=== PATIENT | female | born 1930 | race Caucasian/White ===

== ENCOUNTER → 2016-07-18 | Outpatient (CLI) | payer MEDICARE ==
[~2016-07-18] MED LIST: BAYE325T12 PO; FOLI1TAB2 PO; INDA125TA PO; KLOR1TAB73 PO; LEFL1TAB4 PO; LOSA25TA8 PO; LOSA50TA20 PO; METH2.5TA PO; PRAV20TA2 PO; TYLE325T5 PO; VITA100L PO
--- NOTE | 2016-07-18 12:46 | REP ---
CHEST, TWO VIEWS: HISTORY: Cough. Comparison 06/25/2015. An increase in interstitial markings is present in the lungs. The heart is normal in size. The pulmonary vasculature is normal in appearance. Degenerative change is present in the thoracic spine. IMPRESSION: COPD. Signed by Fabricio Yeboah MD 07/18/2016 01:00 P
== END ==
LOC: M WUC 12:17
PROVIDERS: ATTEND Nurse Practitioner Family
DX: J44.9 Chronic obstructive pulmonary disease, unspecified (principal)

== ENCOUNTER 2016-07-25 19:46 | Emergency (ER) | payer MEDICARE ==
[2016-07-25] MEDS ORDERED: IBUPROFEN 600 MG TAB As Ordered ONE (20:33)
[2016-07-25 20:40] LABS: MEAN CORPUSCULAR HEMOGLOBIN 29.3 pg (27.0-33.0); MEAN CORPUSCULAR HGB CONC 30.1 g/dl (32.0-36.5); MEAN CORPUSCULAR VOLUME 97.3 fl (80.0-96.0); PLATELET COUNT, AUTOMATED 272 k/mm3 (150-450); RED CELL DISTRIBUTION WIDTH 17.5 % (11.5-14.5); WHITE BLOOD COUNT 9.3 K/mm3 (4.0-10.0)
[2016-07-25 20:41] LABS: VENOUS BASE EXCESS -2.9 (-2.0-2.0); VENOUS O2 SATURATION 81.6 % (60.0-80.0); VENOUS PARTIAL PRESSURE CO2 36.3 mmHg (38.0-50.0); VENOUS PARTIAL PRESSURE O2 49.5 mmHg (30.0-50.0); VENOUS STANDARD HCO3 21.8 MEQ/L; VENOUS TOTAL CO2 22.7 MEQ/L (24.0-28.0)
[2016-07-25 20:59] LABS: BANDS 6 % (< 11); EOSINOPHILS 4 % (0-5)
[2016-07-25 21:00] LABS: ANISOCYTOSIS 1+; POLYCHROMASIA 1+
[2016-07-25 21:04] LABS: ALBUMIN 2.6 GM/DL (3.2-5.2); ALBUMIN/GLOBULIN RATIO 0.72 (1.00-1.93); ALKALINE PHOSPHATASE 88 U/L (45-117); ALT/SGPT 18 U/L (12-78); ANION GAP 10 MEQ/L (8-16); AST/SGOT 44 U/L (15-37); BILIRUBIN,DIRECT 0.2 MG/DL (0.0-0.2); BILIRUBIN,TOTAL 0.5 MG/DL (0.2-1.0); BLOOD UREA NITROGEN 19 MG/DL (7-18); CALCIUM LEVEL 7.6 MG/DL (8.8-10.2); CARBON DIOXIDE LEVEL 19 MEQ/L (21-32); CHLORIDE LEVEL 102 MEQ/L (98-107); CREATININE FOR GFR 0.91 MG/DL (0.55-1.02); GLOMERULAR FILTRATION RATE > 60.0 (>32); GLUCOSE, FASTING 98 MG/DL (83-110); POTASSIUM SERUM 4.8 MEQ/L (3.5-5.1); SODIUM LEVEL 131 MEQ/L (136-145); TOTAL PROTEIN 6.2 GM/DL (6.4-8.2)
[2016-07-25] MEDS ORDERED: ISOVUE-370 76% 100ML VIAL (Q9967) As Ordered ONE (21:46)
--- NOTE | 2016-07-25 22:50 | REPUSA ---
CLINICAL STATEMENT: Cough, abdominal pain Technique: CT of the chest, abdomen, pelvis was performed with intravenous contrast by obtaining cont iguous axial slices from the level of the thyroid cartilage to the proximal femoral diaphyses. 3-D re construction with multiplanar reformats in coronal and sagittal projections were obtained. COMPARISON: None FINDINGS: CHEST: LOWER NECK: Visualized thyroid gland demonstrate the left lobe low-density nodule which is probable c yst. No mass, enlarged adenopathy, suspicious cystic lesion, fluid collection, free air, or evidence of an inflammatory process. LYMPH NODES: No enlarged adenopathy. MEDIASTINUM: No mass or suspicious cystic lesion. The heart is normal in size without pericardial eff usion. Aorta and pulmonary trunk are normal in caliber without aneurysmal dilatation, gross dissectio n, or central pulmonary embolus. PLEURA/PERICARDIUM: No pericardial or pleural effusion, mass, or suspicious cystic lesion LUNGS/AIRWAYS: Paraseptal emphysematous changes toward the bases. No acute infiltrate, effusion, pneu mothorax, mass, or suspicious nodule. Central and visualized peripheral airways are patent. ABDOMEN/PELVIS: LIVER: The liver is normal in size and contour without mass or suspicious cystic lesion. The portal a nd hepatic veins are patent. BILIARY SYSTEM: Status post cholecystectomy with no intrahepatic biliary ductal dilatation or calcifi ed biliary stones. CBD within normal limits. PANCREAS: The pancreas is normal in size, contour and density. No solid or cystic pancreatic mass is seen. No pancreatic duct dilatation is seen. SPLEEN: The spleen is normal in size and without mass or suspicious cystic lesion. ADRENALS: The adrenal glands are normal and anatomical configuration and size without identifiable ma ss. KIDNEYS/URETERS: The kidneys are normal in anatomical configuration, size, and enhancement with no ma ss. Bilateral subcentimeter cortical cysts. No calcified renal or ureteral calculi, or hydroureterone phrosis. URINARY BLADDER: No wall thickening, stones, or diverticula. UTERUS/ADNEXA: Absent. AORTA AND ILIAC ARTERIES: No aneurysmal dilatation. LYMPH NODES: No enlarged adenopathy. GASTROINTESTINAL: Mild thickening of ascending colon without pericolic stranding. Stomach, duodenum, and remaining bowel normal in caliber. PERITONEUM: No ascites, extraluminal air, mass, or suspicious cystic lesion. ABDOMINAL/PELVIC WALL/SOFT TISSUES: No suspicious soft tissue abnormality or hernia. OSSEOUS STRUCTURES: No acute fracture or suspicious lesion. Multilevel degenerative changes of the sp ine with endplate sclerosis, disc space narrowing and vacuum phenomenon. No spondylolisthesis. IMPRESSION: 1. No evidence of pneumonia. 2. Mild thickening of ascending colon is nonspecific although may suggest colitis in proper clinical context.
[2016-07-25] MEDS ORDERED: ALBUTEROL 90 MCG/ACT 8GM HFA INHALER As Ordered ONE (23:35)
[2016-07-25] MEDS ORDERED: methylPREDNISolone INJ 125 MG/2 ML VIAL (J2930) As Ordered ONE (23:35)
--- NOTE | 2016-07-26 00:17 | EDDOCDS ---
Nurse's Notes [facility] Name: Kristi Doshi Age: 86 yrs Sex: Female : 1930 Arrival Date: 07/25/2016 Time: 19:46 Bed 10 Private MD: Pineda Amador Diagnosis: Fever, unspecified;Chronic obstructive pulmonary disease, unspecified Presentation: 07/25 19:53 Presenting complaint: daughter states, "She spiked a temp today. I've been giving her mb9 tylenol with no help. She has been shaky and not acting right so we brought her in here. She was diagnosed with COPD and I'm wondering if she is having a flare up". Adult Sepsis Screening: Patient has new or worsening altered mentation (1 point). Patient has a respiratory rate of greater than or equal to 22 (1 point). Systolic blood pressure is greater than 100. Patient has a qSOFA score of 2. Patient has fever/chills- Positive Sepsis Screen. ED Provider Notified Sony Addison DO. Suicide/Homicide risk assessment- the patient denies having any suicidal and/or homicidal ideations and does not present with any other emotional, behavioral or mental health complaints. Status: Patient is not a underwriting service representative or dependent. Transition of care: patient was not received from another setting of care. 19:53 Acuity: MATTHIAS Level 2 mb9 19:53 Method Of Arrival: Walkin/Carried/Asstd mb9 Triage Assessment: 19:59 General: Appears in no apparent distress, Behavior is appropriate for age, cooperative. mb9 Pain: Denies pain. Respiratory: Airway is patent Respiratory effort is even, unlabored. Historical: - Allergies: No known drug Allergies; - Home Meds: 1. aspirin 81 mg Oral TbEC 1 tab once daily (Last dose: 07/25/2016) 2. folic acid 1 mg Oral tab 1 tab once daily (Last dose: 07/25/2016) 3. Iron High Potency 325 mg oral daily (Last dose: 07/25/2016) 4. leflunomide 20 mg oral tab 1 tab nightly (Last dose: 07/24/2016) 5. losartan 25 mg oral tab 1 tab nightly (Last dose: 07/24/2016) 6. pravastatin 20 mg oral tab 1 tab nightly (Last dose: 07/24/2016) 7. Tylenol 1000 mg Oral (Last dose: 07/25/2016 18:30) - PMHx: Anemia; Arthritis; CVA; Hypercholesterolemia; Hypertension; TIA; c-diff; - PSHx: Cholecystectomy; Hysterectomy; - Social history: Smoking status: Patient states former smoker of tobacco. No barriers to communication noted, The patient speaks fluent Italian. - Family history: Not pertinent. - : The pt / caregiver states he / she is not on anticoagulants. Home medication list is obtained from family members. - Exposure Risk Screening:: None identified. Screenin:14 Screening information is obtained from the patient. Fall risk: At risk due to age. kas2 Assistance ADL's: requires no assistance with activities of daily living. Abuse/DV Screen: The patient / caregiver reports he/she is: not in a situation that causes fear, pain or injury. Nutritional screening: No deficits noted. home support is adequate. 07/26 00:15 Advance Directives:. kas2 Assessment: 07/25 20:15 General: Appears in no apparent distress, comfortable, well nourished, well groomed, kas2 Behavior is appropriate for age, cooperative. Pain: Denies pain. Neurological: Level of Consciousness is awake, alert, Oriented to person, place, time, Speech is normal, Facial symmetry appears normal, Pupils are PERRLA. Cardiovascular: Capillary refill < 3 seconds Heart tones S1 S2 present Rhythm is sinus tachycardia No ectopy. Respiratory: Airway is patent Respiratory effort is even, unlabored, Respiratory pattern is regular, symmetrical, Breath sounds with crackles expiratory bilaterally. in left posterior lower lobe and right posterior lower lobe Breath sounds are diminished bilaterally. Derm: Skin is intact, is healthy with good turgor, Skin is dry, Skin is pink, warm & dry. Skin temperature is warm. 21:30 General: Patient laying in bed with family at bedside. No apparent distress noted. kas2 Patient denies pain or discomfort at this time. Airway patent and respiratory pattern even and unlabored. Call javier within reach. Will continue to monitor.. 22:45 General: Appears in no apparent distress, comfortable, Behavior is appropriate for age, kas2 cooperative. Pain: Denies pain. Neurological: Level of Consciousness is awake, alert, Oriented to person, place, time. Cardiovascular: Rhythm is sinus rhythm No ectopy. Respiratory: Airway is patent Respiratory effort is even, unlabored, Respiratory pattern is regular, symmetrical. Derm: Skin is intact, is healthy with good turgor, Skin is dry, Skin is pink, warm & dry. Skin temperature is warm. Vital Signs: 19:51 BP 104 / 56; Pulse 110; Resp 22; Temp 100.9(O); Pulse Ox 93% on R/A; Weight 52.16 kg elp (R); Height 5 ft. 0 in. (152.40 cm) (R); Pain 0/10; 20:25 BP 121 / 59 (auto/); kas2 20:25 Pulse 100 MON; Pulse Ox 93% ; kas2 22:07 BP 122 / 58 (auto/); kas2 22:07 Pulse 98 MON; kas2 22:37 BP 105 / 54 (auto/); kas2 22:37 Pulse 94 MON; kas2 22:40 Temp 98.7(O); mdr 22:52 BP 105 / 56 (auto/); kas2 22:52 Pulse 90 MON; kas2 07/26 00:15 BP 110 / 52; Pulse 89; Resp 20; Temp 98.2(O); Pulse Ox 98% on R/A; Pain 0/10; kas2 07/25 19:51 Body Mass Index 22.46 (52.16 kg, 152.40 cm) [facility] Vitals: 07/25 19:51 Log In Time: July 25, 2016 at 19:50. elp 19:52 RN notified that patient meets Red Flag criteria. [facility] ED Course: 19:50 Patient visited by Skylar Sen PCA. elp 19:50 Patient moved to Waiting elp 19:51 Pineda Amador MD is Private Physician. elp 19:52 Patient visited by Skylar Sen PCA. elp 19:53 Patient moved to Pre RCE elp 19:56 Triage Initiated mb9 20:02 Honey Ceja,RN is Primary Nurse. mb9 20:02 Aicha Barrera RN is Primary Nurse. mb9 20:02 Patient moved to 10 mb9 20:04 Sony Addison DO is Attending Physician. mm11 20:04 Patient visited by Sony Addison DO. mm11 20:18 Patient visited by Aicha Barrera RN. kas2 20:21 Patient visited by Sony Addison DO. mm11 20:29 Patient visited by Maryellen Villa RN. ttb 20:30 CRP Sent. ttb 20:30 Lactic Acid (Allison tube on ice) Sent. ttb 20:30 Liver Profile Sent. ttb 20:30 BMP Sent. ttb 20:30 CBC with Diff Sent. ttb 20:30 -Blood Culture Sent. ttb 20:30 Venous Blood Gas (large pea green tube on ice) Sent. ttb 20:30 Inserted peripheral IV: 20gauge IV in left antecubital area and blood collected. ttb Patient tolerated the procedure well. Labs drawn. (by ED staff). Labs/Blood culture drawn Urine collected. 20:31 Patient visited by Maryellen Villa RN. ttb 21:15 Patient visited by Aicha Barrera RN. kas2 21:26 BLOOD CULTURES Sent. mdr 21:45 -Influenza A&B Rapid Antigen - Nose Sent. kas2 21:48 Patient visited by Aicha Barrera RN. kas2 21:52 Patient visited by Aicha Barrera RN. kas2 22:00 [facility] Payment Agreement was scanned into [employer] and attached to record. zo 22:28 Patient visited by Aicha Barrera RN. kas2 22:40 Patient visited by Patrick Alegre PCA. mdr 22:43 Patient visited by Aicha Barrera RN. kas2 23:04 Patient visited by Aicha Barrera RN. kas2 23:39 Pineda Amador MD is Referral Physician. mm11 23:48 CT Chest With Contrast Returned. EDMS 23:48 CT ABD & PELVIS: IV Contrast Only Returned. EDMS 23:51 Primary Nurse role handed off by Honey Ceja RN sls1 07/26 00:10 DIFFERENTIAL NO CHARGE Sent. nn1 00:14 Discontinued IV bleeding controlled, pressure dressing applied, No redness/swelling at [facility] site. No procedures done that require assistance. 00:16 The patient / caregiver is instructed regarding the plan of care and ED course. [facility] Administered Medications: 07/25 20:39 Drug: Ibuprofen 600 mg [ibuprofen 600 mg tablet (1 tabs)] Route: PO; ttb 20:39 Drug: NS 0.9% 500 ml [sodium chloride 0.9 % intravenous solution] Route: IV; Rate: ttb bolus; Site: left antecubital; 21:45 Follow up: IV Status: Completed infusion; IV Intake: 500ml kas2 23:46 Drug: Ventolin 2 puffs [Ventolin HFA 90 mcg/actuation aerosol inhaler (2 puffs)] Route: cf2 Inhalation; 07/26 00:00 Follow up: pt lung sounds with bilateral LL coarse rales. bb3 07/25 23:46 Drug: Solu-MEDROL 125 mg [Solu-Medrol 500 mg intravenous solution (125 mg)] Route: IVP; cf2 Site: left antecubital; Intake: 21:45 IV: 500.00ml; Total: 500.00ml. kas2 RT: 23:58 Initial MDI Given. Unable to instruct patient due to physical barriers, bb3 family/caregiver was instructed on procedure Patient tolerated procedure well without adverse effect Spacer used Number of puffs given: 2. Respiratory: Respiratory effort is even, unlabored, Lung sounds with bilateral LL coarse rales. Patient Education: pt and instructed on MDI/spacer teaching. pt has dementia. was able to help with MDI/spacer from start to finish without any error. Order Results: Lab Order: CBC with Diff; SPEC'M 07/25/16 20:26 Test: WHITE BLOOD COUNT; Value: 9.3; Range: 4.0-10.0; Units: K/mm3; Status: F Test: RED BLOOD COUNT; Value: 3.05; Range: 4.00-5.40; Abnormal: Below low normal; Units: M/mm3; Status: F Test: HEMOGLOBIN; Value: 8.9; Range: 12.0-16.0; Abnormal: Below low normal; Units: g/dl; Status: F Test: HEMATOCRIT; Value: 29.7; Range: 36.0-47.0; Abnormal: Below low normal; Units: %; Status: F Test: MEAN CORPUSCULAR VOLUME; Value: 97.3; Range: 80.0-96.0; Abnormal: Above high normal; Units: fl; Status: F Test: MEAN CORPUSCULAR HEMOGLOBIN; Value: 29.3; Range: 27.0-33.0; Units: pg; Status: F Test: MEAN CORPUSCULAR HGB CONC; Value: 30.1; Range: 32.0-36.5; Abnormal: Below low normal; Units: g/dl; Status: F Test: RED CELL DISTRIBUTION WIDTH; Value: 17.5; Range: 11.5-14.5; Abnormal: Above high normal; Units: %; Status: F Test: PLATELET COUNT, AUTOMATED; Value: 272; Range: 150-450; Units: k/mm3; Status: F Test: NEUTROPHILS; Value: 70; Range: 35-75; Units: %; Status: F Test: BANDS; Value: 6; Range: < 11; Units: %; Status: F Test: LYMPHOCYTES; Value: 8; Range: 16-52; Abnormal: Below low normal; Units: %; Status: F Test: MONOCYTES; Value: 12; Range: 0-8; Abnormal: Above high normal; Units: %; Status: F Test: EOSINOPHILS; Value: 4; Range: 0-5; Units: %; Status: F Test: POLYCHROMASIA; Value: 1+; Status: F Test: ANISOCYTOSIS; Value: 1+; Status: F Lab Order: [facility]; SPEC'M 07/25/16 20:26 Test: GLUCOSE, FASTING; Value: 98; Range: 83-110; Units: MG/DL; Status: F Test: BLOOD UREA NITROGEN; Value: 19; Range: 7-18; Abnormal: Above high normal; Units: MG/DL; Status: F Test: CREATININE FOR GFR; Value: 0.91; Range: 0.55-1.02; Units: MG/DL; Status: F Test: GLOMERULAR FILTRATION RATE; Value: > 60.0; Range: >32; Status: F Test: SODIUM LEVEL; Value: 131; Range: 136-145; Abnormal: Below low normal; Units: MEQ/L; Status: F Test: POTASSIUM SERUM; Value: 4.8; Range: 3.5-5.1; Units: MEQ/L; Status: F Test: CHLORIDE LEVEL; Value: 102; Range: 98-107; Units: MEQ/L; Status: F Test: CARBON DIOXIDE LEVEL; Value: 19; Range: 21-32; Abnormal: Below low normal; Units: MEQ/L; Status: F Test: ANION GAP; Value: 10; Range: 8-16; Units: MEQ/L; Status: F Test: CALCIUM LEVEL; Value: 7.6; Range: 8.8-10.2; Abnormal: Below low normal; Units: MG/DL; Status: F Test Note: ; Units are mL/min/1.73 m2 Chronic Kidney Disease Staging per NKF: Stage I & II GFR >=60 Normal to Mildly Decreased Stage III GFR 30-59 Moderately Decreased Stage IV GFR 15-29 Severely Decreased Stage V GFR <15 Very Little GFR Left ESRD GFR <15 on PRODUCTION HAND Lab Order: Liver Profile; SPEC07/25/16 20:26 Test: AST/SGOT; Value: 44; Range: 15-37; Abnormal: Above high normal; Units: U/L; Status: F Test: ALT/SGPT; Value: 18; Range: 12-78; Units: U/L; Status: F Test: ALKALINE PHOSPHATASE; Value: 88; Range: 45-117; Units: U/L; Status: F Test: BILIRUBIN,TOTAL; Value: 0.5; Range: 0.2-1.0; Units: MG/DL; Status: F Test: BILIRUBIN,DIRECT; Value: 0.2; Range: 0.0-0.2; Units: MG/DL; Status: F Test: TOTAL PROTEIN; Value: 6.2; Range: 6.4-8.2; Abnormal: Below low normal; Units: GM/DL; Status: F Test: ALBUMIN; Value: 2.6; Range: 3.2-5.2; Abnormal: Below low normal; Units: GM/DL; Status: F Test: ALBUMIN/GLOBULIN RATIO; Value: 0.72; Range: 1.00-1.93; Abnormal: Below low normal; Status: F Lab Order: Lactic Acid (Allison tube on ice); SPEC07/25/16 20:26 Test: LACTIC ACID LEVEL, LACTATE; Value: 1.6; Range: 0.4-2.0; Units: MMOL/L; Status: F Lab Order: CRP; 07/25/16 20:26 Test: C REACTIVE PROTEIN QUANTITATIV; Value: 3.35; Range: 0.00-0.30; Abnormal: Above high normal; Units: MG/DL; Status: F Lab Order: Venous Blood Gas (large pea green tube on ice); SPEC07/25/16 20:26 Test: VENOUS PH; Value: 7.393; Range: 7.330-7.430; Units: UNITS; Status: F Test: VENOUS PARTIAL PRESSURE CO2; Value: 36.3; Range: 38.0-50.0; Abnormal: Below low normal; Units: mmHg; Status: F Test: VENOUS PARTIAL PRESSURE O2; Value: 49.5; Range: 30.0-50.0; Units: mmHg; Status: F Test: VENOUS TOTAL CO2; Value: 22.7; Range: 24.0-28.0; Abnormal: Below low normal; Units: MEQ/L; Status: F Test: VENOUS HCO3; Value: 21.6; Range: 23.0-27.0; Abnormal: Below low normal; Units: MEQ/L; Status: F Test: VENOUS BASE EXCESS; Value: -2.9; Range: -2.0-2.0; Abnormal: Below low normal; Status: F Test: VENOUS STANDARD HCO3; Value: 21.8; Units: MEQ/L; Status: F Test: VENOUS O2 SATURATION; Value: 81.6; Range: 60.0-80.0; Abnormal: Above high normal; Units: %; Status: F Lab Order: UA; SPEC'M 07/25/16 21:49 Test: APPEARANCE, URINE; Value: HAZY; Range: CLEAR; Status: F Test: COLOR, URINE; Value: YELLOW; Range: YELLOW; Status: F Test: PH,URINE; Value: 5.0; Range: 5.0-9.0; Units: UNITS; Status: F Test: SPECIFIC GRAVITY URINE AUTO; Value: 1.013; Range: 1.002-1.035; Status: F Test: PROTEIN, URINE AUTO; Value: 1+; Range: NEGATIVE; Abnormal: Above high normal; Units: mg/dL; Status: F Test: GLUCOSE, URINE (UA) AUTO; Value: NEGATIVE; Range: NEGATIVE; Units: mg/dL; Status: F Test: KETONE, URINE AUTO; Value: NEGATIVE; Range: NEGATIVE; Units: mg/dL; Status: F Test: UROBILINOGEN, URINE AUTO; Value: 0.2; Range: 0.0-2.0; Units: mg/dL; Status: F Test: BILIRUBIN, URINE AUTO; Value: NEGATIVE; Range: NEGATIVE; Status: F Test: NITRITE, URINE AUTO; Value: NEGATIVE; Range: NEGATIVE; Status: F Test: LEUKOCYTE ESTERASE, URINE AUTO; Value: 3+; Range: NEGATIVE; Abnormal: Above high normal; Status: F Test: BLOOD, URINE BLOOD; Value: NEGATIVE; Range: NEGATIVE; Status: F Test: WBC, URINE AUTO; Value: 33; Range: 0-3; Abnormal: Above high normal; Units: /HPF; Status: F Test: RBC, URINE AUTO; Value: 3; Range: 0-3; Units: /HPF; Status: F Test: BACTERIA, URINE AUTO; Value: 1+; Range: NEGATIVE; Abnormal: Above high normal; Status: F Test: SQUAMOUS EPITHELIAL CELL UR AU; Value: 10; Range: 0-6; Units: /HPF; Status: F Test: MUCUS, URINE; Value: SMALL; Range: NEGATIVE; Status: F Test: HYALINE CAST, URINE AUTO; Value: 0; Range: 0-1; Units: /LPF; Status: F Lab Order: -Influenza A&B Rapid Antigen - Nose; SPEC'M 07/25/16 21:27 Test: INFLUENZA A RAPID SCR by ICA; Value: INFLUENZA A RESULTS NEGATIVE; Status: F Test: INFLUENZA A RAPID SCR by ICA; Value: Comments:; Status: F Test: INFLUENZA B RAPID SCR by ICA; Value: INFLUENZA B RESULTS NEGATIVE; Status: F Test Note: ; The Influenza test is a direct rapid immunoassay for the qualitative detection of Influenza viral antigen. Cell culture (Viral Culture) testing should be considered to confirm NEGATIVE results and to assist in detecting other viruses that can provide similar clinical symptoms. Please contact the lab within 24 hours ([phone]) if confirmatory testing is desired. Lab Order: PLATELET ESTIMATE; SPEC'M 07/25/16 20:26 Test: PLATELET ESTIMATE; Value: NORMAL; Range: NORMAL; Status: F Radiology Order: CT Chest With Contrast Test: CT Chest With Contrast REASON FOR EXAMINATION: Cough; ; CLINICAL STATEMENT: Cough, abdominal pain; Technique: CT of the chest, abdomen, pelvis was performed with intravenous contrast by obtaining cont; iguous axial slices from the level of the thyroid cartilage to the proximal femoral diaphyses. 3-D re; construction with multiplanar reformats in coronal and sagittal projections were obtained.; COMPARISON: None; FINDINGS:; CHEST:; LOWER NECK: Visualized thyroid gland demonstrate the left lobe low-density nodule which is probable c; yst. No mass, enlarged adenopathy, suspicious cystic lesion, fluid collection, free air, or evidence; of an inflammatory process.; LYMPH NODES: No enlarged adenopathy.; MEDIASTINUM: No mass or suspicious cystic lesion. The heart is normal in size without pericardial eff; usion. Aorta and pulmonary trunk are normal in caliber without aneurysmal dilatation, gross dissectio; n, or central pulmonary embolus.; PLEURA/PERICARDIUM: No pericardial or pleural effusion, mass, or suspicious cystic lesion; LUNGS/AIRWAYS: Paraseptal emphysematous changes toward the bases. No acute infiltrate, effusion, pneu; mothorax, mass, or suspicious nodule. Central and visualized peripheral airways are patent.; ABDOMEN/PELVIS:; LIVER: The liver is normal in size and contour without mass or suspicious cystic lesion. The portal a; nd hepatic veins are patent.; BILIARY SYSTEM: Status post cholecystectomy with no intrahepatic biliary ductal dilatation or calcifi; ed biliary stones. CBD within normal limits.; PANCREAS: The pancreas is normal in size, contour and density. No solid or cystic pancreatic mass is; seen. No pancreatic duct dilatation is seen.; SPLEEN: The spleen is normal in size and without mass or suspicious cystic lesion.; ADRENALS: The adrenal glands are normal and anatomical configuration and size without identifiable ma; ss.; KIDNEYS/URETERS: The kidneys are normal in anatomical configuration, size, and enhancement with no ma; ss. Bilateral subcentimeter cortical cysts. No calcified renal or ureteral calculi, or hydroureterone; phrosis.; URINARY BLADDER: No wall thickening, stones, or diverticula.; UTERUS/ADNEXA: Absent.; AORTA AND ILIAC ARTERIES: No aneurysmal dilatation.; LYMPH NODES: No enlarged adenopathy.; GASTROINTESTINAL: Mild thickening of ascending colon without pericolic stranding. Stomach, duodenum,; and remaining bowel normal in caliber.; PERITONEUM: No ascites, extraluminal air, mass, or suspicious cystic lesion.; ABDOMINAL/PELVIC WALL/SOFT TISSUES: No suspicious soft tissue abnormality or hernia.; OSSEOUS STRUCTURES: No acute fracture or suspicious lesion. Multilevel degenerative changes of the sp; ine with endplate sclerosis, disc space narrowing and vacuum phenomenon. No spondylolisthesis.; IMPRESSION:; 1. No evidence of pneumonia.; 2. Mild thickening of ascending colon is nonspecific although may suggest colitis in proper clinical; context.; ; Radiology Order: CT ABD & PELVIS: IV Contrast Only Test: CT ABD & PELVIS: IV Contrast Only REASON FOR EXAMINATION: c diff, fevers; ; CLINICAL STATEMENT: Cough, abdominal pain; Technique: CT of the chest, abdomen, pelvis was performed with intravenous contrast by obtaining cont; iguous axial slices from the level of the thyroid cartilage to the proximal femoral diaphyses. 3-D re; construction with multiplanar reformats in coronal and sagittal projections were obtained.; COMPARISON: None; FINDINGS:; CHEST:; LOWER NECK: Visualized thyroid gland demonstrate the left lobe low-density nodule which is probable c; yst. No mass, enlarged adenopathy, suspicious cystic lesion, fluid collection, free air, or evidence; of an inflammatory process.; LYMPH NODES: No enlarged adenopathy.; MEDIASTINUM: No mass or suspicious cystic lesion. The heart is normal in size without pericardial eff; usion. Aorta and pulmonary trunk are normal in caliber without aneurysmal dilatation, gross dissectio; n, or central pulmonary embolus.; PLEURA/PERICARDIUM: No pericardial or pleural effusion, mass, or suspicious cystic lesion; LUNGS/AIRWAYS: Paraseptal emphysematous changes toward the bases. No acute infiltrate, effusion, pneu; mothorax, mass, or suspicious nodule. Central and visualized peripheral airways are patent.; ABDOMEN/PELVIS:; LIVER: The liver is normal in size and contour without mass or suspicious cystic lesion. The portal a; nd hepatic veins are patent.; BILIARY SYSTEM: Status post cholecystectomy with no intrahepatic biliary ductal dilatation or calcifi; ed biliary stones. CBD within normal limits.; PANCREAS: The pancreas is normal in size, contour and density. No solid or cystic pancreatic mass is; seen. No pancreatic duct dilatation is seen.; SPLEEN: The spleen is normal in size and without mass or suspicious cystic lesion.; ADRENALS: The adrenal glands are normal and anatomical configuration and size without identifiable ma; ss.; KIDNEYS/URETERS: The kidneys are normal in anatomical configuration, size, and enhancement with no ma; ss. Bilateral subcentimeter cortical cysts. No calcified renal or ureteral calculi, or hydroureterone; phrosis.; URINARY BLADDER: No wall thickening, stones, or diverticula.; UTERUS/ADNEXA: Absent.; AORTA AND ILIAC ARTERIES: No aneurysmal dilatation.; LYMPH NODES: No enlarged adenopathy.; GASTROINTESTINAL: Mild thickening of ascending colon without pericolic stranding. Stomach, duodenum,; and remaining bowel normal in caliber.; PERITONEUM: No ascites, extraluminal air, mass, or suspicious cystic lesion.; ABDOMINAL/PELVIC WALL/SOFT TISSUES: No suspicious soft tissue abnormality or hernia.; OSSEOUS STRUCTURES: No acute fracture or suspicious lesion. Multilevel degenerative changes of the sp; ine with endplate sclerosis, disc space narrowing and vacuum phenomenon. No spondylolisthesis.; IMPRESSION:; 1. No evidence of pneumonia.; 2. Mild thickening of ascending colon is nonspecific although may suggest colitis in proper clinical; context.; ; Outcome: 23:39 Discharge ordered by Provider. mm11 07/26 00:15 Discharge Assessment: patient administered narcotics - no. The following High Risk [facility] Discharge criteria are identified: None. Discharged to home ambulatory, with family. Condition: good Condition: stable Condition: improved. CT Study completed. Property :Personal belongings accompany Pt. 00:16 Patient left the ED. [facility] Signatures: Dispatcher [employer] EDMS Jamal Myles Matthew, DO DO mm11 Osmar Lucia bb3 Karen Navarro, RN RN sls1 Maryellen Villa RN RN ttSkylar Alvarado, LEAD JAVA DEVELOPER ARCHITECT LEAD JAVA DEVELOPER ARCHITECT Bora Whitney,RN RN mb9 Mir Wilkerson,RN RN nn1 Patrick Alegre, LEAD JAVA DEVELOPER ARCHITECT LEAD JAVA DEVELOPER ARCHITECT Aicha Soni RN RN kas2 Omayra Michaud,RN RN cf2 MTDD
--- NOTE | 2016-07-26 00:17 | EDDOCDS ---
Physician Documentation [facility] Name: Kristi Doshi Age: 86 yrs Sex: Female : 1930 Arrival Date: 07/25/2016 Time: 19:46 Bed 10 Private MD: Pineda Amador Disposition: 07/25/16 23:39 Discharged to Home/Self Care. Impression: Fever, unspecified, Chronic obstructive pulmonary disease, unspecified. - Condition is Stable. - Discharge Instructions: Chronic Obstructive Pulmonary Disease, Fever, Adult. - Prescriptions for Prednisone 20 mg Oral Tablet - take 2 tablet by ORAL route once daily for 5 days; 10 tablet. - Medication Reconciliation, Local Pharmacy Hours form. - Follow up: Pineda Amador MD; When: As previously arranged; Reason: Continuance of care. - Problem is an acute exacerbation. - Symptoms have improved. Historical: - Allergies: No known drug Allergies; - Home Meds: 1. aspirin 81 mg Oral TbEC 1 tab once daily (Last dose: 07/25/2016) 2. folic acid 1 mg Oral tab 1 tab once daily (Last dose: 07/25/2016) 3. Iron High Potency 325 mg oral daily (Last dose: 07/25/2016) 4. leflunomide 20 mg oral tab 1 tab nightly (Last dose: 07/24/2016) 5. losartan 25 mg oral tab 1 tab nightly (Last dose: 07/24/2016) 6. pravastatin 20 mg oral tab 1 tab nightly (Last dose: 07/24/2016) 7. Tylenol 1000 mg Oral (Last dose: 07/25/2016 18:30) - PMHx: Anemia; Arthritis; CVA; Hypercholesterolemia; Hypertension; TIA; c-diff; - PSHx: Cholecystectomy; Hysterectomy; - Social history: Smoking status: Patient states former smoker of tobacco. No barriers to communication noted, The patient speaks fluent Swiss. - Family history: Not pertinent. - : The pt / caregiver states he / she is not on anticoagulants. Home medication list is obtained from family members. - Exposure Risk Screening:: None identified. Vital Signs: 07/25 19:51 BP 104 / 56; Pulse 110; Resp 22; Temp 100.9(O); Pulse Ox 93% on R/A; Weight 52.16 kg / elp 114.99 lbs (R); Height 5 ft. 0 in. (152.40 cm) (R); Pain 0/10; 20:25 BP 121 / 59 (auto/); kas2 20:25 Pulse 100 MON; Pulse Ox 93% ; kas2 22:07 BP 122 / 58 (auto/); kas2 22:07 Pulse 98 MON; kas2 22:37 BP 105 / 54 (auto/); kas2 22:37 Pulse 94 MON; kas2 22:40 Temp 98.7(O); mdr 22:52 BP 105 / 56 (auto/); kas2 22:52 Pulse 90 MON; kas2 07/26 00:15 BP 110 / 52; Pulse 89; Resp 20; Temp 98.2(O); Pulse Ox 98% on R/A; Pain 0/10; kas2 07/25 19:51 Body Mass Index 22.46 (52.16 kg, 152.40 cm) elp MDM: 07/25 20:26 -Blood Culture (Adults Only), peripheral from different site, or from device/port/PICC mm11 etc. if present ordered. 20:26 IV Saline Lock ordered. mm11 20:26 Ibuprofen 600 mg PO once ordered. mm11 20:28 Chest, 1 View Ordered. EDMS 20:28 CBC with Diff Ordered. EDMS 20:28 BMP Ordered. EDMS 20:28 Liver Profile Ordered. EDMS 20:28 Lactic Acid (Allison tube on ice) Ordered. EDMS 20:28 CRP Ordered. EDMS 20:28 -Blood Culture Ordered. EDMS 20:28 Venous Blood Gas (large pea green tube on ice) Ordered. EDMS 20:28 UA Ordered. EDMS 20:28 Urine Culture Ordered. EDMS 20:28 -Blood Culture (Adults Only), peripheral from different site, or from device/port/PICC kb5 etc. if present complete. 20:29 BLOOD CULTURES Ordered. EDMS 20:34 NS 0.9% 500 ml IV at bolus once ordered. mm11 20:41 DIFFERENTIAL NO CHARGE Ordered. EDMS 20:42 PLATELET ESTIMATE Ordered. EDMS 20:42 -Influenza A&B Rapid Antigen - Nose Ordered. EDMS 21:08 CBC with Diff Reviewed. mm11 21:08 BMP Reviewed. mm11 21:08 Liver Profile Reviewed. mm11 21:08 CRP Reviewed. mm11 21:08 Venous Blood Gas (large pea green tube on ice) Reviewed. mm11 21:08 PLATELET ESTIMATE Reviewed. mm11 21:32 Lactic Acid (Allison tube on ice) Reviewed. mm11 21:38 CT Chest With Contrast Ordered. EDMS 21:38 CT ABD & PELVIS: IV Contrast Only Ordered. EDMS 21:54 Financial registration complete. zo 22:00 [facility] Payment Agreement was scanned into [employer] and attached to record. zo 22:10 UA Reviewed. mm11 22:10 -Influenza A&B Rapid Antigen - Nose Reviewed. mm11 22:30 Oral Temp ordered. mm11 23:26 Ventolin Inhaler 2 puffs Inhalation once; [id number] prn sob ordered. mm11 23:26 MDI teaching with Spacer ordered. mm11 23:26 Solu-MEDROL 125 mg IVP once ordered. mm11 Administered Medications: 20:39 Drug: Ibuprofen 600 mg [ibuprofen 600 mg tablet (1 tabs)] Route: PO; ttb 20:39 Drug: NS 0.9% 500 ml [sodium chloride 0.9 % intravenous solution] Route: IV; Rate: ttb bolus; Site: left antecubital; 21:45 Follow up: IV Status: Completed infusion; IV Intake: 500ml kas2 23:46 Drug: Ventolin 2 puffs [Ventolin HFA 90 mcg/actuation aerosol inhaler (2 puffs)] Route: cf2 Inhalation; 07/26 00:00 Follow up: pt lung sounds with bilateral LL coarse rales. bb3 07/25 23:46 Drug: Solu-MEDROL 125 mg [Solu-Medrol 500 mg intravenous solution (125 mg)] Route: IVP; cf2 Site: left antecubital; Signatures: Dispatcher [employer] EDMS Jamal Myles Kristopher, SCHEDULER SCHEDULER kb5 Sony Addison DO DO mm11 Bora WooRN RN mb9 Aicha Barrera RN RN kas2 Osmar Lucia bb3 Maryellen Villa RN ttb Omayra Michaud RN cf2 The chart was reviewed and I authenticate all verbal orders and agree with the evaluation and treatment provided.Attachments: 22:00 [facility] Payment Agreement zo MTDD
--- NOTE | 2016-07-26 09:02 | REP ---
Portable chest x-ray: Single view. History: Shortness of breath. Comparison chest x-ray July 18, 2016. Findings: EKG monitoring electrodes overlie the chest. Heart is not felt to be enlarged. No infiltrate is seen. Pleural angles are sharp. Pulmonary vasculature is not increased. The aorta is calcific and mildly tortuous. Impression: No active disease. Signed by Jonel Floyd MD 07/26/2016 10:22 A
--- NOTE | 2016-07-28 01:18 | EDDOCDS ---
Physician Documentation [facility] Name: Kristi Doshi Age: 86 yrs Sex: Female : 1930 Arrival Date: 07/25/2016 Time: 19:46 Bed 10 Private MD: Pineda Amador Disposition: 07/25/16 23:39 Discharged to Home/Self Care. Impression: Fever, unspecified, Chronic obstructive pulmonary disease, unspecified. - Condition is Stable. - Discharge Instructions: Chronic Obstructive Pulmonary Disease, Fever, Adult. - Prescriptions for Prednisone 20 mg Oral Tablet - take 2 tablet by ORAL route once daily for 5 days; 10 tablet. - Medication Reconciliation, Local Pharmacy Hours form. - Follow up: Pineda Amador MD; When: As previously arranged; Reason: Continuance of care. - Problem is an acute exacerbation. - Symptoms have improved. Historical: - Allergies: No known drug Allergies; - Home Meds: 1. aspirin 81 mg Oral TbEC 1 tab once daily (Last dose: 07/25/2016) 2. folic acid 1 mg Oral tab 1 tab once daily (Last dose: 07/25/2016) 3. Iron High Potency 325 mg oral daily (Last dose: 07/25/2016) 4. leflunomide 20 mg oral tab 1 tab nightly (Last dose: 07/24/2016) 5. losartan 25 mg oral tab 1 tab nightly (Last dose: 07/24/2016) 6. pravastatin 20 mg oral tab 1 tab nightly (Last dose: 07/24/2016) 7. Tylenol 1000 mg Oral (Last dose: 07/25/2016 18:30) - PMHx: Anemia; Arthritis; CVA; Hypercholesterolemia; Hypertension; TIA; c-diff; - PSHx: Cholecystectomy; Hysterectomy; - Social history: Smoking status: Patient states former smoker of tobacco. No barriers to communication noted, The patient speaks fluent Bulgarian. - Family history: Not pertinent. - : The pt / caregiver states he / she is not on anticoagulants. Home medication list is obtained from family members. - Exposure Risk Screening:: None identified. Vital Signs: 07/25 19:51 BP 104 / 56; Pulse 110; Resp 22; Temp 100.9(O); Pulse Ox 93% on R/A; Weight 52.16 kg / elp 114.99 lbs (R); Height 5 ft. 0 in. (152.40 cm) (R); Pain 0/10; 20:25 BP 121 / 59 (auto/); kas2 20:25 Pulse 100 MON; Pulse Ox 93% ; kas2 22:07 BP 122 / 58 (auto/); kas2 22:07 Pulse 98 MON; kas2 22:37 BP 105 / 54 (auto/); kas2 22:37 Pulse 94 MON; kas2 22:40 Temp 98.7(O); mdr 22:52 BP 105 / 56 (auto/); kas2 22:52 Pulse 90 MON; kas2 07/26 00:15 BP 110 / 52; Pulse 89; Resp 20; Temp 98.2(O); Pulse Ox 98% on R/A; Pain 0/10; kas2 07/25 19:51 Body Mass Index 22.46 (52.16 kg, 152.40 cm) elp MDM: 07/25 20:26 -Blood Culture (Adults Only), peripheral from different site, or from device/port/PICC mm11 etc. if present ordered. 20:26 IV Saline Lock ordered. mm11 20:26 Ibuprofen 600 mg PO once ordered. mm11 20:28 Chest, 1 View Ordered. EDMS 20:28 CBC with Diff Ordered. EDMS 20:28 BMP Ordered. EDMS 20:28 Liver Profile Ordered. EDMS 20:28 Lactic Acid (Allison tube on ice) Ordered. EDMS 20:28 CRP Ordered. EDMS 20:28 -Blood Culture Ordered. EDMS 20:28 Venous Blood Gas (large pea green tube on ice) Ordered. EDMS 20:28 UA Ordered. EDMS 20:28 Urine Culture Ordered. EDMS 20:28 -Blood Culture (Adults Only), peripheral from different site, or from device/port/PICC kb5 etc. if present complete. 20:29 BLOOD CULTURES Ordered. EDMS 20:34 NS 0.9% 500 ml IV at bolus once ordered. mm11 20:41 DIFFERENTIAL NO CHARGE Ordered. EDMS 20:42 PLATELET ESTIMATE Ordered. EDMS 20:42 -Influenza A&B Rapid Antigen - Nose Ordered. EDMS 21:08 CBC with Diff Reviewed. mm11 21:08 BMP Reviewed. mm11 21:08 Liver Profile Reviewed. mm11 21:08 CRP Reviewed. mm11 21:08 Venous Blood Gas (large pea green tube on ice) Reviewed. mm11 21:08 PLATELET ESTIMATE Reviewed. mm11 21:32 Lactic Acid (Allison tube on ice) Reviewed. mm11 21:38 CT Chest With Contrast Ordered. EDMS 21:38 CT ABD & PELVIS: IV Contrast Only Ordered. EDMS 21:54 Financial registration complete. zo 22:00 [facility] [place] was scanned into [email or web address] and attached to record. zo 22:10 UA Reviewed. mm11 22:10 -Influenza A&B Rapid Antigen - Nose Reviewed. mm11 22:30 Oral Temp ordered. mm11 23:26 Ventolin Inhaler 2 puffs Inhalation once; [id number] prn sob ordered. mm11 23:26 MDI teaching with Spacer ordered. mm11 23:26 Solu-MEDROL 125 mg IVP once ordered. mm11 07/26 08:58 T-Sheet-- Draft Copy was scanned into [email or web address] and attached to record. gb Administered Medications: 07/25 20:39 Drug: Ibuprofen 600 mg [ibuprofen 600 mg tablet (1 tabs)] Route: PO; ttb 20:39 Drug: NS 0.9% 500 ml [sodium chloride 0.9 % intravenous solution] Route: IV; Rate: ttb bolus; Site: left antecubital; 21:45 Follow up: IV Status: Completed infusion; IV Intake: 500ml kas 23:46 Drug: Ventolin 2 puffs [Ventolin HFA 90 mcg/actuation aerosol inhaler (2 puffs)] Route: cf2 Inhalation; 07/26 00:00 Follow up: pt lung sounds with bilateral LL coarse rales. bb3 07/25 23:46 Drug: Solu-MEDROL 125 mg [Solu-Medrol 500 mg intravenous solution (125 mg)] Route: IVP; cf2 Site: left antecubital; Signatures: Dispatcher [employer] EDMS Francesca Sawyer, Reg Reg gb Jamal Myles zo Hugo Hernandez, LICENSED PESTICIDE APPLICATOR LICENSED PESTICIDE APPLICATOR kb5 Sony Addison DO DO mm11 Bora Woo,RN RN mb9 Aicha Barrera RN RN kas2 Osmar Lucia bb3 Maryellen Villa RN ttb Omayra Michaud RN cf2 The chart was reviewed and I authenticate all verbal orders and agree with the evaluation and treatment provided.Attachments: 22:00 [facility] Payment Agreement zo 07/26 08:58 T-Sheet-- Draft Copy gb Chart Complete MTDD
--- NOTE | 2016-07-28 01:18 | EDDOCDS ---
Nurse's Notes [facility] Name: Kristi Doshi Age: 86 yrs Sex: Female : 1930 Arrival Date: 07/25/2016 Time: 19:46 Bed 10 Private MD: Pineda Amador Diagnosis: Fever, unspecified;Chronic obstructive pulmonary disease, unspecified Presentation: 07/25 19:53 Presenting complaint: daughter states, "She spiked a temp today. I've been giving her mb9 tylenol with no help. She has been shaky and not acting right so we brought her in here. She was diagnosed with COPD and I'm wondering if she is having a flare up". Adult Sepsis Screening: Patient has new or worsening altered mentation (1 point). Patient has a respiratory rate of greater than or equal to 22 (1 point). Systolic blood pressure is greater than 100. Patient has a qSOFA score of 2. Patient has fever/chills- Positive Sepsis Screen. ED Provider Notified Sony Addison DO. Suicide/Homicide risk assessment- the patient denies having any suicidal and/or homicidal ideations and does not present with any other emotional, behavioral or mental health complaints. 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 Transition of care: patient was not received from another setting of care. 19:53 Acuity: MATTHIAS Level 2 mb9 19:53 Method Of Arrival: Walkin/Carried/Asstd mb9 Triage Assessment: 19:59 General: Appears in no apparent distress, Behavior is appropriate for age, cooperative. mb9 Pain: Denies pain. Respiratory: Airway is patent Respiratory effort is even, unlabored. Historical: - Allergies: No known drug Allergies; - Home Meds: 1. aspirin 81 mg Oral TbEC 1 tab once daily (Last dose: 07/25/2016) 2. folic acid 1 mg Oral tab 1 tab once daily (Last dose: 07/25/2016) 3. Iron High Potency 325 mg oral daily (Last dose: 07/25/2016) 4. leflunomide 20 mg oral tab 1 tab nightly (Last dose: 07/24/2016) 5. losartan 25 mg oral tab 1 tab nightly (Last dose: 07/24/2016) 6. pravastatin 20 mg oral tab 1 tab nightly (Last dose: 07/24/2016) 7. Tylenol 1000 mg Oral (Last dose: 07/25/2016 18:30) - PMHx: Anemia; Arthritis; CVA; Hypercholesterolemia; Hypertension; TIA; c-diff; - PSHx: Cholecystectomy; Hysterectomy; - Social history: Smoking status: Patient states former smoker of tobacco. No barriers to communication noted, The patient speaks fluent Yoruba. - Family history: Not pertinent. - : The pt / caregiver states he / she is not on anticoagulants. Home medication list is obtained from family members. - Exposure Risk Screening:: None identified. Screenin:14 Screening information is obtained from the patient. Fall risk: At risk due to age. kas2 Assistance ADL's: requires no assistance with activities of daily living. Abuse/DV Screen: The patient / caregiver reports he/she is: not in a situation that causes fear, pain or injury. Nutritional screening: No deficits noted. home support is adequate. 07/26 00:15 Advance Directives:. kas2 Assessment: 07/25 20:15 General: Appears in no apparent distress, comfortable, well nourished, well groomed, kas2 Behavior is appropriate for age, cooperative. Pain: Denies pain. Neurological: Level of Consciousness is awake, alert, Oriented to person, place, time, Speech is normal, Facial symmetry appears normal, Pupils are PERRLA. Cardiovascular: Capillary refill < 3 seconds Heart tones S1 S2 present Rhythm is sinus tachycardia No ectopy. Respiratory: Airway is patent Respiratory effort is even, unlabored, Respiratory pattern is regular, symmetrical, Breath sounds with crackles expiratory bilaterally. in left posterior lower lobe and right posterior lower lobe Breath sounds are diminished bilaterally. Derm: Skin is intact, is healthy with good turgor, Skin is dry, Skin is pink, warm & dry. Skin temperature is warm. 21:30 General: Patient laying in bed with family at bedside. No apparent distress noted. kas2 Patient denies pain or discomfort at this time. Airway patent and respiratory pattern even and unlabored. Call javier within reach. Will continue to monitor.. 22:45 General: Appears in no apparent distress, comfortable, Behavior is appropriate for age, kas2 cooperative. Pain: Denies pain. Neurological: Level of Consciousness is awake, alert, Oriented to person, place, time. Cardiovascular: Rhythm is sinus rhythm No ectopy. Respiratory: Airway is patent Respiratory effort is even, unlabored, Respiratory pattern is regular, symmetrical. Derm: Skin is intact, is healthy with good turgor, Skin is dry, Skin is pink, warm & dry. Skin temperature is warm. Vital Signs: 19:51 BP 104 / 56; Pulse 110; Resp 22; Temp 100.9(O); Pulse Ox 93% on R/A; Weight 52.16 kg elp (R); Height 5 ft. 0 in. (152.40 cm) (R); Pain 0/10; 20:25 BP 121 / 59 (auto/); kas2 20:25 Pulse 100 MON; Pulse Ox 93% ; kas2 22:07 BP 122 / 58 (auto/); kas2 22:07 Pulse 98 MON; kas2 22:37 BP 105 / 54 (auto/); kas2 22:37 Pulse 94 MON; kas2 22:40 Temp 98.7(O); mdr 22:52 BP 105 / 56 (auto/); kas2 22:52 Pulse 90 MON; kas2 07/26 00:15 BP 110 / 52; Pulse 89; Resp 20; Temp 98.2(O); Pulse Ox 98% on R/A; Pain 0/10; kas2 07/25 19:51 Body Mass Index 22.46 (52.16 kg, 152.40 cm) [facility] Vitals: 07/25 19:51 Log In Time: July 25, 2016 at 19:50. elp 19:52 RN notified that patient meets Red Flag criteria. [facility] ED Course: 19:50 Patient visited by Skylar Sen PCA. elp 19:50 Patient moved to Waiting elp 19:51 Pineda Amador MD is Private Physician. elp 19:52 Patient visited by Skylar Sen PCA. elp 19:53 Patient moved to Pre RCE elp 19:56 Triage Initiated mb9 20:02 Honey Ceja,RN is Primary Nurse. mb9 20:02 Aicha Barrera RN is Primary Nurse. mb9 20:02 Patient moved to 10 mb9 20:04 Sony Addison DO is Attending Physician. mm11 20:04 Patient visited by Sony Addison DO. mm11 20:18 Patient visited by Aicha Barrera RN. kas2 20:21 Patient visited by Sony Addison DO. mm11 20:29 Patient visited by Maryellen Villa RN. ttb 20:30 CRP Sent. ttb 20:30 Lactic Acid (Allison tube on ice) Sent. ttb 20:30 Liver Profile Sent. ttb 20:30 BMP Sent. ttb 20:30 CBC with Diff Sent. ttb 20:30 -Blood Culture Sent. ttb 20:30 Venous Blood Gas (large pea green tube on ice) Sent. ttb 20:30 Inserted peripheral IV: 20gauge IV in left antecubital area and blood collected. ttb Patient tolerated the procedure well. Labs drawn. (by ED staff). Labs/Blood culture drawn Urine collected. 20:31 Patient visited by Maryellen Villa RN. ttb 21:15 Patient visited by Aicha Barrera RN. kas2 21:26 BLOOD CULTURES Sent. mdr 21:45 -Influenza A&B Rapid Antigen - Nose Sent. kas2 21:48 Patient visited by Aicha Barrera RN. kas2 21:52 Patient visited by Aicha Barrera RN. kas2 22:00 [facility] Payment Agreement was scanned into [employer] and attached to record. zo 22:28 Patient visited by Aicha Barrera RN. kas2 22:40 Patient visited by Patrick Alegre PCA. mdr 22:43 Patient visited by Aicha Barrera RN. kas2 23:04 Patient visited by Aicha Barrera RN. kas2 23:39 Pineda Amador MD is Referral Physician. mm11 23:48 CT Chest With Contrast Returned. EDMS 23:48 CT ABD & PELVIS: IV Contrast Only Returned. EDMS 23:51 Primary Nurse role handed off by Honey Ceja RN [email or web address] 07/26 00:10 DIFFERENTIAL NO CHARGE Sent. nn1 00:14 Discontinued IV bleeding controlled, pressure dressing applied, No redness/swelling at kas2 site. No procedures done that require assistance. 00:16 The patient / caregiver is instructed regarding the plan of care and ED course. [facility]2 08:58 T-Sheet-- Draft Copy was scanned into [employer] and attached to record. gb 09:05 Chest, 1 View Returned. EDMS Administered Medications: 07/25 20:39 Drug: Ibuprofen 600 mg [ibuprofen 600 mg tablet (1 tabs)] Route: PO; ttb 20:39 Drug: NS 0.9% 500 ml [sodium chloride 0.9 % intravenous solution] Route: IV; Rate: ttb bolus; Site: left antecubital; 21:45 Follow up: IV Status: Completed infusion; IV Intake: 500ml kas2 23:46 Drug: Ventolin 2 puffs [Ventolin HFA 90 mcg/actuation aerosol inhaler (2 puffs)] Route: cf2 Inhalation; 07/26 00:00 Follow up: pt lung sounds with bilateral LL coarse rales. bb3 07/25 23:46 Drug: Solu-MEDROL 125 mg [Solu-Medrol 500 mg intravenous solution (125 mg)] Route: IVP; cf2 Site: left antecubital; Intake: 21:45 IV: 500.00ml; Total: 500.00ml. kas2 RT: 23:58 Initial MDI Given. Unable to instruct patient due to physical barriers, bb3 family/caregiver was instructed on procedure Patient tolerated procedure well without adverse effect Spacer used Number of puffs given: 2. Respiratory: Respiratory effort is even, unlabored, Lung sounds with bilateral LL coarse rales. Patient Education: pt and instructed on MDI/spacer teaching. pt has dementia. was able to help with MDI/spacer from start to finish without any error. Order Results: Lab Order: CBC with Diff; SPEC'M 07/25/16 20:26 Test: WHITE BLOOD COUNT; Value: 9.3; Range: 4.0-10.0; Units: K/mm3; Status: F Test: RED BLOOD COUNT; Value: 3.05; Range: 4.00-5.40; Abnormal: Below low normal; Units: M/mm3; Status: F Test: HEMOGLOBIN; Value: 8.9; Range: 12.0-16.0; Abnormal: Below low normal; Units: g/dl; Status: F Test: HEMATOCRIT; Value: 29.7; Range: 36.0-47.0; Abnormal: Below low normal; Units: %; Status: F Test: MEAN CORPUSCULAR VOLUME; Value: 97.3; Range: 80.0-96.0; Abnormal: Above high normal; Units: fl; Status: F Test: MEAN CORPUSCULAR HEMOGLOBIN; Value: 29.3; Range: 27.0-33.0; Units: pg; Status: F Test: MEAN CORPUSCULAR HGB CONC; Value: 30.1; Range: 32.0-36.5; Abnormal: Below low normal; Units: g/dl; Status: F Test: RED CELL DISTRIBUTION WIDTH; Value: 17.5; Range: 11.5-14.5; Abnormal: Above high normal; Units: %; Status: F Test: PLATELET COUNT, AUTOMATED; Value: 272; Range: 150-450; Units: k/mm3; Status: F Test: NEUTROPHILS; Value: 70; Range: 35-75; Units: %; Status: F Test: BANDS; Value: 6; Range: < 11; Units: %; Status: F Test: LYMPHOCYTES; Value: 8; Range: 16-52; Abnormal: Below low normal; Units: %; Status: F Test: MONOCYTES; Value: 12; Range: 0-8; Abnormal: Above high normal; Units: %; Status: F Test: EOSINOPHILS; Value: 4; Range: 0-5; Units: %; Status: F Test: POLYCHROMASIA; Value: 1+; Status: F Test: ANISOCYTOSIS; Value: 1+; Status: F Lab Order: [facility]; SPEC'M 07/25/16 20:26 Test: GLUCOSE, FASTING; Value: 98; Range: 83-110; Units: MG/DL; Status: F Test: BLOOD UREA NITROGEN; Value: 19; Range: 7-18; Abnormal: Above high normal; Units: MG/DL; Status: F Test: CREATININE FOR GFR; Value: 0.91; Range: 0.55-1.02; Units: MG/DL; Status: F Test: GLOMERULAR FILTRATION RATE; Value: > 60.0; Range: >32; Status: F Test: SODIUM LEVEL; Value: 131; Range: 136-145; Abnormal: Below low normal; Units: MEQ/L; Status: F Test: POTASSIUM SERUM; Value: 4.8; Range: 3.5-5.1; Units: MEQ/L; Status: F Test: CHLORIDE LEVEL; Value: 102; Range: 98-107; Units: MEQ/L; Status: F Test: CARBON DIOXIDE LEVEL; Value: 19; Range: 21-32; Abnormal: Below low normal; Units: MEQ/L; Status: F Test: ANION GAP; Value: 10; Range: 8-16; Units: MEQ/L; Status: F Test: CALCIUM LEVEL; Value: 7.6; Range: 8.8-10.2; Abnormal: Below low normal; Units: MG/DL; Status: F Test Note: ; Units are mL/min/1.73 m2 Chronic Kidney Disease Staging per NKF: Stage I & II GFR >=60 Normal to Mildly Decreased Stage III GFR 30-59 Moderately Decreased Stage IV GFR 15-29 Severely Decreased Stage V GFR <15 Very Little GFR Left ESRD GFR <15 on CHIEF TECHNOLOGY OFFICER Lab Order: Liver Profile; SPEC'M 07/25/16 20:26 Test: AST/SGOT; Value: 44; Range: 15-37; Abnormal: Above high normal; Units: U/L; Status: F Test: ALT/SGPT; Value: 18; Range: 12-78; Units: U/L; Status: F Test: ALKALINE PHOSPHATASE; Value: 88; Range: 45-117; Units: U/L; Status: F Test: BILIRUBIN,TOTAL; Value: 0.5; Range: 0.2-1.0; Units: MG/DL; Status: F Test: BILIRUBIN,DIRECT; Value: 0.2; Range: 0.0-0.2; Units: MG/DL; Status: F Test: TOTAL PROTEIN; Value: 6.2; Range: 6.4-8.2; Abnormal: Below low normal; Units: GM/DL; Status: F Test: ALBUMIN; Value: 2.6; Range: 3.2-5.2; Abnormal: Below low normal; Units: GM/DL; Status: F Test: ALBUMIN/GLOBULIN RATIO; Value: 0.72; Range: 1.00-1.93; Abnormal: Below low normal; Status: F Lab Order: Lactic Acid (Allison tube on ice); SPEC'M 07/25/16 20:26 Test: LACTIC ACID LEVEL, LACTATE; Value: 1.6; Range: 0.4-2.0; Units: MMOL/L; Status: F Lab Order: CRP; SPEC'M 07/25/16 20:26 Test: C REACTIVE PROTEIN QUANTITATIV; Value: 3.35; Range: 0.00-0.30; Abnormal: Above high normal; Units: MG/DL; Status: F Lab Order: -Blood Culture; SPEC'M 07/25/16 20:26 Test: BLOOD CULTURE; Value: No growth after 24 hours . All specimens observed; Status: F Test: BLOOD CULTURE; Value: for 5 days. Results final at that time.; Status: F Test: BLOOD CULTURE; Value: No Growth after 48 hours. All Specimens observed; Status: F Test: BLOOD CULTURE; Value: for 7 days. Results final at that time.; Status: F Lab Order: Venous Blood Gas (large pea green tube on ice); SPEC'M 07/25/16 20:26 Test: VENOUS PH; Value: 7.393; Range: 7.330-7.430; Units: UNITS; Status: F Test: VENOUS PARTIAL PRESSURE CO2; Value: 36.3; Range: 38.0-50.0; Abnormal: Below low normal; Units: mmHg; Status: F Test: VENOUS PARTIAL PRESSURE O2; Value: 49.5; Range: 30.0-50.0; Units: mmHg; Status: F Test: VENOUS TOTAL CO2; Value: 22.7; Range: 24.0-28.0; Abnormal: Below low normal; Units: MEQ/L; Status: F Test: VENOUS HCO3; Value: 21.6; Range: 23.0-27.0; Abnormal: Below low normal; Units: MEQ/L; Status: F Test: VENOUS BASE EXCESS; Value: -2.9; Range: -2.0-2.0; Abnormal: Below low normal; Status: F Test: VENOUS STANDARD HCO3; Value: 21.8; Units: MEQ/L; Status: F Test: VENOUS O2 SATURATION; Value: 81.6; Range: 60.0-80.0; Abnormal: Above high normal; Units: %; Status: F Lab Order: UA; SPEC'M 07/25/16 21:49 Test: APPEARANCE, URINE; Value: HAZY; Range: CLEAR; Status: F Test: COLOR, URINE; Value: YELLOW; Range: YELLOW; Status: F Test: PH,URINE; Value: 5.0; Range: 5.0-9.0; Units: UNITS; Status: F Test: SPECIFIC GRAVITY URINE AUTO; Value: 1.013; Range: 1.002-1.035; Status: F Test: PROTEIN, URINE AUTO; Value: 1+; Range: NEGATIVE; Abnormal: Above high normal; Units: mg/dL; Status: F Test: GLUCOSE, URINE (UA) AUTO; Value: NEGATIVE; Range: NEGATIVE; Units: mg/dL; Status: F Test: KETONE, URINE AUTO; Value: NEGATIVE; Range: NEGATIVE; Units: mg/dL; Status: F Test: UROBILINOGEN, URINE AUTO; Value: 0.2; Range: 0.0-2.0; Units: mg/dL; Status: F Test: BILIRUBIN, URINE AUTO; Value: NEGATIVE; Range: NEGATIVE; Status: F Test: NITRITE, URINE AUTO; Value: NEGATIVE; Range: NEGATIVE; Status: F Test: LEUKOCYTE ESTERASE, URINE AUTO; Value: 3+; Range: NEGATIVE; Abnormal: Above high normal; Status: F Test: BLOOD, URINE BLOOD; Value: NEGATIVE; Range: NEGATIVE; Status: F Test: WBC, URINE AUTO; Value: 33; Range: 0-3; Abnormal: Above high normal; Units: /HPF; Status: F Test: RBC, URINE AUTO; Value: 3; Range: 0-3; Units: /HPF; Status: F Test: BACTERIA, URINE AUTO; Value: 1+; Range: NEGATIVE; Abnormal: Above high normal; Status: F Test: SQUAMOUS EPITHELIAL CELL UR AU; Value: 10; Range: 0-6; Units: /HPF; Status: F Test: MUCUS, URINE; Value: SMALL; Range: NEGATIVE; Status: F Test: HYALINE CAST, URINE AUTO; Value: 0; Range: 0-1; Units: /LPF; Status: F Lab Order: Urine Culture; SPEC'M 07/25/16 21:49 Test: URINE CULTURE; Value: ORGANISM 1: ESCHERICHIA COLI; Status: F Test: URINE CULTURE; Value: ESCHERICHIA COLI; Status: F Test: URINE CULTURE; Value: COLONY COUNT CFU/ml >100,000; Status: F Test: URINE CULTURE; Value: GRAM NEG SENSI - VITEK 80; Status: F Test: URINE CULTURE; Value: Method: VIT2; Status: F Test: URINE CULTURE; Value: EXTD BRD SPCTRM BETA LACTAMASE -; Status: F Test: URINE CULTURE; Value: TRIMETHOPRIM/SULFAMETHOXAZOLE <=20 S; Status: F Test: URINE CULTURE; Value: AMPICILLIN 8 S; Status: F Test: URINE CULTURE; Value: GENTAMICIN <=1 S; Status: F Test: URINE CULTURE; Value: NITROFURANTOIN 32 S; Status: F Test: URINE CULTURE; Value: CEFAZOLIN <=4 S; Status: F Test: URINE CULTURE; Value: LEVOFLOXACIN <=0.12 S; Status: F Test: URINE CULTURE; Value: TOBRAMYCIN <=1 S; Status: F Test: URINE CULTURE; Value: CEFTRIAXONE <=1 S; Status: F Test: URINE CULTURE; Value: CEFTAZIDIME <=1 S; Status: F Test: URINE CULTURE; Value: AMPICILLIN/SULBACTAM 4 S; Status: F Test: URINE CULTURE; Value: PIPERACILLIN/TAZOBACTAM <=4 S; Status: F Test: URINE CULTURE; Value: AZTREONAM <=1 S; Status: F Test: URINE CULTURE; Value: ERTAPENEM <=0.5 S; Status: F Test: URINE CULTURE; Value: MEROPENEM <=0.25 S; Status: F Test: URINE CULTURE; Value: TIGECYCLINE <=0.5 S; Status: F Test: URINE CULTURE; Value: CEFEPIME <=1 S; Status: F Lab Order: BLOOD CULTURES; SPEC'M 07/25/16 21:27 Test: BLOOD CULTURE; Value: No growth after 24 hours . All specimens observed; Status: F Test: BLOOD CULTURE; Value: for 5 days. Results final at that time.; Status: F Test: BLOOD CULTURE; Value: No Growth after 48 hours. All Specimens observed; Status: F Test: BLOOD CULTURE; Value: for 7 days. Results final at that time.; Status: F Lab Order: -Influenza A&B Rapid Antigen - Nose; SPEC'M 07/25/16 21:27 Test: INFLUENZA A RAPID SCR by ICA; Value: INFLUENZA A RESULTS NEGATIVE; Status: F Test: INFLUENZA A RAPID SCR by ICA; Value: Comments:; Status: F Test: INFLUENZA B RAPID SCR by ICA; Value: INFLUENZA B RESULTS NEGATIVE; Status: F Test Note: ; The Influenza test is a direct rapid immunoassay for the qualitative detection of Influenza viral antigen. Cell culture (Viral Culture) testing should be considered to confirm NEGATIVE results and to assist in detecting other viruses that can provide similar clinical symptoms. Please contact the lab within 24 hours ([phone]) if confirmatory testing is desired. Lab Order: PLATELET ESTIMATE; SPEC'M 07/25/16 20:26 Test: PLATELET ESTIMATE; Value: NORMAL; Range: NORMAL; Status: F Radiology Order: Chest, 1 View Test: Chest, 1 View REASON FOR EXAMINATION: Shortness of Breath; Portable chest x-ray: Single view.; ; History: Shortness of breath.; ; Comparison chest x-ray July 18, 2016.; ; Findings: EKG monitoring electrodes overlie the chest. Heart is not felt to be; enlarged. No infiltrate is seen. Pleural angles are sharp. Pulmonary; vasculature is not increased. The aorta is calcific and mildly tortuous.; ; Impression:; ; No active disease.; ; ; Signed by; Jonel Floyd MD 07/26/2016 10:22 A; Radiology Order: CT Chest With Contrast Test: CT Chest With Contrast REASON FOR EXAMINATION: Cough; ; CLINICAL STATEMENT: Cough, abdominal pain; Technique: CT of the chest, abdomen, pelvis was performed with intravenous contrast by obtaining cont; iguous axial slices from the level of the thyroid cartilage to the proximal femoral diaphyses. 3-D re; construction with multiplanar reformats in coronal and sagittal projections were obtained.; COMPARISON: None; FINDINGS:; CHEST:; LOWER NECK: Visualized thyroid gland demonstrate the left lobe low-density nodule which is probable c; yst. No mass, enlarged adenopathy, suspicious cystic lesion, fluid collection, free air, or evidence; of an inflammatory process.; LYMPH NODES: No enlarged adenopathy.; MEDIASTINUM: No mass or suspicious cystic lesion. The heart is normal in size without pericardial eff; usion. Aorta and pulmonary trunk are normal in caliber without aneurysmal dilatation, gross dissectio; n, or central pulmonary embolus.; PLEURA/PERICARDIUM: No pericardial or pleural effusion, mass, or suspicious cystic lesion; LUNGS/AIRWAYS: Paraseptal emphysematous changes toward the bases. No acute infiltrate, effusion, pneu; mothorax, mass, or suspicious nodule. Central and visualized peripheral airways are patent.; ABDOMEN/PELVIS:; LIVER: The liver is normal in size and contour without mass or suspicious cystic lesion. The portal a; nd hepatic veins are patent.; BILIARY SYSTEM: Status post cholecystectomy with no intrahepatic biliary ductal dilatation or calcifi; ed biliary stones. CBD within normal limits.; PANCREAS: The pancreas is normal in size, contour and density. No solid or cystic pancreatic mass is; seen. No pancreatic duct dilatation is seen.; SPLEEN: The spleen is normal in size and without mass or suspicious cystic lesion.; ADRENALS: The adrenal glands are normal and anatomical configuration and size without identifiable ma; ss.; KIDNEYS/URETERS: The kidneys are normal in anatomical configuration, size, and enhancement with no ma; ss. Bilateral subcentimeter cortical cysts. No calcified renal or ureteral calculi, or hydroureterone; phrosis.; URINARY BLADDER: No wall thickening, stones, or diverticula.; UTERUS/ADNEXA: Absent.; AORTA AND ILIAC ARTERIES: No aneurysmal dilatation.; LYMPH NODES: No enlarged adenopathy.; GASTROINTESTINAL: Mild thickening of ascending colon without pericolic stranding. Stomach, duodenum,; and remaining bowel normal in caliber.; PERITONEUM: No ascites, extraluminal air, mass, or suspicious cystic lesion.; ABDOMINAL/PELVIC WALL/SOFT TISSUES: No suspicious soft tissue abnormality or hernia.; OSSEOUS STRUCTURES: No acute fracture or suspicious lesion. Multilevel degenerative changes of the sp; ine with endplate sclerosis, disc space narrowing and vacuum phenomenon. No spondylolisthesis.; IMPRESSION:; 1. No evidence of pneumonia.; 2. Mild thickening of ascending colon is nonspecific although may suggest colitis in proper clinical; context.; ; Radiology Order: CT ABD & PELVIS: IV Contrast Only Test: CT ABD & PELVIS: IV Contrast Only REASON FOR EXAMINATION: c diff, fevers; ; CLINICAL STATEMENT: Cough, abdominal pain; Technique: CT of the chest, abdomen, pelvis was performed with intravenous contrast by obtaining cont; iguous axial slices from the level of the thyroid cartilage to the proximal femoral diaphyses. 3-D re; construction with multiplanar reformats in coronal and sagittal projections were obtained.; COMPARISON: None; FINDINGS:; CHEST:; LOWER NECK: Visualized thyroid gland demonstrate the left lobe low-density nodule which is probable c; yst. No mass, enlarged adenopathy, suspicious cystic lesion, fluid collection, free air, or evidence; of an inflammatory process.; LYMPH NODES: No enlarged adenopathy.; MEDIASTINUM: No mass or suspicious cystic lesion. The heart is normal in size without pericardial eff; usion. Aorta and pulmonary trunk are normal in caliber without aneurysmal dilatation, gross dissectio; n, or central pulmonary embolus.; PLEURA/PERICARDIUM: No pericardial or pleural effusion, mass, or suspicious cystic lesion; LUNGS/AIRWAYS: Paraseptal emphysematous changes toward the bases. No acute infiltrate, effusion, pneu; mothorax, mass, or suspicious nodule. Central and visualized peripheral airways are patent.; ABDOMEN/PELVIS:; LIVER: The liver is normal in size and contour without mass or suspicious cystic lesion. The portal a; nd hepatic veins are patent.; BILIARY SYSTEM: Status post cholecystectomy with no intrahepatic biliary ductal dilatation or calcifi; ed biliary stones. CBD within normal limits.; PANCREAS: The pancreas is normal in size, contour and density. No solid or cystic pancreatic mass is; seen. No pancreatic duct dilatation is seen.; SPLEEN: The spleen is normal in size and without mass or suspicious cystic lesion.; ADRENALS: The adrenal glands are normal and anatomical configuration and size without identifiable ma; ss.; KIDNEYS/URETERS: The kidneys are normal in anatomical configuration, size, and enhancement with no ma; ss. Bilateral subcentimeter cortical cysts. No calcified renal or ureteral calculi, or hydroureterone; phrosis.; URINARY BLADDER: No wall thickening, stones, or diverticula.; UTERUS/ADNEXA: Absent.; AORTA AND ILIAC ARTERIES: No aneurysmal dilatation.; LYMPH NODES: No enlarged adenopathy.; GASTROINTESTINAL: Mild thickening of ascending colon without pericolic stranding. Stomach, duodenum,; and remaining bowel normal in caliber.; PERITONEUM: No ascites, extraluminal air, mass, or suspicious cystic lesion.; ABDOMINAL/PELVIC WALL/SOFT TISSUES: No suspicious soft tissue abnormality or hernia.; OSSEOUS STRUCTURES: No acute fracture or suspicious lesion. Multilevel degenerative changes of the sp; ine with endplate sclerosis, disc space narrowing and vacuum phenomenon. No spondylolisthesis.; IMPRESSION:; 1. No evidence of pneumonia.; 2. Mild thickening of ascending colon is nonspecific although may suggest colitis in proper clinical; context.; ; Outcome: 23:39 Discharge ordered by Provider. mm11 07/26 00:15 Discharge Assessment: patient administered narcotics - no. The following High Risk kas2 Discharge criteria are identified: None. Discharged to home ambulatory, with family. Condition: good Condition: stable Condition: improved. CT Study completed. Property :Personal belongings accompany Pt. 00:16 Patient left the ED. [facility] Signatures: Dispatcher [employer] EDMS Francesca Sawyer, Jamal Walton Matthew, DO mm11 Osmar Lucia bb3 Karen Navarro, RN RN sls1 Maryellen Villa RN RN ttb Skylar Sen, ROOFING LABORER ROOFING LABORER carsonp Bora Woo,RN RN mb9 Mir WilkersonRN RN nn1 Patrick Alegre, ROOFING LABORER ROOFING LABORER Aicha SoniRN RN kas2 Omayra MichaudRN RN cf2 Chart Complete MTDD
--- NOTE | 2016-07-28 01:18 | EDDOCDS ---
Physician Documentation [facility] Name: Kristi Doshi Age: 86 yrs Sex: Female : 1930 Arrival Date: 07/25/2016 Time: 19:46 Bed 10 Private MD: Pineda Amador Disposition: 07/25/16 23:39 Discharged to Home/Self Care. Impression: Fever, unspecified, Chronic obstructive pulmonary disease, unspecified. - Condition is Stable. - Discharge Instructions: Chronic Obstructive Pulmonary Disease, Fever, Adult. - Prescriptions for Prednisone 20 mg Oral Tablet - take 2 tablet by ORAL route once daily for 5 days; 10 tablet. - Medication Reconciliation, Local Pharmacy Hours form. - Follow up: Pineda Amador MD; When: As previously arranged; Reason: Continuance of care. - Problem is an acute exacerbation. - Symptoms have improved. Historical: - Allergies: No known drug Allergies; - Home Meds: 1. aspirin 81 mg Oral TbEC 1 tab once daily (Last dose: 07/25/2016) 2. folic acid 1 mg Oral tab 1 tab once daily (Last dose: 07/25/2016) 3. Iron High Potency 325 mg oral daily (Last dose: 07/25/2016) 4. leflunomide 20 mg oral tab 1 tab nightly (Last dose: 07/24/2016) 5. losartan 25 mg oral tab 1 tab nightly (Last dose: 07/24/2016) 6. pravastatin 20 mg oral tab 1 tab nightly (Last dose: 07/24/2016) 7. Tylenol 1000 mg Oral (Last dose: 07/25/2016 18:30) - PMHx: Anemia; Arthritis; CVA; Hypercholesterolemia; Hypertension; TIA; c-diff; - PSHx: Cholecystectomy; Hysterectomy; - Social history: Smoking status: Patient states former smoker of tobacco. No barriers to communication noted, The patient speaks fluent Faroese. - Family history: Not pertinent. - : The pt / caregiver states he / she is not on anticoagulants. Home medication list is obtained from family members. - Exposure Risk Screening:: None identified. Vital Signs: 07/25 19:51 BP 104 / 56; Pulse 110; Resp 22; Temp 100.9(O); Pulse Ox 93% on R/A; Weight 52.16 kg / elp 114.99 lbs (R); Height 5 ft. 0 in. (152.40 cm) (R); Pain 0/10; 20:25 BP 121 / 59 (auto/); kas2 20:25 Pulse 100 MON; Pulse Ox 93% ; kas2 22:07 BP 122 / 58 (auto/); kas2 22:07 Pulse 98 MON; kas2 22:37 BP 105 / 54 (auto/); kas2 22:37 Pulse 94 MON; kas2 22:40 Temp 98.7(O); mdr 22:52 BP 105 / 56 (auto/); kas2 22:52 Pulse 90 MON; kas2 07/26 00:15 BP 110 / 52; Pulse 89; Resp 20; Temp 98.2(O); Pulse Ox 98% on R/A; Pain 0/10; kas2 07/25 19:51 Body Mass Index 22.46 (52.16 kg, 152.40 cm) elp MDM: 07/25 20:26 -Blood Culture (Adults Only), peripheral from different site, or from device/port/PICC mm11 etc. if present ordered. 20:26 IV Saline Lock ordered. mm11 20:26 Ibuprofen 600 mg PO once ordered. mm11 20:28 Chest, 1 View Ordered. EDMS 20:28 CBC with Diff Ordered. EDMS 20:28 BMP Ordered. EDMS 20:28 Liver Profile Ordered. EDMS 20:28 Lactic Acid (Allison tube on ice) Ordered. EDMS 20:28 CRP Ordered. EDMS 20:28 -Blood Culture Ordered. EDMS 20:28 Venous Blood Gas (large pea green tube on ice) Ordered. EDMS 20:28 UA Ordered. EDMS 20:28 Urine Culture Ordered. EDMS 20:28 -Blood Culture (Adults Only), peripheral from different site, or from device/port/PICC kb5 etc. if present complete. 20:29 BLOOD CULTURES Ordered. EDMS 20:34 NS 0.9% 500 ml IV at bolus once ordered. mm11 20:41 DIFFERENTIAL NO CHARGE Ordered. EDMS 20:42 PLATELET ESTIMATE Ordered. EDMS 20:42 -Influenza A&B Rapid Antigen - Nose Ordered. EDMS 21:08 CBC with Diff Reviewed. mm11 21:08 BMP Reviewed. mm11 21:08 Liver Profile Reviewed. mm11 21:08 CRP Reviewed. mm11 21:08 Venous Blood Gas (large pea green tube on ice) Reviewed. mm11 21:08 PLATELET ESTIMATE Reviewed. mm11 21:32 Lactic Acid (Allison tube on ice) Reviewed. mm11 21:38 CT Chest With Contrast Ordered. EDMS 21:38 CT ABD & PELVIS: IV Contrast Only Ordered. EDMS 21:54 Financial registration complete. zo 22:00 [place] [place] was scanned into T[employer] Kitchen and attached to record. zo 22:10 UA Reviewed. mm11 22:10 -Influenza A&B Rapid Antigen - Nose Reviewed. mm11 22:30 Oral Temp ordered. mm11 23:26 Ventolin Inhaler 2 puffs Inhalation once; [id number] prn sob ordered. mm11 23:26 MDI teaching with Spacer ordered. mm11 23:26 Solu-MEDROL 125 mg IVP once ordered. mm11 07/26 08:58 T-Sheet-- Draft Copy was scanned into Taste Kitchen and attached to record. gb Administered Medications: 07/25 20:39 Drug: Ibuprofen 600 mg [ibuprofen 600 mg tablet (1 tabs)] Route: PO; ttb 20:39 Drug: NS 0.9% 500 ml [sodium chloride 0.9 % intravenous solution] Route: IV; Rate: ttb bolus; Site: left antecubital; 21:45 Follow up: IV Status: Completed infusion; IV Intake: 500ml kas 23:46 Drug: Ventolin 2 puffs [Ventolin HFA 90 mcg/actuation aerosol inhaler (2 puffs)] Route: cf2 Inhalation; 07/26 00:00 Follow up: pt lung sounds with bilateral LL coarse rales. bb3 07/25 23:46 Drug: Solu-MEDROL 125 mg [Solu-Medrol 500 mg intravenous solution (125 mg)] Route: IVP; cf2 Site: left antecubital; Signatures: Dispatcher [employer] EDMS Francesca Sawyer, Reg Reg gb Jamal Myles zo Hugo Hernandez, CONCRETE FORM SETTER CONCRETE FORM SETTER kb5 Sony Addison DO DO mm11 Bora Woo,RN RN mb9 Aicha Barrera RN RN kas2 Osmar Lucia bb3 Maryellen Villa RN ttb Omayra Michaud RN cf2 The chart was reviewed and I authenticate all verbal orders and agree with the evaluation and treatment provided.Attachments: 22:00 [facility] Payment Agreement zo 07/26 08:58 T-Sheet-- Draft Copy gb Chart Complete MTDD
== END 2016-07-26 00:16 | disposition home or self-care (01) ==
LOC: M ED 19:46
DX: R50.9 Fever, unspecified (principal); J44.9 Chronic obstructive pulmonary disease, unspecified; R41.0 Disorientation, unspecified; E78.00 Pure hypercholesterolemia, unspecified; M19.90 Unspecified osteoarthritis, unspecified site; D64.9 Anemia, unspecified; Z86.73 Personal history of transient ischemic attack (TIA), and cerebral infarction without residual deficits; Z86.19 Personal history of other infectious and parasitic diseases; Z79.82 Long term (current) use of aspirin; Z79.899 Other long term (current) drug therapy; Z87.891 Personal history of nicotine dependence
CPT/HCPCS: 36415; 71010; 71260; 74177; 80048; 80076; 81001; 82803; 83605; 85025; 86140; 87040; 87088; 87186; 87804; 96361; 96374; 99285; J2930; Q9967

== ENCOUNTER → 2016-07-30 | Outpatient (REF) | payer MEDICARE | LOC: M LAB REF 16:19 | PROVIDERS: ATTEND Internal Medicine | DX: E79.0 Hyperuricemia without signs of inflammatory arthritis and tophaceous disease (principal) ==

== ENCOUNTER 2016-08-20 12:37 | Inpatient (IN) | payer MEDICARE ==
[~2016-08-20] VITALS: Ht 152.4 cm; Wt 54.6 kg
[2016-08-20] MEDS ORDERED: IPRATROPIUM 0.5MG/ALBUTEROL 2.5MG INH SOL UD 3ML (DUONEB)(J7620) As Ordered ONE (13:21)
[2016-08-20] MEDS ORDERED: ALBUTEROL SULFATE 2.5 MG/0.5 ML INH NEB SOLN As Ordered ONE (13:21)
[2016-08-20] MEDS ORDERED: methylPREDNISolone INJ 125 MG/2 ML VIAL (J2930) As Ordered ONE (13:27)
[2016-08-20 13:46] LABS: MEAN CORPUSCULAR HEMOGLOBIN 28.7 pg (27.0-33.0); MEAN CORPUSCULAR HGB CONC 30.5 g/dl (32.0-36.5); MEAN CORPUSCULAR VOLUME 94.2 fl (80.0-96.0); PLATELET COUNT, AUTOMATED 219 k/mm3 (150-450); RED CELL DISTRIBUTION WIDTH 17.9 % (11.5-14.5); WHITE BLOOD COUNT 7.7 K/mm3 (4.0-10.0)
[2016-08-20 13:55] LABS: ALBUMIN 2.3 GM/DL (3.2-5.2); ALBUMIN/GLOBULIN RATIO 0.55 (1.00-1.93); ALKALINE PHOSPHATASE 157 U/L (45-117); ALT/SGPT 43 U/L (12-78); ANION GAP 11 MEQ/L (8-16); AST/SGOT 101 U/L (15-37); BILIRUBIN,DIRECT 0.2 MG/DL (0.0-0.2); BILIRUBIN,TOTAL 0.6 MG/DL (0.2-1.0); BLOOD UREA NITROGEN 18 MG/DL (7-18); CALCIUM LEVEL 8.1 MG/DL (8.8-10.2); CARBON DIOXIDE LEVEL 20 MEQ/L (21-32); CHLORIDE LEVEL 97 MEQ/L (98-107); CREATININE FOR GFR 0.86 MG/DL (0.55-1.02); GLOMERULAR FILTRATION RATE > 60.0 (>32); GLUCOSE, FASTING 85 MG/DL (83-110); POTASSIUM SERUM 4.1 MEQ/L (3.5-5.1); SODIUM LEVEL 128 MEQ/L (136-145); TOTAL PROTEIN 6.5 GM/DL (6.4-8.2)
[2016-08-20 14:14] LABS: ANISOCYTOSIS 1+; EOSINOPHILS 2 % (0-5)
--- NOTE | 2016-08-20 14:22 | REP ---
AP PORTABLE CHEST, 08/20/2016 AT 1:25 P.M.: COMPARISON: 07/25/2016, 07/18/2016. CLINICAL HISTORY: Cough. FINDINGS: The lung kan are adequately inflated. Some minor basilar fibrotic change without pleural effusion or dense consolidation. Streaky infrahilar densities bilaterally and may reflect some bronchitis. A few cuffed bronchi noted in the perihilar regions. There is no dense consolidation, effusion, or mass. Heart not enlarged. Aorta is calcified at the arch but normal in size. The airway intact. No aneurysm. Bones demineralized. IMPRESSION: 1. Some basilar fibrotic changes and peribronchial thickening with streaky densities infrahilar regions that may reflect some bronchitis or reactive airway disease. No dense consolidation with air bronchograms. No effusion. 2. No cardiomegaly, aortic aneurysm, or pulmonary edema. 3. Bones demineralized. Degenerative changes shoulders and spine. Signed by Jose Rafael Beauchamp MD 08/20/2016 03:55 P
[2016-08-20] MEDS ORDERED: ALBU17IN INH (15:37)
[2016-08-20] MEDS ORDERED: FERR325T PO (15:37)
[2016-08-20] MEDS ORDERED: VITA100066 PO (15:37)
[2016-08-20] MEDS ORDERED: ASPI1TAB PO (15:37)
[2016-08-20] MEDS ORDERED: TYLE500T78 PO (15:37)
[2016-08-20] MEDS ORDERED: VANC25SOL PO (15:37)
[2016-08-20] MEDS ORDERED: ALIG4CAP PO (15:37)
[2016-08-20] MEDS: VANCOMYCIN ORAL SOL 250MG/5ML ORAL SYRINGE PO SCH ×2 (16:00→21:49)
[2016-08-20 16:12] LABS: ABG BASE EXCESS -5.2 (-2.0-2.0); ABG DEVICE NASAL CANN; ABG HCO3 17.8 MEQ/L (22.0-26.0); ABG PARTIAL PRESSURE CO2 25.1 mmHg (35.0-45.0); ABG PARTIAL PRESSURE O2 130.2 mmHg (75.0-100.0); ABG STANDARD HCO3 20.1 MEQ/L (22.0-26.0); ABG TOTAL CO2 18.5 MEQ/L (23.0-31.0); ABG pH (ARTERIAL) 7.468 UNITS (7.350-7.450)
[2016-08-20] MEDS ORDERED: ONDANSETRON 4MG/2ML VIAL (J2405) IV PRN (16:45)
--- NOTE | 2016-08-20 17:27 | HPE ---
DATE OF ADMISSION: 08/20/2016 PRIMARY CARE PROVIDER: Dr. Amador HISTORY OF PRESENT ILLNESS: The patient is an 86-year-old female with a past medical history significant for active Clostridium (C) difficile, anemia, cerebrovascular accident (CVA), hypercholesterolemia, and transient ischemic attack (TIA) who presented to [facility] of 08/20/2016 for worsening shortness of breath and weakness. The patient stated she has been having those symptoms intermittently and the patient has been diagnosed with C. difficile. She is currently going through oral vancomycin treatment and this week is the third week. For the past week, she has had acute worsening of the symptoms including worsening of shortness of breath, worsening weakness, and her saturations usually around the low 80s multiple times. Due to the acute worsening of the patient's symptoms, the patient was brought to [facility] for further evaluation. The patient stated she still has watery stool greater than four times daily and the patient has been having a poor appetite. The stool has been chronically tarry black, they thought contributed to the chronic iron use. The patient had a colonoscopy done within the last 1-[address] Watts and they were told that the result was normal. The patient is not taking anticoagulation medications. ALLERGIES: No known drug allergies. HOME MEDICATIONS: - Ventolin two puff inhalation four times a day as needed - aspirin 81 mg by mouth at bedtime - vitamin D 1000 units by mouth daily - ferrous sulfate 325 mg by mouth daily - folic acid one tablet by mouth daily - pravastatin 20 mg by mouth at bedtime PAST MEDICAL HISTORY: 1. Cerebrovascular accident (CVA) times two, the most recent is July 2014. 2. Dementia. 3. Dyslipidemia. 4. Hypertension. 5. Active Clostridium (C) difficile on oral vancomycin. PAST SURGICAL HISTORY: Hysterectomy. SOCIAL HISTORY: The patient quite smoking 50 years ago. Denies alcohol. Denies recreational drug use. REVIEW OF SYSTEMS: Denies any fevers or chills. HEENT: No vision changes. No auditory changes. CARDIOVASCULAR: No chest pain. No palpitations. RESPIRATORY: Worsening shortness of breath in the last week. Denies any wheezes or sputum production. GASTROINTESTINAL: Active Clostridium difficile, still has frequent watery diarrhea. No nausea. No vomiting. MUSCULOSKELETAL: Denies any muscle pain or joint pain. NEUROLOGICAL: Denies any numbness or tingling. OBJECTIVE: VITAL SIGNS: Blood pressure is 132/72, pulse is 86, respiratory rate 18, temperature is 100.4, pulse oximetry is 98% with nasal cannula. Body weight is 51.71 kg. Body height is 152 cm. GENERAL: Fatigued, no sign of acute distress, shows some sign of dementia. However, the patient is oriented for most of the questions. Demonstrates some sign of recalling from past memory. HEENT: Wearing corrective lenses. Normocephalic, atraumatic. Extraocular motor grossly intact. CARDIOVASCULAR: Positive S1, S2. Regular rate. LUNGS: Positive crackles bilaterally in the lower base. However, no wheezes. ABDOMEN: Soft, nontender, nondistended. Bowel sounds present. EXTREMITIES: No edema. No sign of cyanosis. No calf tenderness. LABORATORY DATA: WBC is 7.7, hemoglobin 7.9, hematocrit is 25.8, platelet count is 219. Sodium is 128, potassium 4.1, chloride is 97, carbon dioxide 20, BUN 18, creatinine 0.86, GFR greater than 60, fasting glucose 85, lactic acid is 2.4, calcium is 8.1, total bilirubin 0.6, direct bilirubin is 0.2, AST 101, ALT is 43, alkaline phosphatase 157, total protein is 6.5, albumin 2.3. ABG showed a pH of 7.468, pCO2 is 25.1, pO2 is 130.2, SGO3 is 17.8. Blood cultures are pending. Respiratory panel is pending. Chest x-ray shows some basilar fibrotic changes and peribronchial thickening with a streaky density infrahilar region, may reflect some bronchitis or reactive airway disease. No effusions. No cardiomegaly, aneurysm, or pulmonary edema. ASSESSMENT AND PLAN: 1. Clostridium (C) difficile colitis. We will adjust the dose of the patient's oral vancomycin. Currently, the patient has a mildly elevated lactic acid. The patient will be on IV fluid support. 2. Symptomatic anemia. The patient has a hemoglobin of 7.7, hematocrit 25.8. We will follow with a stool occult. The patient will have one pack red blood cell blood transfusion. We will follow with anemia workup. 3. History of cerebrovascular accident (CVA) times two, most recent July 2014, without focal deficit. The patient is on aspirin. 4. Dyslipidemia, on pravastatin. 5. Acute respiratory distress. May be due to current illnesses from Clostridium difficile versus symptomatic anemia. We will follow with respiratory panel. 6. Deep vein thrombosis (DVT) prophylaxis. Due to concern for possible active bleeding, the patient will be on thromboembolic-deterrent stockings (TEDS) and sequential compression device.
--- NOTE | 2016-08-20 17:56 | EDDOCDS ---
Nurse's Notes [facility] Name: Kristi Doshi Age: 86 yrs Sex: Female : 1930 Arrival Date: 08/20/2016 Time: 12:37 Bed 12 Private MD: Pineda Amador Diagnosis: Fever, unspecified;Acute respiratory failure with hypoxia;Acute bronchitis;Anemia in other chronic diseases classified elsewhere;Gastrointestinal hemorrhage, unspecified-history of black stools Presentation: 08/20 12:39 Presenting complaint: EMS states: family reported general weakness, pt currently on po ead vanco for c-diff x 6 weeks. pt denies pain. pt reported slight fall in bathroom today catching self, denies hitting head. Suicide/Homicide risk assessment- the patient denies having any suicidal and/or homicidal ideations and does not present with any other emotional, behavioral or mental health complaints. Status: Patient is not a online services manager or dependent. Transition of care: patient was not received from another setting of care. 12:39 Method Of Arrival: Ambulance ead 12:39 Acuity: MATTHIAS Level 3 ead 12:39 Presenting complaint: Child states: daughter reports public health nurse obtained 02 ead sat of 85% at home. denies hx of copd, denies home oxygen use. 17:41 Adult Sepsis Screening: The patient does not have new or worsening altered mentation. ead Patient's respiratory rate is less than 22. Systolic blood pressure is greater than 100. Patient has a qSOFA score of 0- Negative Sepsis Screen. Triage Assessment: 12:44 General: Appears in no apparent distress, comfortable, well nourished, well groomed, ead Behavior is appropriate for age, cooperative, pleasant. Pain: Denies pain. The patient is triaged at the bedside. See Assessment in Nurses Notes section of ED record. Neurological: Level of Consciousness is awake, alert, obeys commands, Oriented to person, place, time. Respiratory: Airway is patent Respiratory effort is even, unlabored. GI: Denies diarrhea, nausea, vomiting, pain. Derm: Skin is pink, warm & dry. Historical: - Allergies: no known allergies; - Home Meds: 1. aspirin 81 mg Oral TbEC 1 tab once daily 2. losartan 25 mg oral tab 1 tab nightly 3. vancomycin 125 mg oral cap every 8 hours 4. leflunomide 20 mg oral tab 1 tab nightly 5. Tylenol 1000 mg Oral 6. pravastatin 20 mg oral tab 1 tab nightly 7. Iron High Potency 325 mg oral daily 8. folic acid 1 mg Oral tab 1 tab once daily - PMHx: Anemia; Arthritis; CVA; c-diff; Hypercholesterolemia; Hypertension; TIA; - PSHx: Cholecystectomy; Hysterectomy; heart cath; - Social history: Smoking status: Patient states former smoker of tobacco. No barriers to communication noted, The patient speaks fluent Slovak, Speaks appropriately for age. - Family history: Not pertinent. - : The pt / caregiver states he / she is not on anticoagulants. Home medication list is obtained from family members. - Exposure Risk Screening:: None identified. Screenin:46 Screening information is obtained from family members. Fall risk: No risks identified. ead Assistance ADL's: Requires assistance with meal preparation, this assistance is provided by family members, bathing, assistance is provided by family members, dressing, assistance is provided by family members, toileting, assistance is provided by family members, ambulation, assistance is provided by family members, housework, assistance is provided by family members, medication administration, assistance is provided by family members. Abuse/DV Screen: The patient / caregiver reports he/she is: not in a situation that causes fear, pain or injury. Nutritional screening: No deficits noted. Advance Directives: Currently, there is a health care proxy, Evi Russo-daughter. There is no active DNR order. There is no living will. There is no Power of Mold Unloader. home support is adequate. Assessment: 13:30 General: Appears in no apparent distress, comfortable, well nourished, well groomed, ead Behavior is appropriate for age, cooperative, pleasant. Neurological: Level of Consciousness is awake, alert, obeys commands, Oriented to person, place, time. Respiratory: Airway is patent Respiratory effort is even, unlabored. Derm: Skin is pink, warm & dry. 14:30 General: Appears in no apparent distress, comfortable, Behavior is appropriate for age, ead cooperative. Neurological: Level of Consciousness is awake, alert, obeys commands, Oriented to person, place, time. GI: Abdomen is non- distended Denies nausea, vomiting, pain. Derm: Skin is pink, warm & dry. 15:41 General: Appears in no apparent distress, comfortable, Behavior is appropriate for age, ead cooperative, pleasant. Pain: Denies pain. Neurological: Level of Consciousness is awake, alert, obeys commands, Oriented to person, place, time, Reports generalized weakness. Respiratory: Airway is patent Respiratory effort is even, unlabored. GI: Denies nausea, vomiting, pain. Derm: Skin is pink, warm & dry. 16:56 General: Appears in no apparent distress, comfortable, Behavior is appropriate for age, ead cooperative, pleasant. Neurological: No deficits noted. Respiratory: Airway is patent Respiratory effort is even, unlabored. Derm: Skin is pink, warm & dry. 17:43 General: Appears in no apparent distress, comfortable, Behavior is appropriate for age, ead cooperative, pleasant. Neurological: No deficits noted. Respiratory: Airway is patent Respiratory effort is even, unlabored. Derm: Skin is pink, warm & dry. Vital Signs: 12:46 BP 157 / 76; Pulse 120; Resp 22; Temp 101.3(TE); Pulse Ox 93% on R/A; Weight 51.71 kg; ar3 Height 5 ft. 0 in. (152.40 cm) (R); Pain 0/10; 13:33 BP 132 / 72; Pulse 86; Resp 18; Temp 100.4; Pulse Ox 98% ; Pain 4/10; jam1 13:59 BP 100 / 53 (auto/); ead 13:59 Pulse 114 MON; Pulse Ox 92% ; ead 14:14 BP 116 / 55 (auto/); ead 14:14 Pulse 114 MON; Pulse Ox 93% ; ead 14:29 BP 100 / 54 (auto/); ead 14:29 Pulse 114 MON; Pulse Ox 93% ; ead 14:44 BP 112 / 56 (auto/); ead 14:44 Pulse 112 MON; Pulse Ox 93% ; ead 14:59 BP 111 / 54 (auto/); ead 14:59 Pulse 110 MON; Resp 16; Pulse Ox 94% on R/A; ead 15:14 BP 110 / 56 (auto/); ead 15:15 Pulse 114 MON; Pulse Ox 92% ; ead 15:29 BP 106 / 55 (auto/); ead 15:29 Pulse 108 MON; Pulse Ox 94% ; ead 15:44 BP 113 / 57 (auto/); ead 15:45 Pulse 106 MON; Resp 18; Pulse Ox 95% on R/A; ead 15:59 BP 120 / 57 (auto/); ead 15:59 Pulse 106 MON; Pulse Ox 96% ; ead 16:14 BP 124 / 58 (auto/); ead 16:14 Pulse 104 MON; Pulse Ox 96% ; ead 16:29 BP 123 / 65 (auto/); ead 16:29 Pulse 106 MON; Pulse Ox 96% ; ead 16:44 BP 127 / 61 (auto/); ead 16:44 Pulse 102 MON; Resp 18; Pulse Ox 96% on R/A; ead 17:27 BP 109 / 56 (auto/); ead 17:28 Pulse 104 MON; Pulse Ox 95% ; ead 17:30 BP 106 / 59; Pulse 105; Resp 19; Temp 97.0(O); Pulse Ox 95% on 2.0 lpm NC; jmk 12:46 Body Mass Index 22.26 (51.71 kg, 152.40 cm) ar3 Vitals: 12:37 Log In Time N/A - ambulance arrival. ead ED Course: 12:38 Patient visited by Antoinette Madison PCA. rs6 12:38 Pineda Amador MD is Private Physician. rs6 12:38 Martha Luna,RN is Primary Nurse. rs6 12:38 Patient moved to Waiting rs6 12:38 Patient moved to 12 rs6 12:41 Triage Initiated ead 12:46 Braxton Mathews MD is Attending Physician. ml 12:46 Patient visited by Braxton Mathews MD. ml 12:46 The patient / caregiver is instructed regarding the plan of care and ED course. Patient ead has correct armband on for positive identification. Placed in gown. Bed in low position. Call light in reach. Side rails up X2. Adult w/ patient. patient monitor on. Pulse ox on. NIBP on. 12:47 Patient visited by Teresa Mcclure PCA. ar3 13:18 Patient visited by Martha Luna,RN. ead 13:20 Lactic Acid (Allison tube on ice) Sent. bcj 13:20 Liver Profile Sent. bcj 13:20 MED Profile Sent. bcj 13:21 CBC with Diff Sent. j 13:21 Inserted saline lock: 20 gauge in right antecubital area and blood collected. The [facility] patient tolerated the procedure well. Labs drawn. (by ED staff). Sent per order to lab. Labs/Blood culture drawn. 13:41 BLOOD CULTURES Sent. ead 14:02 Notified attending ED physician of Critical lab value. Dr Allison notified of Lactic acid kpj OF 2.4. 14:23 Chest, 1 View Returned. EDMS 14:45 Patient visited by Martha Luna,RN. ead 15:28 Patient visited by Martha Luna,RN. ead 15:28 DIFFERENTIAL NO CHARGE Sent. ead 15:35 Cyn Da Silva is Hospitalizing Provider. ml 15:40 -Influenza A&B Rapid Antigen - Nose Sent. ead 15:57 [place] [place] was scanned into [employer] and attached to record. gjb 16:06 -Arterial Blood Gas Sent. js11 16:07 Chest, 1 View Returned. EDMS 17:00 Urine Culture Sent. ead 17:00 UA Sent. ead 17:43 No procedures done that require assistance. ead Administered Medications: 13:25 Drug: Albuterol 5 mg [albuterol sulfate 2.5 mg/0.5 mL solution for nebulization (1 mL)] kjn Route: Nebulizer; 13:25 Drug: Albuterol-Ipratropium 3 ml [ipratropium-albuterol 0.5 mg-3 mg(2.5 mg base)/3 mL kjn nebulization soln (3 mL)] Route: Inhalation; 13:41 Drug: Solu-MEDROL 125 mg [Solu-Medrol 500 mg intravenous solution (125 mg)] Route: IVP; ead Site: right antecubital; 13:41 Drug: NS 0.9% 1000 ml [sodium chloride 0.9 % intravenous solution] Route: IV; Rate: ead bolus; Site: right antecubital; RT: 13:25 Initial Med Neb Given as ordered Patient was instructed and evaluated on procedure kjn Patient tolerated procedure well without adverse effect. Respiratory: Breath sounds with crackles in right middle lobe, right lower lobe and left posterior lower lobe Breath sounds are diminished bilaterally. 16:06 ABG's drawn from left radial artery allens test done and positive pressure held for 5 js11 minutes no bleeding noted specimen sent pt. tolerated well. Order Results: Lab Order: CBC with Diff; SPEC'M 08/20/16 13:12 Test: WHITE BLOOD COUNT; Value: 7.7; Range: 4.0-10.0; Units: K/mm3; Status: F Test: RED BLOOD COUNT; Value: 2.74; Range: 4.00-5.40; Abnormal: Below low normal; Units: M/mm3; Status: F Test: HEMOGLOBIN; Value: 7.9; Range: 12.0-16.0; Abnormal: Below low normal; Units: g/dl; Status: F Test: HEMATOCRIT; Value: 25.8; Range: 36.0-47.0; Abnormal: Below low normal; Units: %; Status: F Test: MEAN CORPUSCULAR VOLUME; Value: 94.2; Range: 80.0-96.0; Units: fl; Status: F Test: MEAN CORPUSCULAR HEMOGLOBIN; Value: 28.7; Range: 27.0-33.0; Units: pg; Status: F Test: MEAN CORPUSCULAR HGB CONC; Value: 30.5; Range: 32.0-36.5; Abnormal: Below low normal; Units: g/dl; Status: F Test: RED CELL DISTRIBUTION WIDTH; Value: 17.9; Range: 11.5-14.5; Abnormal: Above high normal; Units: %; Status: F Test: PLATELET COUNT, AUTOMATED; Value: 219; Range: 150-450; Units: k/mm3; Status: F Test: NEUTROPHILS; Value: 80; Range: 35-75; Abnormal: Above high normal; Units: %; Status: F Test: LYMPHOCYTES; Value: 8; Range: 16-52; Abnormal: Below low normal; Units: %; Status: F Test: MONOCYTES; Value: 10; Range: 0-8; Abnormal: Above high normal; Units: %; Status: F Test: EOSINOPHILS; Value: 2; Range: 0-5; Units: %; Status: F Test: ANISOCYTOSIS; Value: 1+; Status: F Lab Order: MED Profile; SPEC'M 08/20/16 13:12 Test: GLUCOSE, FASTING; Value: 85; Range: 83-110; Units: MG/DL; Status: F Test: BLOOD UREA NITROGEN; Value: 18; Range: 7-18; Units: MG/DL; Status: F Test: CREATININE FOR GFR; Value: 0.86; Range: 0.55-1.02; Units: MG/DL; Status: F Test: GLOMERULAR FILTRATION RATE; Value: > 60.0; Range: >32; Status: F Test: SODIUM LEVEL; Value: 128; Range: 136-145; Abnormal: Below low normal; Units: MEQ/L; Status: F Test: POTASSIUM SERUM; Value: 4.1; Range: 3.5-5.1; Units: MEQ/L; Status: F Test: CHLORIDE LEVEL; Value: 97; Range: 98-107; Abnormal: Below low normal; Units: MEQ/L; Status: F Test: CARBON DIOXIDE LEVEL; Value: 20; Range: 21-32; Abnormal: Below low normal; Units: MEQ/L; Status: F Test: ANION GAP; Value: 11; Range: 8-16; Units: MEQ/L; Status: F Test: CALCIUM LEVEL; Value: 8.1; Range: 8.8-10.2; Abnormal: Below low normal; Units: MG/DL; Status: F Test Note: ; Units are mL/min/1.73 m2 Chronic Kidney Disease Staging per NKF: Stage I & II GFR >=60 Normal to Mildly Decreased Stage III GFR 30-59 Moderately Decreased Stage IV GFR 15-29 Severely Decreased Stage V GFR <15 Very Little GFR Left ESRD GFR <15 on VP [employer] DEVELOPMENT Lab Order: Liver Profile; SPEC'M 08/20/16 13:12 Test: AST/SGOT; Value: 101; Range: 15-37; Abnormal: Above high normal; Units: U/L; Status: F Test: ALT/SGPT; Value: 43; Range: 12-78; Units: U/L; Status: F Test: ALKALINE PHOSPHATASE; Value: 157; Range: 45-117; Abnormal: Above high normal; Units: U/L; Status: F Test: BILIRUBIN,TOTAL; Value: 0.6; Range: 0.2-1.0; Units: MG/DL; Status: F Test: BILIRUBIN,DIRECT; Value: 0.2; Range: 0.0-0.2; Units: MG/DL; Status: F Test: TOTAL PROTEIN; Value: 6.5; Range: 6.4-8.2; Units: GM/DL; Status: F Test: ALBUMIN; Value: 2.3; Range: 3.2-5.2; Abnormal: Below low normal; Units: GM/DL; Status: F Test: ALBUMIN/GLOBULIN RATIO; Value: 0.55; Range: 1.00-1.93; Abnormal: Below low normal; Status: F Lab Order: Lactic Acid (Allison tube on ice); SPEC'M 08/20/16 13:12 Test: LACTIC ACID SEPSIS PROTOCOL; Value: 2.4; Range: 0.4-2.0; Abnormal: Above upper panic limits; Units: MMOL/L; Status: F Lab Order: UA; SPEC'M 08/20/16 16:59 Test: APPEARANCE, URINE; Value: HAZY; Range: CLEAR; Status: F Test: COLOR, URINE; Value: YELLOW; Range: YELLOW; Status: F Test: PH,URINE; Value: 6.0; Range: 5.0-9.0; Units: UNITS; Status: F Test: SPECIFIC GRAVITY URINE AUTO; Value: 1.003; Range: 1.002-1.035; Status: F Test: PROTEIN, URINE AUTO; Value: NEGATIVE; Range: NEGATIVE; Units: mg/dL; Status: F Test: GLUCOSE, URINE (UA) AUTO; Value: NEGATIVE; Range: NEGATIVE; Units: mg/dL; Status: F Test: KETONE, URINE AUTO; Value: NEGATIVE; Range: NEGATIVE; Units: mg/dL; Status: F Test: UROBILINOGEN, URINE AUTO; Value: 0.2; Range: 0.0-2.0; Units: mg/dL; Status: F Test: BILIRUBIN, URINE AUTO; Value: NEGATIVE; Range: NEGATIVE; Status: F Test: NITRITE, URINE AUTO; Value: NEGATIVE; Range: NEGATIVE; Status: F Test: LEUKOCYTE ESTERASE, URINE AUTO; Value: TRACE; Range: NEGATIVE; Abnormal: Above high normal; Status: F Test: BLOOD, URINE BLOOD; Value: NEGATIVE; Range: NEGATIVE; Status: F Test: WBC, URINE AUTO; Value: 2; Range: 0-3; Units: /HPF; Status: F Test: RBC, URINE AUTO; Value: 2; Range: 0-3; Units: /HPF; Status: F Test: BACTERIA, URINE AUTO; Value: 1+; Range: NEGATIVE; Abnormal: Above high normal; Status: F Test: SQUAMOUS EPITHELIAL CELL UR AU; Value: 2; Range: 0-6; Units: /HPF; Status: F Test: HYALINE CAST, URINE AUTO; Value: 0; Range: 0-1; Units: /LPF; Status: F Lab Order: PLATELET ESTIMATE; SPEC'M 08/20/16 13:12 Test: PLATELET ESTIMATE; Value: NORMAL; Range: NORMAL; Status: F Lab Order: -Influenza A&B Rapid Antigen - Nose; SPEC'M 08/20/16 15:37 Test: INFLUENZA A RAPID SCR by ICA; Value: INFLUENZA A RESULTS POSITIVE; Abnormal: Abnormal; Status: F Test: INFLUENZA A RAPID SCR by ICA; Value: Comments:; Status: F Test: INFLUENZA B RAPID SCR by ICA; Value: INFLUENZA B RESULTS NEGATIVE; Status: F Test Note: ; The Influenza test is a direct rapid immunoassay for the qualitative detection of Influenza viral antigen. Cell culture (Viral Culture) testing should be considered to confirm NEGATIVE results and to assist in detecting other viruses that can provide similar clinical symptoms. Please contact the lab within 24 hours ([phone] if confirmatory testing is desired. Lab Order: -Arterial Blood Gas; SPEC'M 08/20/16 15:55 Test: ABG pH (ARTERIAL); Value: 7.468; Range: 7.350-7.450; Abnormal: Above high normal; Units: UNITS; Status: F Test: ABG PARTIAL PRESSURE CO2; Value: 25.1; Range: 35.0-45.0; Abnormal: Below low normal; Units: mmHg; Status: F Test: ABG PARTIAL PRESSURE O2; Value: 130.2; Range: 75.0-100.0; Abnormal: Above high normal; Units: mmHg; Status: F Test: ABG TOTAL CO2; Value: 18.5; Range: 23.0-31.0; Abnormal: Below low normal; Units: MEQ/L; Status: F Test: ABG HCO3; Value: 17.8; Range: 22.0-26.0; Abnormal: Below low normal; Units: MEQ/L; Status: F Test: ABG BASE EXCESS; Value: -5.2; Range: -2.0-2.0; Abnormal: Below low normal; Status: F Test: ABG STANDARD HCO3; Value: 20.1; Range: 22.0-26.0; Abnormal: Below low normal; Units: MEQ/L; Status: F Test: ABG O2 SATURATION; Value: 96.8; Range: 95.0-99.0; Units: %; Status: F Test: ABG DEVICE; Value: NASAL CARISSA; Status: F Radiology Order: Chest, 1 View Test: Chest, 1 View REASON FOR EXAMINATION: Cough; AP PORTABLE CHEST, 08/20/2016 AT 1:25 P.M.:; ; COMPARISON: 07/25/2016, 07/18/2016.; ; CLINICAL HISTORY: Cough.; ; FINDINGS: The lung kan are adequately inflated. Some minor basilar fibrotic; change without pleural effusion or dense consolidation. Streaky infrahilar; densities bilaterally and may reflect some bronchitis. A few cuffed bronchi; noted in the perihilar regions. There is no dense consolidation, effusion, or; mass. Heart not enlarged. Aorta is calcified at the arch but normal in size.; The airway intact. No aneurysm. Bones demineralized.; ; IMPRESSION:; ; 1. Some basilar fibrotic changes and peribronchial thickening with streaky; densities infrahilar regions that may reflect some bronchitis or reactive airway; disease. No dense consolidation with air bronchograms. No effusion.; ; 2. No cardiomegaly, aortic aneurysm, or pulmonary edema.; ; 3. Bones demineralized. Degenerative changes shoulders and spine.; ; ; Signed by; Jose Rafael Beauchamp MD 08/20/2016 03:55 P; Outcome: 15:36 Decision to Hospitalize by Provider. 17:42 Discharge Assessment: Patient awake and alert. obeys commands, patient administered ead narcotics - no. The following High Risk Discharge criteria are identified: None. Admitted to Med/Surg accompanied by tech, family with patient. Condition: stable. No special radiology studies were completed. Property :Personal belongings accompany Pt. 17:55 Patient left the ED. ead Signatures: Dispatcher [facility] EDAL Braxton Mathews MD MD ml Jobson, Karen RN RN Armando Jones RN RN Herman MontalvoRN RN Orquidea Cash, INSTALLATION & MAINTENANCE EXECUTIVE INSTALLATION & MAINTENANCE EXECUTIVE jam1 Teresa Mcclure, INSTALLATION & MAINTENANCE EXECUTIVE INSTALLATION & MAINTENANCE EXECUTIVE ar3 Tan,Nils js11 Mikala Smith Emily,RN RN Antoinette Gómez, INSTALLATION & MAINTENANCE EXECUTIVE INSTALLATION & MAINTENANCE EXECUTIVE rs6 Berna Webster Corrections: (The following items were deleted from the chart) 16: 15:40 TYPE & SCREEN sent. ead EDMS 16: 15:40 TYPE & SCREEN+BBK sent. ead EDMS MTDD
--- NOTE | 2016-08-20 17:56 | EDDOCDS ---
Physician Documentation [facility] Name: Kristi Doshi Age: 86 yrs Sex: Female : 1930 Arrival Date: 08/20/2016 Time: 12:37 Bed 12 Private MD: Pineda Amador Disposition: 08/20/16 15:36 Hospitalization ordered by Cyn Da Silva for Inpatient Admission. Preliminary diagnosis are Fever, unspecified, Acute respiratory failure with hypoxia, Acute bronchitis, Anemia in other chronic diseases classified elsewhere, Gastrointestinal hemorrhage, unspecified - history of black stools. - Bed requested for 4 [place]. - Status is Inpatient Admission. ead - Condition is Stable. - Problem is new. - Symptoms are unchanged. Historical: - Allergies: no known allergies; - Home Meds: 1. aspirin 81 mg Oral TbEC 1 tab once daily 2. losartan 25 mg oral tab 1 tab nightly 3. vancomycin 125 mg oral cap every 8 hours 4. leflunomide 20 mg oral tab 1 tab nightly 5. Tylenol 1000 mg Oral 6. pravastatin 20 mg oral tab 1 tab nightly 7. Iron High Potency 325 mg oral daily 8. folic acid 1 mg Oral tab 1 tab once daily - PMHx: Anemia; Arthritis; CVA; c-diff; Hypercholesterolemia; Hypertension; TIA; - PSHx: Cholecystectomy; Hysterectomy; heart cath; - Social history: Smoking status: Patient states former smoker of tobacco. No barriers to communication noted, The patient speaks fluent [place], Speaks appropriately for age. - Family history: Not pertinent. - : The pt / caregiver states he / she is not on anticoagulants. Home medication list is obtained from family members. - Exposure Risk Screening:: None identified. Vital Signs: 08/20 12:46 BP 157 / 76; Pulse 120; Resp 22; Temp 101.3(TE); Pulse Ox 93% on R/A; Weight 51.71 kg / ar3 114 lbs; Height 5 ft. 0 in. (152.40 cm) (R); Pain 0/10; 13:33 BP 132 / 72; Pulse 86; Resp 18; Temp 100.4; Pulse Ox 98% ; Pain 4/10; jam1 13:59 BP 100 / 53 (auto/); ead 13:59 Pulse 114 MON; Pulse Ox 92% ; ead 14:14 BP 116 / 55 (auto/); ead 14:14 Pulse 114 MON; Pulse Ox 93% ; ead 14:29 BP 100 / 54 (auto/); ead 14:29 Pulse 114 MON; Pulse Ox 93% ; ead 14:44 BP 112 / 56 (auto/); ead 14:44 Pulse 112 MON; Pulse Ox 93% ; ead 14:59 BP 111 / 54 (auto/); ead 14:59 Pulse 110 MON; Resp 16; Pulse Ox 94% on R/A; ead 15:14 BP 110 / 56 (auto/); ead 15:15 Pulse 114 MON; Pulse Ox 92% ; ead 15:29 BP 106 / 55 (auto/); ead 15:29 Pulse 108 MON; Pulse Ox 94% ; ead 15:44 BP 113 / 57 (auto/); ead 15:45 Pulse 106 MON; Resp 18; Pulse Ox 95% on R/A; ead 15:59 BP 120 / 57 (auto/); ead 15:59 Pulse 106 MON; Pulse Ox 96% ; ead 16:14 BP 124 / 58 (auto/); ead 16:14 Pulse 104 MON; Pulse Ox 96% ; ead 16:29 BP 123 / 65 (auto/); ead 16:29 Pulse 106 MON; Pulse Ox 96% ; ead 16:44 BP 127 / 61 (auto/); ead 16:44 Pulse 102 MON; Resp 18; Pulse Ox 96% on R/A; ead 17:27 BP 109 / 56 (auto/); ead 17:28 Pulse 104 MON; Pulse Ox 95% ; ead 17:30 BP 106 / 59; Pulse 105; Resp 19; Temp 97.0(O); Pulse Ox 95% on 2.0 lpm NC; jmk 12:46 Body Mass Index 22.26 (51.71 kg, 152.40 cm) ar3 MDM: 12:56 IV Saline Lock ordered. ml 12:56 Intravenous Therapy Nurse/Pulse Ox/q 15 min VS ordered. ml 12:56 Rhythm Strip to chart ordered. ml 12:56 Albuterol 5 mg Nebulizer once ordered. ml 12:56 Albuterol-Ipratropium 3 ml Inhalation once ordered. ml 12:56 Call Respiratory ordered. ml 12:56 -Blood Culture (Adults Only), peripheral from different site, or from device/port/PICC ml etc. if present ordered. 12:56 Solu-MEDROL 125 mg IVP once ordered. ml 12:56 NS 0.9% 1000 ml IV at bolus once ordered. ml 12:57 CBC with Diff Ordered. EDMS 12:57 MED Profile Ordered. EDMS 12:57 Liver Profile Ordered. EDMS 12:57 Lactic Acid (Allison tube on ice) Ordered. EDMS 12:57 UA Ordered. EDMS 12:57 -Blood Culture Ordered. EDMS 12:57 Urine Culture Ordered. EDMS 13:00 Chest, 1 View Ordered. EDMS 13:00 -Blood Culture (Adults Only), peripheral from different site, or from device/port/PICC rs6 etc. if present complete. 13:02 BLOOD CULTURES Ordered. EDMS 13:12 Call Respiratory complete. rs6 13:48 DIFFERENTIAL NO CHARGE Ordered. EDMS 14:53 CBC with Diff Reviewed. ml 14:53 MED Profile Reviewed. ml 14:53 Liver Profile Reviewed. ml 14:53 Lactic Acid (Allison tube on ice) Reviewed. ml 14:53 PLATELET ESTIMATE Reviewed. ml 14:53 Chest, 1 View Reviewed. ml 14:56 BED REQUEST+ADM ordered. EDMS 15:18 Obtain sample by nasopharyngeal swab ordered. ml 15:19 -Influenza A&B Rapid Antigen - Nose Ordered. EDMS 15:33 Misc. Nursing Order ordered. ml 15:34 Type and Cross, Packed Cells Ordered. EDMS 15:35 Financial registration complete. gjb 15:37 Call Respiratory ordered. ml 15:38 -Arterial Blood Gas Ordered. EDMS 15:42 Call Respiratory complete. ead 15:57 [facility] Payment Agreement was scanned into [employer] and attached to record. gjb 16:09 RESPIRATORY PANEL Ordered. EDMS 16:50 Admission / Observation Status ordered. EDMS 16:50 2 GRAM SODIUM DIET ordered. EDMS Administered Medications: 13:25 Drug: Albuterol 5 mg [albuterol sulfate 2.5 mg/0.5 mL solution for nebulization (1 mL)] kjn Route: Nebulizer; 13:25 Drug: Albuterol-Ipratropium 3 ml [ipratropium-albuterol 0.5 mg-3 mg(2.5 mg base)/3 mL kjn nebulization soln (3 mL)] Route: Inhalation; 13:41 Drug: Solu-MEDROL 125 mg [Solu-Medrol 500 mg intravenous solution (125 mg)] Route: IVP; ead Site: right antecubital; 13:41 Drug: NS 0.9% 1000 ml [sodium chloride 0.9 % intravenous solution] Route: IV; Rate: ead bolus; Site: right antecubital; Signatures: Dispatcher [employer] EDMS Braxton Mathews MD MD ml Jobson, Karen RN RN Martha DurhamRN RN Antoinette Gómez, MOISTURE MACHINE TENDER MOISTURE MACHINE TENDER rs6 Berna Webster Katherine kjn The chart was reviewed and I authenticate all verbal orders and agree with the evaluation and treatment provided.Corrections: (The following items were deleted from the chart) 16:04 14:56 TYPE & SCREEN+BBK ordered. EDMS EDMS 16:04 15:36 TYPE & SCREEN ordered. EDMS EDMS 16:53 16:53 CLOSTRID DIFFICILE PCR (DONOR) ordered. EDMS EDMS 16:53 16:53 CLOSTRID DIFFICILE PCR (DONOR) ordered. EDMS EDMS 17:12 17:02 PACKED CELLS ordered. EDMS EDMS 17:12 17:04 TYPE & SCREEN ordered. EDMS EDMS Attachments: 15:57 [facility] Payment Agreement tre MTDD
[2016-08-20 18:00] VITALS: BP 135/64
[2016-08-20] MEDS: ASPIRIN 81 MG ENTERIC TAB PO SCH (20:17)
[2016-08-20] MEDS: PRAVASTATIN 20 MG TAB PO SCH (20:17)
[2016-08-20] MEDS: FOLIC ACID 1 MG TAB PO SCH (20:18)
[2016-08-20] MEDS: FERROUS SULFATE 325MG TAB PO SCH (20:18)
[2016-08-20] MEDS: VITAMIN D 1,000 INTERNATIONAL UNITS TABLET PO SCH (21:48)
[2016-08-20] MEDS: NS 1,000 ML IV SCH (21:49)
[2016-08-20 22:00] VITALS: BP 110/62
[2016-08-21] MEDS: OSELTAMIVIR 6 MG/ML 60ML SUSP PO SCH ×3 (01:26→20:31)
[2016-08-21 06:00] VITALS: BP 116/60
[2016-08-21 07:02] LABS: MEAN CORPUSCULAR HEMOGLOBIN 29.9 pg (27.0-33.0); MEAN CORPUSCULAR HGB CONC 31.9 g/dl (32.0-36.5); MEAN CORPUSCULAR VOLUME 93.7 fl (80.0-96.0); RED CELL DISTRIBUTION WIDTH 17.1 % (11.5-14.5); WHITE BLOOD COUNT 5.4 K/mm3 (4.0-10.0)
[2016-08-21 07:03] LABS: ANION GAP 9 MEQ/L (8-16); BLOOD UREA NITROGEN 22 MG/DL (7-18); CALCIUM LEVEL 7.7 MG/DL (8.8-10.2); CARBON DIOXIDE LEVEL 20 MEQ/L (21-32); CHLORIDE LEVEL 112 MEQ/L (98-107); CHOLESTEROL LEVEL 113 MG/DL (<200); CREATININE FOR GFR 0.69 MG/DL (0.55-1.02); FERRITIN 1083 NG/ML (8-252); GLOMERULAR FILTRATION RATE > 60.0 (>32); GLUCOSE, FASTING 123 MG/DL (83-110); PERCENT SATURATION 17.1 % (13.2-37.4); POTASSIUM SERUM 3.9 MEQ/L (3.5-5.1); SODIUM LEVEL 141 MEQ/L (136-145); TOTAL IRON BINDING CAPACITY 210 UG/DL (250-450); TRIGLYCERIDES LEVEL 91 MG/DL (<150)
[2016-08-21] MEDS: FOLIC ACID 1 MG TAB PO SCH (08:50)
[2016-08-21] MEDS: VITAMIN D 1,000 INTERNATIONAL UNITS TABLET PO SCH (08:51)
[2016-08-21] MEDS: FERROUS SULFATE 325MG TAB PO SCH (08:51)
[2016-08-21] MEDS: VANCOMYCIN ORAL SOL 250MG/5ML ORAL SYRINGE PO SCH ×3 (09:03→20:31)
[2016-08-21 09:23] LABS: FOLATE > 24.0 NG/ML (>5.4); VITAMIN B12 LEVEL 548 PG/ML (247-911)
[2016-08-21 14:00] VITALS: BP 124/62
[2016-08-21] MEDS: NS 1,000 ML IV SCH (14:41)
--- NOTE | 2016-08-21 15:24 | IPNPDOC ---
Subjective General Date Seen The patient was seen on 08/21/16. Subjective Chief Complaint/HPI The patient is a 86-year-old female admitted with a reason for visit of C Diff; Symptomatic Anemia. Constitutional: Denies: Chills, Fever, Night Sweats Pulmonary: Reports: Dyspnea, Denies: Cough Cardiovascular: Denies: Chest Pain, Lt Headedness, Orthopnea, Palpitations, Paroxysmal Noc. Dyspnea Objective Physical Examination General Exam: Positive: Cooperative, No Acute Distress Eye Exam: Positive: PERRLA ENT Exam: Positive: Atraumatic Chest Exam: Positive: Clear to auscultation Heart Exam: Positive: Tachycardic Abdomen Exam: Positive: Normal bowel sounds, Soft, Negative: Hepatospenomegaly, Tenderness Extremity Exam: Positive: Normal pulses, Negative: Clubbing, Cyanosis, Edema Assessment /Plan Problems Problems: (1) Influenza A Status: Acute Problem Text: * pt was positive for influenza A continue Tamiflu * will continue to monitor (2) Old cerebrovascular accident (CVA) without late effect Status: Chronic (3) Dyslipidemia Status: Chronic (4) HTN (hypertension) Status: Chronic (5) C. difficile diarrhea Status: Chronic Problem Text: * pt is still on Po vanco * no diarrhea now * will check stool for cdiff if her diarrhea resumed Plan/VTE VTE Prophylaxis Ordered?: Yes VS, I&O, 24H, [facility] Vital Signs/I&O Vital Signs Date Time Temp Pulse Resp B/P Pulse Ox O2 Delivery O2 Flow Rate FiO2 08/21/16 06:00 96.1 64 18 116/60 96 Room Air 08/20/16 22:00 2.0 I&O- Last 24 Hours up to 6 AM 08/21/16 06:00 Intake Total 1420 ml Output Total 940 ml Balance 480 ml Laboratory Data 24H LABS Laboratory Tests 2 08/20/16 15:55: Arterial Blood pH 7.468H, Arterial Blood Partial Pressure CO2 25.1L, Arterial Blood Partial Pressure O2 130.2H, Arterial Blood Total CO2 18.5L, Arterial Blood HCO3 17.8L, Arterial Blood Base Excess -5.2L, Arterial Blood Oxygen Saturation 96.8, Blood Gas Bicarbonate Standard 20.1L, Oxygen Delivery Device NASAL CARISSA 08/20/16 16:59: Urine Amorphous Sediment , Urine Appearance HAZY, Urine Color YELLOW, Urine pH 6.0, Urine Specific [place] 1.003, Urine Protein NEGATIVE, Urine Glucose (UA) NEGATIVE, Urine Ketones NEGATIVE, Urine Urobilinogen 0.2, Urine Bilirubin NEGATIVE, Urine Leukocyte Esterase TRACEH, Urine Bacteria (Auto) 1+H, Urine Blood NEGATIVE, Urine Calcium Carbonate Cryst(Auto) , Urine Calcium Oxalate Cryst (Auto) , Urine Calcium Phosphate Julia (Auto) , Urine Cellular Casts , Urine Cystine Crystals , Urine Granular Casts (Auto) , Urine Hyaline Casts (Auto ) 0, Urine Leucine Crystals , Urine Mucus (Auto) , Urine Nitrite NEGATIVE, Urine Oval Fat Bodies (Auto) , Urine RBC (Auto) 2, Urine Renal Epithelial Cells , Urine Sperm (Auto) , Urine Squamous Epithelial Cells 2, Urine Transitional Epithelial Cells , Urine Trichomonas (Auto) , Urine Triple Phosphate Cryst (Auto ) , Urine Tyrosine Crystals , Urine Uric Acid Crystals (Auto) , Urine WBC (Auto ) 2, Urine Waxy Casts (Auto) , Urine Yeast-Like Cells (Auto) 08/20/16 17:15: Lactic Acid Level 1.8 08/21/16 05:58: Anion Gap 9, Calcium Level 7.7L, Triglycerides Level 91, Cholesterol Level 113, HDL Cholesterol 35L, LDL Cholesterol 59.8, Cholesterol/HDL Ratio 3.228, Ferritin 1083H, Folate > 24.0, Glomerular Filtration Rate > 60.0, Iron Level 36L , Non-HDL Cholesterol (LDL + VLDL) 78, Total Iron Binding Capacity 210L, Transferrin % Saturation 17.1, Vitamin B12 Level 548 CBC/BMP Laboratory Tests 08/21/16 05:58 Red Blood Count 2.85 L, Mean Corpuscular Volume 93.7, Mean Corpuscular Hemoglobin 29.9, Mean Corpuscular Hemoglobin Concent 31.9 L, Red Cell Distribution Width 17.1 H Microbiology Microbiology 08/20/16 Blood Culture - Preliminary, Resulted No growth after 24 hours . All specim... 08/20/16 Blood Culture - Preliminary, Resulted No growth after 24 hours . All specim... 08/21/16 Stool Occult Blood (DE), Received Pending 08/20/16 Respiratory Virus Panel (PCR) (DE) - Final, Complete Influenza A H3 08/20/16 Influenza Virus Type A Antigen - Final, Complete 08/20/16 Influenza Virus Type B Antigen - Final, Complete 08/20/16 Urine Culture, Received Pending JINNY CAMPOS DO Aug 21, 2016 15:23
[2016-08-21 19:11] VITALS: BP 112/58
[2016-08-21] MEDS: PRAVASTATIN 20 MG TAB PO SCH (20:30)
[2016-08-21] MEDS: ASPIRIN 81 MG ENTERIC TAB PO SCH (20:30)
[2016-08-21 22:00] VITALS: BP 110/58
[2016-08-22] MEDS: NS 1,000 ML IV SCH (02:03)
[2016-08-22 06:00] VITALS: BP 140/60
[2016-08-22 06:09] LABS: MEAN CORPUSCULAR HGB CONC 31.8 g/dl (32.0-36.5); MEAN CORPUSCULAR VOLUME 94.5 fl (80.0-96.0); RED CELL DISTRIBUTION WIDTH 17.9 % (11.5-14.5); WHITE BLOOD COUNT 12.3 K/mm3 (4.0-10.0)
[2016-08-22 06:22] LABS: ANION GAP 8 MEQ/L (8-16); BLOOD UREA NITROGEN 26 MG/DL (7-18); CARBON DIOXIDE LEVEL 19 MEQ/L (21-32); CHLORIDE LEVEL 116 MEQ/L (98-107); CREATININE FOR GFR 0.75 MG/DL (0.55-1.02); GLOMERULAR FILTRATION RATE > 60.0 (>32); GLUCOSE, FASTING 95 MG/DL (83-110); SODIUM LEVEL 143 MEQ/L (136-145)
[2016-08-22] MEDS: VITAMIN D 1,000 INTERNATIONAL UNITS TABLET PO SCH (09:23)
[2016-08-22] MEDS: FOLIC ACID 1 MG TAB PO SCH (09:23)
[2016-08-22] MEDS: VANCOMYCIN ORAL SOL 250MG/5ML ORAL SYRINGE PO SCH ×3 (09:24→20:39)
[2016-08-22] MEDS: OSELTAMIVIR 6 MG/ML 60ML SUSP PO SCH ×2 (09:24→20:39)
[2016-08-22] MEDS: FERROUS SULFATE 325MG TAB PO SCH (09:24)
[2016-08-22 14:00] VITALS: BP 142/60
--- NOTE | 2016-08-22 14:22 | IPNPDOC ---
Subjective General Date Seen The patient was seen on 08/22/16. Subjective Chief Complaint/HPI The patient is a 86-year-old female admitted with a reason for visit of C Diff; Symptomatic Anemia. Constitutional: Denies: Chills, Fever, Night Sweats Pulmonary: Denies: Cough, Dyspnea Cardiovascular: Denies: Chest Pain, Lt Headedness, Orthopnea, Palpitations, Paroxysmal Noc. Dyspnea Objective Physical Examination General Exam: Positive: Cooperative, No Acute Distress Eye Exam: Positive: PERRLA ENT Exam: Positive: Atraumatic Chest Exam: Positive: Clear to auscultation Heart Exam: Positive: Tachycardic Abdomen Exam: Positive: Normal bowel sounds, Soft, Negative: Hepatospenomegaly, Tenderness Extremity Exam: Positive: Normal pulses, Negative: Clubbing, Cyanosis, Edema Assessment /Plan Problems Problems: (1) UTI (urinary tract infection) Status: Acute Problem Text: * ecoli in the urine, will add keflex (2) Anemia Status: Acute Problem Text: * pt received 1 unit of PRBC on admission * Hg is still low, will give her 1 unit of blood today (3) Influenza A Status: Acute Problem Text: * pt was positive for influenza A continue Tamiflu * will continue to monitor (4) Old cerebrovascular accident (CVA) without late effect Status: Chronic (5) Dyslipidemia Status: Chronic (6) HTN (hypertension) Status: Chronic (7) C. difficile diarrhea Status: Chronic Problem Text: * pt is still on Po vanco * no diarrhea now * will check stool for cdiff if her diarrhea resumed Plan/VTE VTE Prophylaxis Ordered?: Yes VS, I&O, 24H, Pending [facility] Vital Signs/I&O Vital Signs Date Time Temp Pulse Resp B/P Pulse Ox O2 Delivery O2 Flow Rate FiO2 08/22/16 10:45 97.7 08/22/16 06:00 60 18 140/60 92 Room Air 08/21/16 14:00 2.0 I&O- Last 24 Hours up to 6 AM 08/22/16 06:00 Intake Total 1080 ml Output Total 400 ml Balance 680 ml Laboratory Data 24H LABS Laboratory Tests 2 08/22/16 05:23: Anion Gap 8, Blood Urea Nitrogen 26H, Creatinine 0.75, Sodium Level 143, Potassium Level 4.0, Chloride Level 116H, Carbon Dioxide Level 19L, Calcium Level 8.0L, Glomerular Filtration Rate > 60.0 CBC/BMP Laboratory Tests 08/22/16 05:23 Calcium Level 8.0 L, Red Blood Count 2.78 L, Mean Corpuscular Volume 94.5, Mean Corpuscular Hemoglobin 30.0, Mean Corpuscular Hemoglobin Concent 31.8 L, Red Cell Distribution Width 17.9 H Microbiology Microbiology 08/20/16 Blood Culture - Preliminary, Resulted No Growth after 48 hours. All Specime... 08/20/16 Blood Culture - Preliminary, Resulted No Growth after 48 hours. All Specime... 08/21/16 Stool Occult Blood (DE) - Final, Complete 08/20/16 Respiratory Virus Panel (PCR) (DE) - Final, Complete Influenza A H3 08/20/16 Influenza Virus Type A Antigen - Final, Complete 08/20/16 Influenza Virus Type B Antigen - Final, Complete 08/20/16 Urine Culture - Final, Complete Escherichia Coli JINNY CAMPOS DO Aug 22, 2016 14:22
[2016-08-22] MEDS: CEPHALEXIN 250 MG CAP PO SCH ×2 (15:00→20:39)
[2016-08-22] MEDS: ACETAMINOPHEN TAB 650MG DOSE (2X325MG) PO PRN (15:50)
--- NOTE | 2016-08-22 18:57 | EDDOCDS ---
Nurse's Notes [facility] Name: Kristi Doshi Age: 86 yrs Sex: Female : 1930 Arrival Date: 08/20/2016 Time: 12:37 Bed 12 Private MD: Pineda Amador Diagnosis: Fever, unspecified;Acute respiratory failure with hypoxia;Acute bronchitis;Anemia in other chronic diseases classified elsewhere;Gastrointestinal hemorrhage, unspecified-history of black stools Presentation: 08/20 12:39 Presenting complaint: EMS states: family reported general weakness, pt currently on po ead vanco for c-diff x 6 weeks. pt denies pain. pt reported slight fall in bathroom today catching self, denies hitting head. Suicide/Homicide risk assessment- the patient denies having any suicidal and/or homicidal ideations and does not present with any other emotional, behavioral or mental health complaints. 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 Transition of care: patient was not received from another setting of care. 12:39 Method Of Arrival: Ambulance ead 12:39 Acuity: MATTHIAS Level 3 ead 12:39 Presenting complaint: Child states: daughter reports public health nurse obtained 02 ead sat of 85% at home. denies hx of copd, denies home oxygen use. 17:41 Adult Sepsis Screening: The patient does not have new or worsening altered mentation. ead Patient's respiratory rate is less than 22. Systolic blood pressure is greater than 100. Patient has a qSOFA score of 0- Negative Sepsis Screen. Triage Assessment: 12:44 General: Appears in no apparent distress, comfortable, well nourished, well groomed, ead Behavior is appropriate for age, cooperative, pleasant. Pain: Denies pain. The patient is triaged at the bedside. See Assessment in Nurses Notes section of ED record. Neurological: Level of Consciousness is awake, alert, obeys commands, Oriented to person, place, time. Respiratory: Airway is patent Respiratory effort is even, unlabored. GI: Denies diarrhea, nausea, vomiting, pain. Derm: Skin is pink, warm & dry. Historical: - Allergies: no known allergies; - Home Meds: 1. aspirin 81 mg Oral TbEC 1 tab once daily 2. losartan 25 mg oral tab 1 tab nightly 3. vancomycin 125 mg oral cap every 8 hours 4. leflunomide 20 mg oral tab 1 tab nightly 5. Tylenol 1000 mg Oral 6. pravastatin 20 mg oral tab 1 tab nightly 7. Iron High Potency 325 mg oral daily 8. folic acid 1 mg Oral tab 1 tab once daily - PMHx: Anemia; Arthritis; CVA; c-diff; Hypercholesterolemia; Hypertension; TIA; - PSHx: Cholecystectomy; Hysterectomy; heart cath; - Social history: Smoking status: Patient states former smoker of tobacco. No barriers to communication noted, The patient speaks fluent Kazakh, Speaks appropriately for age. - Family history: Not pertinent. - : The pt / caregiver states he / she is not on anticoagulants. Home medication list is obtained from family members. - Exposure Risk Screening:: None identified. Screenin:46 Screening information is obtained from family members. Fall risk: No risks identified. ead Assistance ADL's: Requires assistance with meal preparation, this assistance is provided by family members, bathing, assistance is provided by family members, dressing, assistance is provided by family members, toileting, assistance is provided by family members, ambulation, assistance is provided by family members, housework, assistance is provided by family members, medication administration, assistance is provided by family members. Abuse/DV Screen: The patient / caregiver reports he/she is: not in a situation that causes fear, pain or injury. Nutritional screening: No deficits noted. Advance Directives: Currently, there is a health care proxy, Evi Russo-daughter. There is no active DNR order. There is no living will. There is no Power of Computer Forensics Technician. home support is adequate. Assessment: 13:30 General: Appears in no apparent distress, comfortable, well nourished, well groomed, ead Behavior is appropriate for age, cooperative, pleasant. Neurological: Level of Consciousness is awake, alert, obeys commands, Oriented to person, place, time. Respiratory: Airway is patent Respiratory effort is even, unlabored. Derm: Skin is pink, warm & dry. 14:30 General: Appears in no apparent distress, comfortable, Behavior is appropriate for age, ead cooperative. Neurological: Level of Consciousness is awake, alert, obeys commands, Oriented to person, place, time. GI: Abdomen is non- distended Denies nausea, vomiting, pain. Derm: Skin is pink, warm & dry. 15:41 General: Appears in no apparent distress, comfortable, Behavior is appropriate for age, ead cooperative, pleasant. Pain: Denies pain. Neurological: Level of Consciousness is awake, alert, obeys commands, Oriented to person, place, time, Reports generalized weakness. Respiratory: Airway is patent Respiratory effort is even, unlabored. GI: Denies nausea, vomiting, pain. Derm: Skin is pink, warm & dry. 16:56 General: Appears in no apparent distress, comfortable, Behavior is appropriate for age, ead cooperative, pleasant. Neurological: No deficits noted. Respiratory: Airway is patent Respiratory effort is even, unlabored. Derm: Skin is pink, warm & dry. 17:43 General: Appears in no apparent distress, comfortable, Behavior is appropriate for age, ead cooperative, pleasant. Neurological: No deficits noted. Respiratory: Airway is patent Respiratory effort is even, unlabored. Derm: Skin is pink, warm & dry. Vital Signs: 12:46 BP 157 / 76; Pulse 120; Resp 22; Temp 101.3(TE); Pulse Ox 93% on R/A; Weight 51.71 kg; ar3 Height 5 ft. 0 in. (152.40 cm) (R); Pain 0/10; 13:33 BP 132 / 72; Pulse 86; Resp 18; Temp 100.4; Pulse Ox 98% ; Pain 4/10; jam1 13:59 BP 100 / 53 (auto/); ead 13:59 Pulse 114 MON; Pulse Ox 92% ; ead 14:14 BP 116 / 55 (auto/); ead 14:14 Pulse 114 MON; Pulse Ox 93% ; ead 14:29 BP 100 / 54 (auto/); ead 14:29 Pulse 114 MON; Pulse Ox 93% ; ead 14:44 BP 112 / 56 (auto/); ead 14:44 Pulse 112 MON; Pulse Ox 93% ; ead 14:59 BP 111 / 54 (auto/); ead 14:59 Pulse 110 MON; Resp 16; Pulse Ox 94% on R/A; ead 15:14 BP 110 / 56 (auto/); ead 15:15 Pulse 114 MON; Pulse Ox 92% ; ead 15:29 BP 106 / 55 (auto/); ead 15:29 Pulse 108 MON; Pulse Ox 94% ; ead 15:44 BP 113 / 57 (auto/); ead 15:45 Pulse 106 MON; Resp 18; Pulse Ox 95% on R/A; ead 15:59 BP 120 / 57 (auto/); ead 15:59 Pulse 106 MON; Pulse Ox 96% ; ead 16:14 BP 124 / 58 (auto/); ead 16:14 Pulse 104 MON; Pulse Ox 96% ; ead 16:29 BP 123 / 65 (auto/); ead 16:29 Pulse 106 MON; Pulse Ox 96% ; ead 16:44 BP 127 / 61 (auto/); ead 16:44 Pulse 102 MON; Resp 18; Pulse Ox 96% on R/A; ead 17:27 BP 109 / 56 (auto/); ead 17:28 Pulse 104 MON; Pulse Ox 95% ; ead 17:30 BP 106 / 59; Pulse 105; Resp 19; Temp 97.0(O); Pulse Ox 95% on 2.0 lpm NC; jmk 12:46 Body Mass Index 22.26 (51.71 kg, 152.40 cm) ar3 Vitals: 12:37 Log In Time N/A - ambulance arrival. ead ED Course: 12:38 Patient visited by Antoinette Madison PCA. rs6 12:38 Pineda Amador MD is Private Physician. rs6 12:38 Martha Luna,RN is Primary Nurse. rs6 12:38 Patient moved to Waiting rs6 12:38 Patient moved to 12 rs6 12:41 Triage Initiated ead 12:46 Braxton Mathews MD is Attending Physician. ml 12:46 Patient visited by Braxton Mathews MD. ml 12:46 The patient / caregiver is instructed regarding the plan of care and ED course. Patient ead has correct armband on for positive identification. Placed in gown. Bed in low position. Call light in reach. Side rails up X2. Adult w/ patient. fence erector supervisor on. Pulse ox on. NIBP on. 12:47 Patient visited by Teresa Mcclure PCA. ar3 13:18 Patient visited by Martha Luna,RN. ead 13:20 Lactic Acid (Allison tube on ice) Sent. bcj 13:20 Liver Profile Sent. bcj 13:20 MED Profile Sent. bcj 13:21 CBC with Diff Sent. j 13:21 Inserted saline lock: 20 gauge in right antecubital area and blood collected. The [facility] patient tolerated the procedure well. Labs drawn. (by ED staff). Sent per order to lab. Labs/Blood culture drawn. 13:41 BLOOD CULTURES Sent. ead 14:02 Notified attending ED physician of Critical lab value. Dr Allison notified of Lactic acid kpj OF 2.4. 14:23 Chest, 1 View Returned. EDMS 14:45 Patient visited by Martha Luna,RN. ead 15:28 Patient visited by Martha Luna,RN. ead 15:28 DIFFERENTIAL NO CHARGE Sent. ead 15:35 Cyn Da Silva is Hospitalizing Provider. ml 15:40 -Influenza A&B Rapid Antigen - Nose Sent. ead 15:57 [facility] [place] was scanned into [employer] and attached to record. gjb 16:06 -Arterial Blood Gas Sent. js11 16:07 Chest, 1 View Returned. EDMS 17:00 Urine Culture Sent. ead 17:00 UA Sent. ead 17:43 No procedures done that require assistance. ead 02 09:40 T-Sheet-- Draft Copy was scanned into [employer] and attached to record. gb 09:40 PCR was scanned into [employer] and attached to record. gb 09:40 Consents was scanned into [employer] and attached to record. gb 09:41 Radiology Report was scanned into [employer] and attached to record. gb Administered Medications: 08/20 13:25 Drug: Albuterol 5 mg [albuterol sulfate 2.5 mg/0.5 mL solution for nebulization (1 mL)] kjn Route: Nebulizer; 13:25 Drug: Albuterol-Ipratropium 3 ml [ipratropium-albuterol 0.5 mg-3 mg(2.5 mg base)/3 mL kjn nebulization soln (3 mL)] Route: Inhalation; 13:41 Drug: Solu-MEDROL 125 mg [Solu-Medrol 500 mg intravenous solution (125 mg)] Route: IVP; ead Site: right antecubital; 13:41 Drug: NS 0.9% 1000 ml [sodium chloride 0.9 % intravenous solution] Route: IV; Rate: ead bolus; Site: right antecubital; Attachments: 09:40 Consents gb RT: 08/20 13:25 Initial Med Neb Given as ordered Patient was instructed and evaluated on procedure kjn Patient tolerated procedure well without adverse effect. Respiratory: Breath sounds with crackles in right middle lobe, right lower lobe and left posterior lower lobe Breath sounds are diminished bilaterally. 16:06 ABG's drawn from left radial artery allens test done and positive pressure held for 5 js11 minutes no bleeding noted specimen sent pt. tolerated well. Order Results: Lab Order: CBC with Diff; SPEC'M 08/20/16 13:12 Test: WHITE BLOOD COUNT; Value: 7.7; Range: 4.0-10.0; Units: K/mm3; Status: F Test: RED BLOOD COUNT; Value: 2.74; Range: 4.00-5.40; Abnormal: Below low normal; Units: M/mm3; Status: F Test: HEMOGLOBIN; Value: 7.9; Range: 12.0-16.0; Abnormal: Below low normal; Units: g/dl; Status: F Test: HEMATOCRIT; Value: 25.8; Range: 36.0-47.0; Abnormal: Below low normal; Units: %; Status: F Test: MEAN CORPUSCULAR VOLUME; Value: 94.2; Range: 80.0-96.0; Units: fl; Status: F Test: MEAN CORPUSCULAR HEMOGLOBIN; Value: 28.7; Range: 27.0-33.0; Units: pg; Status: F Test: MEAN CORPUSCULAR HGB CONC; Value: 30.5; Range: 32.0-36.5; Abnormal: Below low normal; Units: g/dl; Status: F Test: RED CELL DISTRIBUTION WIDTH; Value: 17.9; Range: 11.5-14.5; Abnormal: Above high normal; Units: %; Status: F Test: PLATELET COUNT, AUTOMATED; Value: 219; Range: 150-450; Units: k/mm3; Status: F Test: NEUTROPHILS; Value: 80; Range: 35-75; Abnormal: Above high normal; Units: %; Status: F Test: LYMPHOCYTES; Value: 8; Range: 16-52; Abnormal: Below low normal; Units: %; Status: F Test: MONOCYTES; Value: 10; Range: 0-8; Abnormal: Above high normal; Units: %; Status: F Test: EOSINOPHILS; Value: 2; Range: 0-5; Units: %; Status: F Test: ANISOCYTOSIS; Value: 1+; Status: F Lab Order: MED Profile; [facility] 08/20/16 13:12 Test: GLUCOSE, FASTING; Value: 85; Range: 83-110; Units: MG/DL; Status: F Test: BLOOD UREA NITROGEN; Value: 18; Range: 7-18; Units: MG/DL; Status: F Test: CREATININE FOR GFR; Value: 0.86; Range: 0.55-1.02; Units: MG/DL; Status: F Test: GLOMERULAR FILTRATION RATE; Value: > 60.0; Range: >32; Status: F Test: SODIUM LEVEL; Value: 128; Range: 136-145; Abnormal: Below low normal; Units: MEQ/L; Status: F Test: POTASSIUM SERUM; Value: 4.1; Range: 3.5-5.1; Units: MEQ/L; Status: F Test: CHLORIDE LEVEL; Value: 97; Range: 98-107; Abnormal: Below low normal; Units: MEQ/L; Status: F Test: CARBON DIOXIDE LEVEL; Value: 20; Range: 21-32; Abnormal: Below low normal; Units: MEQ/L; Status: F Test: ANION GAP; Value: 11; Range: 8-16; Units: MEQ/L; Status: F Test: CALCIUM LEVEL; Value: 8.1; Range: 8.8-10.2; Abnormal: Below low normal; Units: MG/DL; Status: F Test Note: ; Units are mL/min/1.73 m2 Chronic Kidney Disease Staging per NKF: Stage I & II GFR >=60 Normal to Mildly Decreased Stage III GFR 30-59 Moderately Decreased Stage IV GFR 15-29 Severely Decreased Stage V GFR <15 Very Little GFR Left ESRD GFR <15 on SOURCING SPECIALIST Lab Order: Liver Profile; SPEC08/20/16 13:12 Test: AST/SGOT; Value: 101; Range: 15-37; Abnormal: Above high normal; Units: U/L; Status: F Test: ALT/SGPT; Value: 43; Range: 12-78; Units: U/L; Status: F Test: ALKALINE PHOSPHATASE; Value: 157; Range: 45-117; Abnormal: Above high normal; Units: U/L; Status: F Test: BILIRUBIN,TOTAL; Value: 0.6; Range: 0.2-1.0; Units: MG/DL; Status: F Test: BILIRUBIN,DIRECT; Value: 0.2; Range: 0.0-0.2; Units: MG/DL; Status: F Test: TOTAL PROTEIN; Value: 6.5; Range: 6.4-8.2; Units: GM/DL; Status: F Test: ALBUMIN; Value: 2.3; Range: 3.2-5.2; Abnormal: Below low normal; Units: GM/DL; Status: F Test: ALBUMIN/GLOBULIN RATIO; Value: 0.55; Range: 1.00-1.93; Abnormal: Below low normal; Status: F Lab Order: Lactic Acid (Allison tube on ice); SPEC'M 08/20/16 13:12 Test: LACTIC ACID SEPSIS PROTOCOL; Value: 2.4; Range: 0.4-2.0; Abnormal: Above upper panic limits; Units: MMOL/L; Status: F Lab Order: UA; SPEC'M 08/20/16 16:59 Test: APPEARANCE, URINE; Value: HAZY; Range: CLEAR; Status: F Test: COLOR, URINE; Value: YELLOW; Range: YELLOW; Status: F Test: PH,URINE; Value: 6.0; Range: 5.0-9.0; Units: UNITS; Status: F Test: SPECIFIC GRAVITY URINE AUTO; Value: 1.003; Range: 1.002-1.035; Status: F Test: PROTEIN, URINE AUTO; Value: NEGATIVE; Range: NEGATIVE; Units: mg/dL; Status: F Test: GLUCOSE, URINE (UA) AUTO; Value: NEGATIVE; Range: NEGATIVE; Units: mg/dL; Status: F Test: KETONE, URINE AUTO; Value: NEGATIVE; Range: NEGATIVE; Units: mg/dL; Status: F Test: UROBILINOGEN, URINE AUTO; Value: 0.2; Range: 0.0-2.0; Units: mg/dL; Status: F Test: BILIRUBIN, URINE AUTO; Value: NEGATIVE; Range: NEGATIVE; Status: F Test: NITRITE, URINE AUTO; Value: NEGATIVE; Range: NEGATIVE; Status: F Test: LEUKOCYTE ESTERASE, URINE AUTO; Value: TRACE; Range: NEGATIVE; Abnormal: Above high normal; Status: F Test: BLOOD, URINE BLOOD; Value: NEGATIVE; Range: NEGATIVE; Status: F Test: WBC, URINE AUTO; Value: 2; Range: 0-3; Units: /HPF; Status: F Test: RBC, URINE AUTO; Value: 2; Range: 0-3; Units: /HPF; Status: F Test: BACTERIA, URINE AUTO; Value: 1+; Range: NEGATIVE; Abnormal: Above high normal; Status: F Test: SQUAMOUS EPITHELIAL CELL UR AU; Value: 2; Range: 0-6; Units: /HPF; Status: F Test: HYALINE CAST, URINE AUTO; Value: 0; Range: 0-1; Units: /LPF; Status: F Lab Order: PLATELET ESTIMATE; [facility]' 08/20/16 13:12 Test: PLATELET ESTIMATE; Value: NORMAL; Range: NORMAL; Status: F Lab Order: -Influenza A&B Rapid Antigen - Nose; SPEC'M 08/20/16 15:37 Test: INFLUENZA A RAPID SCR by ICA; Value: INFLUENZA A RESULTS POSITIVE; Abnormal: Abnormal; Status: F Test: INFLUENZA A RAPID SCR by ICA; Value: Comments:; Status: F Test: INFLUENZA B RAPID SCR by ICA; Value: INFLUENZA B RESULTS NEGATIVE; Status: F Test Note: ; The Influenza test is a direct rapid immunoassay for the qualitative detection of Influenza viral antigen. Cell culture (Viral Culture) testing should be considered to confirm NEGATIVE results and to assist in detecting other viruses that can provide similar clinical symptoms. Please contact the lab within 24 hours ([phone]) if confirmatory testing is desired. Lab Order: -Arterial Blood Gas; SPEC'M 08/20/16 15:55 Test: ABG pH (ARTERIAL); Value: 7.468; Range: 7.350-7.450; Abnormal: Above high normal; Units: UNITS; Status: F Test: ABG PARTIAL PRESSURE CO2; Value: 25.1; Range: 35.0-45.0; Abnormal: Below low normal; Units: mmHg; Status: F Test: ABG PARTIAL PRESSURE O2; Value: 130.2; Range: 75.0-100.0; Abnormal: Above high normal; Units: mmHg; Status: F Test: ABG TOTAL CO2; Value: 18.5; Range: 23.0-31.0; Abnormal: Below low normal; Units: MEQ/L; Status: F Test: ABG HCO3; Value: 17.8; Range: 22.0-26.0; Abnormal: Below low normal; Units: MEQ/L; Status: F Test: ABG BASE EXCESS; Value: -5.2; Range: -2.0-2.0; Abnormal: Below low normal; Status: F Test: ABG STANDARD HCO3; Value: 20.1; Range: 22.0-26.0; Abnormal: Below low normal; Units: MEQ/L; Status: F Test: ABG O2 SATURATION; Value: 96.8; Range: 95.0-99.0; Units: %; Status: F Test: ABG DEVICE; Value: NASAL CARISSA; Status: F Radiology Order: Chest, 1 View Test: Chest, 1 View REASON FOR EXAMINATION: Cough; AP PORTABLE CHEST, 08/20/2016 AT 1:25 P.M.:; ; COMPARISON: 07/25/2016, 07/18/2016.; ; CLINICAL HISTORY: Cough.; ; FINDINGS: The lung kan are adequately inflated. Some minor basilar fibrotic; change without pleural effusion or dense consolidation. Streaky infrahilar; densities bilaterally and may reflect some bronchitis. A few cuffed bronchi; noted in the perihilar regions. There is no dense consolidation, effusion, or; mass. Heart not enlarged. Aorta is calcified at the arch but normal in size.; The airway intact. No aneurysm. Bones demineralized.; ; IMPRESSION:; ; 1. Some basilar fibrotic changes and peribronchial thickening with streaky; densities infrahilar regions that may reflect some bronchitis or reactive airway; disease. No dense consolidation with air bronchograms. No effusion.; ; 2. No cardiomegaly, aortic aneurysm, or pulmonary edema.; ; 3. Bones demineralized. Degenerative changes shoulders and spine.; ; ; Signed by; Jose Rafael Beauchamp MD 08/20/2016 03:55 P; Outcome: 15:36 Decision to Hospitalize by Provider. ml 17:42 Discharge Assessment: Patient awake and alert. obeys commands, patient administered ead narcotics - no. The following High Risk Discharge criteria are identified: None. Admitted to Med/Surg accompanied by tech, family with patient. Condition: stable. No special radiology studies were completed. Property :Personal belongings accompany Pt. 17:55 Patient left the ED. ead Signatures: Dispatcher [employer] EDMS Braxton Mathews MD MD ml Jobson, Karen, RN RN Armando Jones, RN RN Herman Montalvo,RN RN jimbo Garvey, [place], CONTROL AND RECOVERY COMBAT RESCUE CONTROL AND RECOVERY COMBAT RESCUE jam1 Silverio, Francesca, Reg Reg gb Kami, Teresa, CONTROL AND RECOVERY COMBAT RESCUE CONTROL AND RECOVERY COMBAT RESCUE ar3 Nils Tan js11 Mikala Smith Emily,RN RN elana Madison Antoinette, CONTROL AND RECOVERY COMBAT RESCUE CONTROL AND RECOVERY COMBAT RESCUE rs6 Berna Webster Corrections: (The following items were deleted from the chart) 16:04 15:40 TYPE & SCREEN sent. ead EDMS 16:04 15:40 TYPE & SCREEN+BBK sent. ead EDMS Chart Complete MTDD
--- NOTE | 2016-08-22 18:57 | EDDOCDS ---
Physician Documentation [facility] Name: Kristi Doshi Age: 86 yrs Sex: Female : 1930 Arrival Date: 08/20/2016 Time: 12:37 Bed 12 Private MD: Pineda Amador Disposition: 08/20 19:18 Critical Care:. ml Disposition: 08/20/16 15:36 Hospitalization ordered by Cyn Da Silva for Inpatient Admission. Preliminary diagnosis are Fever, unspecified, Acute respiratory failure with hypoxia, Acute bronchitis, Anemia in other chronic diseases classified elsewhere, Gastrointestinal hemorrhage, unspecified - history of black stools. - Bed requested for 4 [place]. - Status is Inpatient Admission. ead - Condition is Stable. - Problem is new. - Symptoms are unchanged. Historical: - Allergies: no known allergies; - Home Meds: 1. aspirin 81 mg Oral TbEC 1 tab once daily 2. losartan 25 mg oral tab 1 tab nightly 3. vancomycin 125 mg oral cap every 8 hours 4. leflunomide 20 mg oral tab 1 tab nightly 5. Tylenol 1000 mg Oral 6. pravastatin 20 mg oral tab 1 tab nightly 7. Iron High Potency 325 mg oral daily 8. folic acid 1 mg Oral tab 1 tab once daily - PMHx: Anemia; Arthritis; CVA; c-diff; Hypercholesterolemia; Hypertension; TIA; - PSHx: Cholecystectomy; Hysterectomy; heart cath; - Social history: Smoking status: Patient states former smoker of tobacco. No barriers to communication noted, The patient speaks fluent Lithuanian, Speaks appropriately for age. - Family history: Not pertinent. - : The pt / caregiver states he / she is not on anticoagulants. Home medication list is obtained from family members. - Exposure Risk Screening:: None identified. Vital Signs: 12:46 BP 157 / 76; Pulse 120; Resp 22; Temp 101.3(TE); Pulse Ox 93% on R/A; Weight 51.71 kg / ar3 114 lbs; Height 5 ft. 0 in. (152.40 cm) (R); Pain 0/10; 13:33 BP 132 / 72; Pulse 86; Resp 18; Temp 100.4; Pulse Ox 98% ; Pain 4/10; jam1 13:59 BP 100 / 53 (auto/); ead 13:59 Pulse 114 MON; Pulse Ox 92% ; ead 14:14 BP 116 / 55 (auto/); ead 14:14 Pulse 114 MON; Pulse Ox 93% ; ead 14:29 BP 100 / 54 (auto/); ead 14:29 Pulse 114 MON; Pulse Ox 93% ; ead 14:44 BP 112 / 56 (auto/); ead 14:44 Pulse 112 MON; Pulse Ox 93% ; ead 14:59 BP 111 / 54 (auto/); ead 14:59 Pulse 110 MON; Resp 16; Pulse Ox 94% on R/A; ead 15:14 BP 110 / 56 (auto/); ead 15:15 Pulse 114 MON; Pulse Ox 92% ; ead 15:29 BP 106 / 55 (auto/); ead 15:29 Pulse 108 MON; Pulse Ox 94% ; ead 15:44 BP 113 / 57 (auto/); ead 15:45 Pulse 106 MON; Resp 18; Pulse Ox 95% on R/A; ead 15:59 BP 120 / 57 (auto/); ead 15:59 Pulse 106 MON; Pulse Ox 96% ; ead 16:14 BP 124 / 58 (auto/); ead 16:14 Pulse 104 MON; Pulse Ox 96% ; ead 16:29 BP 123 / 65 (auto/); ead 16:29 Pulse 106 MON; Pulse Ox 96% ; ead 16:44 BP 127 / 61 (auto/); ead 16:44 Pulse 102 MON; Resp 18; Pulse Ox 96% on R/A; ead 17:27 BP 109 / 56 (auto/); ead 17:28 Pulse 104 MON; Pulse Ox 95% ; ead 17:30 BP 106 / 59; Pulse 105; Resp 19; Temp 97.0(O); Pulse Ox 95% on 2.0 lpm NC; jmk 12:46 Body Mass Index 22.26 (51.71 kg, 152.40 cm) ar3 MDM: 12:56 IV Saline Lock ordered. ml 12:56 Sap Hana Architect/Pulse Ox/q 15 min VS ordered. ml 12:56 Rhythm Strip to chart ordered. ml 12:56 Albuterol 5 mg Nebulizer once ordered. ml 12:56 Albuterol-Ipratropium 3 ml Inhalation once ordered. ml 12:56 Call Respiratory ordered. ml 12:56 -Blood Culture (Adults Only), peripheral from different site, or from device/port/PICC ml etc. if present ordered. 12:56 Solu-MEDROL 125 mg IVP once ordered. ml 12:56 NS 0.9% 1000 ml IV at bolus once ordered. ml 12:57 CBC with Diff Ordered. EDMS 12:57 MED Profile Ordered. EDMS 12:57 Liver Profile Ordered. EDMS 12:57 Lactic Acid (Allison tube on ice) Ordered. EDMS 12:57 UA Ordered. EDMS 12:57 -Blood Culture Ordered. EDMS 12:57 Urine Culture Ordered. EDMS 13:00 Chest, 1 View Ordered. EDMS 13:00 -Blood Culture (Adults Only), peripheral from different site, or from device/port/PICC rs6 etc. if present complete. 13:02 BLOOD CULTURES Ordered. EDMS 13:12 Call Respiratory complete. rs6 13:48 DIFFERENTIAL NO CHARGE Ordered. EDMS 14:53 CBC with Diff Reviewed. ml 14:53 MED Profile Reviewed. ml 14:53 Liver Profile Reviewed. ml 14:53 Lactic Acid (Allison tube on ice) Reviewed. ml 14:53 PLATELET ESTIMATE Reviewed. ml 14:53 Chest, 1 View Reviewed. ml 14:56 BED REQUEST+ADM ordered. EDMS 15:18 Obtain sample by nasopharyngeal swab ordered. ml 15:19 -Influenza A&B Rapid Antigen - Nose Ordered. EDMS 15:33 Misc. Nursing Order ordered. ml 15:34 Type and Cross, Packed Cells Ordered. EDMS 15:35 Financial registration complete. gjb 15:37 Call Respiratory ordered. ml 15:38 -Arterial Blood Gas Ordered. EDMS 15:42 Call Respiratory complete. ead 15:57 [facility] Payment Agreement was scanned into [employer] and attached to record. gjb 16:09 RESPIRATORY PANEL Ordered. EDMS 16:50 Admission / Observation Status ordered. EDMS 16:50 2 GRAM SODIUM DIET ordered. EDMS 08/21 09:40 T-Sheet-- Draft Copy was scanned into [employer] and attached to record. gb 09:40 PCR was scanned into [employer] and attached to record. gb 09:40 Consents was scanned into [employer] and attached to record. gb 09:41 Radiology Report was scanned into [employer] and attached to record. gb Administered Medications: 08/20 13:25 Drug: Albuterol 5 mg [albuterol sulfate 2.5 mg/0.5 mL solution for nebulization (1 mL)] kjn Route: Nebulizer; 13:25 Drug: Albuterol-Ipratropium 3 ml [ipratropium-albuterol 0.5 mg-3 mg(2.5 mg base)/3 mL kjn nebulization soln (3 mL)] Route: Inhalation; 13:41 Drug: Solu-MEDROL 125 mg [Solu-Medrol 500 mg intravenous solution (125 mg)] Route: IVP; ead Site: right antecubital; 13:41 Drug: NS 0.9% 1000 ml [sodium chloride 0.9 % intravenous solution] Route: IV; Rate: ead bolus; Site: right antecubital; Critical Care Time: 19:18 Critical care time: Bedside Care: 90 minutes, Consultation: 10 minutes. Total time: 100 ml minutes Signatures: Dispatcher [employer] EDMS Braxton Mathews MD MD ml Jobson, Karen, RN RN Francesca Camacho, Martha Ngo RN RN Antoinette Gómez, VINCENT DEVELOPER ADVISOR rs6 Berna Webster Katherine kjn The chart was reviewed and I authenticate all verbal orders and agree with the evaluation and treatment provided.Corrections: (The following items were deleted from the chart) 16:04 14:56 TYPE & SCREEN+BBK ordered. EDMS EDMS 16:04 15:36 TYPE & SCREEN ordered. EDMS EDMS 16:53 16:53 CLOSTRID DIFFICILE PCR (DONOR) ordered. EDMS EDMS 16:53 16:53 CLOSTRID DIFFICILE PCR (DONOR) ordered. EDMS EDMS 17:12 17:02 PACKED CELLS ordered. EDMS EDMS 17:12 17:04 TYPE & SCREEN ordered. EDMS EDMS Attachments: 15:57 [facility] Payment Agreement gjb 08/21 09:40 T-Sheet-- Draft Copy gb Chart Complete MTDD
--- NOTE | 2016-08-22 18:57 | EDDOCDS ---
Physician Documentation [facility] Name: Kristi Doshi Age: 86 yrs Sex: Female : 1930 Arrival Date: 08/20/2016 Time: 12:37 Bed 12 Private MD: Pineda Amador Disposition: 08/20 19:18 Critical Care:. ml Disposition: 08/20/16 15:36 Hospitalization ordered by Cyn Da Silva for Inpatient Admission. Preliminary diagnosis are Fever, unspecified, Acute respiratory failure with hypoxia, Acute bronchitis, Anemia in other chronic diseases classified elsewhere, Gastrointestinal hemorrhage, unspecified - history of black stools. - Bed requested for 4 [place]. - Status is Inpatient Admission. ead - Condition is Stable. - Problem is new. - Symptoms are unchanged. Historical: - Allergies: no known allergies; - Home Meds: 1. aspirin 81 mg Oral TbEC 1 tab once daily 2. losartan 25 mg oral tab 1 tab nightly 3. vancomycin 125 mg oral cap every 8 hours 4. leflunomide 20 mg oral tab 1 tab nightly 5. Tylenol 1000 mg Oral 6. pravastatin 20 mg oral tab 1 tab nightly 7. Iron High Potency 325 mg oral daily 8. folic acid 1 mg Oral tab 1 tab once daily - PMHx: Anemia; Arthritis; CVA; c-diff; Hypercholesterolemia; Hypertension; TIA; - PSHx: Cholecystectomy; Hysterectomy; heart cath; - Social history: Smoking status: Patient states former smoker of tobacco. No barriers to communication noted, The patient speaks fluent Faroese, Speaks appropriately for age. - Family history: Not pertinent. - : The pt / caregiver states he / she is not on anticoagulants. Home medication list is obtained from family members. - Exposure Risk Screening:: None identified. Vital Signs: 12:46 BP 157 / 76; Pulse 120; Resp 22; Temp 101.3(TE); Pulse Ox 93% on R/A; Weight 51.71 kg / ar3 114 lbs; Height 5 ft. 0 in. (152.40 cm) (R); Pain 0/10; 13:33 BP 132 / 72; Pulse 86; Resp 18; Temp 100.4; Pulse Ox 98% ; Pain 4/10; jam1 13:59 BP 100 / 53 (auto/); ead 13:59 Pulse 114 MON; Pulse Ox 92% ; ead 14:14 BP 116 / 55 (auto/); ead 14:14 Pulse 114 MON; Pulse Ox 93% ; ead 14:29 BP 100 / 54 (auto/); ead 14:29 Pulse 114 MON; Pulse Ox 93% ; ead 14:44 BP 112 / 56 (auto/); ead 14:44 Pulse 112 MON; Pulse Ox 93% ; ead 14:59 BP 111 / 54 (auto/); ead 14:59 Pulse 110 MON; Resp 16; Pulse Ox 94% on R/A; ead 15:14 BP 110 / 56 (auto/); ead 15:15 Pulse 114 MON; Pulse Ox 92% ; ead 15:29 BP 106 / 55 (auto/); ead 15:29 Pulse 108 MON; Pulse Ox 94% ; ead 15:44 BP 113 / 57 (auto/); ead 15:45 Pulse 106 MON; Resp 18; Pulse Ox 95% on R/A; ead 15:59 BP 120 / 57 (auto/); ead 15:59 Pulse 106 MON; Pulse Ox 96% ; ead 16:14 BP 124 / 58 (auto/); ead 16:14 Pulse 104 MON; Pulse Ox 96% ; ead 16:29 BP 123 / 65 (auto/); ead 16:29 Pulse 106 MON; Pulse Ox 96% ; ead 16:44 BP 127 / 61 (auto/); ead 16:44 Pulse 102 MON; Resp 18; Pulse Ox 96% on R/A; ead 17:27 BP 109 / 56 (auto/); ead 17:28 Pulse 104 MON; Pulse Ox 95% ; ead 17:30 BP 106 / 59; Pulse 105; Resp 19; Temp 97.0(O); Pulse Ox 95% on 2.0 lpm NC; jmk 12:46 Body Mass Index 22.26 (51.71 kg, 152.40 cm) ar3 MDM: 12:56 IV Saline Lock ordered. ml 12:56 Electrolysist/Pulse Ox/q 15 min VS ordered. ml 12:56 Rhythm Strip to chart ordered. ml 12:56 Albuterol 5 mg Nebulizer once ordered. ml 12:56 Albuterol-Ipratropium 3 ml Inhalation once ordered. ml 12:56 Call Respiratory ordered. ml 12:56 -Blood Culture (Adults Only), peripheral from different site, or from device/port/PICC ml etc. if present ordered. 12:56 Solu-MEDROL 125 mg IVP once ordered. ml 12:56 NS 0.9% 1000 ml IV at bolus once ordered. ml 12:57 CBC with Diff Ordered. EDMS 12:57 MED Profile Ordered. EDMS 12:57 Liver Profile Ordered. EDMS 12:57 Lactic Acid (Allison tube on ice) Ordered. EDMS 12:57 UA Ordered. EDMS 12:57 -Blood Culture Ordered. EDMS 12:57 Urine Culture Ordered. EDMS 13:00 Chest, 1 View Ordered. EDMS 13:00 -Blood Culture (Adults Only), peripheral from different site, or from device/port/PICC rs6 etc. if present complete. 13:02 BLOOD CULTURES Ordered. EDMS 13:12 Call Respiratory complete. rs6 13:48 DIFFERENTIAL NO CHARGE Ordered. EDMS 14:53 CBC with Diff Reviewed. ml 14:53 MED Profile Reviewed. ml 14:53 Liver Profile Reviewed. ml 14:53 Lactic Acid (Allison tube on ice) Reviewed. ml 14:53 PLATELET ESTIMATE Reviewed. ml 14:53 Chest, 1 View Reviewed. ml 14:56 BED REQUEST+ADM ordered. EDMS 15:18 Obtain sample by nasopharyngeal swab ordered. ml 15:19 -Influenza A&B Rapid Antigen - Nose Ordered. EDMS 15:33 Misc. Nursing Order ordered. ml 15:34 Type and Cross, Packed Cells Ordered. EDMS 15:35 Financial registration complete. gjb 15:37 Call Respiratory ordered. ml 15:38 -Arterial Blood Gas Ordered. EDMS 15:42 Call Respiratory complete. ead 15:57 [facility] [place] [place] Payment Agreement was scanned into [employer] and attached to record. gjb 16:09 RESPIRATORY PANEL Ordered. EDMS 16:50 Admission / Observation Status ordered. EDMS 16:50 2 GRAM SODIUM DIET ordered. EDMS 08/21 09:40 T-Sheet-- Draft Copy was scanned into [employer] and attached to record. gb 09:40 PCR was scanned into [employer] and attached to record. gb 09:40 Consents was scanned into [employer] and attached to record. gb 09:41 Radiology Report was scanned into [employer] and attached to record. gb Administered Medications: 08/20 13:25 Drug: Albuterol 5 mg [albuterol sulfate 2.5 mg/0.5 mL solution for nebulization (1 mL)] kjn Route: Nebulizer; 13:25 Drug: Albuterol-Ipratropium 3 ml [ipratropium-albuterol 0.5 mg-3 mg(2.5 mg base)/3 mL kjn nebulization soln (3 mL)] Route: Inhalation; 13:41 Drug: Solu-MEDROL 125 mg [Solu-Medrol 500 mg intravenous solution (125 mg)] Route: IVP; ead Site: right antecubital; 13:41 Drug: NS 0.9% 1000 ml [sodium chloride 0.9 % intravenous solution] Route: IV; Rate: ead bolus; Site: right antecubital; Critical Care Time: 19:18 Critical care time: Bedside Care: 90 minutes, Consultation: 10 minutes. Total time: 100 ml minutes Signatures: Dispatcher [employer] EDMS Braxton Mathews MD MD ml Jobson, Karen, RN RN Francesca Camacho, Martha Ngo RN RN Antoinette Gómez, VINCENT MEAT PRODUCTS DEMONSTRATOR rs6 Berna Webster Katherine kjn The chart was reviewed and I authenticate all verbal orders and agree with the evaluation and treatment provided.Corrections: (The following items were deleted from the chart) 16:04 14:56 TYPE & SCREEN+BBK ordered. EDMS EDMS 16:04 15:36 TYPE & SCREEN ordered. EDMS EDMS 16:53 16:53 CLOSTRID DIFFICILE PCR (DONOR) ordered. EDMS EDMS 16:53 16:53 CLOSTRID DIFFICILE PCR (DONOR) ordered. EDMS EDMS 17:12 17:02 PACKED CELLS ordered. EDMS EDMS 17:12 17:04 TYPE & SCREEN ordered. EDMS EDMS Attachments: 15:57 [facility] Payment Agreement gjb 08/21 09:40 T-Sheet-- Draft Copy gb Chart Complete MTDD
[2016-08-22] MEDS: PRAVASTATIN 20 MG TAB PO SCH (20:39)
[2016-08-22] MEDS: ASPIRIN 81 MG ENTERIC TAB PO SCH (20:40)
[2016-08-22 22:00] VITALS: BP 135/68
[2016-08-23] MEDS ORDERED: ALBUTEROL SULFATE 2.5 MG/0.5 ML INH NEB SOLN As Ordered ONE (04:11)
[2016-08-23] MEDS: ACETAMINOPHEN TAB 650MG DOSE (2X325MG) PO PRN (04:19)
[2016-08-23] MEDS ORDERED: ALBUTEROL SULFATE 2.5 MG/0.5 ML INH NEB SOLN NEB ONE (04:45)
[2016-08-23 06:00] VITALS: BP 158/62
[2016-08-23 06:30] LABS: MEAN CORPUSCULAR HEMOGLOBIN 30.4 pg (27.0-33.0); MEAN CORPUSCULAR HGB CONC 32.8 g/dl (32.0-36.5); MEAN CORPUSCULAR VOLUME 92.8 fl (80.0-96.0); RED CELL DISTRIBUTION WIDTH 17.1 % (11.5-14.5); WHITE BLOOD COUNT 8.2 K/mm3 (4.0-10.0)
[2016-08-23 06:48] LABS: ANION GAP 9 MEQ/L (8-16); BLOOD UREA NITROGEN 20 MG/DL (7-18); CALCIUM LEVEL 7.7 MG/DL (8.8-10.2); CARBON DIOXIDE LEVEL 18 MEQ/L (21-32); CHLORIDE LEVEL 113 MEQ/L (98-107); CREATININE FOR GFR 0.71 MG/DL (0.55-1.02); GLOMERULAR FILTRATION RATE > 60.0 (>32); GLUCOSE, FASTING 80 MG/DL (83-110); POTASSIUM SERUM 3.8 MEQ/L (3.5-5.1); SODIUM LEVEL 140 MEQ/L (136-145)
[2016-08-23] MEDS: CEPHALEXIN 250 MG CAP PO SCH ×2 (09:06→20:10)
[2016-08-23] MEDS: VANCOMYCIN ORAL SOL 250MG/5ML ORAL SYRINGE PO SCH ×3 (09:06→20:10)
[2016-08-23] MEDS: FERROUS SULFATE 325MG TAB PO SCH (09:06)
[2016-08-23] MEDS: VITAMIN D 1,000 INTERNATIONAL UNITS TABLET PO SCH (09:06)
[2016-08-23] MEDS: FOLIC ACID 1 MG TAB PO SCH (09:06)
[2016-08-23] MEDS: OSELTAMIVIR 6 MG/ML 60ML SUSP PO SCH ×2 (09:07→20:10)
[2016-08-23 14:00] VITALS: BP 138/62
--- NOTE | 2016-08-23 14:01 | IPNPDOC ---
Subjective Date Seen The patient was seen on 08/23/16. Subjective Chief Complaint/HPI The patient is a 86-year-old female admitted with a reason for visit of C Diff; Symptomatic Anemia. Constitutional: Reports: Fever, Denies: Chills, Night Sweats Pulmonary: Reports: Dyspnea Objective Physical Examination General Exam: Positive: Cooperative, No Acute Distress Eye Exam: Positive: PERRLA ENT Exam: Positive: Atraumatic Chest Exam: Positive: Clear to auscultation Heart Exam: Positive: Tachycardic Abdomen Exam: Positive: Normal bowel sounds, Soft, Negative: Hepatospenomegaly, Tenderness Extremity Exam: Positive: Normal pulses, Negative: Clubbing, Cyanosis, Edema Assessment /Plan Problems (1) Fever Status: Acute Problem Text: * pt had fevers overnight * will continue tylenol * continue to monitor * pt is has positive flu and Ecoli in urine (2) UTI (urinary tract infection) Status: Acute Problem Text: * ecoli in the urine, * continue keflex until tomorrow * will d/c in am (3) Anemia Status: Acute Response to Treatment: Improving Problem Text: * pt received 1 unit of PRBC on admission * Hg is still low, will give her 1 unit of blood on 08/22 * hg is now 10.6 (4) Influenza A Status: Acute Problem Text: * pt was positive for influenza A continue Tamiflu * will continue to monitor (5) Old cerebrovascular accident (CVA) without late effect Status: Chronic (6) Dyslipidemia Status: Chronic (7) HTN (hypertension) Status: Chronic (8) C. difficile diarrhea Status: Chronic Problem Text: * pt is still on Po vanco * no diarrhea now * will check stool for cdiff if her diarrhea resumed Plan/VTE VTE Prophylaxis Ordered?: Yes VS, I&O, 24H, Fishbone Vital Signs/I&O Vital Signs Date Time Temp Pulse Resp B/P Pulse Ox O2 Delivery O2 Flow Rate FiO2 08/23/16 07:05 99.8 08/23/16 06:00 90 20 158/62 9 08/22/16 06:00 Room Air 08/21/16 14:00 2.0 I&O- Last 24 Hours up to 6 AM 08/23/16 06:00 Intake Total 1320 ml Output Total 1350 ml Balance -30 ml Laboratory Data 24H LABS Laboratory Tests 2 08/23/16 06:09: Anion Gap 9, Blood Urea Nitrogen 20H, Creatinine 0.71, Sodium Level 140, Potassium Level 3.8, Chloride Level 113H, Carbon Dioxide Level 18L, Calcium Level 7.7L, Glomerular Filtration Rate > 60.0 CBC/BMP Laboratory Tests 08/23/16 06:09 Calcium Level 7.7 L, Red Blood Count 3.47 L, Mean Corpuscular Volume 92.8, Mean Corpuscular Hemoglobin 30.4, Mean Corpuscular Hemoglobin Concent 32.8, Red Cell Distribution Width 17.1 H Microbiology Microbiology 08/20/16 Blood Culture - Preliminary, Resulted No Growth after 72 hours. All specime... 08/20/16 Blood Culture - Preliminary, Resulted No Growth after 72 hours. All specime... 08/21/16 Stool Occult Blood (DE) - Final, Complete 08/20/16 Respiratory Virus Panel (PCR) (DE) - Final, Complete Influenza A H3 08/20/16 Influenza Virus Type A Antigen - Final, Complete 08/20/16 Influenza Virus Type B Antigen - Final, Complete 08/20/16 Urine Culture - Final, Complete Escherichia Coli JINNY CAMPOS DO Aug 23, 2016 14:01
[2016-08-23] MEDS: ASPIRIN 81 MG ENTERIC TAB PO SCH (20:11)
[2016-08-23] MEDS: PRAVASTATIN 20 MG TAB PO SCH (20:11)
[2016-08-23] MEDS: ALBUTEROL 90 MCG/ACT 8GM HFA INHALER INH PRN (20:24)
[2016-08-23 22:00] VITALS: BP 148/66
[2016-08-24 06:00] VITALS: BP 138/60
[2016-08-24 06:18] LABS: MEAN CORPUSCULAR HEMOGLOBIN 30.2 pg (27.0-33.0); MEAN CORPUSCULAR HGB CONC 32.7 g/dl (32.0-36.5); MEAN CORPUSCULAR VOLUME 92.5 fl (80.0-96.0); RED CELL DISTRIBUTION WIDTH 17.1 % (11.5-14.5); WHITE BLOOD COUNT 6.9 K/mm3 (4.0-10.0)
[2016-08-24 06:34] LABS: ANION GAP 10 MEQ/L (8-16); BLOOD UREA NITROGEN 12 MG/DL (7-18); CALCIUM LEVEL 7.7 MG/DL (8.8-10.2); CARBON DIOXIDE LEVEL 20 MEQ/L (21-32); CHLORIDE LEVEL 112 MEQ/L (98-107); CREATININE FOR GFR 0.52 MG/DL (0.55-1.02); GLOMERULAR FILTRATION RATE > 60.0 (>32); GLUCOSE, FASTING 75 MG/DL (83-110); POTASSIUM SERUM 4.1 MEQ/L (3.5-5.1); SODIUM LEVEL 142 MEQ/L (136-145)
[2016-08-24] MEDS: FOLIC ACID 1 MG TAB PO SCH (09:17)
[2016-08-24] MEDS: VITAMIN D 1,000 INTERNATIONAL UNITS TABLET PO SCH (09:17)
[2016-08-24] MEDS: CEPHALEXIN 250 MG CAP PO SCH ×2 (09:18→20:10)
[2016-08-24] MEDS: OSELTAMIVIR 6 MG/ML 60ML SUSP PO SCH ×2 (09:19→20:10)
[2016-08-24] MEDS: FERROUS SULFATE 325MG TAB PO SCH (09:19)
[2016-08-24] MEDS: VANCOMYCIN ORAL SOL 250MG/5ML ORAL SYRINGE PO SCH ×3 (09:20→20:10)
[2016-08-24] MEDS: ALBUTEROL 90 MCG/ACT 8GM HFA INHALER INH PRN ×2 (09:30→19:59)
--- NOTE | 2016-08-24 13:20 | IPNPDOC ---
Subjective Date Seen The patient was seen on 08/24/16. Subjective Chief Complaint/HPI The patient is a 86-year-old female admitted with a reason for visit of C Diff; Symptomatic Anemia. Events since last encounter pt seen and examined, doing well, was sitting in chair, no other complains, no fevers overnight. Objective Physical Examination General Exam: Positive: Cooperative, No Acute Distress Eye Exam: Positive: PERRLA ENT Exam: Positive: Atraumatic Chest Exam: Positive: Clear to auscultation Heart Exam: Positive: Tachycardic Abdomen Exam: Positive: Normal bowel sounds, Soft, Negative: Hepatospenomegaly, Tenderness Extremity Exam: Positive: Normal pulses, Negative: Clubbing, Cyanosis, Edema Assessment /Plan Problems (1) Fever Status: Resolved Problem Text: * pt has been afebrile for 24 hours * will continue tylenol * continue to monitor * if afebrile for 48 hours will d/c home (2) UTI (urinary tract infection) Status: Acute Problem Text: * ecoli in the urine, * will discontinue and repeat urine culture (3) Anemia Status: Acute Response to Treatment: Improving Problem Text: * pt received 1 unit of PRBC on admission * Hg is still low, will give her 1 unit of blood on 08/22 * hg is now 10.6 (4) Influenza A Status: Acute Problem Text: * pt was positive for influenza A continue Tamiflu * will continue to monitor (5) Old cerebrovascular accident (CVA) without late effect Status: Chronic (6) Dyslipidemia Status: Chronic (7) HTN (hypertension) Status: Chronic (8) C. difficile diarrhea Status: Chronic Problem Text: * pt is still on Po vanco * no diarrhea now * will check stool for cdiff if her diarrhea resumed Plan/VTE VTE Prophylaxis Ordered?: Yes VS, I&O, 24H, Fishbone Vital Signs/I&O Vital Signs Date Time Temp Pulse Resp B/P Pulse Ox O2 Delivery O2 Flow Rate FiO2 08/24/16 06:00 99.5 71 20 138/60 94 08/23/16 14:00 Room Air 08/21/16 14:00 2.0 I&O- Last 24 Hours up to 6 AM 08/24/16 06:00 Intake Total 1560 ml Output Total 1750 ml Balance -190 ml Laboratory Data 24H LABS Laboratory Tests 2 08/24/16 05:17: Anion Gap 10, Blood Urea Nitrogen 12, Creatinine 0.52L, Sodium Level 142, Potassium Level 4.1, Chloride Level 112H, Carbon Dioxide Level 20L, Calcium Level 7.7L, Glomerular Filtration Rate > 60.0 CBC/BMP Laboratory Tests 08/24/16 05:17 Calcium Level 7.7 L, Red Blood Count 3.44 L, Mean Corpuscular Volume 92.5, Mean Corpuscular Hemoglobin 30.2, Mean Corpuscular Hemoglobin Concent 32.7, Red Cell Distribution Width 17.1 H Microbiology Microbiology 08/20/16 Blood Culture - Preliminary, Resulted No Growth after 72 hours. All specime... 08/20/16 Blood Culture - Preliminary, Resulted No Growth after 72 hours. All specime... 08/21/16 Stool Occult Blood (DE) - Final, Complete 08/20/16 Respiratory Virus Panel (PCR) (DE) - Final, Complete Influenza A H3 08/20/16 Influenza Virus Type A Antigen - Final, Complete 08/20/16 Influenza Virus Type B Antigen - Final, Complete 08/20/16 Urine Culture - Final, Complete Escherichia Coli JINNY CAMPOS DO Aug 24, 2016 13:20
[2016-08-24 14:00] VITALS: BP 126/76
[2016-08-24] MEDS: PRAVASTATIN 20 MG TAB PO SCH (20:09)
[2016-08-24 20:10] VITALS: BP 152/78
[2016-08-24] MEDS: ASPIRIN 81 MG ENTERIC TAB PO SCH (20:10)
[2016-08-25 05:45] VITALS: BP 152/86
[2016-08-25 06:12] LABS: MEAN CORPUSCULAR HEMOGLOBIN 30.9 pg (27.0-33.0); MEAN CORPUSCULAR HGB CONC 33.6 g/dl (32.0-36.5); RED CELL DISTRIBUTION WIDTH 16.9 % (11.5-14.5); WHITE BLOOD COUNT 6.1 K/mm3 (4.0-10.0)
[2016-08-25 06:14] LABS: ANION GAP 8 MEQ/L (8-16); BLOOD UREA NITROGEN 11 MG/DL (7-18); CALCIUM LEVEL 8.3 MG/DL (8.8-10.2); CARBON DIOXIDE LEVEL 21 MEQ/L (21-32); CHLORIDE LEVEL 110 MEQ/L (98-107); CREATININE FOR GFR 0.57 MG/DL (0.55-1.02); GLOMERULAR FILTRATION RATE > 60.0 (>32); GLUCOSE, FASTING 85 MG/DL (83-110); POTASSIUM SERUM 4.1 MEQ/L (3.5-5.1); SODIUM LEVEL 139 MEQ/L (136-145)
[2016-08-25] MEDS: FERROUS SULFATE 325MG TAB PO SCH (08:50)
[2016-08-25] MEDS: VITAMIN D 1,000 INTERNATIONAL UNITS TABLET PO SCH (08:50)
[2016-08-25] MEDS: FOLIC ACID 1 MG TAB PO SCH (08:50)
[2016-08-25] MEDS: VANCOMYCIN ORAL SOL 250MG/5ML ORAL SYRINGE PO SCH (08:51)
[2016-08-25] MEDS: OSELTAMIVIR 6 MG/ML 60ML SUSP PO SCH (08:51)
--- NOTE | 2016-08-25 12:09 | DSES ---
DATE OF ADMISSION: 08/20/2016 DATE OF DISCHARGE: 08/25/2016 REASON FOR ADMISSION: Worsening shortness of breath and weakness. PRIMARY CARE PROVIDER: Pineda Amador Jr., MD FINAL DIAGNOSES: 1. Escherichia (E.) coli in the urine. 2. Positive influenza A. 3. History of Clostridium (C) difficile diarrhea. 4. Anemia. 5. Fevers, which have resolved. 6. History of hypertension. 7. History of old cerebrovascular accident (CVA). 8. Hyperlipidemia. 9. Dementia. HISTORY OF PRESENT ILLNESS: The patient is an 86-year-old female with past medical history significant for anemia, CVA, hypertension, recent C. difficile on oral vancomycin, who presented to the emergency room for shortness of breath and weakness. The patient stated she has been having intermittent symptoms. She was diagnosed with C. difficile and was on oral vancomycin. This is her third week. She stated she has been having worsening shortness of breath and weakness, saturation in the mid 80s. The patient was having watery diarrhea prior to coming in. She had poor appetite. The patient had a colonoscopy 1-[address] Watts. It was normal. She has not taken any anticoagulation medication. The patient was admitted under hospitalist service. HOSPITAL COURSE: The patient's stool was sent for C. difficile and occult blood. However, it was formed, and the C. difficile test was not done. She had an mildly elevated lactic acid on admission of 2.4. Repeat was 1.8. The patient had no leukocytosis. Blood cultures were obtained and were negative. Influenza was positive for influenza AH3. She was started on Tamiflu. Her urinalysis came back positive for Escherichia (E.) coli with colonies greater than 100,000. Occult blood also came back positive. The patient received 2 units of blood but corrected appropriately, and her hemoglobin remained stable over the last 3 days. She was continued on her vancomycin for her C. difficile treatment, even though she had no episodes of diarrhea during hospitalization. She was supposed to finish a tapering course of vancomycin, and she was continued on that in the hospital. She was treated with Keflex for 3 days for her E. coli urinary tract infection (UTI). The patient had some mild fevers while in the hospital as high as 103 on 08/23/2016 but had resolved. The patient was slightly hypotensive on admission. She was given gentle hydration for the first 2 days of her admission, normal saline at a rate of 60 mL an hour. It was stopped after that when her blood pressure stabilized. On discharge, her blood pressure was 130s-150s systolic. Leukocytosis had resolved. The patient was afebrile for 48 hours. Per daughter's request, urinalysis was repeated. Results to be obtained at Dr. Amador's office. DISCHARGE INSTRUCTIONS: The patient is to followup with Dr. Amador within the next week. She is to followup with her neuro psych sales specialist at the next available appointment. Diet regular. Activities as tolerated. DISCHARGE MEDICATIONS: Include: - Tylenol 1000 mg every 6 hours as needed for pain - albuterol two puffs inhaled four times a day as needed shortness of breath - Align 4 mg by mouth daily - aspirin 81 mg by mouth at bedtime - vitamin D 1000 mg by mouth daily - iron 325 mg by mouth daily - folic acid 1 mg by mouth daily - pravastatin 20 mg at bedtime - vancomycin 125 mg by mouth three times a day DISCHARGE CONDITION: Stable.
== END 2016-08-25 10:31 | disposition home health service (06) | DRG 372 ==
LOC: M ED 12:37 → M ED INP 16:43 → M MSPAV 17:58
PROVIDERS: ADMIT Internal Medicine; ATTEND Internal Medicine
PROC: 30233N1 Transfusion of Nonautologous Red Blood Cells into Peripheral Vein, Percutaneous Approach (ICD-10-PCS; principal; 2016-08-20)
DX: A04.7 Enterocolitis due to Clostridium difficile (principal); N39.0 Urinary tract infection, site not specified; J10.1 Influenza due to other identified influenza virus with other respiratory manifestations; D64.9 Anemia, unspecified; B96.20 Unspecified Escherichia coli [E. coli] as the cause of diseases classified elsewhere; E78.5 Hyperlipidemia, unspecified; R06.00 Dyspnea, unspecified; I10 Essential (primary) hypertension; F03.90 Unspecified dementia, unspecified severity, without behavioral disturbance, psychotic disturbance, mood disturbance, and anxiety; Z86.73 Personal history of transient ischemic attack (TIA), and cerebral infarction without residual deficits; Z79.899 Other long term (current) drug therapy; Z79.82 Long term (current) use of aspirin; Z90.710 Acquired absence of both cervix and uterus; Z87.891 Personal history of nicotine dependence

== ENCOUNTER → 2016-10-19 | Outpatient (REF) | payer MEDICARE ==
[~2016-10-19] MED LIST changes: +ALBU17IN INH; +ALIG4CAP PO; +ASPI1TAB PO; +FERR325T PO; +TYLE500T78 PO; +VANC25SOL PO; +VITA100066 PO
[2016-10-19 12:59] LABS: ALKALINE PHOSPHATASE 107 U/L (45-117); ALT/SGPT 25 U/L (12-78); AST/SGOT 43 U/L (15-37)
== END ==
LOC: M LAB REF 12:06
PROVIDERS: ATTEND Physician Assistant Medical
DX: M05.79 Rheumatoid arthritis with rheumatoid factor of multiple sites without organ or systems involvement (principal)

== ENCOUNTER → 2016-10-23 | Outpatient (REF) | payer MEDICARE | LOC: M LAB REF 09:54 | PROVIDERS: ATTEND Internal Medicine | DX: A04.7 Enterocolitis due to Clostridium difficile (principal) ==

== ENCOUNTER → 2016-11-04 | Outpatient (REF) | payer MEDICARE | LOC: M LAB REF 12:19 | PROVIDERS: ATTEND Nurse Practitioner Adult Health | DX: N39.0 Urinary tract infection, site not specified (principal) ==

== ENCOUNTER 2016-11-10 17:58 | Emergency (ER) | payer MEDICARE ==
[~2016-11-10] VITALS: Ht 152.4 cm; Wt 53.1 kg
[2016-11-10] MEDS ORDERED: LEFL1TAB4 PO (18:08)
[2016-11-10] MEDS ORDERED: MACR100C3 PO (18:28)
[2016-11-10] MEDS ORDERED: [UNRECOGNIZED DRUG - CODE] PO (18:28)
[2016-11-10] MEDS ORDERED: VANC250C2 PO (18:28)
[2016-11-10] MEDS ORDERED: ACETAMINOPHEN TAB 650MG DOSE (2X325MG) PO ONE (19:00)
[2016-11-10 19:17] LABS: BASO % 0.8 % (0.0-1.0); EOS # 0.3 K/mm3 (0.0-0.50); EOS % 7.7 % (0.0-3.0); LARGE UNSTAINED CELL # 0.1 K/mm3 (0.0-0.4); LARGE UNSTAINED CELL % 2.9 % (0.0-4.0); LYMPH # 1.4 K/mm3 (1.5-4.5); MEAN CORPUSCULAR HEMOGLOBIN 31.1 pg (27.0-33.0); MEAN CORPUSCULAR HGB CONC 30.8 g/dl (32.0-36.5); MONO # 0.4 K/mm3 (0.0-0.8); MONO % 8.2 % (0.0-5.0); NEUTROPHILS % 47.5 % (36.0-66.0); PLATELET COUNT, AUTOMATED 262 k/mm3 (150-450); RED CELL DISTRIBUTION WIDTH 14.8 % (11.5-14.5); WHITE BLOOD COUNT 4.3 K/mm3 (4.0-10.0)
[2016-11-10 19:35] LABS: ANION GAP 7 MEQ/L (8-16); BLOOD UREA NITROGEN 15 MG/DL (7-18); CALCIUM LEVEL 8.3 MG/DL (8.8-10.2); CARBON DIOXIDE LEVEL 25 MEQ/L (21-32); CHLORIDE LEVEL 111 MEQ/L (98-107); CREATININE FOR GFR 0.78 MG/DL (0.55-1.02); GLOMERULAR FILTRATION RATE > 60.0 (>32); GLUCOSE, FASTING 108 MG/DL (83-110); POTASSIUM SERUM 4.2 MEQ/L (3.5-5.1); SODIUM LEVEL 143 MEQ/L (136-145)
--- NOTE | 2016-11-10 20:10 | REPUSA ---
Clinical history: Pain, swelling. Findings: The right common femoral, superficial femoral, popliteal, and other deep venous structures compress normally and demonstrate normal color Doppler flow. Normal venous waveforms with augmentatio n are seen. Impression: No evidence of deep vein thrombosis in the right femoral popliteal venous system.
[2016-11-10 21:07] VITALS: BP 148/75
== END 2016-11-10 21:17 | disposition home or self-care (01) ==
LOC: M ED 19:02
DX: M79.1 Myalgia (principal); M79.661 Pain in right lower leg; I10 Essential (primary) hypertension; E78.5 Hyperlipidemia, unspecified; Z79.899 Other long term (current) drug therapy; Z79.82 Long term (current) use of aspirin; Z79.2 Long term (current) use of antibiotics

== ENCOUNTER 2016-11-13 11:20 | Inpatient (IN) | payer MEDICARE ==
[~2016-11-13] VITALS: Ht 152.4 cm; Wt 53.2 kg
[~2016-11-13 11:20] MED LIST changes: +MACR100C3 PO; +VANC250C2 PO; +[UNRECOGNIZED DRUG - CODE] PO
[2016-11-13] MEDS ORDERED: VANC1VLAD (11:30)
[2016-11-13] MEDS ORDERED: vancomycin (11:30)
[2016-11-13] MEDS ORDERED: NITR100C2 (11:30)
[2016-11-13] MEDS ORDERED: [UNRECOGNIZED DRUG - OTHER] (11:30)
[2016-11-13] MEDS ORDERED: ONDANSETRON 4MG/2ML VIAL (J2405) IV ONE (13:00)
[2016-11-13] MEDS ORDERED: MORPHINE 2 MG/ML 1ML SYRINGE IV ONE ×3 (13:00→15:00)
[2016-11-13 13:02] LABS: BASO % 0.7 % (0.0-1.0); EOS # 0.4 K/mm3 (0.0-0.50); EOS % 8.5 % (0.0-3.0); LARGE UNSTAINED CELL # 0.1 K/mm3 (0.0-0.4); LARGE UNSTAINED CELL % 2.7 % (0.0-4.0); LYMPH # 1.4 K/mm3 (1.5-4.5); LYMPH % 28.6 % (24.0-44.0); MEAN CORPUSCULAR HEMOGLOBIN 31.6 pg (27.0-33.0); MEAN CORPUSCULAR HGB CONC 31.3 g/dl (32.0-36.5); MEAN CORPUSCULAR VOLUME 100.8 fl (80.0-96.0); MONO # 0.3 K/mm3 (0.0-0.8); MONO % 6.2 % (0.0-5.0); NEUTROPHILS # 2.5 K/mm3 (1.8-7.7); NEUTROPHILS % 53.4 % (36.0-66.0); PLATELET COUNT, AUTOMATED 237 k/mm3 (150-450); RED CELL DISTRIBUTION WIDTH 14.8 % (11.5-14.5); WHITE BLOOD COUNT 4.7 K/mm3 (4.0-10.0)
[2016-11-13 13:27] LABS: ANION GAP 8 MEQ/L (8-16); BLOOD UREA NITROGEN 14 MG/DL (7-18); CALCIUM LEVEL 8.6 MG/DL (8.8-10.2); CARBON DIOXIDE LEVEL 22 MEQ/L (21-32); CHLORIDE LEVEL 111 MEQ/L (98-107); CREATININE FOR GFR 0.68 MG/DL (0.55-1.02); GLOMERULAR FILTRATION RATE > 60.0 (>32); GLUCOSE, FASTING 88 MG/DL (83-110); POTASSIUM SERUM 3.9 MEQ/L (3.5-5.1); SODIUM LEVEL 141 MEQ/L (136-145)
[2016-11-13 13:52] LABS: ERYTHROCYTE SEDIMENTATION RATE 43 mm/hr (0-30)
--- NOTE | 2016-11-13 15:59 | REP ---
Pelvis right hip: Three views. History: Pain. Findings: AP view of the pelvis and AP and frog-leg views of the right hip demonstrate a densely calcified mesenteric lymph nodes in the right mid abdomen and right pelvis unchanged from comparison CT study July 25, 2016. There is some diffuse osteopenia. No pelvic or sacral fracture is seen. No hip fracture is noted. There is greater trochanteric tendon insertion site spurring. Impression: No acute bony abnormality. No fracture noted. Greater trochanteric spurring and diffuse osteopenia. Signed by Jonel Floyd MD 11/13/2016 04:40 P
--- NOTE | 2016-11-13 16:00 | REP ---
RIGHT KNEE SERIES: Five views of the right knee are performed. There is no acute fracture or dislocation. There is mild patellar spurring and mild narrowing of the patellofemoral joint. There is slight narrowing of the medial joint space. IMPRESSION: Mild degenerative changes without fracture or dislocation. Signed by John Allison MD 11/13/2016 04:10 P
[2016-11-13] MEDS ORDERED: LORazepam 2 MG/ML VIAL (J2060) IV STA (16:02)
--- NOTE | 2016-11-13 16:05 | REP ---
LUMBOSACRAL SPINE: Five views of the lumbosacral spine are performed. There is no compression fracture or malalignment. There is no spondylolysis or spondylolisthesis. There is mild to moderate diffuse spurring. There is moderate disc space narrowing and subchondral sclerosis at all levels, most significantly at L3-4, L4-5, and L5-S1 with vacuum phenomenon also noted at L3-4 and L5-S1. There is diffuse sclerosis and spurring at the posterior facet joints. Posterior elements are intact. There is mild curvature towards the right. IMPRESSION; Diffuse moderate degenerative changes. No evidence of fracture or dislocation. Signed by John Allison MD 11/13/2016 04:10 P
[2016-11-13] MEDS ORDERED: SODIUM CHLORIDE 0.9% 1000 ML IV ONE (17:15)
[2016-11-13] MEDS ORDERED: ALBU83IN INH (17:27)
[2016-11-13] MEDS ORDERED: VANC1SUS PO (17:27)
[2016-11-13] MEDS ORDERED: IPRA2IN INH (17:27)
[2016-11-13] MEDS: NS 1,000 ML IV SCH (18:12)
[2016-11-13] MEDS ORDERED: ACETAMINOPHEN TAB 650MG DOSE (2X325MG) PO PRN (18:15)
[2016-11-13] MEDS ORDERED: MORPHINE 2 MG/ML 1ML SYRINGE IV PRN (18:15)
[2016-11-13] MEDS ORDERED: ONDANSETRON 4 MG TAB (S0181) PO PRN (18:15)
[2016-11-13] MEDS ORDERED: ALBUTEROL 90 MCG/ACT 8GM HFA INHALER INH PRN (18:30)
--- NOTE | 2016-11-13 19:10 | REPUSA ---
Clinical history: pain. Findings: The urinary bladder appears unremarkable. No urinary bladder masses are seen. The right kid matthias measures 9.0 x 4.5 x 3.0 cm. The left kidney measures 9.5 x 3.8 x 4.8 cm. The kidneys demonstra te normal echotexture and echogenicity. There is no evidence of hydronephrosis or nephrolithiasis. No renal masses are seen. No free fluid is appreciated. Impression: Unremarkable ultrasound examination of the kidneys.
--- NOTE | 2016-11-13 19:13 | HPE ---
DATE OF ADMISSION: 11/13/2016 PRIMARY CARE PROVIDER: Dr. Amador HISTORY OF THE PRESENT ILLNESS: This patient is an 86-year-old female with a past medical history significant for cerebrovascular accident, dementia, Clostridium difficile, hypertension, dyslipidemia, presented to [facility] on 11/13/2016 for acute worsening of right lower back pain. On 11/10/2016, in the morning, the patient had acute onset of pain, originating mainly at the right lower back with radiation. The patient came to [facility] Emergency Room for evaluation, and the patient was sent home with pain control. However, for the past several days, the patient continued to have worsening of the pain, and especially in the last 2 days, the pain has become so severe and so frequent that her daily activities have been greatly interfered. When the patient arrived in the emergency room, multiple doses of intravenous (IV) morphine was given to the patient in order to achieve pain control. MRI of the vertebral spine was ordered. However, due to significant agitation and pain, the patient could not have the MRI study performed. The hospitalist team was called for admission. During the encounter, the patient already had morphine IV 2 mg times three and Ativan 1 mg IV times one. During encounter, the patient is not awake, she is not alert, she is not able to answer questions or follow commands. ALLERGIES: No known drug allergies. PAST MEDICAL HISTORY: Cerebrovascular accident times two. Dementia. Dyslipidemia. Hypertension. Active Clostridium difficile, on oral vancomycin. PAST SURGICAL HISTORY: Hysterectomy. SOCIAL HISTORY: No smoking. No alcohol use. No recreational drug use. REVIEW OF SYSTEMS: Information obtained from the daughter, who is present at the bedside. GENERAL: No fever, no chills. HEENT: No vision change. No auditory changes. CARDIOVASCULAR: No chest pain. No palpitations. RESPIRATORY: No shortness of breath. No cough. MUSCULOSKELETAL: Acute onset of pain at the right lower back with radiation to the right groin area. OBJECTIVE: VITAL SIGNS: Temperature is 98, pulse is 85, respirations 18, blood pressure is 181/93, pulse oximetry is 98% in room air. GENERAL: The patient is not awake and alert, not able to answer questions or follow commands at the time of encounter. The patient had multiple doses of IV morphine. HEENT: Normocephalic, atraumatic. CARDIOVASCULAR: Positive S1, S2, regular rate. LUNGS: Clear to auscultation bilaterally. ABDOMEN: Soft, nondistended. EXTREMITIES: No edema, no cyanosis. NEUROLOGICAL: Unable to test due to the patient's mentation. LABORATORY DATA: WBC 4.7, hemoglobin 12, hematocrit 38.4, platelet count is 237. Sodium is 141, potassium 3.9, chloride is 111, carbon dioxide 22, BUN 14, creatinine is 0.68, GFR greater than 60, fasting glucose 88, calcium is 8.6, C-reactive protein is less than 0.3. IMAGING STUDIES: Lumbar spine x-ray shows diffuse moderate degenerative changes. No evidence of fracture or dislocation. Knee x-ray shows mild degenerative changes without fracture or dislocation. Hip and pelvis x-ray show no acute bony abnormalities. No fracture noted. Greater trochanteric spurring and diffuse osteopenia. ASSESSMENT AND PLAN: 1. Acute on chronic right lower back pain with radiation. Patient admitted to the medical-surgical floor under inpatient status. Currently, the patient will have intravenous (IV) morphine for pain control. At the time of encounter, the patient already received multiple doses of morphine and one dose of Ativan. The patient is not able to answer questions or follow commands due to sedation. Previously, MRI was ordered; however, due to acute pain, the patient was not able to tolerate MRI. Currently, I reached out to MRI staff, and currently MRI machine is under maintenance, will not be functional until 10:00 p.m. christiano. From the history, the patient's pain seems related to radiculopathy. The patient may benefit from an MRI scan when the patient is able to tolerate a scan. 2. Clostridium difficile. The patient has been taking oral vancomycin. Will recheck a Clostridium difficile PCR and will continue with oral vancomycin at this moment. 3. History of cerebrovascular accident. On aspirin. 4. Dementia. 5. Dyslipidemia, on pravastatin. 6. Hypertension. Continue to monitor. 7. Deep vein thrombosis (DVT) prophylaxis. The patient will be on heparin.
[2016-11-13 20:10] VITALS: BP 156/88
[2016-11-13] MEDS: ALBUTEROL SULFATE 2.5 MG/0.5 ML INH NEB SOLN INH SCH (20:18)
[2016-11-13] MEDS: IPRATROPIUM 0.02% SOLN 0.5MG/2.5 ML NEB INH SCH (20:18)
[2016-11-13] MEDS ORDERED: NITROFURANTOIN (MACROBID) 100 MG CAP PO SCH (21:00)
[2016-11-13] MEDS: ASPIRIN 81 MG ENTERIC TAB PO SCH (22:23)
[2016-11-13] MEDS: PRAVASTATIN 20 MG TAB PO SCH (22:23)
[2016-11-13] MEDS: VANCOMYCIN ORAL SOL 250MG/5ML ORAL SYRINGE PO SCH (22:23)
[2016-11-13] MEDS: HEPARIN SOD (PORCINE) 5000 UNITS/ML VIAL SC SCH (22:23)
[2016-11-14] MEDS: HEPARIN SOD (PORCINE) 5000 UNITS/ML VIAL SC SCH ×3 (05:37→21:21)
[2016-11-14 06:00] VITALS: BP 160/80
[2016-11-14 06:25] LABS: MEAN CORPUSCULAR HEMOGLOBIN 31.8 pg (27.0-33.0); MEAN CORPUSCULAR HGB CONC 31.3 g/dl (32.0-36.5); MEAN CORPUSCULAR VOLUME 101.4 fl (80.0-96.0); WHITE BLOOD COUNT 4.3 K/mm3 (4.0-10.0)
[2016-11-14 06:39] LABS: ANION GAP 6 MEQ/L (8-16); BLOOD UREA NITROGEN 14 MG/DL (7-18); CALCIUM LEVEL 7.9 MG/DL (8.8-10.2); CARBON DIOXIDE LEVEL 22 MEQ/L (21-32); CHLORIDE LEVEL 115 MEQ/L (98-107); CREATININE FOR GFR 0.56 MG/DL (0.55-1.02); GLOMERULAR FILTRATION RATE > 60.0 (>32); GLUCOSE, FASTING 70 MG/DL (83-110); POTASSIUM SERUM 3.9 MEQ/L (3.5-5.1); SODIUM LEVEL 143 MEQ/L (136-145)
[2016-11-14] MEDS: IPRATROPIUM 0.02% SOLN 0.5MG/2.5 ML NEB INH SCH ×3 (08:06→20:41)
[2016-11-14] MEDS: ALBUTEROL SULFATE 2.5 MG/0.5 ML INH NEB SOLN INH SCH ×3 (08:06→20:41)
[2016-11-14] MEDS: FOLIC ACID 1 MG TAB PO SCH (08:57)
[2016-11-14] MEDS: VANCOMYCIN ORAL SOL 250MG/5ML ORAL SYRINGE PO SCH ×3 (08:57→21:21)
[2016-11-14] MEDS: FERROUS SULFATE 325MG TAB PO SCH (08:57)
[2016-11-14] MEDS: NS 1,000 ML IV SCH (08:57)
[2016-11-14] MEDS: VITAMIN D 1,000 INTERNATIONAL UNITS TABLET PO SCH (08:57)
[2016-11-14] MEDS ORDERED: traMADol 50 MG TAB PO PRN (13:30)
[2016-11-14] MEDS ORDERED: LORazepam 2 MG/ML VIAL (J2060) IV PRN (13:30)
--- NOTE | 2016-11-14 14:54 | IPNPDOC ---
Subjective Date Seen The patient was seen on 11/14/16. Subjective Chief Complaint/HPI The patient is a 86-year-old female admitted with a reason for visit of Rt Low Back Pain. Constitutional: Denies: Chills, Fever, Night Sweats Pulmonary: Denies: Dyspnea, Cough Cardiovascular: Denies: Chest Pain, Palpitations, Orthopnea, Paroxysmal Noc. Dyspnea, Lt Headedness Objective Physical Examination General Exam: Positive: No Acute Distress Eye Exam: Positive: PERRLA Chest Exam: Positive: Clear to auscultation, Normal air movement Heart Exam: Positive: Rate Normal, Regular Rhythm, Normal S1, Normal S2, Negative: Murmurs, Rubs Abdomen Exam: Positive: Normal bowel sounds, Soft, Negative: Tenderness, Hepatospenomegaly Extremity Exam: Positive: Normal pulses, Negative: Clubbing, Cyanosis, Edema Assessment /Plan Problems (1) Back pain with right-sided radiculopathy Status: Acute Problem Text: * MRI pending * continue pain meds will start pt on ultram * ativan as needed for anxiety (2) UTI (urinary tract infection) Status: Acute (3) HTN (hypertension) Status: Chronic (4) Dyslipidemia Status: Chronic (5) Anemia Status: Chronic Response to Treatment: Stable Plan/VTE VTE Prophylaxis Ordered?: Yes VS, I&O, 24H, Fishbone Vital Signs/I&O Vital Signs Date Time Temp Pulse Resp B/P (MAP) Pulse Ox O2 Delivery O2 Flow Rate FiO2 11/14/16 06:00 97.7 74 18 160/80 (106) 96 Room Air I&O- Last 24 Hours up to 6 AM 11/14/16 06:00 Intake Total 0 ml Balance 0 ml Laboratory Data 24H LABS Laboratory Tests 2 11/14/16 05:53: Anion Gap 6L, Glomerular Filtration Rate > 60.0, Blood Urea Nitrogen 14, Creatinine 0.56, Sodium Level 143, Potassium Level 3.9, Chloride Level 115H, Carbon Dioxide Level 22, Calcium Level 7.9L CBC/BMP Laboratory Tests 11/14/16 05:53 Red Blood Count 3.26 L, Mean Corpuscular Volume 101.4 H, Mean Corpuscular Hemoglobin 31.8, Mean Corpuscular Hemoglobin Concent 31.3 L, Red Cell Distribution Width 15.0 H, Calcium Level 7.9 L JINNY CAMPOS DO November 14, 2016 14:54
[2016-11-14] MEDS: NITROFURANTOIN (MACROBID) 100 MG CAP PO SCH ×2 (16:00→21:20)
[2016-11-14] MEDS: ASPIRIN 81 MG ENTERIC TAB PO SCH (21:21)
[2016-11-14] MEDS: PRAVASTATIN 20 MG TAB PO SCH (21:21)
[2016-11-14 22:00] VITALS: BP 136/82
[2016-11-15] MEDS: NS 1,000 ML IV SCH ×2 (02:49→19:33)
[2016-11-15] MEDS: HEPARIN SOD (PORCINE) 5000 UNITS/ML VIAL SC SCH ×3 (05:36→21:02)
[2016-11-15 06:00] VITALS: BP 162/80
[2016-11-15 06:50] LABS: MEAN CORPUSCULAR HEMOGLOBIN 31.4 pg (27.0-33.0); MEAN CORPUSCULAR HGB CONC 30.9 g/dl (32.0-36.5); MEAN CORPUSCULAR VOLUME 101.5 fl (80.0-96.0); RED CELL DISTRIBUTION WIDTH 15.1 % (11.5-14.5); WHITE BLOOD COUNT 5.5 K/mm3 (4.0-10.0)
[2016-11-15 07:15] LABS: ANION GAP 6 MEQ/L (8-16); BLOOD UREA NITROGEN 10 MG/DL (7-18); CALCIUM LEVEL 8.4 MG/DL (8.8-10.2); CARBON DIOXIDE LEVEL 24 MEQ/L (21-32); CHLORIDE LEVEL 115 MEQ/L (98-107); CREATININE FOR GFR 0.59 MG/DL (0.55-1.02); GLOMERULAR FILTRATION RATE > 60.0 (>32); GLUCOSE, FASTING 94 MG/DL (83-110); SODIUM LEVEL 145 MEQ/L (136-145)
[2016-11-15] MEDS: ALBUTEROL SULFATE 2.5 MG/0.5 ML INH NEB SOLN INH SCH ×3 (07:15→20:12)
[2016-11-15] MEDS: IPRATROPIUM 0.02% SOLN 0.5MG/2.5 ML NEB INH SCH ×3 (07:15→20:12)
[2016-11-15] MEDS: traMADol 50 MG TAB PO SCH ×3 (09:57→21:03)
[2016-11-15] MEDS: VANCOMYCIN ORAL SOL 250MG/5ML ORAL SYRINGE PO SCH ×3 (09:57→21:01)
[2016-11-15] MEDS: NITROFURANTOIN (MACROBID) 100 MG CAP PO SCH ×2 (09:58→21:02)
[2016-11-15] MEDS: VITAMIN D 1,000 INTERNATIONAL UNITS TABLET PO SCH (09:58)
[2016-11-15] MEDS: FERROUS SULFATE 325MG TAB PO SCH (09:58)
[2016-11-15] MEDS: FOLIC ACID 1 MG TAB PO SCH (09:58)
--- NOTE | 2016-11-15 14:47 | IPNPDOC ---
Subjective Date Seen The patient was seen on 11/15/16. Subjective Chief Complaint/HPI The patient is a 86-year-old female admitted with a reason for visit of Rt Low Back Pain. Events since last encounter pt seen and examined doing well, sitting in the chair, overnight pt was having pain but didn't receive any pain medication Objective Physical Examination General Exam: Positive: No Acute Distress Eye Exam: Positive: PERRLA Chest Exam: Positive: Clear to auscultation, Normal air movement Heart Exam: Positive: Rate Normal, Regular Rhythm, Normal S1, Normal S2, Negative: Murmurs, Rubs Abdomen Exam: Positive: Normal bowel sounds, Soft, Negative: Tenderness, Hepatospenomegaly Extremity Exam: Positive: Normal pulses, Negative: Clubbing, Cyanosis, Edema Assessment /Plan Problems (1) Back pain with right-sided radiculopathy Status: Acute Problem Text: * MRI will reorder under sedation, spoke with MRI who will notify anesthesia nurse and add pt to the schedule in am * continue pain meds ultram, we will schedule it, pt has not been asking for it * will also add morphine for breakthrough pain (2) UTI (urinary tract infection) Status: Acute Problem Text: * will continue macrobid which was started oupt and she had 3 doses at home prior to admission * it was pansensitive ecoli, colony count of 100,000 (3) HTN (hypertension) Status: Chronic (4) Dyslipidemia Status: Chronic (5) Anemia Status: Chronic Response to Treatment: Stable Plan/VTE VTE Prophylaxis Ordered?: Yes VS, I&O, 24H, Fishbone Vital Signs/I&O Vital Signs Date Time Temp Pulse Resp B/P (MAP) Pulse Ox O2 Delivery O2 Flow Rate FiO2 11/15/16 14:00 18 Room Air 11/15/16 06:00 98.0 70 162/80 (107) 95 I&O- Last 24 Hours up to 6 AM 11/15/16 05:59 Intake Total 2940 ml Output Total 300 ml Balance 2640 ml Laboratory Data 24H LABS Laboratory Tests 2 11/15/16 00:07: Urine Appearance CLEAR, Urine Color STRAW, Urine pH 5.0, Urine Specific Bates 1.002, Urine Protein NEGATIVE, Urine Glucose (UA) NEGATIVE, Urine Ketones NEGATIVE, Urine Urobilinogen 0.2, Urine Bilirubin NEGATIVE, Urine Leukocyte Esterase 2+H, Urine Blood NEGATIVE, Urine Nitrite NEGATIVE, Urine WBC (Auto) 15H , Urine RBC (Auto) 5H, Urine Hyaline Casts (Auto) 0, Urine Bacteria (Auto) NEGATIVE, Urine Squamous Epithelial Cells 1, Urine Mucus (Auto) SMALL, Urine Sperm (Auto) 11/15/16 06:22: Anion Gap 6L, Glomerular Filtration Rate > 60.0, Blood Urea Nitrogen 10, Creatinine 0.59, Sodium Level 145, Potassium Level 4.0, Chloride Level 115H, Carbon Dioxide Level 24, Calcium Level 8.4L CBC/BMP Laboratory Tests 11/15/16 06:22 Red Blood Count 3.35 L, Mean Corpuscular Volume 101.5 H, Mean Corpuscular Hemoglobin 31.4, Mean Corpuscular Hemoglobin Concent 30.9 L, Red Cell Distribution Width 15.1 H, Calcium Level 8.4 L Microbiology Microbiology 11/15/16 Urine Culture, Received Pending JINNY CAMPOS DO November 15, 2016 14:47
[2016-11-15] MEDS: PRAVASTATIN 20 MG TAB PO SCH (21:02)
[2016-11-15] MEDS: ASPIRIN 81 MG ENTERIC TAB PO SCH (21:02)
[2016-11-15 22:00] VITALS: BP 158/72
[2016-11-16 05:46] LABS: MEAN CORPUSCULAR HEMOGLOBIN 31.2 pg (27.0-33.0); MEAN CORPUSCULAR HGB CONC 30.9 g/dl (32.0-36.5); MEAN CORPUSCULAR VOLUME 101.1 fl (80.0-96.0); RED CELL DISTRIBUTION WIDTH 15.1 % (11.5-14.5); WHITE BLOOD COUNT 5.4 K/mm3 (4.0-10.0)
[2016-11-16 06:00] VITALS: BP 160/88
[2016-11-16] MEDS: HEPARIN SOD (PORCINE) 5000 UNITS/ML VIAL SC SCH ×3 (06:00→21:46)
[2016-11-16] MEDS: traMADol 50 MG TAB PO SCH ×3 (06:00→21:45)
[2016-11-16 06:05] LABS: ANION GAP 6 MEQ/L (8-16); BLOOD UREA NITROGEN 7 MG/DL (7-18); CALCIUM LEVEL 8.1 MG/DL (8.8-10.2); CARBON DIOXIDE LEVEL 25 MEQ/L (21-32); CHLORIDE LEVEL 110 MEQ/L (98-107); CREATININE FOR GFR 0.53 MG/DL (0.55-1.02); GLOMERULAR FILTRATION RATE > 60.0 (>32); GLUCOSE, FASTING 97 MG/DL (83-110); POTASSIUM SERUM 3.9 MEQ/L (3.5-5.1); SODIUM LEVEL 141 MEQ/L (136-145)
[2016-11-16] MEDS: ALBUTEROL SULFATE 2.5 MG/0.5 ML INH NEB SOLN INH SCH ×3 (07:45→19:20)
[2016-11-16] MEDS: IPRATROPIUM 0.02% SOLN 0.5MG/2.5 ML NEB INH SCH ×3 (07:45→19:20)
[2016-11-16] MEDS: FOLIC ACID 1 MG TAB PO SCH (08:30)
[2016-11-16] MEDS: VANCOMYCIN ORAL SOL 250MG/5ML ORAL SYRINGE PO SCH ×3 (08:30→21:46)
[2016-11-16] MEDS: FERROUS SULFATE 325MG TAB PO SCH (08:30)
[2016-11-16] MEDS: VITAMIN D 1,000 INTERNATIONAL UNITS TABLET PO SCH (08:30)
[2016-11-16] MEDS: NITROFURANTOIN (MACROBID) 100 MG CAP PO SCH ×2 (08:30→21:45)
[2016-11-16] MEDS ORDERED: fentaNYL 100 MCG/2 ML INJECTION (J3010) As Ordered ONE (11:22)
--- NOTE | 2016-11-16 11:58 | IPNPDOC ---
Subjective Date Seen The patient was seen on 11/16/16. Subjective Chief Complaint/HPI The patient is a 86-year-old female admitted with a reason for visit of Rt Low Back Pain. Constitutional: Denies: Chills, Fever, Night Sweats Musculoskeletal: Reports: Back Pain, Leg Pain Objective Physical Examination General Exam: Positive: No Acute Distress Eye Exam: Positive: PERRLA Chest Exam: Positive: Clear to auscultation, Normal air movement Heart Exam: Positive: Rate Normal, Regular Rhythm, Normal S1, Normal S2, Negative: Murmurs, Rubs Abdomen Exam: Positive: Normal bowel sounds, Soft, Negative: Tenderness, Hepatospenomegaly Extremity Exam: Positive: Normal pulses, Negative: Clubbing, Cyanosis, Edema Assessment /Plan Problems (1) Back pain with right-sided radiculopathy Status: Acute Problem Text: * MRI will reorder under sedation, spoke with MRI who will notify anesthesia nurse and add pt to the schedule today * continue pain meds ultram, we will schedule it, pt has not been asking for it * morphine for breakthrough pain * continue PT (2) UTI (urinary tract infection) Status: Acute Problem Text: * will continue macrobid which was started oupt and she had 3 doses at home prior to admission * it was pansensitive ecoli, colony count of 100,000 (3) HTN (hypertension) Status: Chronic (4) Dyslipidemia Status: Chronic (5) Anemia Status: Chronic Response to Treatment: Stable Plan/VTE VTE Prophylaxis Ordered?: Yes VS, I&O, 24H, Fishbone Vital Signs/I&O Vital Signs Date Time Temp Pulse Resp B/P (MAP) Pulse Ox O2 Delivery O2 Flow Rate FiO2 11/16/16 06:00 98.2 82 18 160/88 (112) 96 11/15/16 21:40 Room Air I&O- Last 24 Hours up to 6 AM 11/16/16 05:59 Intake Total 2760 ml Output Total 1000 ml Balance 1760 ml Laboratory Data 24H LABS Laboratory Tests 2 11/16/16 05:35: Anion Gap 6L, Glomerular Filtration Rate > 60.0, Blood Urea Nitrogen 7, Creatinine 0.53L, Sodium Level 141, Potassium Level 3.9, Chloride Level 110H, Carbon Dioxide Level 25, Calcium Level 8.1L CBC/BMP Laboratory Tests 11/16/16 05:35 Red Blood Count 3.35 L, Mean Corpuscular Volume 101.1 H, Mean Corpuscular Hemoglobin 31.2, Mean Corpuscular Hemoglobin Concent 30.9 L, Red Cell Distribution Width 15.1 H, Calcium Level 8.1 L Microbiology Microbiology 11/15/16 Urine Culture - Final, Complete JINNY CAMPOS DO November 16, 2016 11:58
[2016-11-16] MEDS ORDERED: LR 1,000 ML IV SCH (12:30)
[2016-11-16 13:10] VITALS: BP 138/90
[2016-11-16 13:30] VITALS: BP 136/92
--- NOTE | 2016-11-16 13:49 | REP ---
MRI LUMBAR SPINE WITHOUT CONTRAST: HISTORY: Back pain. Comparison radiographs are from November 13, 2016. TECHNIQUE: Sagittal and axial T1 and T2-weighted scans are acquired in the usual fashion with and without fat saturation. Sequences include spin echo, turbo spin echo, and STIR imaging sequences. MRI FINDINGS: Lumbar vertebral body heights are preserved. There is a dextroconvex curvature as seen on the radiographs. There is diffuse degenerative spondylosis with degenerative disc and osteoarthritic facet changes as seen radiographically as well. Conus medullaris is normal in position and appearance at L1. There is central bulging of the T12-L1 disc effacing the ventral subarachnoid space but not causing compression of the conus. At L1-2, axial and sagittal images show mild diffuse disc bulging. There is mild ligamentum flavum hypertrophy. No central canal stenosis is seen. There is mild left-sided neural foraminal encroachment due to facet hypertrophy. At L2-3, there is left lateral disc bulging. Left-sided neural foraminal narrowing is seen due to disc bulging and facet hypertrophy. No central canal stenosis is seen. At L3-4, there is moderate central canal stenosis due to the combination of developmentally short pedicles, diffuse disc bulging and osteophytic ridging, and facet and ligamentum flavum hypertrophy. The thecal sac has a mid sagittal AP dimension at L3-4 of 7 mm. There is moderate left and mild right-sided neural foraminal narrowing at L3-4. At L4-5, there is mild central canal stenosis due to central disc protrusion with annulus tear indenting the ventral margin of the thecal sac. Also contributing are developmentally short pedicles and ligamentum flavum and facet hypertrophy. The mid and sagittal AP dimension of the thecal sac at L4-5 is 9 mm. There is left foraminal disc bulging. Bilateral neural foraminal narrowing is seen. Facet spurring is noted on the right. At L5-S1, there is facet hypertrophy bilaterally and a central disc protrusion is seen extending caudally. This subtly indents the ventral margin of the thecal sac but does not appear to compress it. IMPRESSION: Advanced degenerative spondylosis changes with multilevel neural foraminal narrowing and central canal stenosis at L3-4 and L4-5. Signed by Jonel Floyd MD 11/16/2016 03:06 P
[2016-11-16] MEDS ORDERED: FUROSEMIDE 20 MG/2 ML VIAL (J1940) IV ONE (16:45)
[2016-11-16] MEDS: ASPIRIN 81 MG ENTERIC TAB PO SCH (21:45)
[2016-11-16] MEDS: PRAVASTATIN 20 MG TAB PO SCH (21:45)
[2016-11-16 22:00] VITALS: BP 142/80
[2016-11-17] MEDS: HEPARIN SOD (PORCINE) 5000 UNITS/ML VIAL SC SCH ×3 (05:40→21:40)
[2016-11-17] MEDS: traMADol 50 MG TAB PO SCH ×3 (05:41→21:39)
[2016-11-17 06:00] VITALS: BP 152/80
[2016-11-17 06:13] LABS: MEAN CORPUSCULAR HEMOGLOBIN 31.1 pg (27.0-33.0); MEAN CORPUSCULAR HGB CONC 31.2 g/dl (32.0-36.5); MEAN CORPUSCULAR VOLUME 99.5 fl (80.0-96.0)
[2016-11-17 06:20] LABS: ANION GAP 8 MEQ/L (8-16); BLOOD UREA NITROGEN 8 MG/DL (7-18); CALCIUM LEVEL 8.5 MG/DL (8.8-10.2); CARBON DIOXIDE LEVEL 25 MEQ/L (21-32); CHLORIDE LEVEL 108 MEQ/L (98-107); GLOMERULAR FILTRATION RATE > 60.0 (>32); GLUCOSE, FASTING 90 MG/DL (83-110); POTASSIUM SERUM 3.9 MEQ/L (3.5-5.1); SODIUM LEVEL 141 MEQ/L (136-145)
[2016-11-17] MEDS: IPRATROPIUM 0.02% SOLN 0.5MG/2.5 ML NEB INH SCH ×3 (08:28→20:11)
[2016-11-17] MEDS: ALBUTEROL SULFATE 2.5 MG/0.5 ML INH NEB SOLN INH SCH ×3 (08:28→20:11)
[2016-11-17] MEDS: VITAMIN D 1,000 INTERNATIONAL UNITS TABLET PO SCH (09:24)
[2016-11-17] MEDS: FERROUS SULFATE 325MG TAB PO SCH (09:24)
[2016-11-17] MEDS: NITROFURANTOIN (MACROBID) 100 MG CAP PO SCH ×2 (09:24→21:38)
[2016-11-17] MEDS: FOLIC ACID 1 MG TAB PO SCH (09:24)
[2016-11-17] MEDS: VANCOMYCIN ORAL SOL 250MG/5ML ORAL SYRINGE PO SCH ×3 (09:24→21:39)
[2016-11-17 14:00] VITALS: BP 147/75
[2016-11-17] MEDS: PRAVASTATIN 20 MG TAB PO SCH (21:38)
[2016-11-17] MEDS: ASPIRIN 81 MG ENTERIC TAB PO SCH (21:39)
[2016-11-17 22:00] VITALS: BP 141/65
--- NOTE | 2016-11-17 23:00 | IPNPDOC ---
Subjective Date Seen The patient was seen on 11/17/16. Subjective Chief Complaint/HPI The patient is a 86-year-old female admitted with a reason for visit of Rt Low Back Pain. Constitutional: Denies: Chills, Fever, Night Sweats Pulmonary: Denies: Dyspnea, Cough Cardiovascular: Denies: Chest Pain, Palpitations, Orthopnea, Paroxysmal Noc. Dyspnea, Lt Headedness Musculoskeletal: Reports: Back Pain, Leg Pain Objective Physical Examination General Exam: Positive: No Acute Distress Eye Exam: Positive: PERRLA Chest Exam: Positive: Clear to auscultation, Normal air movement Heart Exam: Positive: Rate Normal, Regular Rhythm, Normal S1, Normal S2, Negative: Murmurs, Rubs Abdomen Exam: Positive: Normal bowel sounds, Soft, Negative: Tenderness, Hepatospenomegaly Extremity Exam: Positive: Normal pulses, Negative: Clubbing, Cyanosis, Edema Assessment /Plan Problems (1) Back pain with right-sided radiculopathy Status: Acute Problem Text: * MRI showed spinal stenosis at L3-L4 and L4-L5, results were discussed with family and plan to continue conservative treatment for now, which include pain control and physical therapy * continue pain meds ultram, we will schedule it, pt has not been asking for it * morphine for breakthrough pain * continue PT (2) UTI (urinary tract infection) Status: Acute Problem Text: * will continue macrobid which was started oupt and she had 3 doses at home prior to admission * it was pansensitive ecoli, colony count of 100,000 (3) HTN (hypertension) Status: Chronic (4) Dyslipidemia Status: Chronic (5) Anemia Status: Chronic Response to Treatment: Stable Plan/VTE VTE Prophylaxis Ordered?: Yes VS, I&O, 24H, Fishbone Vital Signs/I&O Vital Signs Date Time Temp Pulse Resp B/P (MAP) Pulse Ox O2 Delivery O2 Flow Rate FiO2 11/17/16 22:00 98.2 85 17 141/65 (90) 93 Room Air I&O- Last 24 Hours up to 6 AM 11/17/16 06:00 Intake Total 1110 ml Balance 1110 ml Laboratory Data 24H LABS Laboratory Tests 2 11/17/16 05:40: Anion Gap 8, Glomerular Filtration Rate > 60.0, Blood Urea Nitrogen 8, Creatinine 0.60, Sodium Level 141, Potassium Level 3.9, Chloride Level 108H, Carbon Dioxide Level 25, Calcium Level 8.5L CBC/BMP Laboratory Tests 11/17/16 05:40 Red Blood Count 3.36 L, Mean Corpuscular Volume 99.5 H, Mean Corpuscular Hemoglobin 31.1, Mean Corpuscular Hemoglobin Concent 31.2 L, Red Cell Distribution Width 15.0 H, Calcium Level 8.5 L Microbiology Microbiology 11/16/16 Clostridium difficile (PCR) - Final, Complete 11/15/16 Urine Culture - Final, Complete JINNY CAMPOS DO November 17, 2016 23:00
[2016-11-18] MEDS: HEPARIN SOD (PORCINE) 5000 UNITS/ML VIAL SC SCH ×2 (05:23→14:37)
[2016-11-18] MEDS: traMADol 50 MG TAB PO SCH ×3 (05:23→22:00)
[2016-11-18 06:00] VITALS: BP 132/78
[2016-11-18 06:13] LABS: MEAN CORPUSCULAR HEMOGLOBIN 30.9 pg (27.0-33.0); MEAN CORPUSCULAR HGB CONC 31.6 g/dl (32.0-36.5); MEAN CORPUSCULAR VOLUME 97.8 fl (80.0-96.0); RED CELL DISTRIBUTION WIDTH 15.2 % (11.5-14.5); WHITE BLOOD COUNT 6.3 K/mm3 (4.0-10.0)
[2016-11-18 06:33] LABS: ANION GAP 7 MEQ/L (8-16); BLOOD UREA NITROGEN 13 MG/DL (7-18); CALCIUM LEVEL 8.3 MG/DL (8.8-10.2); CARBON DIOXIDE LEVEL 26 MEQ/L (21-32); CHLORIDE LEVEL 106 MEQ/L (98-107); CREATININE FOR GFR 0.73 MG/DL (0.55-1.02); GLOMERULAR FILTRATION RATE > 60.0 (>32); GLUCOSE, FASTING 97 MG/DL (83-110); POTASSIUM SERUM 3.9 MEQ/L (3.5-5.1); SODIUM LEVEL 139 MEQ/L (136-145)
[2016-11-18] MEDS: ALBUTEROL SULFATE 2.5 MG/0.5 ML INH NEB SOLN INH SCH ×3 (07:33→20:00)
[2016-11-18] MEDS: IPRATROPIUM 0.02% SOLN 0.5MG/2.5 ML NEB INH SCH ×3 (07:33→20:00)
[2016-11-18] MEDS: NITROFURANTOIN (MACROBID) 100 MG CAP PO SCH ×2 (07:52→20:22)
[2016-11-18] MEDS: FERROUS SULFATE 325MG TAB PO SCH (07:52)
[2016-11-18] MEDS: FOLIC ACID 1 MG TAB PO SCH (07:52)
[2016-11-18] MEDS: VANCOMYCIN ORAL SOL 250MG/5ML ORAL SYRINGE PO SCH ×3 (07:52→20:22)
[2016-11-18] MEDS: VITAMIN D 1,000 INTERNATIONAL UNITS TABLET PO SCH (07:52)
[2016-11-18 14:00] VITALS: BP 147/77
--- NOTE | 2016-11-18 18:49 | IPNPDOC ---
Subjective Date Seen The patient was seen on 11/18/16. Subjective Chief Complaint/HPI The patient is a 86-year-old female admitted with a reason for visit of Rt Low Back Pain. Events since last encounter pt seen and examined, doing well, no overnight events. has been able to get out of bed and ambulate to the bathroom with minimal pain. no complains at this time Objective Physical Examination General Exam: Positive: No Acute Distress Eye Exam: Positive: PERRLA Chest Exam: Positive: Clear to auscultation, Normal air movement Heart Exam: Positive: Rate Normal, Regular Rhythm, Normal S1, Normal S2, Negative: Murmurs, Rubs Abdomen Exam: Positive: Normal bowel sounds, Soft, Negative: Tenderness, Hepatospenomegaly Extremity Exam: Positive: Normal pulses, Negative: Clubbing, Cyanosis, Edema Assessment /Plan Problems (1) Back pain with right-sided radiculopathy Status: Acute Problem Text: * MRI showed spinal stenosis at L 3 and L4 levels * continue pain meds ultram, scheduled * morphine for breakthrough pain, pt has not been needing it * continue PT (2) UTI (urinary tract infection) Status: Acute Problem Text: * will continue macrobid which was started oupt and she had 3 doses at home prior to admission * it was pansensitive ecoli, colony count of 100,000 (3) HTN (hypertension) Status: Chronic (4) Dyslipidemia Status: Chronic (5) Anemia Status: Chronic Response to Treatment: Stable Plan/VTE VTE Prophylaxis Ordered?: Yes VS, I&O, 24H, Fishbone Vital Signs/I&O Vital Signs Date Time Temp Pulse Resp B/P (MAP) Pulse Ox O2 Delivery O2 Flow Rate FiO2 11/18/16 14:37 18 11/18/16 14:00 98.2 92 147/77 (100) 94 Room Air I&O- Last 24 Hours up to 6 AM 11/18/16 06:00 Intake Total 480 ml Output Total 900 ml Balance -420 ml Laboratory Data 24H LABS Laboratory Tests 2 11/18/16 05:55: Anion Gap 7L, Glomerular Filtration Rate > 60.0, Blood Urea Nitrogen 13#, Creatinine 0.73, Sodium Level 139, Potassium Level 3.9, Chloride Level 106, Carbon Dioxide Level 26, Calcium Level 8.3L CBC/BMP Laboratory Tests 5/14/17 05:55 Red Blood Count 3.27 L, Mean Corpuscular Volume 97.8 H, Mean Corpuscular Hemoglobin 30.9, Mean Corpuscular Hemoglobin Concent 31.6 L, Red Cell Distribution Width 15.2 H, Calcium Level 8.3 L Microbiology Microbiology 11/16/16 Clostridium difficile (PCR) - Final, Complete 11/15/16 Urine Culture - Final, Complete JINNY CAMPOS DO November 18, 2016 18:49
[2016-11-18] MEDS: ASPIRIN 81 MG ENTERIC TAB PO SCH (20:22)
[2016-11-18] MEDS: PRAVASTATIN 20 MG TAB PO SCH (20:22)
[2016-11-18 22:00] VITALS: BP 138/88
[2016-11-19 05:18] VITALS: BP 165/92
[2016-11-19 05:52] LABS: MEAN CORPUSCULAR HEMOGLOBIN 32.8 pg (27.0-33.0); MEAN CORPUSCULAR HGB CONC 33.4 g/dl (32.0-36.5); MEAN CORPUSCULAR VOLUME 98.2 fl (80.0-96.0); WHITE BLOOD COUNT 5.1 K/mm3 (4.0-10.0)
[2016-11-19 06:00] VITALS: BP 160/86
[2016-11-19 06:07] LABS: ANION GAP 6 MEQ/L (8-16); BLOOD UREA NITROGEN 13 MG/DL (7-18); CALCIUM LEVEL 8.4 MG/DL (8.8-10.2); CARBON DIOXIDE LEVEL 27 MEQ/L (21-32); CHLORIDE LEVEL 107 MEQ/L (98-107); CREATININE FOR GFR 0.71 MG/DL (0.55-1.02); GLOMERULAR FILTRATION RATE > 60.0 (>32); GLUCOSE, FASTING 91 MG/DL (83-110); POTASSIUM SERUM 3.9 MEQ/L (3.5-5.1); SODIUM LEVEL 140 MEQ/L (136-145)
[2016-11-19] MEDS: traMADol 50 MG TAB PO SCH (06:11)
[2016-11-19] MEDS: ALBUTEROL SULFATE 2.5 MG/0.5 ML INH NEB SOLN INH SCH ×2 (08:13→13:22)
[2016-11-19] MEDS: IPRATROPIUM 0.02% SOLN 0.5MG/2.5 ML NEB INH SCH ×2 (08:13→13:22)
[2016-11-19] MEDS: NITROFURANTOIN (MACROBID) 100 MG CAP PO SCH (10:36)
[2016-11-19] MEDS: VITAMIN D 1,000 INTERNATIONAL UNITS TABLET PO SCH (10:36)
[2016-11-19] MEDS: FERROUS SULFATE 325MG TAB PO SCH (10:37)
[2016-11-19] MEDS: FOLIC ACID 1 MG TAB PO SCH (10:37)
[2016-11-19] MEDS: VANCOMYCIN ORAL SOL 250MG/5ML ORAL SYRINGE PO SCH (10:40)
[2016-11-19] MEDS ORDERED: ULTR50TA PO (12:41)
[2016-11-19 14:00] VITALS: BP 130/88
--- NOTE | 2016-11-19 19:36 | DSES ---
DATE OF ADMISSION: 11/13/2016 DATE OF DISCHARGE: 11/19/2016 REASON FOR ADMISSION: Back pain. FINAL DIAGNOSIS: 1. L3-4, L4-5 spinal stenosis. 2. Urinary tract infection, E-coli 3. Hypertension. 4. Dyslipidemia. 5. History of anemia. 6. History of dementia. 7. History of ongoing Clostridium (C.) difficile. 8. History of cerebrovascular accident (CVA). 9. High blood pressure. PRIMARY CARE PROVIDER: Jaycee Gannon NP HISTORY OF PRESENT ILLNESS: The patient is an 86-year-old female with history of dementia, history of CVA, C. difficile on ongoing by mouth vancomycin, hypertension, hyperlipidemia, recently diagnosed urinary tract infection (UTI) presented to the emergency room complaining of acute worsening right lower back pain. The patient started having pain on 11/10/2016 in the morning with acute onset originating mainly in the right lower back with radiation to her leg. She presented to the emergency room for evaluation. She was then sent home with pain control. However, several days later she continued to have worsening pain, worsening over the last few days. She presented again to the emergency room due to inability to ambulate or move. At that time she was admitted she received multiple doses of IV morphine in order to achieve pain control. MRI of the vertebral spine was ordered, however, the patient was unable to tolerate it due to pain. She was given multiple doses of morphine, one dose of Ativan. She became very drowsy, however that point the MRI machine was under the maintenance so she was unable to get the MRI that night. She was admitted under hospitalist service for pain control. HOSPITAL COURSE: The following day MRI was reattempted after she was given some mild sedation with Ativan, however, she was still unable to tolerate it. She was still requiring pain medication. She was started on oral Ultram 50 mg three times a day as needed for pain as well as breakthrough IV morphine. Physical therapy was consulted. However, the patient was unable to participate initially due to pain. Spoke with the anesthesia who agreed to do MRI under sedation. The patient was made n.p.o. that night and the following day the patient underwent an MRI of her lumbar spine. MRI of the lumbar spine showed advanced degenerative spondylosis changes with multilevel neural foraminal narrowing and central canal stenosis at L3-L4 on L4-L5. The patient also had underwent plain films of her right hip, which only showed evidence of osteopenia and greater trochanteric spurring. She underwent a right knee x-ray which showed mild degenerative changes without fracture or dislocation. The patient underwent a lumbar spine plain film which showed no evidence of fractures or dislocations. Also renal ultrasound was done to rule out any gallstones, which it did not show. The following day the patient had continued the pain medication which was scheduled and she was able to move out of bed, but she still had limited motion due to pain. Over the weekend, physical therapy had evaluated her once and she continued to ambulate back and forth from bed to the bathroom with nursing help with pain improving every day. Other options were discussed with family, which included possible pain control or pain management consult if pain did not improve or eventually surgical consult which the patient would likely not be a candidate given her age and comorbidities. Family agreed to try conservative treatment since it appeared to be working and her symptoms were improving. Once the patient was passed by physical therapy (PT) she was discharged home. The patient was continued on her oral vancomycin during the whole course of the hospitalization as well as Macrobid which was initiated 2 days prior to admission for E coli UTI with 100,000 colony count. PHYSICAL EXAMINATION ON DISCHARGE: HEENT: Pupils equal, round, reactive to light accommodation. Neck: Supple. No JVD. Lungs: Clear to auscultation bilaterally. Abdomen: Soft, nontender, nondistended. Extremities: Mild tenderness to palpation over the right hip and right thigh, otherwise benign findings. Neuro: Unable to assess since patient is unable to follow directions for an appropriate neuro exam given her dementia. LABORATORY FINDINGS ON DISCHARGE: WBC 5.1, hemoglobin 11, hematocrit 32.8, platelet count 186. Sodium 140, potassium 3.9, chloride 107, BUN 13, creatinine 0.171. Urinalysis during this admission was positive for leukocyte esterase, WBCs, negative for bacteria and urine culture was negative for C. Difficile was also done and it was negative. DISCHARGE INSTRUCTIONS: The patient is follow up with Jaycee Gannon in one week. Diet and regular activity as tolerated. DISCHARGE MEDICATIONS: - tramadol 50 mg every 8 hours as needed for pain - She was given 30 tablets Tylenol 1000 mg by mouth every 6 hours as needed for pain - Ventolin 2 puffs inhaled four times a day as needed shortness of breath - albuterol sulfate 25 mg inhaled daily - aspirin 81 mg by mouth at bedtime - vitamin D 1000 units daily - iron 325 mg daily - folic acid 1 mg daily - ipratropium bromide 0.5 mg inhaled three times a day - vancomycin 250 mg by mouth three times a day - pravastatin 20 mg at bedtime. CONDITION ON DISCHARGE: Stable.
== END 2016-11-19 14:20 | disposition home health service (06) | DRG 552 ==
LOC: M ED 12:54 → M ED INP 18:12 → M MSPAV 20:10
PROVIDERS: ADMIT Internal Medicine; ATTEND Internal Medicine
DX: M48.06 Spinal stenosis, lumbar region (principal); N39.0 Urinary tract infection, site not specified; A04.7 Enterocolitis due to Clostridium difficile; B96.29 Other Escherichia coli [E. coli] as the cause of diseases classified elsewhere; E78.5 Hyperlipidemia, unspecified; I10 Essential (primary) hypertension; D64.9 Anemia, unspecified; Z86.73 Personal history of transient ischemic attack (TIA), and cerebral infarction without residual deficits; F03.90 Unspecified dementia, unspecified severity, without behavioral disturbance, psychotic disturbance, mood disturbance, and anxiety; Z79.899 Other long term (current) drug therapy; Z79.82 Long term (current) use of aspirin

== ENCOUNTER 2017-01-27 17:34 | Inpatient (IN) | payer MEDICARE ==
[~2017-01-27] VITALS: Ht 152.4 cm; Wt 53.0 kg
[~2017-01-27 17:34] MED LIST changes: +ALBU83IN INH; +FERR1TAB8 PO; -FERR325T PO; -FOLI1TAB2 PO; +FOLI1TAB4 PO; +IPRA2IN INH; -MACR100C3 PO; +MACR100C43 PO; +NITR100C2; +ULTR50TA8 PO; +VANC1SUS PO; +VANC1VLAD; +WELC3.75 PO; -[UNRECOGNIZED DRUG - CODE] PO; +[UNRECOGNIZED DRUG - OTHER]; +vancomycin
--- NOTE | 2017-01-27 19:10 | REPUSA ---
CT of the head Clinical history: Headache. Comparison: 02/20/2015. Protocol: Multiple axial CT images obtained with 5 mm slice thickness were obtained through the head without administration of contrast. Findings: The ventricles and sulci are symmetric but prominent in size bilaterally. There are periven tricular areas of low attenuation throughout the deep white matter. There is no evidence of acute hem orrhage or infarct. There is no midline shift, mass effect, or extra-axial fluid collection. The osse ous structures are unremarkable. The visualized paranasal sinuses and mastoid air cells are clear. Impression: No acute hemorrhage or infarct. Findings are consistent with age-related atrophy and plastic outfitter brea small vessel ischemic disease.
[2017-01-27 19:11] LABS: BASO % 0.8 % (0.0-1.0); EOS # 0.2 K/mm3 (0.0-0.50); EOS % 3.2 % (0.0-3.0); LARGE UNSTAINED CELL # 0.1 K/mm3 (0.0-0.4); LYMPH # 1.8 K/mm3 (1.5-4.5); LYMPH % 26.8 % (24.0-44.0); MEAN CORPUSCULAR HEMOGLOBIN 32.4 pg (27.0-33.0); MEAN CORPUSCULAR HGB CONC 32.8 g/dl (32.0-36.5); MEAN CORPUSCULAR VOLUME 98.9 fl (80.0-96.0); MONO # 0.4 K/mm3 (0.0-0.8); MONO % 5.8 % (0.0-5.0); NEUTROPHILS # 3.8 K/mm3 (1.8-7.7); NEUTROPHILS % 61.5 % (36.0-66.0); PLATELET COUNT, AUTOMATED 184 k/mm3 (150-450); RED CELL DISTRIBUTION WIDTH 14.4 % (11.5-14.5); WHITE BLOOD COUNT 6.2 K/mm3 (4.0-10.0)
[2017-01-27 19:19] LABS: INR 0.93
[2017-01-27 19:33] LABS: ANION GAP 8 MEQ/L (8-16); BLOOD UREA NITROGEN 22 MG/DL (7-18); CALCIUM LEVEL 9.1 MG/DL (8.8-10.2); CARBON DIOXIDE LEVEL 24 MEQ/L (21-32); CHLORIDE LEVEL 103 MEQ/L (98-107); CREATININE FOR GFR 0.85 MG/DL (0.55-1.02); GLOMERULAR FILTRATION RATE > 60.0 (>32); GLUCOSE, FASTING 90 MG/DL (83-110); POTASSIUM SERUM 3.9 MEQ/L (3.5-5.1); SODIUM LEVEL 135 MEQ/L (136-145)
[2017-01-27] MEDS ORDERED: LORazepam 2 MG/ML VIAL (J2060) IV ONE (20:45)
[2017-01-27] MEDS ORDERED: IPRASOL4 INH (21:13)
[2017-01-27] MEDS ORDERED: ACET650T3 PO (21:13)
[2017-01-27] MEDS ORDERED: ALBUTEROL 90 MCG/ACT 8GM HFA INHALER INH PRN (22:00)
[2017-01-27 22:38] LABS: T UPTAKE 30 % (30-39); THYROXINE (T4) 10.4 UG/DL (4.5-12.0)
--- NOTE | 2017-01-27 22:50 | REPUSA ---
Clinical history: blurred vision. Technique: [id number] MRA images of the brain were obtained without administration of contrast. 3 -D MIP images were also obtained. Findings: The vascular structures extending from the distal carotid and vertebrobasilar arterial syst ems, through the lummi of [place], demonstrate normal caliber and contour. There is no evidence of an eurysm, stenosis, or thrombosis. Impression: Unremarkable MRA examination of the brain.
--- NOTE | 2017-01-27 22:50 | REPUSA ---
MRI of the brain. Clinical history: blurred vision. Technique: Multiecho multiplanar MRI images of the brain were obtained without administration of cont rast. Diffusion weighted images with ADC mapping was also obtained. Findings: The ventricles and sulci are symmetric bilaterally. The brain parenchyma demonstrates diffuse T2 hype rintensity throughout the subcortical white matter. This is most prominent in the posterior left holden etal and occipital lobes. There is no midline shift, mass effect, or extra-axial fluid collection. Th e midline intracranial structures do not demonstrate any gross abnormalities. The cervical cranial ju nction is intact. The orbits are unremarkable. The visualized paranasal sinuses and mastoid air cells are clear. The osseous structures and superficial soft tissues are unremarkable. The vascular struct ures demonstrate appropriate flow voids. Impression: No evidence of acute infarct or hemorrhage. Moderate chronic small vessel ischemic diseas e. Signal changes in the left posterior parietal/occipital lobe suggests chronic encephalomalacia.
[2017-01-27 23:30] VITALS: BP 148/70
[2017-01-27] MEDS: amLODIPine 5 MG TAB PO SCH (23:43)
[2017-01-27] MEDS: HEPARIN SOD (PORCINE) 5000 UNITS/ML VIAL SC SCH (23:43)
[2017-01-27] MEDS: ASPIRIN 325 MG TAB PO SCH (23:43)
[2017-01-27] MEDS: PRAVASTATIN 20 MG TAB PO SCH (23:48)
[2017-01-28] MEDS ORDERED: SLF 3 ML SYR IV PRN (00:30)
--- NOTE | 2017-01-28 02:58 | HPE ---
DATE OF ADMISSION: 01/27/2017 PRIMARY CARE PROVIDER: Dr. Amador. CHIEF COMPLAINT: Vision problem. HISTORY OF PRESENT ILLNESS: Significantly limited secondary to advanced dementia. This is an 86-year-old female patient with underlying medical history of CVA in the past twice, with no significant deficits other than some dementia, dyslipidemia, hypertension, recently treated for Clostridium (C) difficile infection, no recent antibiotic use. As per patient's family, patient had a massive CVA in her 50s with right-sided hemiparesis and aphasia, but subsequently with physical therapy and speech and swallow patient was able to recover for all of her functions and also about 5 years ago patient had a transient ischemic attack (TIA), but earlier around 3:30 p.m. patient got up and reported that she was unable to see. Then after a few minutes she said that she is seeing double and subsequently emergency medical services (EMS) was called and patient went to the hospital. By the time patient arrived at the hospital, patient reported that she was able to see now ad she has no other problems. Patient was not able to say if she has any other complaints. Denies any headache, chest pain, palpitations, fevers, chills, sick contact. Does report that her has Lyme's disease. By the family, no motor weakness. Baseline ambulatory. Denies any fevers, chills, chest pain, headache, hearing problems. Further history limited. ALLERGIES: No known drug allergies. PAST MEDICAL HISTORY: 1. CVA. 2. Dementia. 3. Dyslipidemia. 4. Hypertension. 5. Recent C. difficile. PAST SURGICAL HISTORY: 1. Hysterectomy. 2. Cholecystectomy. SOCIAL HISTORY: Quit smoking 60 years ago. No alcohol use. No recreational drug use. Lives at home with . REVIEW OF SYSTEMS: Reported vision problems and diplopia and vision loss bilaterally. All other review of systems is negative. HOME MEDICATIONS: - acetaminophen 650 mg by mouth every 6 hours as needed - Ventolin inhaler four times a day as needed - aspirin 81 mg by mouth nightly - vitamin D 1000 units by mouth daily - ferrous sulfate 325 mg by mouth daily - folic acid 1 mg by mouth daily - leflunomide 20 mg by mouth daily - pravastatin 20 mg by mouth nightly PHYSICAL EXAMINATION: VITAL SIGNS: Temperature 97.1, pulse 59, respirations 18, blood pressure 148/70, pulse oximetry 94% on room air. GENERAL: Patient alert, oriented to self and to her location, slightly disoriented to time, in no acute distress. HEENT: Normocephalic, atraumatic. Pupils bilaterally equal and reactive. Extraocular muscles intact bilaterally. PULMONARY: Bilaterally clear to auscultation. CARDIAC: Regular rate and rhythm. Normal S1, S2. ABDOMEN: Soft, nontender. Positive bowel sounds. EXTREMITIES: No clubbing, cyanosis or edema. NEUROLOGICAL: Cranial nerves II-XII grossly intact. Finger to nose slightly limited secondary to arthritis. Strength bilateral upper and lower extremities symmetrical, 5/5. Sensation to light touch intact. No focal deficits. EKG sinus rhythm at 73. LABORATORY: WBC 6.2, hemoglobin and hematocrit 11.5/35.2, platelets 184. Chemistry: Sodium 135, potassium 3.9, chloride 103, bicarbonate 24, BUN 22, creatinine 0.85. Cardiac enzymes negative times one. TSH within normal limits. MRA of the brain within normal limits. MRI of the brain shows no evidence of acute infarct or hemorrhage, moderate chronic small vessel ischemic disease, signal change in the left posterior and parietal and occipital suggestive of chronic encephalomalacia. ASSESSMENT AND PLAN: This is an 86-year-old female patient with underlying medical history of CVA, dementia, dyslipidemia, hypertension, Clostridium (C) difficile, presented with vision problems, diplopia that has resolved. 1. Vision loss and diplopia. Patient's symptom has resolved. Possibly transient ischemic attack (TIA). Neurology consulted. Telemetry, MRI, MRA of the brain, MRA of the neck. Echocardiogram. Lipid panel. Aspirin, statin. Recent sick contact with with Lyme. Lyme disease screening has been ordered. Urinalysis has been negative. Aspirin, statin. Full-dose aspirin has been given. Permissive hypertension. Norvasc has been given for blood pressure control. Goal blood pressure of 160-140 systolic. Continue aspirin, statin. Neurologic checks. Telemetry. 2. History of CVA. Management as per above. Neurology has been consulted. 3. Dementia. Continue home medications. Supportive care. 4. Dyslipidemia. Continue statin. 5. Hypertension. Continue Norvasc. 6. Recent C. difficile. Bacid has been ordered. 7. Deep venous thrombosis (DVT) prophylaxis. Heparin subcutaneously. 8. Osteoarthritis. Physical therapy. Pain medication as needed. DISPOSITION PLANNING: Pending neurological workup, neurology consultation, Lyme disease titer, physical therapy (PT), occupational therapy (OT).
[2017-01-28 04:10] VITALS: BP 136/62
[2017-01-28] MEDS: SLF 3 ML SYR IV SCH ×3 (04:15→21:53)
[2017-01-28 06:03] LABS: MEAN CORPUSCULAR HEMOGLOBIN 33.1 pg (27.0-33.0); MEAN CORPUSCULAR HGB CONC 33.4 g/dl (32.0-36.5); RED CELL DISTRIBUTION WIDTH 14.4 % (11.5-14.5); WHITE BLOOD COUNT 5.3 K/mm3 (4.0-10.0)
[2017-01-28 06:34] LABS: ANION GAP 6 MEQ/L (8-16); BLOOD UREA NITROGEN 17 MG/DL (7-18); CALCIUM LEVEL 8.5 MG/DL (8.8-10.2); CARBON DIOXIDE LEVEL 26 MEQ/L (21-32); CHLORIDE LEVEL 113 MEQ/L (98-107); CREATININE FOR GFR 0.63 MG/DL (0.55-1.02); GLOMERULAR FILTRATION RATE > 60.0 (>32); GLUCOSE, FASTING 78 MG/DL (83-110); MAGNESIUM LEVEL 2.1 MG/DL (1.8-2.4); POTASSIUM SERUM 3.9 MEQ/L (3.5-5.1); SODIUM LEVEL 145 MEQ/L (136-145)
[2017-01-28 07:25] VITALS: BP 131/66
--- NOTE | 2017-01-28 07:38 | REP ---
PORTABLE CHEST: Single AP portable view of the chest is performed and compared to a prior study of 08/20/2016. Bibasilar chronic fibrotic changes are stable with no new infiltrate. The heart is not significantly enlarged. There is calcification of the thoracic aorta. The mediastinal silhouette is unchanged. IMPRESSION: Stable chronic findings without evidence of acute infiltrate. Signed by John Allison MD 01/28/2017 01:10 P
--- NOTE | 2017-01-28 08:27 | ECGEPIP ---
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
[2017-01-28] MEDS: HEPARIN SOD (PORCINE) 5000 UNITS/ML VIAL SC SCH ×2 (09:10→21:52)
[2017-01-28] MEDS: FERROUS SULFATE 325MG TAB PO SCH (09:10)
[2017-01-28] MEDS: LACTOBACILLUS ACIDOPHILUS CAP (BACID) PO SCH ×3 (09:10→16:55)
[2017-01-28] MEDS: VITAMIN D 1,000 INTERNATIONAL UNITS TABLET PO SCH (09:11)
[2017-01-28] MEDS: amLODIPine 5 MG TAB PO SCH (09:11)
[2017-01-28] MEDS: SENOKOT S TAB PO SCH ×2 (09:11→21:52)
[2017-01-28] MEDS: FOLIC ACID 1 MG TAB PO SCH (09:11)
[2017-01-28] MEDS: IPRATROPIUM 0.5MG/ALBUTEROL 2.5MG INH SOL UD 3ML (DUONEB)(J7620) NEB PRN ×2 (10:55→20:15)
--- NOTE | 2017-01-28 13:21 | REP ---
Right shoulder single AP view: There are no comparison studies. There is no fracture or dislocation as seen on this single projection. I suspect there is acromioclavicular osteoarthritis. The glenohumeral articulation is unremarkable. No calcifications or foreign bodies. Impression: No fracture or dislocation as seen on this single view. Signed by John Trejo MD 01/28/2017 01:10 P
[2017-01-28 13:30] VITALS: BP 128/60
--- NOTE | 2017-01-28 13:51 | REP ---
REASON FOR EXAM: CVA COMPARISON: 07/20/2014 There has been no significant change from the prior exam. The distal common carotid arteries and origins of the external and internal carotid arteries are unchanged and have a normal appearance. There is no evidence of a significant vertebral artery stenosis or change from the prior exam. Note is again made of a dominant left vertebral artery. IMPRESSION: No significant change from the prior exam with findings as described above. Signed by Mateo Espitia DO 01/28/2017 04:30 P
[2017-01-28 16:00] VITALS: BP 118/65
[2017-01-28 17:00] VITALS: BP 133/65
[2017-01-28] MEDS: ACETAMINOPHEN 650MG ER TAB (TYLENOL ARTHRITIS) PO PRN (18:02)
[2017-01-28 20:00] VITALS: BP 122/64
--- NOTE | 2017-01-28 20:36 | IPN ---
DATE: 01/28/2017 SUBJECTIVE: The patient is seen and examined in the room today. The patient continues to have sign of dementia. Information was obtained from the patient's daughter, who was present during the morning encounter. The patient started having acute right sided weakness within the last 24 hours. The patient also started complaining about double vision. Per patient, the patient started experiencing those experiences several hours prior to admission. OBJECTIVE: VITAL SIGNS: Temperature is 97.5, pulse 60, respirations 18, blood pressure is 131/66, pulse oximetry 97% on room air. GENERAL: No sign of acute distress. The patient is alert, awake and able to answer some of the questions. Sign of dementia. HEENT: Normocephalic, atraumatic. The patient does have some sign of eye deviation. CARDIOVASCULAR: Positive S1, S2. Regular rate. LUNGS: Clear to auscultation bilaterally. ABDOMEN: Soft, nontender, nondistended. EXTREMITIES: No edema. NEUROLOGIC: When examined, the patient started complaining of double vision multiple times. Sensation to fine touch grossly intact. LABORATORY DATA: WBC 5.3, hemoglobin 11, hematocrit 32.9, platelet count is 161. Sodium is 145, potassium 3.9, chloride is 113, carbon dioxide 26, BUN 17, creatinine 0.63, GFR greater than 60, fasting glucose is 79, calcium is 8.5, magnesium 2.1, triglycerides 122, total cholesterol is 157, LDL is 67.6. ASSESSMENT AND PLAN: 1. Double vision with complaint of right lower extremity weakness. MRA and MRI were performed. The official report from the MRI was reviewed with the family members. I explained to the patient that we are still in the process of confirming the final diagnosis. We are awaiting the neurologist's assistance. During the encounter, I do have a sense that the patient is receiving information from multiple sources and the patient's family members feel that there is lack of communication between staff. I discussed with them that I will try to contact the involved colleagues to relay the concern. The patient does have a history of CVA in the past. Currently, we are working to confirm the diagnosis. We also do appreciate neurology's assistance. Currently, the patient is on aspirin and statin. The patient is on permissive hypertension. The patient is currently on amlodipine and there are holding parameters to allow permissive hypertension. The patient will continue with neuro checks. The patient will be continued to be monitored on telemetry. 2. History of CVA. Per records, the patient had complete resolution and does not have any residual from the previous CVA. 3. Dementia. Continue to monitor. 4. Dyslipidemia. On statin. 5. Hypertension. The patient is currently on Norvasc, but there are holding parameters to allow for permission hypertension. 6. Deep vein thrombosis (DVT) prophylaxis. The patient is on heparin. 7. History of recent Clostridium (C) difficile. The patient does not have acute diarrhea at this moment, continue to monitor.
--- NOTE | 2017-01-28 21:42 | ECHO ---
DATE OF PROCEDURE: 01/28/2017 REFERRING PHYSICIAN: Zenia Gotti MD INDICATION: Acute stroke. HEIGHT: 150 cm WEIGHT: 59 kg 2D MEASUREMENTS: Ventricular septum: 1.01 cm Posterior wall: 1.05 cm Left ventricle diastole: 8.5 cm Left atrium: 2.9 cm Aortic root: 3.2 cm Inferior vena cava: 1.1 cm DOPPLER MEASUREMENTS: Mild aortic regurgitation. Aortic valve velocity: 150 cm/s LVOT velocity: 79.0 cm/s LVOT VTI: 19.1 cm Mild mitral regurgitation. Mitral E velocity: 61.2 cm Mitral A velocity: 104 cm/s Mitral deceleration time: 335 ms Very mild tricuspid regurgitation. Pulmonary artery systolic pressure 28 mmHg by pulmonary artery acceleration time method. MITRAL ANNULAR TISSUE DOPPLER: E prime septal: 5.4 cm E prime lateral: 7.4 cm/s DESCRIPTION: Rhythm was sinus. Image quality was fair. This was a 2D, M-mode, color wave Doppler and pulse wave Doppler examination that included mitral annular tissue Doppler. CONCLUSIONS: 1. Extensive irregular atheroma more than 4 mm thick involving the abdominal aorta. 2. Intra-atrial septal aneurysm. No apparent atrial septal defect or ventricular septal defect. 3. Normal left ventricle internal dimensions and wall thickness. Normal left ventricle internal dimensions and wall thickness. Normal regional LV wall motion and wall thickening. Normal LV systolic function. Left ventricular ejection fraction (LVEF) 60% by visual estimate. 4. Grade 1 left ventricle (LV) diastolic dysfunction (impaired relaxation filling pattern). 5. Mild aortic valve stenosis of three-cuspid aortic valve. Mild aortic regurgitation. 6. Mild mitral annular calcification. Mild mitral regurgitation. 7. Tiny pericardial effusion.
[2017-01-28] MEDS: PRAVASTATIN 20 MG TAB PO SCH (21:52)
[2017-01-28] MEDS: ASPIRIN 325 MG TAB PO SCH (21:52)
[2017-01-29] VITALS: BP 118/62
[2017-01-29 04:00] VITALS: BP 142/70
[2017-01-29] MEDS: SLF 3 ML SYR IV SCH ×3 (05:48→20:48)
[2017-01-29] MEDS: IPRATROPIUM 0.5MG/ALBUTEROL 2.5MG INH SOL UD 3ML (DUONEB)(J7620) NEB PRN ×2 (07:44→19:12)
[2017-01-29 08:00] VITALS: BP 119/67
[2017-01-29] MEDS: LACTOBACILLUS ACIDOPHILUS CAP (BACID) PO SCH ×3 (08:22→18:21)
[2017-01-29] MEDS: VITAMIN D 1,000 INTERNATIONAL UNITS TABLET PO SCH (08:22)
[2017-01-29] MEDS: FOLIC ACID 1 MG TAB PO SCH (08:22)
[2017-01-29] MEDS: SENOKOT S TAB PO SCH ×2 (08:22→20:47)
[2017-01-29] MEDS: HEPARIN SOD (PORCINE) 5000 UNITS/ML VIAL SC SCH ×2 (08:24→20:48)
[2017-01-29] MEDS: FERROUS SULFATE 325MG TAB PO SCH (08:25)
[2017-01-29] MEDS: amLODIPine 5 MG TAB PO SCH (08:28)
[2017-01-29 08:31] LABS: BASO % 0.6 % (0.0-1.0); EOS # 0.3 K/mm3 (0.0-0.50); EOS % 5.1 % (0.0-3.0); LARGE UNSTAINED CELL # 0.1 K/mm3 (0.0-0.4); LYMPH # 2.1 K/mm3 (1.5-4.5); LYMPH % 36.6 % (24.0-44.0); MEAN CORPUSCULAR HEMOGLOBIN 32.2 pg (27.0-33.0); MEAN CORPUSCULAR HGB CONC 31.8 g/dl (32.0-36.5); MONO # 0.4 K/mm3 (0.0-0.8); MONO % 6.3 % (0.0-5.0); NEUTROPHILS # 2.7 K/mm3 (1.8-7.7); NEUTROPHILS % 49.3 % (36.0-66.0); PLATELET COUNT, AUTOMATED 185 k/mm3 (150-450); RED CELL DISTRIBUTION WIDTH 14.5 % (11.5-14.5); WHITE BLOOD COUNT 5.5 K/mm3 (4.0-10.0)
[2017-01-29 08:46] LABS: ANION GAP 8 MEQ/L (8-16); BLOOD UREA NITROGEN 16 MG/DL (7-18); CARBON DIOXIDE LEVEL 24 MEQ/L (21-32); CHLORIDE LEVEL 107 MEQ/L (98-107); CREATININE FOR GFR 0.79 MG/DL (0.55-1.02); GLOMERULAR FILTRATION RATE > 60.0 (>32); GLUCOSE, FASTING 99 MG/DL (83-110); POTASSIUM SERUM 3.9 MEQ/L (3.5-5.1); SODIUM LEVEL 139 MEQ/L (136-145)
--- NOTE | 2017-01-29 08:55 | CR ---
DATE OF CONSULTATION: 01/28/2017 REQUESTING PHYSICIAN: Dr. Zenia Gotti REASON FOR CONSULTATION: Double vision. HISTORY OF PRESENT ILLNESS: Kristi Doshi is an 86-year-old woman with a history of stroke twice in the past, who was at her baseline state of health until yesterday when she had vision issues off and on and kept adjusting her glasses. She took a nap and woke up and felt that she could not see at all. Later she complained of double vision. Double vision gets better if she closes one eye. She denies any headaches, neck or back pain. She denies any speech difficulty. She denies any problem in her strength. She denies numbness or weakness of her arms and legs. She has history of baseline dementia. Family does not see any difference in her mentation. DIAGNOSTIC STUDIES: Her MRI scan of brain was reviewed and showed mild small-vessel ischemic disease of brain. It also showed old bilateral lacunar strokes. MRA brain and neck were within normal limits. ALLERGIES: None. FAMILY HISTORY: She denies any family history of stroke. PAST MEDICAL HISTORY: Stroke, dementia, dyslipidemia, recent Clostridium difficile infection, hysterectomy, cholecystectomy. SOCIAL HISTORY: She quit smoking 60 years ago. She denies alcohol or illicit drugs. She lives at home with her . REVIEW OF SYSTEMS All systems were reviewed and were found to be noncontributory except as mentioned in the history present illness. CURRENT MEDICATIONS: - aspirin 325 mg by mouth daily - ferrous sulfate 325 mg by mouth daily - folic acid 1 mg by mouth daily - leflunomide 20 mg by mouth daily - pravastatin 20 mg by mouth daily - Ventolin inhaler four times a day as needed PHYSICAL EXAMINATION: Temperature 97.6, pulse 73, aspirin 20, blood pressure 133/65, 96% saturation on room air. HEART: Regular rate and rhythm. LUNGS: Clear to auscultation. EXTREMITIES: No pedal edema. No gross musculoskeletal abnormalities. EARS/NOSE/THROAT: Examination is within normal limits. ABDOMEN: Soft, nontender, nondistended. NEUROLOGIC EXAMINATION: The patient is awake, alert, oriented to person mostly. She is able to tell me the name of the hospital. She is unable to tell me month, day, date, year or name of president. Her speech is normal with normal comprehension, repetition and expression. Tongue and uvula are midline. No facial weakness. She has significant weakness of left eye adduction and 5/5 strength in all four extremities. Deep tendon flexes are 1+ throughout. Normal sensation bilaterally. No dysmetria. Both pupils are 4 mm bilaterally and reactive to light. Gait could not be tested. ASSESSMENT 1. 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 2. History of strokes in past. 3. Vascular dementia. PLAN 1. Aspirin 325 mg by mouth daily. 2. Pravastatin 20 mg by mouth daily. 3. Ophthalmology consultation should be considered. 4. Aricept as contingency plan, which can be started as an outpatient. 5. She should be given an eye patch. 6. Follow with our office in 4-5 weeks after hospital discharge.
[2017-01-29 14:11] VITALS: BP 147/67
--- NOTE | 2017-01-29 18:54 | IPN ---
DATE: 01/29/2017 Patient seen and examined at the bedside. Chart has been reviewed. This morning, patient still complains of diplopia, slightly improved with patch. She denies any upper or lower extremity weakness. Denies dysphasia. Denies paresthesias. Telemetry is unremarkable, remains in sinus rhythm. Ventricular rate is 65-93. VITAL SIGNS: Temperature 98.2, pulse 92, respiratory rate 18, blood pressure 119/67, 93% on room air. GENERAL: Awake, alert, oriented to person, place and time. Answers questions appropriately. No expressive aphasia. Speaks in full sentences. Pupils are round, reactive to light and accommodation. Extraocular muscles are intact. The patient's tongue is midline. Left eye adduction is slightly altered. 5/5 motor function times four. EXTREMITIES: Deep tendon reflexes (DTRs) are 1+. No dysmetria on [id number] testing. Motor function is 5/5 times four extremities. Extremities have no pitting edema. LUNGS: Diminished, but clear to auscultation. HEART: S1, S2. Sinus rhythm. ABDOMEN: Soft, nontender, nondistended. Positive bowel sounds. LABORATORY DATA: White count 5.5, hemoglobin 11, hematocrit 36, platelet count 185. Sodium 139, potassium 3.9, chloride 107, bicarbonate 24, BUN 16, creatinine 0.79, glucose 99. Urine with Proteus vulgaris. Carotid artery MRI has significant change from previous study. 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 CURRENT ISSUES: 1. 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 Per recommendations from Dr. Grace, continue aspirin and Pravastatin. Opthalmology, Dr. Diaz Jackson, was consulted by telephone, recommended outpatient followup at discharge. 2. Altered mental status secondary to costovertebral angle (CVA) and possible urinary tract infection (UTI), with prior history of recent Clostridium (C) difficile. Patient currently is asymptomatic. Denies dysuria, urgency, frequency. No fever or chills and no white count. Appears to have a symptomatic bacteriuria. No treatment at this time unless patient is symptomatic or develops fever or increased white count. 3. History of dementia. Continue to monitor for now. Patient to follow up with Dr. Grace and Bashir as outpatient. 4. Dyslipidemia. On statin. 5. Hypertension. Currently on Norvasc with holding parameters to allow for permissive hypertension. 6. Deep venous thrombosis (DVT) prophylaxis. Subcutaneously heparin. 7. History of recent Clostridium (C) difficile. No active diarrhea.
[2017-01-29] MEDS: ASPIRIN 325 MG TAB PO SCH (20:47)
[2017-01-29] MEDS: PRAVASTATIN 20 MG TAB PO SCH (20:47)
[2017-01-29 22:00] VITALS: BP 131/60
[2017-01-29] MEDS: ACETAMINOPHEN 650MG ER TAB (TYLENOL ARTHRITIS) PO PRN (22:50)
[2017-01-30 00:09] LABS: Lyme Disease IgG/IgM Antibodie <0.91 ISR (0.00-0.90); Lyme Disease IgM Ab Quantitati <0.80 index (0.00-0.79)
[2017-01-30] MEDS: SLF 3 ML SYR IV SCH (05:50)
[2017-01-30 06:00] VITALS: BP 142/66
[2017-01-30] MEDS: IPRATROPIUM 0.5MG/ALBUTEROL 2.5MG INH SOL UD 3ML (DUONEB)(J7620) NEB PRN (07:14)
[2017-01-30] MEDS ORDERED: AMLO5TAB2 PO (07:15)
[2017-01-30 08:15] VITALS: BP 135/68
[2017-01-30] MEDS: amLODIPine 5 MG TAB PO SCH (08:15)
[2017-01-30] MEDS: FOLIC ACID 1 MG TAB PO SCH (08:25)
[2017-01-30] MEDS: FERROUS SULFATE 325MG TAB PO SCH (08:25)
[2017-01-30] MEDS: HEPARIN SOD (PORCINE) 5000 UNITS/ML VIAL SC SCH (08:25)
[2017-01-30] MEDS: LACTOBACILLUS ACIDOPHILUS CAP (BACID) PO SCH (08:25)
[2017-01-30] MEDS: VITAMIN D 1,000 INTERNATIONAL UNITS TABLET PO SCH (08:25)
[2017-01-30] MEDS: SENOKOT S TAB PO SCH (08:25)
[2017-01-30] MEDS ORDERED: ASPI325T PO (10:43)
--- NOTE | 2017-01-31 14:12 | DSES ---
DATE OF ADMISSION: 01/27/2017 DATE OF DISCHARGE: 01/30/2017 CONSULTANTS: Neuologist, Nichole Grace MD Echocardiogram read by Dr. Ronak Musa on 01/28/2017 PRIMARY DISCHARGE DIAGNOSIS: 1. 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 2. Altered mental status secondary to cerebrovascular accident (CVA). 3. Abnormal urinalysis, asymptomatic bacteruria. 4. Dementia. 5. Dyslipidemia. 6. Hypertension. 7. 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 8. Incidental finding of intraatrial septal aneurysm with no atrial septal defect or ventricular septal defect. 9. Grade I left ventricular diastolic dysfunction. 10. Mild aortic regurgitation, mild mitral regurgitation and tiny pericardial effusion. HOSPITAL COURSE: 86-year-old female on chronic aspirin 81 mg daily due to prior history of cerebrovascular accident (CVA), dementia, dyslipidemia, recent Clostridium difficile, hysterectomy and cholecystectomy, quit smoking six years ago presents to the emergency room with double vision for two nights. Denies any speech difficulty, numbness or tingling sensation with history of baseline dementia. Magnetic Resonance Imaging (MRI), Magnetic Resonance Angiography (MRA) of the brain were unremarkable. The patient clinically had a left partial cranial nerve palsy, most likely secondary to microvascular left 3rd cranial nerve infarction. Her aspirin 81 mg daily was discontinued and increased to 325 mg daily and Pravachol was continued. Echocardiogram shows an atheroma in the abdominal aortic aorta, as well as in atrial septum. This case was discussed. Dr. Musa recommended aggressive management of the patient's lipids and other cardiovascular risk factors. She was continued on aspirin, placed on a patch. Pertinent recommendations by Dr. Grace, Dr. Diaz Ceja was consulted by telephone and recommended outpatient followup for the diplopia. She is currently continued on aspirin 325 mg daily, Pravastatin 20 mg daily and an eye patch for comfort. She had evaluation of altered mental status. Urine was obtained. She was asymptomatic. Denies any urgency or frequency and has proteus in the urine culture, which was not treated with antibiotics. The patient was asymptomatic with prior history of Clostridium difficile colitis. The patient had no diarrhea during this hospital stay. LABORATORY ON DISCHARGE: White count 5.5, hemoglobin 11, hematocrit 36, platelet count 185. Sodium 139, potassium 3.9, chloride 107, bicarbonate 24, BUN 16, creatine 0.79, glucose of 99. INR was 0.93. Urine culture: Proteus vulgaris, not treated due to asymptomatic bacteria. IMAGING STUDIES: Carotid artery Magnetic Resonance Imaging (MRI). No significant change from prior exam. No evidence of significant vertebral artery stenosis or change from prior examination. Shoulder x-ray 01/28: No fracture or dislocation Magnetic Resonance Imaging (MRI) of the brain shows no evidence of acute infarct or hemorrhage. Moderate chronic small vessel ischemic disease. Significant left posterior parietooccipital lobe suggesting chronic encephalomalacia. Magnetic Resonance Angiography (MRA) of the brain shows unremarkable Magnetic Resonance Angiography (MRA) of the brain. Chest x-ray: Subtle chronic findings without acute infiltrate. Echocardiogram 01/28/[address] Ronak Musa. Extensive irregular atheroma more than 4 mm thick involving abdominal aorta and atrial septal aneurysm. No apparent atrial septal defect or ventricular septal defect. Left ventricular ejection fraction is 60%. Grade I left ventricular diastolic dysfunction. Mild aortic regurgitation, mild mitral regurgitation. Tiny pericardial effusion. Time spent on this 45 minutes.
== END 2017-01-30 11:48 | disposition home or self-care (01) | DRG 123 ==
LOC: M ED 17:34 → M ED INP 21:57 → M PCU 23:22 → UNDODISIN 01-28 14:12 → M MSPAV 01-29 14:05
PROVIDERS: ADMIT Hospitalist; ATTEND General Practice
DX: H49.02 Third [oculomotor] nerve palsy, left eye (principal); F01.50 Vascular dementia, unspecified severity, without behavioral disturbance, psychotic disturbance, mood disturbance, and anxiety; E78.5 Hyperlipidemia, unspecified; I11.9 Hypertensive heart disease without heart failure; M19.90 Unspecified osteoarthritis, unspecified site; I08.0 Rheumatic disorders of both mitral and aortic valves; I70.0 Atherosclerosis of aorta; Z87.891 Personal history of nicotine dependence; Z79.82 Long term (current) use of aspirin; Z79.899 Other long term (current) drug therapy; Z86.73 Personal history of transient ischemic attack (TIA), and cerebral infarction without residual deficits

== ENCOUNTER → 2017-06-14 | Outpatient (REF) | payer MEDICARE ==
[~2017-06-14] MED LIST changes: +ACET650T3 PO; +AMLO5TAB2 PO; +ASPI325T PO; +IPRASOL4 INH
== END ==
LOC: M LAB REF 13:01
PROVIDERS: ATTEND Internal Medicine
DX: D51.9 Vitamin B12 deficiency anemia, unspecified (principal)

== ENCOUNTER → 2018-05-30 | Outpatient (CLI) | payer MEDICARE | LOC: M WUC 12:29 | DX: M19.032 Primary osteoarthritis, left wrist (principal) | CPT/HCPCS: 73110 ==

== ENCOUNTER 2018-06-25 21:16 | Emergency (ER) | payer MEDICARE ==
[2018-06-25 22:09] LABS: KETONE, URINE AUTO RFX NEGATIVE (NEGATIVE); MUCUS, URINE RFX SMALL (NEGATIVE); NITRITE, URINE AUTO RFX NEGATIVE (NEGATIVE); RBC, URINE AUTO RFX 22 /HPF (0-3); SPECIFIC GRAVITY UR AUTO RFX 1.003 (1.002-1.035); SQUAM EPITHELIAL CELL UR AURFX 0 /HPF (0-6)
[2018-06-25 22:10] LABS: LEUKOCYTE ESTERASE UR AUTO RFX 3+ (NEGATIVE); WBC, URINE AUTO RFX TNTC /HPF (0-3)
[2018-06-26] MEDS ORDERED: BACTRIM 160MG/800MG DS TAB PO
== END 2018-06-26 00:03 | disposition home or self-care (01) ==
LOC: M ED 06-26 00:03
DX: N30.00 Acute cystitis without hematuria (principal); I10 Essential (primary) hypertension; E78.5 Hyperlipidemia, unspecified; J44.9 Chronic obstructive pulmonary disease, unspecified; E07.9 Disorder of thyroid, unspecified; F03.90 Unspecified dementia, unspecified severity, without behavioral disturbance, psychotic disturbance, mood disturbance, and anxiety; Z86.73 Personal history of transient ischemic attack (TIA), and cerebral infarction without residual deficits; Z86.19 Personal history of other infectious and parasitic diseases; Z79.82 Long term (current) use of aspirin; Z79.899 Other long term (current) drug therapy
CPT/HCPCS: 74176

== ENCOUNTER → 2018-06-25 | Outpatient (REF) | payer MEDICARE ==
[2018-06-25 12:57] LABS: C REACTIVE PROTEIN QUANTITATIV < 0.30 MG/DL (0.00-0.30)
== END ==
LOC: M LAB REF 12:39
DX: Z79.899 Other long term (current) drug therapy (principal)

== ENCOUNTER → 2018-12-15 | Outpatient (REF) | payer MEDICARE ==
[~2018-12-15] MED LIST changes: -AMLO5TAB2 PO; +AMLO5TAB6 PO; +ASPI-1 PO; -ASPI1TAB PO; -ASPI325T PO; +ASPI81TA26 PO; +CALC-239 PO; +CYAN1000VL IM; +FOLI1TAB11 PO; -FOLI1TAB4 PO; +IPRA0.00 INH; -IPRASOL4 INH; +LOSA25TA14 PO; -LOSA25TA8 PO; -LOSA50TA20 PO; +LOSA50TA88 PO; +METH2.5T48 PO; -METH2.5TA PO; +SULF1TAB93 PO; +SULF200S10 PO; +URIB118C PO; -VANC250C2 PO; +VANC250C3 PO; +VITAD1000T PO
== END ==
LOC: M LAB REF 13:06
PROVIDERS: ATTEND Internal Medicine
DX: N39.0 Urinary tract infection, site not specified (principal)

== ENCOUNTER → 2019-02-20 | Outpatient (REF) | payer MEDICARE | LOC: M LAB REF 16:15 | PROVIDERS: ATTEND Internal Medicine | DX: D51.9 Vitamin B12 deficiency anemia, unspecified (principal) ==

== ENCOUNTER → 2019-07-27 | Outpatient (REF) | payer MEDICARE ==
[~2019-07-27] MED LIST changes: +CHOL100029 PO; -VITAD1000T PO
== END ==
LOC: M LAB REF 16:49
PROVIDERS: ATTEND Internal Medicine
DX: N39.0 Urinary tract infection, site not specified (principal)

== ENCOUNTER 2019-08-29 19:43 | Inpatient (IN) | payer MEDICARE, MEDICAID ==
[~2019-08-29] VITALS: Ht 167.6 cm; Wt 64.2 kg
[2019-08-29] MEDS ORDERED: NS 500 ML IV ONE ×2 (20:00→23:45)
[2019-08-29] MEDS ORDERED: IPRATROPIUM 0.5MG/ALBUTEROL 2.5MG INH SOL UD 3ML (DUONEB)(J7620) NEB PRN (20:00)
[2019-08-29 20:17] LABS: BASO % 0.3 % (0.0-1.0); HEMOGLOBIN 8.7 g/dl (12.0-15.5); LYMPH # 0.9 10^3/uL (1.5-5.0); LYMPH % 6.8 % (24.0-44.0); MEAN CORPUSCULAR HEMOGLOBIN 30.4 pg (27.0-33.0); MEAN CORPUSCULAR HGB CONC 34.8 g/dl (32.0-36.5); MEAN CORPUSCULAR VOLUME 87.4 fl (80.0-96.0); MONO # 0.6 10^3/uL (0.0-0.8); MONO % 4.9 % (0.0-5.0); NEUTROPHILS # 10.8 10^3/uL (1.5-8.5); NEUTROPHILS % 86.6 % (36.0-66.0); PLATELET COUNT, AUTOMATED 238 10^3/uL (150-450); RED BLOOD COUNT 2.86 10^6/uL (4.00-5.40); WHITE BLOOD COUNT 12.5 10^3/uL (4.0-10.0)
--- NOTE | 2019-08-29 20:31 | REPVR ---
PROCEDURE INFORMATION: Exam: CT Head Without Contrast Exam date and time: 08/29/2019 7:58 PM Age: 89 years old Clinical indication: Altered mental status/memory loss; Additional info: AMS TECHNIQUE: Imaging protocol: Computed tomography of the head without contrast. Radiation optimization: All CT scans at this facility use at least one of these dose optimization techniques: automated exposure control; mA and/or kV adjustment per patient size (includes targeted exams where dose is matched to clinical indication); or iterative reconstruction. COMPARISON: CT Head without contrast 01/27/2017 6:41 PM FINDINGS: Brain: There is a focus of macrocystic encephalomalacia in the left parietal lobe in the posterior left medial cerebral artery territory grossly stable in comparison to the prior study consistent with a chronic infarct. There is parenchymal volume loss. White matter changes are demonstrated in the subcortical, centrum semiovale and periventricular white matter consistent with age related small vessel white matter angiopathic gliosis. Ventricles: The degree of ventricular dilatation is normal for age and/or degree of atrophy present. Bones/joints: There is hyperostosis frontalis interna. Sinuses: Air-fluid levels in both maxillary and sphenoid sinuses consistent with acute sinusitis. Mild bilateral ethmoid sinusitis. Mastoid air cells: Visualized mastoid air cells are well aerated. Soft tissues: Unremarkable. IMPRESSION: 1. Air-fluid levels in both maxillary and sphenoid sinuses consistent with acute sinusitis. 2. There is a focus of macrocystic encephalomalacia in the left parietal lobe in the posterior left medial cerebral artery territory grossly stable in comparison to the prior study consistent with a chronic infarct. 3. No acute findings. Senescent changes consistent with patient age as described above. Electronically signed by: Uriah Mora On 08/29/2019 20:31:21 PM
[2019-08-29 20:32] LABS: CALCIUM LEVEL 7.9 MG/DL (8.8-10.2); CK-MB VALUE MASS 4.6 NG/ML (<3.6); CREATININE FOR GFR 1.4 MG/DL (0.55-1.30); GLOMERULAR FILTRATION RATE 37.9 (>32); MB/CK RELATIVE INDEX 0.93 (< OR =4); POTASSIUM SERUM 4.1 MEQ/L (3.5-5.1); TROPONIN I 0.82 NG/ML (< 0.10)
[2019-08-29] MEDS ORDERED: ISOVUE-370 76% 100ML VIAL (Q9967) As Ordered ONE (21:08)
--- NOTE | 2019-08-29 21:57 | REPVR ---
PROCEDURE INFORMATION: Exam: CT Angiography Chest With Contrast Exam date and time: 08/29/2019 9:24 PM Age: 89 years old Clinical indication: Shortness of breath; Additional info: SOB, AMS, elevated trop TECHNIQUE: Imaging protocol: Computed tomographic angiography of the chest with intravenous contrast. 3D rendering: MIP and/or 3D reconstructed images were created by the technologist. Radiation optimization: All CT scans at this facility use at least one of these dose optimization techniques: automated exposure control; mA and/or kV adjustment per patient size (includes targeted exams where dose is matched to clinical indication); or iterative reconstruction. Contrast material: ISOVUE 370; Contrast volume: 75 ml; Contrast route: IV; COMPARISON: CT Chest with contrast 07/25/2016 9:58 PM FINDINGS: Pulmonary arteries: Peripheral pulmonary artery evaluation limited by cardiac and respiratory motion artifact. Central pulmonary arteries show no intraluminal defect suggestive of clot. Aorta: Thoracic aorta is tortuous without focal aneurysm or dissection. Lungs: No central endobronchial lesion. Lungs demonstrate pulmonary fibrosis predominantly at the lung bases and areas of scarring. No mass or airspace consolidation. Pulmonary vascular/interstitial pattern does not suggest active pulmonary edema. Focal opacity non masslike posterior right upper lobe on axial image 62-65 is probably scarring or atelectasis. No convincing evidence of an airspace filling process Pleural space: No pleural effusion or pneumothorax. Heart: No pericardial effusion or overt cardiac enlargement. Gallbladder and bile ducts: Gallbladder is surgically absent. Lymph nodes: No enlarged mediastinal lymph nodes. Bones/joints: Bony structures show no acute fracture or destructive process. Soft tissues: Unremarkable. IMPRESSION: 1. No evidence of acute, central pulmonary embolus. Limited peripheral pulmonary arterial evaluation secondary to motion 2. Pulmonary fibrosis, progressive since the prior CT. No evidence of pneumonia or concerning lung mass. Probable linear scarring or atelectasis in the posterior right upper lobe Electronically signed by: Aleksandr Page On 08/29/2019 21:56:50 PM
[2019-08-29 23:29] LABS: CK-MB VALUE MASS 3.9 NG/ML (<3.6); MB/CK RELATIVE INDEX 0.8 (< OR =4); TROPONIN I 0.82 NG/ML (< 0.10)
[2019-08-30] MEDS ORDERED: NS 1,000 ML IV ONE
[2019-08-30] MEDS ORDERED: VITA200028 PO (00:23)
[2019-08-30] MEDS ORDERED: VENTAER INH (00:23)
[2019-08-30] MEDS ORDERED: ASPI-1 PO (00:23)
[2019-08-30] MEDS ORDERED: TRAM50TA2 PO (00:25)
[2019-08-30] MEDS ORDERED: PATIENT COMMENTS (00:27)
[2019-08-30] MEDS ORDERED: LEVALBUTEROL 1.25 MG/0.5 ML CONCENTRATE NEB INH PRN (01:00)
[2019-08-30] MEDS ORDERED: ACETAMINOPHEN 650 MG SUPP PR ONE (01:00)
[2019-08-30] MEDS ORDERED: cefTRIAXone SOD 2 GM in D5W MINI-BAG PLUS 50 ML IV SCH ×2 (01:00)
[2019-08-30] MEDS ORDERED: ACETAMINOPHEN 650 MG SUPP PR PRN (01:00)
[2019-08-30 01:05] LABS: C REACTIVE PROTEIN QUANTITATIV 17.2 MG/DL (0.00-0.30); MB/CK RELATIVE INDEX 0.82 (< OR =4); TROPONIN I 0.79 NG/ML (< 0.10)
[2019-08-30 01:14] LABS: ERYTHROCYTE SEDIMENTATION RATE 126 mm/hr (0-30)
[2019-08-30] MEDS ORDERED: ACETAMINOPHEN *IV* 650 MG in IV 1 EA IV ONE (03:00)
[2019-08-30] MEDS ORDERED: traMADol 50 MG TAB PO PRN (03:00)
[2019-08-30] MEDS ORDERED: LEVALBUTEROL 1.25 MG/0.5 ML CONCENTRATE NEB NEB ONE (03:00)
[2019-08-30] MEDS ORDERED: ENOXAPARIN 60 MG/0.6 ML SYR (J1650) SC SCH (03:15)
[2019-08-30] MEDS ORDERED: PILL CUTTER 1 EACH XX PRN (03:30)
[2019-08-30] MEDS: LEVALBUTEROL 1.25 MG/0.5 ML CONCENTRATE NEB INH SCH ×7 (04:00→23:44)
[2019-08-30] MEDS: ATENOLOL 12.5MG PER 1/2 TABLET PO ONE ×2 (04:30→06:45)
[2019-08-30 05:37] VITALS: BP 138/79
[2019-08-30 06:33] LABS: BASO % 0.2 % (0.0-1.0); EOS % 0.1 % (0.0-3.0); HEMOGLOBIN 7.3 g/dl (12.0-15.5); LYMPH # 0.8 10^3/uL (1.5-5.0); LYMPH % 7.1 % (24.0-44.0); MEAN CORPUSCULAR HEMOGLOBIN 30.4 pg (27.0-33.0); MEAN CORPUSCULAR HGB CONC 35.4 g/dl (32.0-36.5); MEAN CORPUSCULAR VOLUME 85.8 fl (80.0-96.0); MONO # 0.4 10^3/uL (0.0-0.8); MONO % 3.8 % (0.0-5.0); NEUTROPHILS # 9.5 10^3/uL (1.5-8.5); NEUTROPHILS % 87.9 % (36.0-66.0); PLATELET COUNT, AUTOMATED 200 10^3/uL (150-450); WHITE BLOOD COUNT 10.8 10^3/uL (4.0-10.0)
[2019-08-30 06:42] LABS: HEMATOCRIT 20.6 % (36.0-47.0)
[2019-08-30 07:23] LABS: ALBUMIN 1.5 GM/DL (3.2-5.2); BILIRUBIN,DIRECT 0.6 MG/DL (0.0-0.2); BILIRUBIN,TOTAL 0.7 MG/DL (0.2-1.0); CALCIUM LEVEL 7.7 MG/DL (8.8-10.2); CREATININE FOR GFR 1.05 MG/DL (0.55-1.30); GLOMERULAR FILTRATION RATE 52.8 (>32); PERCENT SATURATION 12.4 % (13.2-45.0); POTASSIUM SERUM 3.2 MEQ/L (3.5-5.1); TOTAL PROTEIN 4.6 GM/DL (6.4-8.2); TOTAL PROTEIN 5.5 GM/DL (6.4-8.2)
--- NOTE | 2019-08-30 08:04 | REP ---
Portable chest, 08:13 p.m., single AP view the patient semi upright: Comparison is 01/27/2017. There is chronic interstitial coarsening lung bases, unchanged. Lung kan otherwise clear. Cardiac size is upper normal, unchanged. The codey, mediastinum, skeletal structures are. Impression: There are no acute cardiopulmonary findings. There are chronic fibrotic changes Electronically Signed by John Trejo MD 08/30/2019 07:55 A
[2019-08-30] MEDS: ENOXAPARIN 30 MG/0.3 ML SYR (J1650) SC SCH (09:07)
[2019-08-30] MEDS: ASPIRIN 325 MG TAB PO SCH (09:07)
[2019-08-30] MEDS: ATENOLOL 12.5MG PER 1/2 TABLET PO SCH ×2 (09:10→20:04)
[2019-08-30] MEDS: FERROUS SULFATE 325MG TAB PO SCH (09:11)
[2019-08-30] MEDS: VITAMIN D 1,000 INTERNATIONAL UNITS TABLET PO SCH (09:12)
[2019-08-30] MEDS ORDERED: POTASSIUM CHLORIDE 10 MEQ SR TABLET PO ONE (13:00)
[2019-08-30 14:00] VITALS: BP 125/68
--- NOTE | 2019-08-30 15:02 | HPE ---
DATE OF ADMISSION: 08/29/2019 CHIEF COMPLAINT: Lethargy and shortness of breath. HISTORY OF PRESENT ILLNESS: This is an 89-year-old female who lives at home, cared for by her daughter, who has been bed bound for several years and wheelchair bound, who was brought into the emergency room due to increasing shortness of breath for a few days and lethargy. The patient has been having subjective fevers at home and has had a dry cough, felt congested, "rattly." Without nausea or vomiting, diarrhea. The patient denies any chest pain, pressure, tightness. According to the granddaughter at the bedside, she has been increasingly confused and was brought in for further evaluation. In the emergency room, she was found to be afebrile at 97.8, elevated sed rate 126, white count 12.5, neutrophil shift of 86 without bandemia. Lactic acid was 3.9. C-reactive protein was 17. Urinalysis was negative. Respiratory panel showed human metapneumovirus. Blood cultures were sent. CT of the head was negative for acute intracranial pathology. There is maxillary and sphenoid sinus air fluid level, consistent with acute sinusitis, chronic infarct, but no other acute changes. CT of the chest shows no pneumonia. No pulmonary embolism. The hospitalist service was called to admit for acute confusion. The patient is demented and unable to provide full history and review of systems. Granddaughter at the bedside provided most of the history. PAST MEDICAL HISTORY: 1. Left third cranial nerve palsy secondary to microvascular infarction. 2. Altered mental status due to CVA. 3. Asymptomatic bacteruria. 4. Dementia. 5. Dyslipidemia. 6. Hypertension. 7. Incidental finding of atheroma more than 4 mm thick involving the abdominal aorta. 8. Incidental finding of septal aneurysm with no atrioseptal defect or ventriculoseptal defect. 9. Grade 1 left ventricular diastolic dysfunction, mild aortic regurgitation, mild mitral regurgitation, tiny pericardial effusion. 10. Dyslipidemia. 11. Hypertension. 12. Clostridium (C.) difficile. PAST SURGICAL HISTORY: 1. Hysterectomy. 2. Cholecystectomy. SOCIAL HISTORY: Quit smoking 60 years ago. No alcohol use. No recreational drug use. Lives at home with her daughter. REVIEW OF SYSTEMS: Could not be obtained, as the patient is demented. History is provided by the granddaughter present at the bedside. ALLERGIES: No known drug allergies. HOME MEDICATIONS: - acetaminophen 650 mg twice a day - albuterol two puffs every 4 to 6 hours as needed - aspirin 325 mg daily - calcium and vitamin D one tablet twice a day - cyanocobalamin 1000 mg intramuscular monthly - vitamin D 1000 units daily - ferrous sulfate 325 mg daily - Combivent one puff twice a day - pravastatin 20 mg at night - tramadol 25 mg at night as needed for sleep - leflunomide 20 mg daily REVIEW OF SYSTEMS: As per history of present illness. 12-point review of systems could not be obtained as the patient is demented. PHYSICAL EXAMINATION: VITAL SIGNS: Temperature 99.9, pulse 95, respiratory rate 28, blood pressure 135/65, 97% on 2 liters nasal cannula. The patient was 86% on arrival on room air. GENERAL: The patient is awake, alert and oriented to herself only. Disoriented to time and place. Unable to answer questions appropriate. No jugular venous distention (JVD). No thyromegaly. Extraocular muscles are intact. LUNGS: Diminished. Bilateral rhonchi. HEART: S1, S2. Sinus rhythm. ABDOMEN: Obese, soft, nontender, nondistended. Positive bowel sounds. EXTREMITIES: No cyanosis, clubbing or any pitting edema. Electrocardiogram (EKG) showed sinus rhythm. Moderate ST depression, 106 ventricular rate. LABORATORY DATA White count 12.5 hemoglobin 8.7, hematocrit 25, platelet count 238, 86% neutrophils, sed rate 126, C-reactive protein 17.2. Sodium 128, potassium 4.0, chloride 98, bicarbonate 19, BUN 34, creatinine 1.4, glucose 134, calcium 7.9, total CK 497, MB fraction 4.6, troponin 0.82, BNP 38854. Cloudy urine, 1+ protein, 4 urobilinogen, small amorphous sediment, 1 WBC, negative bacteria. Respiratory panel showed human metapneumovirus. Blood culture is pending. IMAGING STUDIES: Acute sinusitis on CT of the head. CT of the chest showed pulmonary fibrosis, pulmonary vascular interstitial pattern, does not suggest active pulmonary edema. No convincing evidence of pneumonia. ASSESSMENT AND PLAN: This is an 89-year-old female with a history of chronic dementia, CVA, pulmonary fibrosis, probable pulmonary hypertension, dyslipidemia, hypertension, grade 1 left ventricular diastolic dysfunction, mild aortic regurgitation, mild mitral regurgitation and tiny pericardial effusion, presented to the emergency room with cough and cold symptoms for the past 5 days, increased lethargy and was found to have human metapneumovirus and sinusitis on CT of the head. The patient was found to have an elevated BNP level. Electrocardiogram (EKG) showed moderate ST depression, sinus rhythm. The patient is admitted for the following issues: 1. Acute hypoxic respiratory failure requiring supplemental oxygen. The patient has no convincing evidence of pneumonia, pulmonary edema, consolidation on CT of the chest. No pulmonary embolism. She has been positive for human metapneumovirus. Supportive care with nebulizer treatments and supplemental oxygen for now. 2. Human metapneumovirus upper respiratory infection, supportive care. Supplemental oxygen. Nebulizer treatments. 3. Demand mediated ischemia with abnormal cardiac markers and moderate ST depression. Cycle the cardiac markers and start on 1 mg/kg renally dosed Lovenox. 4. Acute renal failure with creatinine of 1.4. Trial of IV fluids. 5. Elevated BNP, most likely due to pulmonary hypertension. 6. Anemia. Check iron studies, hemoccult stool. No acute indication for red blood cell transfusion. Due to renal failure and severe anemia, we will check SPEP and UPEP to rule out multiple myeloma. MTDD
[2019-08-30] MEDS: LEFLUNOMIDE 20 MG PO SCH (15:20)
[2019-08-30] MEDS ORDERED: POTASSIUM CHLORIDE 10% LIQ 20 MEQ/15 ML UDC PO ONE (17:00)
[2019-08-30] MEDS: PRAVASTATIN 20 MG TAB PO SCH (20:04)
--- NOTE | 2019-08-30 20:53 | ECGEPIP ---
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
--- NOTE | 2019-08-30 20:54 | ECGEPIP ---
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
[2019-08-30 22:00] VITALS: BP 130/70
[2019-08-31] MEDS: LEVALBUTEROL 1.25 MG/0.5 ML CONCENTRATE NEB INH SCH ×6 (04:11→23:55)
[2019-08-31 06:00] VITALS: BP 130/69
[2019-08-31 06:08] LABS: HEMATOCRIT 22.2 % (36.0-47.0); HEMOGLOBIN 7.9 g/dl (12.0-15.5); MEAN CORPUSCULAR HEMOGLOBIN 30.4 pg (27.0-33.0); MEAN CORPUSCULAR HGB CONC 35.6 g/dl (32.0-36.5); MEAN CORPUSCULAR VOLUME 85.4 fl (80.0-96.0); PLATELET COUNT, AUTOMATED 234 10^3/uL (150-450); WHITE BLOOD COUNT 14.9 10^3/uL (4.0-10.0)
[2019-08-31 06:36] LABS: CALCIUM LEVEL 7.8 MG/DL (8.8-10.2); CREATININE FOR GFR 0.99 MG/DL (0.55-1.30); GLOMERULAR FILTRATION RATE 56.5 (>32); POTASSIUM SERUM 4.3 MEQ/L (3.5-5.1)
[2019-08-31 06:46] LABS: LYMPHOCYTES 4 % (16-44); MONOCYTES 4 % (0-5); NEUTROPHILS 88 % (28-66)
[2019-08-31 06:49] LABS: PLATELET ESTIMATE NORMAL (NORMAL)
[2019-08-31] MEDS: ATENOLOL 12.5MG PER 1/2 TABLET PO SCH ×2 (09:00→20:55)
[2019-08-31] MEDS: ENOXAPARIN 30 MG/0.3 ML SYR (J1650) SC SCH (09:58)
[2019-08-31] MEDS: FERROUS SULFATE 325MG TAB PO SCH (09:58)
[2019-08-31] MEDS: LEFLUNOMIDE 20 MG PO SCH (09:58)
[2019-08-31] MEDS: ASPIRIN 325 MG TAB PO SCH (09:58)
[2019-08-31] MEDS: VITAMIN D 1,000 INTERNATIONAL UNITS TABLET PO SCH (09:58)
--- NOTE | 2019-08-31 11:14 | IPNPDOC ---
Subjective Date Seen The patient was seen on 08/31/19. Subjective Chief Complaint/HPI seen and examined at bedside, awake, confused as to location/time, answering simple questions. General: Reports: Normal Appetite; Denies: Chills, Night Sweats, Fatigue, Malaise Constitutional: Denies: Chills, Fever, Night Sweats Eyes: Denies: Pain, Vision change ENT: Denies: Head Aches, Ear Pain, Dysphagia Skin: Denies: Rash, Lesions, Breakdown Pulmonary: Denies: Dyspnea, Cough Cardiovascular: Denies: Chest Pain, Palpitations, Orthopnea, Paroxysmal Noc. Dyspnea, Lt Headedness Gastrointestinal: Denies: Nausea, Vomiting, Abdominal Pain, Diarrhea, Constipation Genitourinary: Denies: Dysuria, Frequency, Incontinence, Retention Hematologic: Denies: Bruising, Bleeding Excessively Musculoskeletal: Denies: Neck Pain, Back Pain, Joint Pain, Muscle Pain, Spasms Neurological: Denies: Weakness, Numbness, Change in speech, Confusion Psych: Reports: Mood Normal; Denies: Depression, Memory Issues Objective Physical Examination General Exam: Positive: Alert, No Acute Distress Eye Exam: Positive: PERRLA, Conjunctiva & lids normal, EOMI; Negative: Sclera icteric ENT Exam: Positive: Atraumatic, Mucous membr. moist/pink, Pharynx Normal Neck Exam: Positive: Supple; Negative: JVD, thyromegaly Chest Exam: Positive: Clear to auscultation, Normal air movement Heart Exam: Positive: Rate Normal, Regular Rhythm, Normal S1, Normal S2; Negative: Murmurs, Rubs Telemetry: Positive: No significant arrhythmia Abdomen Exam: Positive: Normal bowel sounds, Soft; Negative: Tenderness, Hepatospenomegaly Female Exam: Positive: Nl Ext Genitalia; Negative: Lesions, Discharge, Odor, Tenderness Extremity Exam: Positive: Normal pulses; Negative: Clubbing, Cyanosis, Edema Skin Exam: Positive: Nl turgor and temperature; Negative: Rash, Breakdown Neuro Exam: Positive: Normal Gait, Normal Speech, Cranial Nerves 3-12 NL, Reflexes 2+ Psych Exam: Positive: Mental status NL, Mood NL, Oriented x 3 Assessment /Plan Assessment 1. human metapneumovirus infection - supportive care for now. - supplemental oxygen, nebulizer treatments. - blood cx NGTD. 2. LANA - resolved. - monitor. 3. anemia (Fe deficiency) - stool OB. - continue PO iron. - transfuse as needed for Hgb < 7. - SPEP/UPEP ordered on admission. 4. elevated troponins - serial markers flat. - likely demand mediated ischemia. - d/c lovenox. Plan/VTE VTE Prophylaxis Ordered?: Yes VS, I&O, 24H, Fishbone Vital Signs/I&O Vital Signs Date Time Temp Pulse Resp B/P (MAP) Pulse Ox O2 Delivery O2 Flow Rate FiO2 08/31/19 09:00 85 122/69 08/31/19 06:00 98.0 20 95 08/30/19 14:00 Room Air 08/29/19 20:08 2.0 95 I&O- Last 24 Hours up to 6 AM 08/31/19 06:00 Intake Total 580 ml Output Total 875 ml Balance -295 ml Laboratory Data 24H LABS Laboratory Tests 2 08/31/19 05:45: Neutrophils (%) (Auto) , Nucleated Red Blood Cells % (auto) 0.0, Neutrophils 88H, Band Neutrophils 4, Lymphocytes (Manual) 4L, Monocytes (Manual) 4, Platelet Estimate NORMAL, Anion Gap 8, Glomerular Filtration Rate 56.5, Calcium Level 7.8L CBC/BMP Laboratory Tests 08/31/19 05:45 Microbiology Microbiology 08/29/19 Respiratory Virus Panel (PCR) (DE) - Final, Complete Human Metapneumovirus 08/29/19 Blood Culture - Preliminary, Resulted No growth after 24 hours . All specim... 08/29/19 Blood Culture - Preliminary, Resulted No growth after 24 hours . All specim... YASMIN SHEN MD Aug 31, 2019 11:14
[2019-08-31] MEDS: ACETAMINOPHEN TAB 650MG DOSE (2X325MG) PO PRN ×2 (12:14→20:57)
[2019-08-31] MEDS: FERROUS SULFATE 300MG/5ML UDC LIQUID PO SCH ×2 (12:24→20:31)
[2019-08-31 14:00] VITALS: BP 136/62
[2019-08-31] MEDS: PRAVASTATIN 20 MG TAB PO SCH (20:31)
[2019-08-31 22:00] VITALS: BP 160/72
[2019-08-31 22:30] VITALS: BP 127/57
[2019-09-01] VITALS (10 sets, daily range): BP systolic 105–135; BP diastolic 51–84
[2019-09-01] MEDS: LEVALBUTEROL 1.25 MG/0.5 ML CONCENTRATE NEB INH SCH ×6 (04:08→23:40)
[2019-09-01 06:22] LABS: HEMATOCRIT 21.5 % (36.0-47.0); HEMOGLOBIN 7.6 g/dl (12.0-15.5); MEAN CORPUSCULAR HEMOGLOBIN 30.4 pg (27.0-33.0); MEAN CORPUSCULAR HGB CONC 35.3 g/dl (32.0-36.5); PLATELET COUNT, AUTOMATED 238 10^3/uL (150-450); WHITE BLOOD COUNT 15.8 10^3/uL (4.0-10.0)
[2019-09-01 06:27] LABS: CALCIUM LEVEL 7.8 MG/DL (8.8-10.2); GLOMERULAR FILTRATION RATE 55.8 (>32); POTASSIUM SERUM 4.7 MEQ/L (3.5-5.1)
[2019-09-01 06:51] LABS: BASOPHILS 1 % (0-1); LYMPHOCYTES 3 % (16-44); MONOCYTES 2 % (0-5); NEUTROPHILS 94 % (28-66); PLATELET ESTIMATE NORMAL (NORMAL)
[2019-09-01 07:54] LABS: C REACTIVE PROTEIN QUANTITATIV 18.8 MG/DL (0.00-0.30)
[2019-09-01 07:56] LABS: C REACTIVE PROTEIN QUANTITATIV 16.2 MG/DL (0.00-0.30)
[2019-09-01 08:08] LABS: C REACTIVE PROTEIN QUANTITATIV 19.3 MG/DL (0.00-0.30)
[2019-09-01] MEDS: FERROUS SULFATE 300MG/5ML UDC LIQUID PO SCH ×2 (08:54→21:01)
[2019-09-01] MEDS: LEFLUNOMIDE 20 MG PO SCH (08:54)
[2019-09-01] MEDS: ASPIRIN 325 MG TAB PO SCH (08:54)
[2019-09-01] MEDS: ENOXAPARIN 30 MG/0.3 ML SYR (J1650) SC SCH (08:55)
[2019-09-01] MEDS: ATENOLOL 12.5MG PER 1/2 TABLET PO SCH ×2 (08:55→21:02)
[2019-09-01] MEDS: VITAMIN D 1,000 INTERNATIONAL UNITS TABLET PO SCH (08:55)
[2019-09-01] MEDS ORDERED: guaiFENesin ER 600 MG TAB PO SCH (09:00)
[2019-09-01] MEDS ORDERED: FERROUS SULFATE 300MG/5ML UDC LIQUID PO SCH (09:00)
[2019-09-01] MEDS ORDERED: MOM 30ML SUSPENSION UDC PO PRN (09:15)
[2019-09-01] MEDS ORDERED: SENOKOT S TAB PO PRN (09:15)
--- NOTE | 2019-09-01 10:12 | REP ---
A P and lateral chest, 09:48 a.m., the patient sitting: Comparison is the portable chest of 08/29/2019. Chronic bibasilar interstitial coarsening is unchanged. However, there is a new 17 mm nodular density in the right mid lung as an interval change. This could represent mucous plugging, atelectasis or subsegmental infiltrate. The lung kan are otherwise clear. Cardiac size is normal. The codey, mediastinum, skeletal structures are unchanged. Impression: New 17 m nodular density in the right mid lung as described. No other interval change. Electronically Signed by John Trejo MD 09/01/2019 10:04 A
[2019-09-01] MEDS ORDERED: CYANOCOBALAMIN 1,000 MCG/ML VIAL (J3420) IM ONE (11:00)
[2019-09-01] MEDS: MOXIFLOXACIN HCL 400 MG in IV 1 EA IV SCH (12:18)
[2019-09-01 13:05] LABS: ALBUMIN % 37.1 % (55.8-66.1); ALPHA-2-GLOBULINS % 28.5 % (7.1-11.8)
[2019-09-01 13:06] LABS: ALBUMIN 1.71 GM/DL (3.29-5.55); ALPHA-1-GLOBULINS 0.69 GM/DL (0.17-0.41); ALPHA-2-GLOBULINS 1.31 GM/DL (0.42-0.99); BETA-1-GLOBULINS 0.19 GM/DL (0.28-0.60); BETA-1-GLOBULINS % 4.1 % (4.7-7.2); BETA-2-GLOBULINS 0.29 GM/DL (0.19-0.55); BETA-2-GLOBULINS % 6.4 % (3.2-6.5); GAMMA GLOBULIN % 8.9 % (11.1-18.8); GAMMA GLOBULINS 0.41 GM/DL (0.65-1.58)
--- NOTE | 2019-09-01 13:53 | IPNPDOC ---
Text Note Date of Service The patient was seen on 09/01/19. 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 diff, who presented to the emergency room with complaints of increasing shortness of breath associated with lethargy. Patient lives with her family who are her primary caretakers. Upon arrival to emergency room, patient was found to have a respiratory culture positive for human Pneumovirus and a CT angiogram of her chest that was significant for pulmonary fibrosis which was progressive compared to prior imaging. She was admitted to hospitalist service for further evaluation and treatment Patient was seen and examined at the bedside. She is unable to answer any specific questions. Her daughter is present at the bedside. Patient has had an uneventful evening. Appears to be resting in bed comfortably. Objective: Vitals (See below) General: Lying in bed, awake / alert HEENT: NC, AT CVS: +S1S2 Lungs: Fair air entry b/l, mild wheezing, no rhonchi / crackles appreciated Abdomen: Soft, ND, NT Extremities: - Edema, - Calf tenderness Assessment and plan: Acute hypoxic respiratory failure - likely 2/2 human metapneumovirus, possibly 2/2 CAP, possibly 2/2 mucous plugging - Clinically patient is unable to provide any significant details are her history - Patient is resting comfortably with supplemental oxygen - WBC trending up, CRP remains elevated - Elevated Procalcitonin - possibly 2/2 LANA? - Respiratory panel: Human metapneumovirus - Blood cultures 08/29: Negative at 48 hours - CTA chest 08/29: 1. No evidence of acute, central pulmonary embolus. Limited peripheral pulmonary arterial evaluation secondary to motion 2. Pulmonary fibrosis, progressive since the prior CT. No evidence of pneumonia or concerning lung mass. Probable linear scarring or atelectasis in the posterior right upper lobe - CXR 08/29: New 17 m nodular density in the right mid lung as described - Possible mucous plugging / atelectasis / subsegmental infiltrate. No other interval change. - Will start Moxifloxacin (Day #1) - Will start Acapella / Incentive spirometry / Guaifenesin Demand mediated ischemia with abnormal cardiac markers and moderate ST depression - Continue patient does not appear to be in any pain - Troponin trend has remained stable - c/w ASA / Atenolol / Pravastatin LANA on CKD - Creatinine baseline of approximately 0.6; Cr on admission of 1.4 - Currently creatinine is elevated from baseline - Will restart IV fluid hydration Anemia - Hg baseline of approximately 10-11 - Currently hemoglobin is at 7.6 - Iron panel consistent with iron deficiency anemia / anemia of chronic disease - c/w Iron supplementation - SPEP / UPEP pending - Will continue to monitor HTN - BP well controlled - c/w Atenolol DLP - c/w Pravastatin DVT prophylaxis - c/w Lovenox VS,Fishbone, I+O VS, Fishbone, I+O Laboratory Tests 09/01/19 05:49 Vital Signs Date Time Temp Pulse Resp B/P (MAP) Pulse Ox O2 Delivery O2 Flow Rate FiO2 09/01/19 06:00 98.9 95 19 135/61 (85) 92 Room Air 08/29/19 20:08 2.0 95 I&O- Last 24 Hours up to 6 AM 09/01/19 06:00 Intake Total 1960 ml Output Total 900 ml Balance 1060 ml MADELIN SHEN MD Sep 01, 2019 13:53
[2019-09-01 14:07] LABS: HEMATOCRIT 19.4 % (36.0-47.0); HEMOGLOBIN 6.8 g/dl (12.0-15.5)
[2019-09-01] MEDS: NS 1,000 ML IV SCH (15:33)
[2019-09-01] MEDS: ACETAMINOPHEN TAB 650MG DOSE (2X325MG) PO PRN (16:16)
--- NOTE | 2019-09-01 20:38 | ECHO ---
DATE OF PROCEDURE: 09/01/2019 REFERRING PHYSICIAN: Dr. Leach INDICATION: Dyspnea Height 167 cm, weight 68 kg DIMENSIONS: IVS: 0.9 LV: 4.5 LVPW: 0.8 LA: 2.9 Aorta: 2.5 RV: 2.4 Mitral E wave velocity: 64 A wave: 108 E prime septal: 6.4 E prime lateral: 11.0 FINDINGS: The study is of acceptable technical quality even though visualization was limited. The patient is in sinus rhythm. Left ventricle is normal size and has grossly normal systolic function, I estimate ejection fraction (EF) 50-55%. Due to limitation of the study, I certainly cannot rule out subtle wall motion abnormalities. Right ventricle does not appear grossly enlarged but visualization was limited. Both atria appear normal. Aortic, mitral and tricuspid valves appear grossly normal. Pulmonic valve was not well seen. No pericardial effusion is noted. Inferior vena cava is normal size and appropriately collapses with inspiration indicative of likely normal central venous pressure. Aortic root is normal. Aortic arch was not well seen. Abdominal aorta appears normal. Doppler interrogation reveals no aortic stenosis and trivial insufficiency. There is competent mitral and tricuspid valve. Pulmonic valve was poorly seen but does not appear to have any significant insufficiency based on color Doppler imaging. Mitral inflow pattern and tissue Doppler imaging of mitral annulus reveal grade 1 diastolic dysfunction. CONCLUSIONS: 1. Study is of acceptable technical quality.. The patient is in sinus rhythm. 2. Normal LV size with normal LV systolic function and grade 1 diastolic dysfunction. 3. No significant valvular disease. 4. Likely normal central venous pressure. 5. Unable to estimate pulmonary artery pressure. COMMENT: Subacute bacterial endocarditis (SBE) prophylaxis is not recommended. Study does not provide obvious explanation for dyspnea.
[2019-09-01] MEDS: guaiFENesin SYRUP 200 MG/10 ML UDC PO SCH (21:01)
[2019-09-01] MEDS: PRAVASTATIN 20 MG TAB PO SCH (21:01)
[2019-09-02] MEDS: NS 1,000 ML IV SCH (00:32)
[2019-09-02] MEDS: guaiFENesin SYRUP 200 MG/10 ML UDC PO SCH ×6 (01:01→21:03)
[2019-09-02 01:19] VITALS: BP 126/69
[2019-09-02] MEDS: LEVALBUTEROL 1.25 MG/0.5 ML CONCENTRATE NEB INH SCH ×5 (04:00→20:15)
[2019-09-02 05:59] LABS: MEAN CORPUSCULAR HEMOGLOBIN 30.1 pg (27.0-33.0); MEAN CORPUSCULAR HGB CONC 35.5 g/dl (32.0-36.5); MEAN CORPUSCULAR VOLUME 84.8 fl (80.0-96.0); PLATELET COUNT, AUTOMATED 232 10^3/uL (150-450); RED BLOOD COUNT 3.42 10^6/uL (4.00-5.40); WHITE BLOOD COUNT 13.1 10^3/uL (4.0-10.0)
[2019-09-02 06:00] VITALS: BP 126/69
[2019-09-02 06:00] LABS: HEMOGLOBIN 10.3 g/dl (12.0-15.5)
[2019-09-02 06:07] LABS: ATYPICAL LYMPH 1 % (0-5); LYMPHOCYTES 3 % (16-44); MONOCYTES 9 % (0-5); NEUTROPHILS 84 % (28-66)
[2019-09-02 06:09] LABS: PLATELET ESTIMATE NORMAL (NORMAL)
[2019-09-02 06:13] LABS: CREATININE FOR GFR 1.08 MG/DL (0.55-1.30); GLOMERULAR FILTRATION RATE 51.1 (>32); POTASSIUM SERUM 4.4 MEQ/L (3.5-5.1)
[2019-09-02 07:39] LABS: C REACTIVE PROTEIN QUANTITATIV 18.7 MG/DL (0.00-0.30)
[2019-09-02] MEDS: LEFLUNOMIDE 20 MG PO SCH (10:23)
[2019-09-02] MEDS: ATENOLOL 12.5MG PER 1/2 TABLET PO SCH ×2 (10:23→21:00)
[2019-09-02] MEDS: FERROUS SULFATE 300MG/5ML UDC LIQUID PO SCH ×2 (10:23→21:03)
[2019-09-02] MEDS: VITAMIN D 1,000 INTERNATIONAL UNITS TABLET PO SCH (10:27)
--- NOTE | 2019-09-02 10:33 | REP ---
CT PELVIS WITHOUT CONTRAST: HISTORY: Femoral head necrosis on the right by history. Comparison CT images June. Comparison left hip radiograph May 29, 2019. CT FINDINGS: There is a small quantity of air and moderate the urine in the urinary bladder. The air is consistent with recent instrumentation of the bladder. There are calcified granulomatous lymph nodes scattered in the mesentery in the lower pelvis and abdomen. Uterus is surgically absent. There is a small cystic area in the right ovary, 2.2 cm in greatest diameter. No abdominal wall defect is seen. There is a severe destructive arthropathy involving the left hip with erosion of acetabular bone and considerable erosion and fragmentation of most of the femoral head on the left. The femur is subluxed superiorly as a result. The changes are rapidly progressive and much more pronounced than on the May 09, 2019 prior radiographs. There is evidence of a large left hip joint effusion with periarticular fluid. There is calcified mineral content layering out posteriorly in the periarticular fluid collection about the left hip. The right femoral head is intact and the right hip joint spaces preserved. There is minimal inferior acetabular spurring on the right and there is some greater trochanteric spurring on the right. 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 There is a large effusion containing mineralized fluid content. There is some periarticular extra-articular soft tissue swelling about the left hip as well. While arthropathy secondary AVN of the left hip is a possibility, the changes are unusually progressive and fairly rapid. Low grade septic arthropathy is also a possibility. Electronically Signed by Jonel Floyd MD 09/02/2019 07:31 P
[2019-09-02] MEDS: MOXIFLOXACIN HCL 400 MG in IV 1 EA IV SCH (11:09)
[2019-09-02] MEDS: ASPIRIN 81 MG CHEW TABLET PO SCH (11:14)
[2019-09-02 12:09] LABS: HEMATOCRIT 30.2 % (36.0-47.0); HEMOGLOBIN 10.4 g/dl (12.0-15.5); MEAN CORPUSCULAR HEMOGLOBIN 29.7 pg (27.0-33.0); MEAN CORPUSCULAR HGB CONC 34.4 g/dl (32.0-36.5); MEAN CORPUSCULAR VOLUME 86.3 fl (80.0-96.0); PLATELET COUNT, AUTOMATED 222 10^3/uL (150-450)
[2019-09-02 12:39] LABS: ATYPICAL LYMPH 1 % (0-5); LYMPHOCYTES 4 % (16-44); MONOCYTES 3 % (0-5); NEUTROPHILS 90 % (28-66); PLATELET ESTIMATE NORMAL (NORMAL)
--- NOTE | 2019-09-02 12:39 | IPNPDOC ---
Text Note Date of Service The patient was seen on 09/02/19. 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 diff, who presented to the emergency room with complaints of increasing shortness of breath associated with lethargy. Patient lives with her family who are her primary caretakers. Upon arrival to emergency room, patient was found to have a respiratory culture positive for human Pneumovirus and a CT angiogram of her chest that was significant for pulmonary fibrosis which was progressive compared to prior imaging. She was admitted to hospitalist service for further evaluation and treatment Patient was seen and examined at the bedside. Patient again reports no shortness of breath, chest pain or palpitations. Denies nausea, vomiting and pain. Appears to be resting comfortably in bed. Patient's daughter was present at the bedside, I have addressed all their questions and concerns. They have indicated that they would like to fill out a MOLST form. This has been completed and now reflects DNR and DNI. Objective: Vitals (See below) General: Lying in bed, awake / alert HEENT: NC, AT CVS: +S1S2 Lungs: Air entry present bilaterally. No significant crackles or wheezing, mild rhonchi noted Abdomen: Soft, without any distention or tenderness Extremities: No evidence of edema, - Calf tenderness Assessment and plan: Shortness of breath - likely 2/2 human metapneumovirus, possibly 2/2 CAP, possibly 2/2 mucous plugging - Clinically patient is unable to provide any significant details are her history - Patient is resting comfortably on room air - WBC count improving, CRP rwith slight improvement - Elevated Procalcitonin - possibly 2/2 LANA? - Respiratory panel: Human metapneumovirus - Blood cultures 08/29: Negative at 48 hours - CTA chest 08/29: 1. No evidence of acute, central pulmonary embolus. Limited peripheral pulmonary arterial evaluation secondary to motion 2. Pulmonary fibrosis, progressive since the prior CT. No evidence of pneumonia or concerning lung mass. Probable linear scarring or atelectasis in the posterior right upper lobe - CXR 08/29: New 17 m nodular density in the right mid lung as described - Possible mucous plugging / atelectasis / subsegmental infiltrate. No other interval change. - c/w Moxifloxacin (Day #2) - c/w Acapella / Incentive spirometry / Guaifenesin Infection - possibly 2/2 left hp infection, possibly 2/2 PNA (CAP) - CT pelvis 09/01: Advanced rapidly progressive erosive arthropathy involving the left hip with erosion of the bulk of the femoral head and significant erosion on the acetabular side of the joint. There is a large effusion containing mineralized fluid content. There is some periarticular extra-articular soft tissue swelling about the left hip as well. While arthropathy secondary AVN of the left hip is a possibility, the changes are unusually progressive and fairly rapid. Low grade septic arthropathy is also a possibility. - Consulted orthopedic surgery; Dr. Mota; awaiting evaluation Demand mediated ischemia with abnormal cardiac markers and moderate ST depression - Continue patient does not appear to be in any pain - Troponin trend has remained stable - c/w ASA / Atenolol / Pravastatin LANA on CKD - Creatinine baseline of approximately 0.6; Cr on admission of 1.4 - Currently creatinine is elevated from baseline - c/w IV fluid hydration Acute blood loss anemia / Symptomatic anemai - Hg baseline of approximately 10-11 - hg had trended down - Iron panel consistent with iron deficiency anemia / anemia of chronic disease - c/w Iron supplementation - s/p 2 units of PRBC on 09/01 - SPEP / UPEP pending - Will continue to monitor HTN - BP well controlled - c/w Atenolol DLP - c/w Pravastatin DVT prophylaxis - c/w Lovenox VS,Fishbone, I+O VS, Fishbone, I+O Laboratory Tests 09/01/19 13:48 09/02/19 05:29 09/02/19 11:55 Vital Signs Date Time Temp Pulse Resp B/P (MAP) Pulse Ox O2 Delivery O2 Flow Rate FiO2 09/02/19 10:23 94 158/79 09/02/19 06:00 98.2 18 95 Room Air 08/29/19 20:08 2.0 95 I&O- Last 24 Hours up to 6 AM 09/02/19 06:00 Intake Total 1170 ml Balance 1170 ml MADELIN SHEN MD Sep 02, 2019 12:39
[2019-09-02 12:40] LABS: BURR CELLS 1+; POIKILOCYTOSIS 1+
[2019-09-02 14:00] VITALS: BP 138/69
--- NOTE | 2019-09-02 18:06 | CR ---
DATE OF CONSULTATION: 09/02/2019 CONSULTING DOCTOR ON-CALL: Dr. Armando Mota PRIMARY ORTHOPEDIC PROVIDER: Dr. Brady Kendrick REASON FOR CONSULTATION: Left hip pain. 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 She was found to have an elevated white blood cell count and C-reactive protein (CRP) and orthopedics was consulted after CT scan of the pelvis revealed possible infectious erosive arthropathy. The patient is not very communicative or contributory to past medical history. Luckily, her daughter is here today. Her daughter reports that she has had worsening of ambulation over the past two weeks. Prior to this, she was able to transfer from the bed to wheelchair with little help, but over the past two weeks, she has had increased difficulty with this. She is really unable to communicate where her pain necessarily is. ALLERGIES: No known drug allergies. 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 PAST SURGICAL HISTORY: Hysterectomy, cholecystectomy. SOCIAL HISTORY: Nonsmoker. No alcohol use. Lives at home with her daughter. REVIEW OF SYSTEMS: Noncontributory due to the patient's dementia. MEDICATIONS: - acetaminophen 650 twice a day - albuterol two puffs every 4-6 hours as needed - aspirin 325 daily - calcium with vitamin D one by mouth daily - cyanocobalamin 1000 mg IM monthly - vitamin D 1000 units daily - ferrous sulfate 325 mg daily - Combivent one puff twice a day - pravastatin 20 mg one by mouth at night - tramadol 25 mg at night as needed for sleep - leflunomide 20 mg one by mouth daily PHYSICAL EXAMINATION: Temperature 98.2, pulse 70, respirations 18, blood pressure 126/69, 95% on room air. She is a bed-bound 89-year-old female patient who is in no apparent distress. She is pleasantly demented, has nonlabored breathing. Examination of the left lower extremity reveals intact overlying skin, intact neurovascular status, well-perfused left lower extremity. The left lower extremity is at least 3 inches shorter than the right side. She has discomfort with range of motion of the hip which she actually localizes in the knee. The knee itself has full active range of motion. The hip is significantly limited. LABORATORY DATA: White count 12, red count 3.50, hemoglobin 10.4, hematocrit 30.2. BUN 32, creatinine 1.08, CRP 18. Blood culture no growth after 72 hours, positive respiratory cultures for human pneumovirus. IMAGING STUDIES: Pelvic CT preliminary report with advanced rapidly progressing erosive arthropathy involving the left hip with erosion of both of the femoral head and significant erosion of the acetabulum, large effusion and extra-articular soft tissue swelling. Differential diagnosis of AVN versus low-grade septic arthropathy. 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 The patient has been following with Dr. Brady Kendrick as an outpatient and recent x-rays from July of 2019 do show significant erosion of the left femoral head and acetabulum, not too much different from today's CT scan. The patient is afebrile and has had improving white count and inflammatory markers over the past few days. At this point, she does have no change in her hip range of motion and the overlying area appears quite benign. We will go ahead and have her followup with Dr. Kendrick a week following discharge unless she has any issues then we can certainly be contacted to see the patient again. Thank you for this consultation. The patient will followup as discussed.
[2019-09-02 18:54] LABS: HEMATOCRIT 30.4 % (36.0-47.0); HEMOGLOBIN 10.3 g/dl (12.0-15.5); MEAN CORPUSCULAR HEMOGLOBIN 29.2 pg (27.0-33.0); MEAN CORPUSCULAR HGB CONC 33.9 g/dl (32.0-36.5); MEAN CORPUSCULAR VOLUME 86.1 fl (80.0-96.0); PLATELET COUNT, AUTOMATED 243 10^3/uL (150-450); RED BLOOD COUNT 3.53 10^6/uL (4.00-5.40); WHITE BLOOD COUNT 11.7 10^3/uL (4.0-10.0)
[2019-09-02 19:36] LABS: LYMPHOCYTES 11 % (16-44); MONOCYTES 2 % (0-5); NEUTROPHILS 87 % (28-66); PLATELET ESTIMATE NORMAL (NORMAL)
[2019-09-02 19:37] LABS: ANISOCYTOSIS 1+
[2019-09-02] MEDS: PRAVASTATIN 20 MG TAB PO SCH (21:03)
[2019-09-02 22:00] VITALS: BP 131/84
[2019-09-03] MEDS: LEVALBUTEROL 1.25 MG/0.5 ML CONCENTRATE NEB INH SCH ×6 (00:17→20:26)
[2019-09-03 00:59] LABS: HEMATOCRIT 29.4 % (36.0-47.0); HEMOGLOBIN 10.2 g/dl (12.0-15.5); MEAN CORPUSCULAR HEMOGLOBIN 29.4 pg (27.0-33.0); MEAN CORPUSCULAR HGB CONC 34.7 g/dl (32.0-36.5); MEAN CORPUSCULAR VOLUME 84.7 fl (80.0-96.0); PLATELET COUNT, AUTOMATED 247 10^3/uL (150-450); RED BLOOD COUNT 3.47 10^6/uL (4.00-5.40); WHITE BLOOD COUNT 11.6 10^3/uL (4.0-10.0)
[2019-09-03] MEDS: guaiFENesin SYRUP 200 MG/10 ML UDC PO SCH ×6 (01:18→20:44)
[2019-09-03 01:23] LABS: LYMPHOCYTES 8 % (16-44); METAMYELOCYTES 3 % (0-0); MONOCYTES 2 % (0-5); MYELOCYTES 2 % (0-0); NEUTROPHILS 78 % (28-66); PLATELET ESTIMATE NORMAL (NORMAL)
[2019-09-03 01:24] LABS: TOXIC GRANULATION 1+
[2019-09-03 06:00] VITALS: BP 132/87
[2019-09-03 06:13] LABS: HEMATOCRIT 29.1 % (36.0-47.0); MEAN CORPUSCULAR HEMOGLOBIN 29.6 pg (27.0-33.0); MEAN CORPUSCULAR HGB CONC 34.4 g/dl (32.0-36.5); MEAN CORPUSCULAR VOLUME 86.1 fl (80.0-96.0); PLATELET COUNT, AUTOMATED 252 10^3/uL (150-450); RED BLOOD COUNT 3.38 10^6/uL (4.00-5.40); WHITE BLOOD COUNT 10.5 10^3/uL (4.0-10.0)
[2019-09-03 06:23] LABS: C REACTIVE PROTEIN QUANTITATIV 15.6 MG/DL (0.00-0.30); CALCIUM LEVEL 7.2 MG/DL (8.8-10.2); CREATININE FOR GFR 0.96 MG/DL (0.55-1.30); GLOMERULAR FILTRATION RATE 58.5 (>32); POTASSIUM SERUM 4.3 MEQ/L (3.5-5.1)
[2019-09-03 06:44] LABS: LYMPHOCYTES 8 % (16-44); METAMYELOCYTES 1 % (0-0); MONOCYTES 4 % (0-5); NEUTROPHILS 77 % (28-66); PLATELET ESTIMATE NORMAL (NORMAL)
[2019-09-03] MEDS: FERROUS SULFATE 300MG/5ML UDC LIQUID PO SCH ×2 (09:01→20:44)
[2019-09-03] MEDS: ASPIRIN 81 MG CHEW TABLET PO SCH (09:02)
[2019-09-03] MEDS: VITAMIN D 1,000 INTERNATIONAL UNITS TABLET PO SCH (09:02)
[2019-09-03] MEDS: ATENOLOL 12.5MG PER 1/2 TABLET PO SCH ×2 (09:02→20:43)
[2019-09-03] MEDS: NS 1,000 ML IV SCH (09:03)
[2019-09-03] MEDS: LEFLUNOMIDE 20 MG PO SCH (09:03)
[2019-09-03] MEDS: MOXIFLOXACIN 400 MG TAB PO SCH (11:09)
--- NOTE | 2019-09-03 11:39 | IPNPDOC ---
Text Note Date of Service The patient was seen on 09/03/19. 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 diff, who presented to the emergency room with complaints of increasing shortness of breath associated with lethargy. Patient lives with her family who are her primary caretakers. Upon arrival to emergency room, patient was found to have a respiratory culture positive for human Pneumovirus and a CT angiogram of her chest that was significant for pulmonary fibrosis which was progressive compared to prior imaging. She was admitted to hospitalist service for further evaluation and treatment Patient was seen and examined at the bedside. Patient recently resting comfortably in bed. Denies any chest pain, short of breath or palpitations. Denies nausea, vomiting about a pain. . She will remain bedbound, given her severe arthritic debility. Objective: Vitals (See below) General: Lying in bed, awake / alert HEENT: NC, AT CVS: +S1S2 Lungs: Air entry is fair bilaterally, mild crackles are appreciated at bilateral lung bases. No significant rhonchi or wheezing Abdomen: Remains soft, without any distention or tenderness Extremities: LE are free of any edema, - Calf tenderness Assessment and plan: Shortness of breath - likely 2/2 human metapneumovirus, possibly 2/2 CAP, possibly 2/2 mucous plugging - Clinically patient is unable to provide any significant details are her history - Patient is resting comfortably on room air - WBC / CRP continue to improve - Elevated Procalcitonin - Respiratory panel: Human metapneumovirus - Blood cultures 08/29: Negative at 72 hours - CTA chest 08/29: 1. No evidence of acute, central pulmonary embolus. Limited peripheral pulmonary arterial evaluation secondary to motion 2. Pulmonary fibrosis, progressive since the prior CT. No evidence of pneumonia or concerning lung mass. Probable linear scarring or atelectasis in the posterior right upper lobe - CXR 08/29: New 17 m nodular density in the right mid lung as described - Possible mucous plugging / atelectasis / subsegmental infiltrate. No other interval change. 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 There is a large effusion containing mineralized fluid content. There is some periarticular extra-articular soft tissue swelling about the left hip as well. While arthropathy secondary AVN of the left hip is a possibility, the changes are unusually progressive and fairly rapid. Low grade septic arthropathy is also a possibility. - Consulted orthopedic surgery; Dr. Brady Tuttle; at this point, will hold off on joint aspiration in surgical intervention - Discussed with family about surgical procedures and joint aspiration; at this point family would like to continue with antibiotics and conservative therapy Demand mediated ischemia with abnormal cardiac markers and moderate ST depres lisandro - Continue patient does not appear to be in any pain - Troponin trend has remained stable - c/w ASA / Atenolol / Pravastatin s/p LANA on CKD - Creatinine baseline of approximately 0.6; Cr on admission of 1.4 - Currently creatinine is elevated from baseline - Will DC IV fluid hydration Acute blood loss anemia / Symptomatic anemia - Hg baseline of approximately 10-11 - hg had trended down - Iron panel consistent with iron deficiency anemia / anemia of chronic disease - c/w Iron supplementation - s/p 2 units of PRBC on 09/01 - SPEP - with M- spike - Will check immunofixation / free kappa / lambda chains - Will continue to monitor HTN - BP well controlled - c/w Atenolol DLP - c/w Pravastatin DVT prophylaxis - c/w Lovenox Code status: - DNR / DNI Disposition: - Will likely need long-term placement VS,Fishbone, I+O VS, Fishbone, I+O Laboratory Tests 09/02/19 11:55 09/02/19 18:40 09/03/19 00:49 09/03/19 05:27 Vital Signs Date Time Temp Pulse Resp B/P (MAP) Pulse Ox O2 Delivery O2 Flow Rate FiO2 09/03/19 09:02 88 141/71 09/03/19 06:00 98.3 17 93 09/02/19 22:00 Room Air 08/29/19 20:08 2.0 95 I&O- Last 24 Hours up to 6 AM 09/03/19 06:00 Intake Total 1960 ml Output Total 200 ml Balance 1760 ml MADELIN SHEN MD Sep 03, 2019 11:39
[2019-09-03 14:00] VITALS: BP 133/73
[2019-09-03] MEDS: PRAVASTATIN 20 MG TAB PO SCH (20:43)
[2019-09-03 22:00] VITALS: BP 141/74
[2019-09-04] MEDS: LEVALBUTEROL 1.25 MG/0.5 ML CONCENTRATE NEB INH SCH ×7 (00:43→23:34)
[2019-09-04] MEDS: guaiFENesin SYRUP 200 MG/10 ML UDC PO SCH ×6 (00:54→20:25)
[2019-09-04 06:00] VITALS: BP 114/64
[2019-09-04] MEDS: MOXIFLOXACIN 400 MG TAB PO SCH (06:00)
[2019-09-04 07:25] LABS: HEMATOCRIT 28.3 % (36.0-47.0); HEMOGLOBIN 9.7 g/dl (12.0-15.5); MEAN CORPUSCULAR HEMOGLOBIN 29.2 pg (27.0-33.0); MEAN CORPUSCULAR HGB CONC 34.3 g/dl (32.0-36.5); MEAN CORPUSCULAR VOLUME 85.2 fl (80.0-96.0); PLATELET COUNT, AUTOMATED 276 10^3/uL (150-450); RED BLOOD COUNT 3.32 10^6/uL (4.00-5.40); WHITE BLOOD COUNT 11.7 10^3/uL (4.0-10.0)
[2019-09-04 07:42] LABS: BLOOD UREA NITROGEN 32 MG/DL (7-18); CALCIUM LEVEL 7.3 MG/DL (8.8-10.2); CARBON DIOXIDE LEVEL 16 MEQ/L (21-32); CHLORIDE LEVEL 110 MEQ/L (98-107); CREATININE FOR GFR 0.92 MG/DL (0.55-1.30); GLOMERULAR FILTRATION RATE > 60.0 (>32); GLUCOSE, FASTING 95 MG/DL (70-100); SODIUM LEVEL 133 MEQ/L (136-145)
[2019-09-04 08:29] LABS: ANISOCYTOSIS 2+; ATYPICAL LYMPH 1 % (0-5); LYMPHOCYTES 11 % (16-44); MONOCYTES 8 % (0-5); NEUTROPHILS 62 % (28-66); PLATELET ESTIMATE NORMAL (NORMAL); POIKILOCYTOSIS 1+
[2019-09-04] MEDS: ASPIRIN 81 MG CHEW TABLET PO SCH (09:51)
[2019-09-04] MEDS: LEFLUNOMIDE 20 MG PO SCH (09:51)
[2019-09-04] MEDS: FERROUS SULFATE 300MG/5ML UDC LIQUID PO SCH ×2 (09:52→20:26)
[2019-09-04] MEDS: VITAMIN D 1,000 INTERNATIONAL UNITS TABLET PO SCH (09:52)
[2019-09-04] MEDS: ATENOLOL 12.5MG PER 1/2 TABLET PO SCH ×2 (09:56→20:25)
[2019-09-04] MEDS ORDERED: SODIUM BICARBONATE 8.4% INJ 50MEQ 50 ML VIAL As Ordered ONE (11:10)
[2019-09-04] MEDS ORDERED: LIDOCAINE 1% MDV 20ML VIAL As Ordered ONE (11:10)
[2019-09-04 12:59] LABS: SOURCE, BODY FLUID LT HIP; SYNOVIAL FLUID COLOR PINK (YELLOW)
[2019-09-04 13:09] LABS: CRYSTALS, BODY FLUID CA PYROPHOSPHATE (NONE SEEN); SOURCE, BODY FLUID CRYSTALS LEFT HIP
[2019-09-04 13:17] LABS: SOURCE, BODY FLUID GLUCOSE HIP LEFT; URIC ACID, BODY FLUID 0.3 MG/DL (NOT ESTABLISHED)
[2019-09-04 13:24] LABS: OSMOLALITY URINE 603 MOSM/KG (500-800)
[2019-09-04 13:32] LABS: APPEARANCE, URINE CLOUDY (CLEAR); BACTERIA, URINE AUTO 3+ (NEGATIVE); BILIRUBIN, URINE AUTO NEGATIVE (NEGATIVE); BLOOD, URINE BLOOD 1+ (NEGATIVE); COLOR, URINE AMBER (YELLOW); GLUCOSE, URINE (UA) AUTO NEGATIVE (NEGATIVE); KETONE, URINE AUTO NEGATIVE (NEGATIVE); LEUKOCYTE ESTERASE, URINE AUTO 2+ (NEGATIVE); MUCUS, URINE SMALL (NEGATIVE); NITRITE, URINE AUTO NEGATIVE (NEGATIVE); PROTEIN, URINE AUTO 1+ mg/dL (NEGATIVE); RBC, URINE AUTO 18 /HPF (0-3); SPECIFIC GRAVITY URINE AUTO 1.021 (1.002-1.035); SQUAMOUS EPITHELIAL CELL UR AU 3 /HPF (0-6); WBC, URINE AUTO 80 /HPF (0-3)
[2019-09-04 13:40] LABS: SOURCE, BODY FLUID URIC ACID OTHER
[2019-09-04 13:47] LABS: CHLORIDE,RANDOM URINE 22 MEQ/L; CREATININE,RANDOM URINE 99.9 MG/DL; POTASSIUM RANDOM URINE 59.6 MEQ/L; SODIUM,RANDOM URINE 17 MEQ/L
[2019-09-04 14:00] VITALS: BP 144/73
--- NOTE | 2019-09-04 15:25 | REP ---
Ultrasound-guided left hip aspiration The procedure was performed by ZEFERINO Mendez, under the direct supervision of Dr. Floyd. The risks and benefits of the procedure were explained to the patient and informed consent was obtained both verbally and written. Directly prior to the start of the procedure, a formal timeout was completed in the procedure room. Under ultrasound guidance, the left hip fluid collection was localized and skin was marked. The skin was then prepped and draped in a sterile fashion. 12 ml of buffered lidocaine was used as a local anesthetic. Using ultrasound guidance, an 5-[place] multi side-hole Skater catheter was inserted using trocar technique. Approximately 0.5 ml of red colored fluid was withdrawn and sent to the lab for further analysis. The patient tolerated the procedure well and there were no immediate complications. After the appropriate monitored convalescence the patient was discharged from the department. Reviewed by ZEFERINO English 09/04/2019 01:58 P Electronically Signed by Jonel Floyd MD 09/04/2019 03:16 P
--- NOTE | 2019-09-04 19:23 | IPNPDOC ---
Text Note Date of Service The patient was seen on 09/04/19. NOTE S: Pt examined at bedside. Pleasantly confused with no complaints. Daughters at bedside state she has been stable with continued cough with yellow frothy sputum and no other complaints or issues. Left hip went for IR-guided drainage today for jip effusion. Doing well post-procedurally. PE: Vitals: see below General: NAD, confused with dementia, resting comfortably HEENT: NCAT, EOMI, anicteric sclera, MMM CV: RRR, no murmurs or clicks or rub. No edema RESP: CTAB, no w/r/r/ ABD: soft, NT, ND. 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 difficile was brought into the ER by her family who she lives with at home for increasing shortness of breath and lethargy. Was found to have positive human Metapneumovirus and CT revealing significant pulmonary fibrosis progressing from prior imaging Dyspnea likely multifactorial: 2/2 human Metapneumovirus, possible Community-acquired pneumonia, possible mucus plugging in setting of progressing pulmonary fibrosis, & symptomatic anemia Is much improved and satting well on room air Continue inhalers and supportive care, guaifenesin Remaining plan - see below Persistent leukocytosis wavering 10-11, likely 2/2 respiratory infection versus left hip joint effusion - Culture pending Continue antibiotics for likely pneumonia Left hip underwent IR guided drainage today-likely inflammatory 2/2 CPPD consider starting NSAIDs or colchicine - will reassess renal function in a.m. Community-acquired pneumonia Procalcitonin 1.89 CRP trending down. Afebrile. Blood cultures negative Moxifloxacin switch from IV to by mouth, day 4 monitor, droplet precautions. Encourage incentive spirometer Demand ischemia with abnormal cardiac markers and moderate ST depression Patient has no cardiac complaint is otherwise stable Troponins remained stable Continue aspirin, atenolol, pravastatin s/p LANA on CKD3 Baseline creatinine around 0.6. Noted on admission to be 1.4 resolved s/p IV fluids Symptomatic anemia - Iron deficiency and Anemia of chronic disease iron panel noted Baseline hemoglobin 10-11, slowly trending down as low as 6.8, s/p 2 units PRBCs On iron supplement. Monitor SPEP with M spike Remaining immunology: kappa, lambda, immunofixation pending Hypertension Controlled on atenolol Dyslipidemia Continue pravastatin History of CVA No acute deficits Continue aspirin statin Severe dementia Poor historian at baseline. 2 daughters provide most information Grade 1 diastolic dysfunction Compensated. Continue home regimen DVT ppx: lovenox sc CODE STATUS: DNR/DNI DISPO: pending placement VS,Fishbone, I+O VS, Fishbone, I+O Laboratory Tests 09/04/19 06:51 Vital Signs Date Time Temp Pulse Resp B/P (MAP) Pulse Ox O2 Delivery O2 Flow Rate FiO2 09/04/19 14:00 98.5 87 20 144/73 (96) 96 Room Air 08/29/19 20:08 2.0 95 I&O- Last 24 Hours up to 6 AM 09/04/19 06:00 Intake Total 1010 ml Output Total 250 ml Balance 760 ml GME ATTESTATION GME ATTESTATION My faculty preceptor for this patient encounter was physically present during the encounter and was fully available. All aspects of the patient interview, examination, medical decision making process, and medical care plan development were reviewed and approved by the faculty preceptor. The faculty preceptor is aware and concurs with the plan as stated in the body of this note and will attest to such by his/her cosignature. ATTENDING NOTE I, Sree Shen, have independently examined this patient and performed my own physical exam, as well as reviewed the documentation and edited where necessary. I have discussed in detail with the resident / student the findings and plan of treatment as documented by the resident / student and edited their note. I agree with their findings and treatment plan and have edited their documentation. I will continue to follow the patient during this hospital stay. MATT ESPINO DO Sep 04, 2019 19:23 SREE SHEN MD Sep 05, 2019 10:19
[2019-09-04] MEDS: PRAVASTATIN 20 MG TAB PO SCH (20:25)
[2019-09-04 22:00] VITALS: BP 135/72
[2019-09-05] MEDS: guaiFENesin SYRUP 200 MG/10 ML UDC PO SCH ×6 (01:32→21:33)
[2019-09-05] MEDS: LEVALBUTEROL 1.25 MG/0.5 ML CONCENTRATE NEB INH SCH ×5 (04:01→20:16)
[2019-09-05] MEDS: MOXIFLOXACIN 400 MG TAB PO SCH (05:37)
[2019-09-05 06:00] VITALS: BP 132/70
[2019-09-05 06:34] LABS: HEMATOCRIT 27.6 % (36.0-47.0); HEMOGLOBIN 9.5 g/dl (12.0-15.5); MEAN CORPUSCULAR HEMOGLOBIN 29.7 pg (27.0-33.0); MEAN CORPUSCULAR HGB CONC 34.4 g/dl (32.0-36.5); MEAN CORPUSCULAR VOLUME 86.3 fl (80.0-96.0); PLATELET COUNT, AUTOMATED 271 10^3/uL (150-450); WHITE BLOOD COUNT 12.5 10^3/uL (4.0-10.0)
[2019-09-05 07:03] LABS: BLOOD UREA NITROGEN 32 MG/DL (7-18); CALCIUM LEVEL 8.1 MG/DL (8.8-10.2); CARBON DIOXIDE LEVEL 20 MEQ/L (21-32); CHLORIDE LEVEL 111 MEQ/L (98-107); GLOMERULAR FILTRATION RATE > 60.0 (>32); GLUCOSE, FASTING 88 MG/DL (70-100); POTASSIUM SERUM 3.8 MEQ/L (3.5-5.1); SODIUM LEVEL 135 MEQ/L (136-145)
[2019-09-05 07:10] LABS: BASOPHILS 1 % (0-1); EOSINOPHILS 1 % (0-3); LYMPHOCYTES 11 % (16-44); MONOCYTES 3 % (0-5); NEUTROPHILS 83 % (28-66); PLATELET ESTIMATE NORMAL (NORMAL)
[2019-09-05 07:11] LABS: ANISOCYTOSIS 1+
[2019-09-05 08:58] LABS: ALBUMIN 1.3 GM/DL (3.2-5.2); ALT/SGPT 54 U/L (12-78); BILIRUBIN,DIRECT 0.9 MG/DL (0.0-0.2); BILIRUBIN,TOTAL 1.3 MG/DL (0.2-1.0); TOTAL PROTEIN 5.4 GM/DL (6.4-8.2)
[2019-09-05 09:06] LABS: ERYTHROCYTE SEDIMENTATION RATE > 140 mm/hr (0-30)
[2019-09-05] MEDS: ATENOLOL 12.5MG PER 1/2 TABLET PO SCH ×2 (09:39→21:33)
[2019-09-05] MEDS: LEFLUNOMIDE 20 MG PO SCH (09:39)
[2019-09-05] MEDS: VITAMIN D 1,000 INTERNATIONAL UNITS TABLET PO SCH (09:39)
[2019-09-05] MEDS: FERROUS SULFATE 300MG/5ML UDC LIQUID PO SCH ×2 (09:39→21:33)
[2019-09-05] MEDS: ASPIRIN 81 MG CHEW TABLET PO SCH (09:40)
[2019-09-05] MEDS: ACETAMINOPHEN TAB 650MG DOSE (2X325MG) PO PRN (09:42)
[2019-09-05 14:00] VITALS: BP 117/68
--- NOTE | 2019-09-05 16:56 | IPNPDOC ---
Text Note Date of Service The patient was seen on 09/05/19. NOTE S: Pt examined at bedside. No events overnight or changes from yesterday. Confused with baseline dementia. Pain controlled. Daughter and grandkids in room and deny any new issues or complaints with their mother. PE: Vitals: see below General: NAD, fast asleep, pleasantly confused, arousable and then back to sleep HEENT: NCAT, EOMI, anicteric sclera, MMM CV: RRR, no murmurs or clicks or rub. No edema RESP: course bronchial sounds throughout, no w/r/r, equal ABD: soft, NT, ND. 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 difficile was brought into the ER by her family who she lives with at home for increasing shortness of breath and lethargy. Was found to have positive human Metapneumovirus and CT revealing significant pulmonary fibrosis progressing from prior imaging. Dyspnea likely multifactorial: 2/2 human Metapneumovirus, possible Community-acquired pneumonia, possible mucus plugging in setting of progressing pulmonary fibrosis, & symptomatic anemia Is much improved and satting well on room air Continue inhalers and supportive care, guaifenesin Remaining plan - see below Persistent leukocytosis wavering 10-11, likely 2/2 respiratory infection versus left hip joint effusion - Culture pending Continue antibiotics for likely pneumonia Left hip underwent IR guided drainage 09/04-likely inflammatory 2/2 CPPD / Gram negative infection Gram stain of hip 09/04: Gram negative rods - cultures pending Discussed with Ortho and family: okay with starting NSAIDs or colchicine Renal function stable. Given her dropping H&H and history of CVA, will avoid NS AIDs. Started on colchicine Left hip effusion 2/2 CPPD / Possible gram negative infection Calcium pyrophosphate crystals on drainage ESR significantly elevated >140 Plan as above Fluid culture pending Community-acquired pneumonia Procalcitonin 1.89 CRP trending down. Afebrile. Blood cultures negative Moxifloxacin switch from IV to by mouth, day 5 monitor, droplet precautions. Encourage incentive spirometer and chest PT Demand ischemia with abnormal cardiac markers and moderate ST depression Patient has no cardiac complaint is otherwise stable Troponins remain stable Continue aspirin, atenolol, pravastatin s/p LANA on CKD3 Baseline creatinine around 0.6. Noted on admission to be 1.4 resolved s/p IV fluids Symptomatic anemia - Iron deficiency and Anemia of chronic disease iron panel noted Baseline hemoglobin 10-11, slowly trending down as low as 6.8, s/p 2 units PRBCs On iron supplement. Monitor SPEP with M spike Remaining immunology: kappa, lambda, immunofixation pending Hypertension Controlled on atenolol Dyslipidemia Continue pravastatin History of CVA No acute deficits Continue aspirin statin Severe dementia Poor historian at baseline. 2 daughters provide most information Grade 1 diastolic dysfunction Compensated. Continue home regimen DVT ppx: lovenox sc CODE STATUS: DNR/DNI DISPO: pending placement: SSV versus SKH VS,Fishbone, I+O VS, Fishbone, I+O Laboratory Tests 09/05/19 06:07 Vital Signs Date Time Temp Pulse Resp B/P (MAP) Pulse Ox O2 Delivery O2 Flow Rate FiO2 09/05/19 14:00 96.6 76 17 117/68 (84) 96 Room Air I&O- Last 24 Hours up to 6 AM 09/05/19 05:59 Intake Total 380 ml Output Total 475 ml Balance -95 ml GME ATTESTATION GME ATTESTATION My faculty preceptor for this patient encounter was physically present during the encounter and was fully available. All aspects of the patient interview, examination, medical decision making process, and medical care plan development were reviewed and approved by the faculty preceptor. The faculty preceptor is aware and concurs with the plan as stated in the body of this note and will atte st to such by his/her cosignature. ATTENDING NOTE I, Sree Shen, have independently examined this patient and performed my own physical exam, as well as reviewed the documentation and edited where necessary. I have discussed in detail with the resident / student the findings and plan of treatment as documented by the resident / student and edited their note. I agree with their findings and treatment plan and have edited their documentation. I will continue to follow the patient during this hospital stay. MATT ESPINO DO Sep 05, 2019 16:56 SREE SHEN MD Sep 05, 2019 17:36
[2019-09-05] MEDS: COLCHICINE 0.6 MG TAB PO SCH (17:47)
[2019-09-05] MEDS: PRAVASTATIN 20 MG TAB PO SCH (21:33)
[2019-09-05] MEDS: CHLORHEXIDINE GLUCONATE 0.12 % 15ML UDC (PERIDEX ORAL RINSE) MT SCH (21:33)
[2019-09-05] MEDS: NYSTATIN 500,000 U/5 ML SUSP UDC SS SCH (21:33)
[2019-09-05 22:00] VITALS: BP 152/65
[2019-09-06] MEDS: LEVALBUTEROL 1.25 MG/0.5 ML CONCENTRATE NEB INH SCH ×6 (00:01→21:18)
[2019-09-06] MEDS: guaiFENesin SYRUP 200 MG/10 ML UDC PO SCH ×6 (01:07→21:39)
[2019-09-06] MEDS: MOXIFLOXACIN 400 MG TAB PO SCH (05:30)
[2019-09-06 06:00] VITALS: BP 154/69
[2019-09-06] MEDS: ACETAMINOPHEN TAB 650MG DOSE (2X325MG) PO PRN ×2 (06:00→17:01)
[2019-09-06 06:32] LABS: HEMATOCRIT 29.4 % (36.0-47.0); MEAN CORPUSCULAR HEMOGLOBIN 29.6 pg (27.0-33.0); PLATELET COUNT, AUTOMATED 312 10^3/uL (150-450); RED BLOOD COUNT 3.38 10^6/uL (4.00-5.40); WHITE BLOOD COUNT 14.3 10^3/uL (4.0-10.0)
[2019-09-06 06:53] LABS: BLOOD UREA NITROGEN 31 MG/DL (7-18); CALCIUM LEVEL 7.7 MG/DL (8.8-10.2); CARBON DIOXIDE LEVEL 18 MEQ/L (21-32); CHLORIDE LEVEL 113 MEQ/L (98-107); CREATININE FOR GFR 0.82 MG/DL (0.55-1.30); GLOMERULAR FILTRATION RATE > 60.0 (>32); GLUCOSE, FASTING 86 MG/DL (70-100); POTASSIUM SERUM 4.6 MEQ/L (3.5-5.1); SODIUM LEVEL 137 MEQ/L (136-145)
--- NOTE | 2019-09-06 09:45 | REP ---
RIGHT UPPER QUADRANT ULTRASOUND: Real-time sonographic evaluation of right upper quadrant performed. Patient has had a prior cholecystectomy. Common bile duct measures 10 mm. This is chronic and expected in a patient of this age status post cholecystectomy. No gross abnormality is seen of the liver or pancreas. No free fluid is seen. Right kidney demonstrates no hydronephrosis with normal size 9.7 cm in length. Study is limited due to patient immobility and inability to suspend respirations. IMPRESSION: Grossly negative right upper quadrant ultrasound, status post cholecystectomy. Electronically Signed by John Allison MD 09/06/2019 06:28 P
--- NOTE | 2019-09-06 09:49 | REP ---
CHEST, SINGLE VIEW: Single view of the chest is performed. COMPARISON: 09/01/2019 There is no change since that prior exam. There is mild focal infiltrate/atelectasis in the right upper lobe just superior to the level of the hilum. There is underlying bilateral interstitial fibrosis, particularly in the lung basis. No new infiltrate is seen. There is mild cardiomegaly and left ventricular prominence. There is mild calcification of the thoracic aorta. The mediastinal silhouette is unchanged. There are degenerative changes of the spine. IMPRESSION: No change since prior study, 09/01/2019. Electronically Signed by John Allison MD 09/06/2019 06:29 P
[2019-09-06] MEDS: CHLORHEXIDINE GLUCONATE 0.12 % 15ML UDC (PERIDEX ORAL RINSE) MT SCH ×3 (09:57→21:39)
[2019-09-06] MEDS: PIPERACILLIN/TAZOBACTAM SOD 3.375 GM in D5W MINI-BAG PLUS 50 ML IV SCH ×3 (09:57→21:40)
[2019-09-06] MEDS: NYSTATIN 500,000 U/5 ML SUSP UDC SS SCH ×3 (09:57→21:39)
[2019-09-06] MEDS: ATENOLOL 12.5MG PER 1/2 TABLET PO SCH ×2 (09:57→21:40)
[2019-09-06] MEDS: ASPIRIN 81 MG CHEW TABLET PO SCH (09:58)
[2019-09-06] MEDS: FERROUS SULFATE 300MG/5ML UDC LIQUID PO SCH ×2 (09:58→21:39)
[2019-09-06] MEDS: VITAMIN D 1,000 INTERNATIONAL UNITS TABLET PO SCH (09:58)
[2019-09-06] MEDS: COLCHICINE 0.6 MG TAB PO SCH (09:58)
[2019-09-06] MEDS: LEFLUNOMIDE 20 MG PO SCH (09:58)
--- NOTE | 2019-09-06 13:08 | IPNPDOC ---
Text Note Date of Service The patient was seen on 09/06/19. 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 diff, who presented to the emergency room with complaints of increasing shortness of breath associated with lethargy. Patient lives with her family who are her primary caretakers. Upon arrival to emergency room, patient was found to have a respiratory culture positive for human Pneumovirus and a CT angiogram of her chest that was significant for pulmonary fibrosis which was progressive compared to prior imaging. She was admitted to hospitalist service for further evaluation and treatment Patient was seen and examined at the bedside. , Currently patient is seen sitting up in bed. She denied any problems, however she is a very poor historian. . She does not appear to be in any discomfort at this time. Objective: Vitals (See below) General: Lying in bed, awake / alert HEENT: NC, AT CVS: +S1S2 Lungs: Again, air entry is fair bilaterally without evidence of rhonchi, rales or wheezing Abdomen: No abdominal tenderness is noted without distention and remains soft Extremities: There is no edema of lower extremities, - Calf tenderness Imaging: - CTA chest 08/29: 1. No evidence of acute, central pulmonary embolus. Limited peripheral pulmonary arterial evaluation secondary to motion 2. Pulmonary fibrosis, progressive since the prior CT. No evidence of pneumonia or concerning lung mass. Probable linear scarring or atelectasis in the posterior right upper lobe - CXR 09/01: New 17 m nodular density in the right mid lung as described - Possible mucous plugging / atelectasis / subsegmental infiltrate. No other interval change. - CT pelvis 09/01: Advanced rapidly progressive erosive arthropathy involving the left hip with erosion of the bulk of the femoral head and significant erosion on the acetabular side of the joint. There is a large effusion containing mineralized fluid content. There is some periarticular extra-articular soft tissue swelling about the left hip as well. While arthropathy secondary AVN of the left hip is a possibility, the changes are unusually progressive and fairly rapid. Low grade septic arthropathy is also a possibility. - US abdomen 09/05: Grossly negative right upper quadrant ultrasound, status post cholecystectomy. - CXR 09/05: No change since prior study, 09/01/2019. Assessment and plan: Leukocytosis - possibly 2/2 PNA (CAP), possibly 2/2 UTI, possibly 2/2 left hp infection - Patient is a poor historian; history resting comfortably in bed; awake and alert - Patient did experience a low-grade temperature this morning at 100.3 F - WBC / CRP have had a slight increased this morning - Elevated Procalcitonin on admission - Respiratory panel: Human metapneumovirus; Blood cultures 08/29: Negative at 5 days - Repeat urinalysis on 09/04 does reveal evidence of infection; and culture remains pending - Joint aspiration is consistent with inflammation with Gram stain consistent with gram-negative rods; discussed with microbiology - no growth on aerobic cultures - Will discontinue Levaquin; Will start Zosyn for broad spectrum coverage - awaiting results of urine culture / hip culture s/p Shortness of breath - likely 2/2 human metapneumovirus, possibly 2/2 CAP, possibly 2/2 mucous plugging - c/w Acapella / Incentive spirometry / Guaifenesin Inflammatory left hip aspiration - possibly 2/2 chronic infection, possibly 2/2 pseudogout - Discussed with family about surgical procedures, and at this point family would like to continue with antibiotics and conservative therapy without any interventions - c/w Colchicine - Consulted orthopedic surgery; Dr. Brady Tuttle; appreciate their input Demand mediated ischemia with abnormal cardiac markers and moderate ST depression - Continue patient does not appear to be in any pain - Troponin trend has remained stable - c/w ASA / Atenolol / Pravastatin s/p LANA on CKD - Creatinine baseline of approximately 0.6; Cr on admission of 1.4 - Currently creatinine is elevated from baseline - s/p IV fluid hydration Acute blood loss anemia / Symptomatic anemia - Hg baseline of approximately 10-11 - hg had trended down - Iron panel consistent with iron deficiency anemia / anemia of chronic disease - c/w Iron supplementation - s/p 2 units of PRBC on 09/01 - SPEP - with M- spike - Immunofixation / free kappa / lambda chains - pending - Will continue to monitor HTN - BP well controlled - c/w Atenolol DLP - c/w Pravastatin DVT prophylaxis - c/w Lovenox Code status: - DNR / DNI Disposition: - Will likely need long-term placement VS,Fishbone, I+O VS, Fishbone, I+O Laboratory Tests 09/06/19 05:55 Vital Signs Date Time Temp Pulse Resp B/P (MAP) Pulse Ox O2 Delivery O2 Flow Rate FiO2 09/06/19 09:57 79 152/71 09/06/19 06:00 100.3 18 98 Room Air I&O- Last 24 Hours up to 6 AM 09/06/19 06:00 Intake Total 720 ml Balance 720 ml MADELIN SHEN MD Sep 06, 2019 13:08
[2019-09-06 14:00] VITALS: BP 128/74
[2019-09-06] MEDS: PRAVASTATIN 20 MG TAB PO SCH (21:39)
[2019-09-06 22:00] VITALS: BP 131/74
[2019-09-07] MEDS: LEVALBUTEROL 1.25 MG/0.5 ML CONCENTRATE NEB INH SCH ×7 (00:54→23:39)
[2019-09-07] MEDS: guaiFENesin SYRUP 200 MG/10 ML UDC PO SCH ×4 (01:00→09:19)
[2019-09-07] MEDS: PIPERACILLIN/TAZOBACTAM SOD 3.375 GM in D5W MINI-BAG PLUS 50 ML IV SCH ×4 (03:07→22:02)
[2019-09-07 06:00] VITALS: BP 128/78
[2019-09-07] MEDS: ACETAMINOPHEN TAB 650MG DOSE (2X325MG) PO PRN (06:06)
[2019-09-07 07:29] LABS: BLOOD UREA NITROGEN 30 MG/DL (7-18); CALCIUM LEVEL 6.7 MG/DL (8.8-10.2); CARBON DIOXIDE LEVEL 14 MEQ/L (21-32); CHLORIDE LEVEL 114 MEQ/L (98-107); CREATININE FOR GFR 0.83 MG/DL (0.55-1.30); GLOMERULAR FILTRATION RATE > 60.0 (>32); GLUCOSE, FASTING 75 MG/DL (70-100); POTASSIUM SERUM 4.3 MEQ/L (3.5-5.1); SODIUM LEVEL 135 MEQ/L (136-145)
[2019-09-07 08:14] LABS: HEMATOCRIT 26.1 % (36.0-47.0); HEMOGLOBIN 8.8 g/dl (12.0-15.5); MEAN CORPUSCULAR HGB CONC 33.7 g/dl (32.0-36.5); MEAN CORPUSCULAR VOLUME 86.1 fl (80.0-96.0); PLATELET COUNT, AUTOMATED 321 10^3/uL (150-450); RED BLOOD COUNT 3.03 10^6/uL (4.00-5.40)
[2019-09-07] MEDS: ATENOLOL 12.5MG PER 1/2 TABLET PO SCH ×2 (09:00→22:03)
[2019-09-07 09:16] LABS: LYMPHOCYTES 13 % (16-44); MONOCYTES 9 % (0-5); NEUTROPHILS 70 % (28-66)
[2019-09-07 09:17] LABS: ANISOCYTOSIS 1+; HYPOCHROMASIA 1+; PLATELET ESTIMATE NORMAL (NORMAL)
[2019-09-07] MEDS: NYSTATIN 500,000 U/5 ML SUSP UDC SS SCH ×3 (09:19→22:01)
[2019-09-07] MEDS: CHLORHEXIDINE GLUCONATE 0.12 % 15ML UDC (PERIDEX ORAL RINSE) MT SCH ×3 (09:19→22:01)
[2019-09-07] MEDS: FERROUS SULFATE 300MG/5ML UDC LIQUID PO SCH ×2 (09:19→22:01)
[2019-09-07] MEDS: COLCHICINE 0.6 MG TAB PO SCH (09:20)
[2019-09-07] MEDS: VITAMIN D 1,000 INTERNATIONAL UNITS TABLET PO SCH (09:20)
[2019-09-07] MEDS: ASPIRIN 81 MG CHEW TABLET PO SCH (09:20)
[2019-09-07] MEDS: LEFLUNOMIDE 20 MG PO SCH (09:21)
[2019-09-07] MEDS ORDERED: ISOVUE-370 76% 100ML VIAL (Q9967) As Ordered ONE (09:33)
[2019-09-07] MEDS ORDERED: guaiFENesin SYRUP 200 MG/10 ML UDC PO PRN (09:45)
--- NOTE | 2019-09-07 11:26 | REPVR ---
PROCEDURE INFORMATION: Exam: CT Chest With Contrast Exam date and time: 09/07/2019 9:17 AM Age: 89 years old Clinical indication: Fever; Additional info: Fevers, rising WBC TECHNIQUE: Imaging protocol: Computed tomography of the chest with intravenous contrast. Coronal and sagittal reformats were created and reviewed. 3D rendering: MIP and/or 3D reconstructed images were created by the technologist. Radiation optimization: All CT scans at this facility use at least one of these dose optimization techniques: automated exposure control; mA and/or kV adjustment per patient size (includes targeted exams where dose is matched to clinical indication); or iterative reconstruction. Contrast material: ISOVUE 370; Contrast volume: 75 ml; Contrast route: IV; COMPARISON: CT ANGIO CHEST 08/29/2019 9:[address] Chest with contrast 07/25/2016 9:58:40 PM FINDINGS: Thyroid: Nonspecific left thyroid 1.3 cm partly calcified nodule, stable in size compared to 07/25/2016. Lungs: Evaluation of the lungs is significantly limited by motion. Bilateral lower lung predominant pulmonary fibrosis including areas of honeycombing is redemonstrated. Multiple small ill-defined consolidative and ground-glass airspace opacities of the bilateral upper lobes and right middle lobe are new and worsened compared to 08/29/2019. Among these for example, a 15 x 12 mm thick walled cavitary lesion of the right upper lobe is new (series 201, image 32). Pleural space: No pleural effusion, mass or calcification. No pneumothorax. Heart: Coronary arterial atherosclerotic calcifications are present. Mild cardiomegaly with left ventricular enlargement. No pericardial effusion. Mediastinum: No mediastinal mass. Pulmonary arteries: Mild bilateral central pulmonary arterial enlargement is redemonstrated. Aorta: Severe aortic atherosclerosis. Aortic root calcifications are present. No thoracic aortic aneurysm. Atherosclerosis of the carotid arterial systems. Lymph nodes: No enlarged lymph nodes. Gallbladder and bile ducts: Status post cholecystectomy. Unchanged chronic common bile duct dilation, presumably compensatory in this patient status post cholecystectomy. Kidneys and ureters: Left kidney 1 cm homogeneous hypoattenuating simple cyst. Intraperitoneal space: Incompletely imaged fluid attenuation opacification of the left maxillary sinus. Bones/joints: Degenerative disease of the spine and shoulder joints. Soft tissues: Unremarkable. IMPRESSION: 1. New and worsened multifocal bilateral pulmonary airspace opacities likely representing infectious or inflammatory pneumonia, given the interval change compared to 08/29/2019. There is a new cavitary lesion within the right upper lobe, possibly a developing small pulmonary abscess. Among other infectious etiologies, mycobacterial (for example tuberculosis) and fungal etiologies should be considered. Follow-up is needed to ensure resolution of the airspace opacities to exclude neoplasm. 2. 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 3. Nonspecific opacification of the left maxillary sinus is incompletely imaged. In this patient with given history of fever, clinical correlation for sinusitis is needed. 4. Mild cardiomegaly with left ventricular enlargement. COMMENTS: Consistent with the [employer] [place] [employer]'s Incidental Findings Committee white paper (J Am Alphonso Radiol 2015): In patients aged 35 years and older with an incidental thyroid nodule equal to or greater than 1.[address], MRI or extrathyroidal US, further evaluation with dedicated thyroid US is recommended for patients with normal life expectancy and without comorbidities. For smaller nodules without suspicious features, no further evaluation or follow up is recommended. THIS REPORT CONTAINS FINDINGS THAT MAY BE CRITICAL TO PATIENT CARE. The findings were verbally communicated via telephone conference by Dr. Bandar Coleman with Dr. Tripp at 11:25 AM EST on 09/07/2019. The findings were acknowledged and understood. Electronically signed by: Bandar Coleman On 09/07/2019 11:26:32 AM
[2019-09-07 14:00] VITALS: BP 133/74
--- NOTE | 2019-09-07 15:26 | IPNPDOC ---
Text Note Date of Service The patient was seen on 09/07/19. 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 diff, who presented to the emergency room with complaints of increasing shortness of breath associated with lethargy. Patient lives with her family who are her primary caretakers. Upon arrival to emergency room, patient was found to have a respiratory culture positive for human Pneumovirus and a CT angiogram of her chest that was significant for pulmonary fibrosis which was progressive compared to prior imaging. She was admitted to hospitalist service for further evaluation and treatment Patient was seen and examined at the bedside. Patient appears to be resting comfortably. Denies any new problems overnight. And she is very poor historian. Discussed lab work with family and indicated the need for additional imaging. Objective: Vitals (See below) General: Lying in bed, awake / alert HEENT: NC, AT CVS: +S1S2 Lungs: Poor respiratory effort bilaterally. No significant wheezing or crackles, Abdomen: ND / NT, soft Extremities: LE are without edema, - Calf tenderness Imaging: - CTA chest 08/29: 1. No evidence of acute, central pulmonary embolus. Limited peripheral pulmonary arterial evaluation secondary to motion 2. Pulmonary fibrosis, progressive since the prior CT. No evidence of pneumonia or concerning lung mass. Probable linear scarring or atelectasis in the posterior right upper lobe - CXR 09/01: New 17 m nodular density in the right mid lung as described - Possible mucous plugging / atelectasis / subsegmental infiltrate. No other interval change. - CT pelvis 09/01: Advanced rapidly progressive erosive arthropathy involving the left hip with erosion of the bulk of the femoral head and significant erosion on the acetabular side of the joint. There is a large effusion containing mineralized fluid content. There is some periarticular extra-articular soft tissue swelling about the left hip as well. While arthropathy secondary AVN of the left hip is a possibility, the changes are unusually progressive and fairly rapid. Low grade septic arthropathy is also a possibility. - US abdomen 09/05: Grossly negative right upper quadrant ultrasound, status post cholecystectomy. - CXR 09/05: No change since prior study, 09/01/2019. Assessment and plan: Leukocytosis - possibly 2/2 PNA (CAP), possibly 2/2 UTI, possibly 2/2 left hp infection - Poor historian; no new complaitns - Again experienced a fever of 101.4 - WBC / CRP have have continued to trend up - Elevated Procalcitonin on admission - Respiratory panel: Human metapneumovirus; Blood cultures 08/29: Negative at 5 days - Repeat urinalysis on 09/04 does reveal evidence of infection; Discussed with Microbiology ... >100,000 E. Coli - Joint aspiration is consistent with inflammation with Gram stain consistent with gram-negative rods; discussed with microbiology - no growth on aerobic cultures - Will get CT chest - c/w Zosyn for broad spectrum coverage (Day #2); s/p Moxifloxacin; Awaiting results of urine culture / hip culture s/p Shortness of breath - likely 2/2 human metapneumovirus, possibly 2/2 CAP, possibly 2/2 mucous plugging - c/w Acapella / Incentive spirometry / Guaifenesin Inflammatory left hip aspiration - possibly 2/2 chronic infection, possibly 2/2 pseudogout - Discussed with family about surgical procedures, and at this point family would like to continue with antibiotics and conservative therapy without any interventions - c/w Colchicine - Consulted orthopedic surgery; Dr. Brady Tuttle; appreciate their input Demand mediated ischemia with abnormal cardiac markers and moderate ST depression - Continue patient does not appear to be in any pain - Troponin trend has remained stable - c/w ASA / Atenolol / Pravastatin s/p LANA on CKD - Creatinine baseline of approximately 0.6; Cr on admission of 1.4 - Currently creatinine is elevated from baseline - s/p IV fluid hydration Acute blood loss anemia / Symptomatic anemia - Hg baseline of approximately 10-11 - hg had trended down - Iron panel consistent with iron deficiency anemia / anemia of chronic disease - c/w Iron supplementation - s/p 2 units of PRBC on 09/01 - SPEP - with M- spike - Immunofixation / free kappa / lambda chains - pending - Will continue to monitor HTN - BP well controlled - c/w Atenolol DLP - c/w Pravastatin DVT prophylaxis - c/w Lovenox Code status: - DNR / DNI Disposition: - Will likely need long-term placement VS,Fishbone, I+O VS, Fishbone, I+O Laboratory Tests 09/07/19 05:28 09/07/19 07:50 Vital Signs Date Time Temp Pulse Resp B/P (MAP) Pulse Ox O2 Delivery O2 Flow Rate FiO2 09/07/19 06:58 98.7 09/07/19 06:00 93 19 128/78 (95) 95 Room Air I&O- Last 24 Hours up to 6 AM 09/07/19 06:00 Intake Total 490 ml Output Total 500 ml Balance -10 ml MADELIN SHEN MD Sep 07, 2019 15:26
[2019-09-07 15:45] LABS: MUCIN CLOT TEST NO CLOT (4+)
[2019-09-07 15:49] LABS: BODY FLUID RHEUMATOID SCREEN NEGATIVE (NEGATIVE)
[2019-09-07 22:00] VITALS: BP 139/72
[2019-09-07] MEDS: PRAVASTATIN 20 MG TAB PO SCH (22:02)
[2019-09-08] MEDS: PIPERACILLIN/TAZOBACTAM SOD 3.375 GM in D5W MINI-BAG PLUS 50 ML IV SCH ×4 (03:22→20:13)
[2019-09-08] MEDS: LEVALBUTEROL 1.25 MG/0.5 ML CONCENTRATE NEB INH SCH ×5 (04:06→20:08)
[2019-09-08 06:00] VITALS: BP 145/73
[2019-09-08 06:10] LABS: HEMATOCRIT 28.7 % (36.0-47.0); HEMOGLOBIN 9.9 g/dl (12.0-15.5); MEAN CORPUSCULAR HEMOGLOBIN 29.6 pg (27.0-33.0); MEAN CORPUSCULAR HGB CONC 34.5 g/dl (32.0-36.5); MEAN CORPUSCULAR VOLUME 85.9 fl (80.0-96.0); PLATELET COUNT, AUTOMATED 357 10^3/uL (150-450); RED BLOOD COUNT 3.34 10^6/uL (4.00-5.40); WHITE BLOOD COUNT 15.6 10^3/uL (4.0-10.0)
[2019-09-08 06:51] LABS: BLOOD UREA NITROGEN 26 MG/DL (7-18); CALCIUM LEVEL 7.8 MG/DL (8.8-10.2); CARBON DIOXIDE LEVEL 20 MEQ/L (21-32); CHLORIDE LEVEL 110 MEQ/L (98-107); CREATININE FOR GFR 0.86 MG/DL (0.55-1.30); GLOMERULAR FILTRATION RATE > 60.0 (>32); GLUCOSE, FASTING 85 MG/DL (70-100); POTASSIUM SERUM 3.4 MEQ/L (3.5-5.1); SODIUM LEVEL 135 MEQ/L (136-145)
[2019-09-08 08:12] LABS: FREE KAPPA LIGHT CHAINS URINE 385.27 mg/L (0.63-113.79); FREE LAMBDA LIGHT CHAINS URINE 98.53 mg/L (0.47-11.77); KAPPA/LAMBDA RATIO URINE 3.91 (1.03-31.76)
[2019-09-08] MEDS ORDERED: POTASSIUM CHLORIDE 10 MEQ SR TABLET PO ONE ×2 (09:00→09:30)
[2019-09-08] MEDS ORDERED: LACTOBACILLUS ACIDOPHILUS CAP (BACID) PO SCH (09:00)
[2019-09-08 09:20] LABS: MAGNESIUM LEVEL 2.1 MG/DL (1.8-2.4)
[2019-09-08] MEDS: CHLORHEXIDINE GLUCONATE 0.12 % 15ML UDC (PERIDEX ORAL RINSE) MT SCH ×3 (10:22→20:12)
[2019-09-08] MEDS: LEFLUNOMIDE 20 MG PO SCH (10:23)
[2019-09-08] MEDS: FERROUS SULFATE 300MG/5ML UDC LIQUID PO SCH ×2 (10:24→20:12)
[2019-09-08] MEDS: ASPIRIN 81 MG CHEW TABLET PO SCH (10:24)
[2019-09-08] MEDS: VITAMIN D 1,000 INTERNATIONAL UNITS TABLET PO SCH (10:24)
[2019-09-08] MEDS: COLCHICINE 0.6 MG TAB PO SCH (10:24)
[2019-09-08] MEDS: ATENOLOL 12.5MG PER 1/2 TABLET PO SCH ×2 (10:24→21:00)
--- NOTE | 2019-09-08 11:11 | CR ---
DATE OF CONSULTATION: 09/07/2019 HISTORY OF PRESENT ILLNESS: Kristi Doshi is an 89-year-old female with a past medical history of CVA and dementia, who presented to the hospital on 08/29/2019 with several days of shortness of breath and lethargy. According to the family, the patient is bed bound and does not communicate much and they started to notice that she has been having a dry cough, has been congested and has been having trouble breathing. She has not had any diarrhea or nausea or vomiting at this time. The patient does not complain of any chest pain or any chest tightness. Of note, the patient's is also hospitalized in the room next door with a respiratory infection. On this admission, she was found to have positive human metapneumovirus and elevated white blood cell count of 12.5. In addition, she has been diagnosed with possible septic joint of her left hip. The infectious disease team was called as this morning the patient underwent a chest CT and was found to have questionable cavitary lesion, new from the last couple of days on her CT scan. The patient's hospital course has been complicated by fluid drainage of her left hip, which did not have any growth thus far other than evidence of increased white blood cells and calcium pyrophosphate crystals. In addition, the patient was also found to have a urinary tract infection (UTI). PAST MEDICAL HISTORY: Significant for: 1. 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 2. Altered mental status due to CVA 3. Asymptomatic bacteruria. 4. Dementia. 5. Dyslipidemia. 6. Hypertension. 7. 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 8. Incidental finding of septal aneurysm with no atrioseptal defect or ventriculoseptal defect. 9. Grade 1 left ventricular diastolic dysfunction, mild aortic regurgitation, mild mitral regurgitation, tiny pericardial effusion. 10. History of Clostridium (C.) difficile infection. PAST SURGICAL HISTORY: 1. Hysterectomy. 2. Cholecystectomy. SOCIAL HISTORY: She was exposed to nicotine through her who was a heavy smoker. No alcohol use. No recreational drug use. Lives at home with her daughter. REVIEW OF SYSTEMS: Could not be obtained as the patient is demented. ALLERGIES: No known drug allergies. HOME MEDICATIONS: - acetaminophen 650 mg twice a day - albuterol two puffs every 4 to 6 hours as needed - aspirin 325 mg daily - calcium and vitamin D one tablet twice a day - cyanocobalamin 1000 mg intramuscular monthly - ferrous sulfate 325 mg daily - Combivent one puff twice a day - pravastatin 20 mg at night - Tramadol 25 mg at night as needed for sleep - leflunomide 20 mg daily PHYSICAL EXAMINATION: VITAL SIGNS: Temperature 98.7 with a maximum temperature (t-max) of 101.4 in the past 24 hours, pulse 85, respiratory rate 13, blood pressure 133/74, pulse oximetry of 95%. Net positive fluid balance making about 500 mL of urine each day. GENERAL: She is lying in bed sleeping very peacefully. Calm, cooperative, no acute distress. Not using any accessory muscles with respiration. HEENT: Pupils are equal, round and reactive to light. Extraocular muscles intact. Mucous membranes are dry. NECK: Supple with no thyromegaly. No lymphadenopathy. CHEST: She has even chest rise. LUNGS: She is coughing frequently with poor mucociliary clearance efforts. She has crackles bilaterally in the bases up to the middle lobes bilaterally with some rhonchi as well. No other adventitious breath sounds are appreciated. CARDIOVASCULAR: Regular rate and rhythm. No murmurs, rubs or gallops that can be appreciated. Normal S1, S2. ABDOMEN: Soft and nontender to palpation. She has positive bowel sounds. No jonathan or organomegaly. EXTREMITIES: She has no clubbing, cyanosis or edema. She does have inflammation in her left hip joint that is very obvious on examination. It does appear that her left lower extremity is somewhat shorter than her right lower extremity. SKIN: She has no new rashes or lesions. Skin is warm and well perfused. LYMPHATICS: She has no enlarged lymph nodes in the cervical, supraclavicular or femoral chains. PSYCHIATRIC: Unable to determine due to the patient's somnolence. She does say simple things like she lives with her daughter and she says thank you, but she does not know exactly where she is. NEUROLOGIC: Difficult to determine, unable to examine due to her dementia. LABORATORIES: Her CBC today demonstrates a white blood cell count of 16, hemoglobin 8.8, hematocrit 26.1, platelet count is 321. On chemistries, her sodium is 135 with potassium 4.3, carbon dioxide 14, BUN 30, creatinine 0.83. Her C-reactive protein has trended up from 12.7 to 14.7 to 15.4. Procalcitonin is pending. On her urinalysis, she was found to have 2+ leukocyte esterase with 80 white blood cells and 3+ bacteria. The fluid from her left hip that was aspirated shows 7806 white blood cells, 41% of that was mononuclear percentage and 58% was polymorphic. She also was found to have calcium pyrophosphate crystals in her left hip joint. Microbiology: She has a positive respiratory viral panel from 09/01/2019, which is positive for human metapneumovirus. Otherwise, everything has been negative, including the gram stain of the body fluid culture gram stain GNR , culture pending from her hip and a urine culture had Ecoli All of her blood cultures have so far been negative. She did have a peripheral smear drawn on 08/31/2019, which showed chronic anemia, leukocytosis with a left shift, minimal poikilocytosis and correlation with clinical finding is recommended. IMAGING: She had a chest CT done today that showed new and worsened multifocal bilateral pulmonary air space opacity, likely representing infectious or inflammatory pneumonia, interval change compared to 08/29/2019. There is a new cavitary lesion within the right upper lobe, possibly a developing small pulmonary abscess, among other infectious etiologies, mycobacterial and fungal etiologies should be considered. Predetermination of the chronic fibrotic interstitial lung disease, nonspecific opacification of the left maxillary sinus is incompletely imaged. In a patient with a history of fever, clinical correlation for sinusitis is needed. Mild cardiomegaly with left ventricular enlargement. ASSESSMENT: This is an 89-year-old female with a history of shortness of breath and found to have positive human metapneumovirus with evidence of worsening CT findings concerning for pneumonia versus septic emboli. 1. Worsened CT findings in the setting of human metapneumovirus. On the differential is worsening viral pneumonia,superimposed bacterial pneumonia as evidenced by cavitary lesion and is less likely that this patient has TB, as she has just recently developed this cavitary lesion between the interval time of 08/29/2019 to 09/07/2019. Also, on the differential, is possible septic emboli from her known septic joint of the left hip, this is also less likely. We agree with the antibiotic choice of Zosyn at this time while we await further studies. In addition, we would suggest adding a sputum culture if the patient is able to expectorate any sputum to further identify any bacteria that is causing her respiratory virus/bacteria. Finally, we also suggest getting an echocardiogram to evaluate for any sources of septic emboli, such as endocarditis. 2. Septic arthritis of the left hip. We had a long conversation with the family, the two daughters, who both agree that the patient would not want to do any further surgical management and would like to be treated with antibiotics only. We will recommend that the patient get a peripherally inserted central catheter (PICC) line put in for prolonged antibiotic treatment after discharge and that this be coordinated by social insurance administrator and the patient and family services (PFS) group at the hospital. For now, Zosyn is acceptable as treatment for both her possible pneumonia and her septic joint. We also agree with colchicine, as she was found to have calcium pyrophosphate crystals in her left hip fluid. 3. History of Clostridium (C.) difficile infection from antibiotic use. We recommend putting the patient on probiotic to prevent reinfection with C difficile. PLAN : Continue IV zosyn, add bacid 1 tablet BID Picc line for senior living IV antibiotics MTDD
[2019-09-08 11:47] LABS: IMMUNOTYPING SERUM IGM ABNORMAL (NORMAL); IMMUNOTYPING SERUM KAPPA ABNORMAL (NORMAL)
--- NOTE | 2019-09-08 12:47 | IPNPDOC ---
Text Note Date of Service The patient was seen on 09/08/19. 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 diff, who presented to the emergency room with complaints of increasing shortness of breath associated with lethargy. Patient lives with her family who are her primary caretakers. Upon arrival to emergency room, patient was found to have a respiratory culture positive for human Pneumovirus and a CT angiogram of her chest that was significant for pulmonary fibrosis which was progressive compared to prior imaging. She was admitted to hospitalist service for further evaluation and treatment Patient was seen and examined at the bedside. Currently patient appears sleepy but still arousable. Patient does not appear to be in any distress. Discussed case with patient's daughter and have addressed all their questions and concerns. Objective: Vitals (See below) General: Lying in bed, awake / alert HEENT: NC, AT CVS: +S1S2 Lungs: Again upon inspiration there is poor effort, mild crackles appreciated. No significant rhonchi or wheezing Abdomen: Abdomen remains soft without distention or tenderness Extremities: Trace pitting edema bilaterally, - Calf tenderness Imaging: - CTA chest 08/29: 1. No evidence of acute, central pulmonary embolus. Limited peripheral pulmonary arterial evaluation secondary to motion 2. Pulmonary fibrosis, progressive since the prior CT. No evidence of pneumonia or concerning lung mass. Probable linear scarring or atelectasis in the posterior right upper lobe - CXR 09/01: New 17 m nodular density in the right mid lung as described - Possible mucous plugging / atelectasis / subsegmental infiltrate. No other interval change. - CT pelvis 09/01: Advanced rapidly progressive erosive arthropathy involving the left hip with erosion of the bulk of the femoral head and significant erosion on the acetabular side of the joint. There is a large effusion containing mineralized fluid content. There is some periarticular extra-articular soft tissue swelling about the left hip as well. While arthropathy secondary AVN of the left hip is a possibility, the changes are unusually progressive and fairly rapid. Low grade septic arthropathy is also a possibility. - US abdomen 09/05: Grossly negative right upper quadrant ultrasound, status post cholecystectomy. - CXR 09/05: No change since prior study, 09/01/2019. - CT chest 09/06: 1. New and worsened multifocal bilateral pulmonary airspace opacities likely representing infectious or inflammatory pneumonia, given the interval change compared to 08/29/2019. There is a new cavitary lesion within the right upper lobe, possibly a developing small pulmonary abscess. Among other infectious etiologies, mycobacterial (for example tuberculosis) and fungal etiologies should be considered. Follow-up is needed to ensure resolution of the airspace opacities to exclude neoplasm. 2. 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 3. Nonspecific opacification of the left maxillary sinus is incompletely imaged. In this patient with given history of fever, clinical correlation for sinusitis is needed. 4. Mild cardiomegaly with left ventricular enlargement. Assessment and plan: Leukocytosis - possibly 2/2 PNA (Cavitary PNA), possibly 2/2 UTI, possibly 2/2 left hp infection, possibly 2/2 septic emboli? - Poor historian; no new complaints - Patient has remained afebrile over the last 24 hours - WBC with slight improvement / CRP have increased - Elevated Procalcitonin on admission - Respiratory panel: Human metapneumovirus; Blood cultures 08/29: Negative at 5 days - Urine culture 09/04: E. Coli - resistant to Levaquin - ECHO 09/02: 1. Study is of acceptable technical quality.. The patient is in sinus rhythm. 2. Normal LV size with normal LV systolic function and grade 1 diastolic dysfunction. 3. No significant valvular disease. 4. Likely normal central venous pressure. 5. Unable to estimate pulmonary artery pressure. - Joint aspiration is consistent with inflammation with Gram stain consistent with gram-negative rods; discussed with microbiology - no growth on aerobic cultures - c/w Zosyn for broad spectrum coverage (Day #3); s/p Moxifloxacin; Awaiting results of urine culture / hip culture - ID on consult; appreciate their input s/p Shortness of breath - likely 2/2 human metapneumovirus, possibly 2/2 CAP, possibly 2/2 mucous plugging - Saturating well on room air - LE with trace edema noted - c/w Acapella / Incentive spirometry / Guaifenesin - Will hold off on Diuretics at this time Inflammatory left hip aspiration - possibly 2/2 chronic infection, possibly 2/2 pseudogout - Discussed with family about surgical procedures, and at this point family would like to continue with antibiotics and conservative therapy without any interventions - c/w Colchicine - Consulted orthopedic surgery; Dr. Brady Tuttle; appreciate their input Demand mediated ischemia with abnormal cardiac markers and moderate ST depression - Continue patient does not appear to be in any pain - Troponin trend has remained stable - c/w ASA / Atenolol / Pravastatin s/p LANA on CKD - Creatinine baseline of approximately 0.6; Cr on admission of 1.4 - Currently creatinine is elevated from baseline - s/p IV fluid hydration Acute blood loss anemia / Symptomatic anemia - Hg baseline of approximately 10-11 - hg had trended down - Iron panel consistent with iron deficiency anemia / anemia of chronic disease - c/w Iron supplementation - s/p 2 units of PRBC on 09/01 - SPEP - with M- spike - Immunofixation / free kappa / lambda chains - pending - Will continue to monitor HTN - BP well controlled - c/w Atenolol DLP - c/w Pravastatin DVT prophylaxis - c/w Lovenox Code status: - DNR / DNI Disposition: - Will likely need long-term placement VS,Fishbone, I+O VS, Fishbone, I+O Laboratory Tests 09/08/19 05:43 Vital Signs Date Time Temp Pulse Resp B/P (MAP) Pulse Ox O2 Delivery O2 Flow Rate FiO2 09/08/19 10:24 90 145/73 09/08/19 06:00 98.5 20 95 Room Air I&O- Last 24 Hours up to 6 AM 09/08/19 06:00 Intake Total 1540 ml Output Total 0 ml Balance 1540 ml MADELIN SHEN MD Sep 08, 2019 12:47
[2019-09-08 14:00] VITALS: BP 120/58
[2019-09-08] MEDS: ACETAMINOPHEN TAB 650MG DOSE (2X325MG) PO PRN (16:20)
[2019-09-08] MEDS ORDERED: SODIUM CHLORIDE NASAL 0.65% SPRAY BTL (OCEAN) PRN (16:30)
--- NOTE | 2019-09-08 19:20 | IPN ---
DATE: 09/08/2019 Ms. Doshi is seen and examined at the bedside this afternoon. She is calm, cooperative, in no acute distress. She denies any complaints of shortness of breath but family is present and reports that she has been coughing a lot but having difficulty producing sputum. The patient reportedly had a difficult night where she was somewhat delirious and confused but otherwise today she has been doing well. She has not had any fevers for over 24 hours. Objectively, her vital signs at this were temperature 97.0, pulse of 87, respiratory rate of 16, blood pressure of 120/58, pulse oximetry 96% on room air. Generally, she is laying flat in bed. She is calm, in no acute distress. She is not using any accessory muscles of respiration. HEENT: Head is normocephalic, atraumatic. Mucous membranes are moist. Her extraocular movements are intact and pupils are equally round and reactive to light. She has very poor dentition. Neck is supple with no thyromegaly and no lymphadenopathy. CHEST: She has even chest rise. LUNGS: She is frequently coughing with evidence of poor mucociliary clearance effort. She has crackles bilaterally in the bases up to the middle lobes with some rhonchi as well. No other adventitious breath sounds are appreciated. CARDIOVASCULAR: She is regular rate and rhythm with no murmurs, rubs or gallops that can be appreciates. Normal S1 and normal S2. ABDOMEN: Soft and nontender to palpitation. She has positive bowel sounds. No masses or organomegaly. EXTREMITIES: She has no clubbing, cyanosis, or edema. She does have very obvious inflammation in her left hip joint. It does appear that her left lower extremity is somewhat shorter than her right lower extremity. SKIN: She has no new rashes or lesions. Skin is warm and well-perfused. LYMPHATICS: She has no enlarged lymph nodes in the cervical, supraclavicular, posterior auricular, or femoral chains. PSYCHIATRIC: Unable to determine due to the patient's dementia. NEUROLOGIC: Difficult to examine due to her dementia. LABORATORY DATA: Today, CBC demonstrates a white blood count of 15.6, hemoglobin of 9.9, hematocrit of 28.7, and a platelet count of 357. Her chemistries demonstrate a sodium of 135, potassium of 3.4, carbon dioxide of 20, a BUN of 26, and a creatinine of 0.86. Her CRP has gone up somewhat from 15 yesterday and it is now 18. A procalcitonin is pending. She has had no growth on her blood cultures for the past 48 hours and the joint fluid that was gathered is pending final culture results with preliminarily some moderate white blood cells, few red blood cells, and many gram-negative rods. She has had no new imaging. ASSESSMENT: This is an 89-year-old female with a history of shortness of breath, found to have positive human metapneumovirus and evidence of worsening CT findings concerning for pneumonia versus septic emboli with left hip septic arthritis with destructive changes. Currently patient not a surgical candidate for I&D of left hip and family not interested in any surgical interventions PLAN: 1. Worsening CT findings in the setting of human metapneumovirus. The patient continues to have poor mucociliary clearance. She has a known septic joint which could possibly be seeding septic emboli but this is less likely. She does have new cavitary lesions in her lungs. Her blood cultures have been negative to date. We agree to continue the patient's Zosyn and today is day three. I have added a sputum culture and would like to get a sample from the patient if she is able. To my knowledge, echocardiogram was done and is negative for any acute infection or signs of endocarditis. I have also ordered a peripherally inserted central catheter (PICC) line for the patient to receive prolonged IV antibiotics. 2. Septic arthritis of the left hip. We spoke with Dr. Kendrick this afternoon who suggested the possibility for treatment is the removal of the hip joint. Nevertheless, the patient will need to have prolonged antibiotics with a PICC line when she leaves here and most likely goes to [facility]. For now, Zosyn is an acceptable treatment for her possible pneumonia and her septic joint. 3. History of Clostridium (C) difficile infection from antibiotic use. Would recommend twice daily dosage of Bacid for prophylaxis. MTDD
[2019-09-08] MEDS: LACTOBACILLUS ACIDOPHILUS CAP (BACID) PO SCH (20:12)
[2019-09-08] MEDS: PRAVASTATIN 20 MG TAB PO SCH (20:12)
[2019-09-08 22:00] VITALS: BP 126/62
[2019-09-09 00:06] LABS: FREE KAPPA LIGHT CHAINS SERUM 68.8 mg/L (3.3-19.4); FREE LAMBDA LIGHT CHAINS SERUM 99.6 mg/L (5.7-26.3); KAPPA/LAMBDA RATIO SERUM 0.69 (0.26-1.65)
[2019-09-09] MEDS: PIPERACILLIN/TAZOBACTAM SOD 3.375 GM in D5W MINI-BAG PLUS 50 ML IV SCH ×2 (02:33→09:04)
[2019-09-09] MEDS: LEVALBUTEROL 1.25 MG/0.5 ML CONCENTRATE NEB INH SCH ×6 (04:00→19:58)
[2019-09-09 06:00] VITALS: BP 137/75
[2019-09-09 06:14] LABS: HEMATOCRIT 26.5 % (36.0-47.0); HEMOGLOBIN 9.1 g/dl (12.0-15.5); MEAN CORPUSCULAR HEMOGLOBIN 29.2 pg (27.0-33.0); MEAN CORPUSCULAR HGB CONC 34.3 g/dl (32.0-36.5); MEAN CORPUSCULAR VOLUME 84.9 fl (80.0-96.0); PLATELET COUNT, AUTOMATED 347 10^3/uL (150-450); RED BLOOD COUNT 3.12 10^6/uL (4.00-5.40); WHITE BLOOD COUNT 15.4 10^3/uL (4.0-10.0)
[2019-09-09 06:35] LABS: BLOOD UREA NITROGEN 23 MG/DL (7-18); CALCIUM LEVEL 7.7 MG/DL (8.8-10.2); CARBON DIOXIDE LEVEL 20 MEQ/L (21-32); CHLORIDE LEVEL 111 MEQ/L (98-107); CREATININE FOR GFR 0.78 MG/DL (0.55-1.30); GLOMERULAR FILTRATION RATE > 60.0 (>32); GLUCOSE, FASTING 73 MG/DL (70-100); POTASSIUM SERUM 3.6 MEQ/L (3.5-5.1); SODIUM LEVEL 138 MEQ/L (136-145)
[2019-09-09] MEDS: CHLORHEXIDINE GLUCONATE 0.12 % 15ML UDC (PERIDEX ORAL RINSE) MT SCH ×3 (09:02→20:26)
[2019-09-09] MEDS: COLCHICINE 0.6 MG TAB PO SCH (09:02)
[2019-09-09] MEDS: ATENOLOL 12.5MG PER 1/2 TABLET PO SCH ×2 (09:03→20:26)
[2019-09-09] MEDS: VITAMIN D 1,000 INTERNATIONAL UNITS TABLET PO SCH (09:03)
[2019-09-09] MEDS: LACTOBACILLUS ACIDOPHILUS CAP (BACID) PO SCH ×2 (09:03→20:26)
[2019-09-09] MEDS: ASPIRIN 81 MG CHEW TABLET PO SCH (09:03)
[2019-09-09] MEDS: FERROUS SULFATE 300MG/5ML UDC LIQUID PO SCH ×2 (09:04→20:26)
[2019-09-09] MEDS: LEFLUNOMIDE 20 MG PO SCH (09:04)
[2019-09-09] MEDS: cefTRIAXone SOD 2 GM in D5W MINI-BAG PLUS 50 ML IV SCH (11:59)
--- NOTE | 2019-09-09 12:32 | IPNPDOC ---
Text Note Date of Service The patient was seen on 09/09/19. NOTE S: Pt examined at bedside. Confused with baseline dementia, no family in room this morning. No reported events overnight. She continues on IV Zosyn with stable white count around 15 and slightly decreased CRP from 18 to 17 today. She denies any complaints. Remains afebrile, plan for PICC line insertion today for prolonged antibiotics. PE: Vitals: see below General: NAD, laying comfortably in bed, confused with baseline dementia, A&Ox0 HEENT: NCAT, EOMI, anicteric sclera, MMM CV: RRR, no murmurs or clicks or rub. No edema RESP: course bronchial sounds throughout, no w/r/r, equal ABD: soft, NT, ND. 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 difficile was brought into the ER by her family who she lives with at home for increasing shortness of breath and lethargy. Was found to have positive human Metapneumovirus and CT revealing significant pulmonary fibrosis progressing from prior imaging. Continues to have rising WBC & CRP despite broad antibiotics, workup showing inflammatory left hip joint, possible CPPD versus history of septic joint. Persistent Leukocytosis with elevated CRP source unclear at this point. Pt has baseline dementia and unable to effectively communicate any specific complaints Suspected 2/2 cavitary PNA vs Escherichia coli UTI vs left hip joint infecti on - Culture pending Continue on IV Zosyn day 4 as we await cultures, s/p Moxifloxicin Infectious disease consulted, appreciate input: Plan for PICC line insertion today for long-term outpatient antibiotics - likely will be Ceftriaxone - duration will be determined by ID Respiratory panel: Human metapneumovirus & Urine culture E. 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 Brady Tuttle; appreciate input Fluid culture pending Community-acquired pneumonia Procalcitonin 1.89 CRP trending down. Afebrile. Blood cultures negative Moxifloxacin switch from IV to by mouth, day 5 monitor, droplet precautions. Encourage incentive spirometer and chest PT Demand ischemia with abnormal cardiac markers and moderate ST depression Patient has no cardiac complaint is otherwise stable Troponins remain stable Continue aspirin, atenolol, pravastatin s/p LANA on CKD3 Baseline creatinine around 0.6-0.8. Noted on admission to be 1.4 resolved s/p IV fluids Symptomatic anemia - Iron deficiency and Anemia of chronic disease iron panel noted Baseline hemoglobin 10-11, slowly trending down as low as 6.8, s/p 2 units PRBCs On iron supplement. Monitor SPEP with M spike elevated kappa & lamda f/u o/p Hypertension Controlled on atenolol Dyslipidemia Continue pravastatin History of CVA No acute deficits Continue aspirin statin Severe dementia Poor historian at baseline. 2 daughters provide most information Grade 1 diastolic dysfunction Compensated. Continue home regimen DVT ppx: lovenox sc CODE STATUS: DNR/DNI DISPO: pending placement clinical improvement, PICC placement, o/p antibiotic approval, and SSV versus SKH VS,Fishbone, I+O VS, Fishbone, I+O Laboratory Tests 09/09/19 05:50 Vital Signs Date Time Temp Pulse Resp B/P (MAP) Pulse Ox O2 Delivery O2 Flow Rate FiO2 09/09/19 09:03 105 146/77 09/09/19 06:00 97.3 18 97 Room Air I&O- Last 24 Hours up to 6 AM 09/09/19 06:00 Intake Total 850 ml Output Total 0 ml Balance 850 ml GME ATTESTATION GME ATTESTATION My faculty preceptor for this patient encounter was physically present during the encounter and was fully available. All aspects of the patient interview, examination, medical decision making process, and medical care plan development were reviewed and approved by the faculty preceptor. The faculty preceptor is aware and concurs with the plan as stated in the body of this note and will attest to such by his/her cosignature. ATTENDING NOTE I, Vijesh Shen, have independently examined this patient and performed my own physical exam, as well as reviewed the documentation and edited where necessary. I have discussed in detail with the resident / student the findings and plan of treatment as documented by the resident / student and edited their note. I agree with their findings and treatment plan and have edited their documentation. I will continue to follow the patient during this hospital stay. MATT ESPINO DO Sep 09, 2019 12:32 MADELIN SHEN MD Sep 09, 2019 14:36
[2019-09-09 14:00] VITALS: BP 145/73
[2019-09-09] MEDS ORDERED: LIDOCAINE 1% MDV 20ML VIAL As Ordered ONE (14:57)
[2019-09-09] MEDS ORDERED: SODIUM CHLORIDE 0.9% INJ 10 ML SYR IV PRN (16:45)
[2019-09-09] MEDS: SODIUM CHLORIDE 0.9% INJ 10 ML SYR IV SCH (17:32)
[2019-09-09] MEDS: PRAVASTATIN 20 MG TAB PO SCH (20:26)
[2019-09-09 22:00] VITALS: BP 153/75
[2019-09-10] MEDS: LEVALBUTEROL 1.25 MG/0.5 ML CONCENTRATE NEB INH SCH ×4 (00:17→12:13)
[2019-09-10 06:00] VITALS: BP 154/80
[2019-09-10] MEDS: SODIUM CHLORIDE 0.9% INJ 10 ML SYR IV SCH (06:29)
[2019-09-10 06:43] LABS: HEMATOCRIT 26.1 % (36.0-47.0); MEAN CORPUSCULAR HEMOGLOBIN 29.7 pg (27.0-33.0); MEAN CORPUSCULAR HGB CONC 34.5 g/dl (32.0-36.5); MEAN CORPUSCULAR VOLUME 86.1 fl (80.0-96.0); PLATELET COUNT, AUTOMATED 338 10^3/uL (150-450); RED BLOOD COUNT 3.03 10^6/uL (4.00-5.40); WHITE BLOOD COUNT 14.7 10^3/uL (4.0-10.0)
[2019-09-10] MEDS: LACTOBACILLUS ACIDOPHILUS CAP (BACID) PO SCH (09:54)
[2019-09-10] MEDS: CHLORHEXIDINE GLUCONATE 0.12 % 15ML UDC (PERIDEX ORAL RINSE) MT SCH (09:54)
[2019-09-10] MEDS: FERROUS SULFATE 300MG/5ML UDC LIQUID PO SCH (09:54)
[2019-09-10 09:55] LABS: BLOOD UREA NITROGEN 19 MG/DL (7-18); CALCIUM LEVEL 7.5 MG/DL (8.8-10.2); CARBON DIOXIDE LEVEL 19 MEQ/L (21-32); CHLORIDE LEVEL 114 MEQ/L (98-107); CREATININE FOR GFR 0.71 MG/DL (0.55-1.30); GLOMERULAR FILTRATION RATE > 60.0 (>32); GLUCOSE, FASTING 86 MG/DL (70-100); POTASSIUM SERUM 3.5 MEQ/L (3.5-5.1); SODIUM LEVEL 140 MEQ/L (136-145)
[2019-09-10] MEDS: VITAMIN D 1,000 INTERNATIONAL UNITS TABLET PO SCH (09:55)
[2019-09-10 09:58] VITALS: BP 134/68
[2019-09-10] MEDS: COLCHICINE 0.6 MG TAB PO SCH (09:58)
[2019-09-10] MEDS: ASPIRIN 81 MG CHEW TABLET PO SCH (09:58)
[2019-09-10] MEDS: ATENOLOL 12.5MG PER 1/2 TABLET PO SCH (09:58)
[2019-09-10] MEDS: LEFLUNOMIDE 20 MG PO SCH (11:04)
[2019-09-10] MEDS ORDERED: POTASSIUM CHLORIDE 10 MEQ SR TABLET PO ONE (12:00)
[2019-09-10] MEDS: cefTRIAXone SOD 2 GM in D5W MINI-BAG PLUS 50 ML IV SCH (13:04)
[2019-09-10] MEDS ORDERED: COLC1TAB13 PO (13:28)
[2019-09-10] MEDS ORDERED: RISATAB3 PO (13:28)
[2019-09-10] MEDS ORDERED: CEFT1INJ4 IV (13:28)
[2019-09-10] MEDS ORDERED: ATEN25TA PO (13:28)
--- NOTE | 2019-09-10 18:20 | REP ---
Procedure: PICC line insertion with Airam The procedure was performed under the direct supervision of Dr. Floyd. The risks and benefits of the procedure were explained to the patient and informed consent was obtained. The right brachial vein was localized using ultrasound guidance. The skin was prepped and draped in a sterile fashion. 1% lidocaine was used as a local anesthetic. Using ultrasound guidance the brachial vein was cannulated and a 0.018 guidewire was inserted and advanced to the SVC using fluoroscopic guidance. The needle was removed and a 4.5 Uzbek dilator and peel-away sheath was inserted over the guide wire. A 4.5 Uzbek single lumen catheter was cut to length of 33 cm. The dilator was removed and the catheter was inserted over the guide wire with the tip ending in the SVC. The peel-away sheath was removed and the catheter was flushed with heparinized saline as per Hospital protocol. The catheter was affixed to the skin and a sterile dressing was applied. The patient tolerated the procedure well and there were no immediate complications. 0.4 minutes of fluoro time was utilized for this procedure. Electronically Signed by ZEFERINO Chiu 09/10/2019 04:48 P Electronically Signed by Jonel Floyd MD 09/10/2019 06:12 P
--- NOTE | 2019-09-10 18:37 | DS.PDOC ---
Discharge Summary General Date of Admission Sep 01, 2019 at 09:10 Date of Discharge 09/10/19 Attending Physician: DASIA FLOYD MD Specialist/Consultants Involve: Gurvinder Pratt MD Specialist/Consultants Involve Infectious disease: Dr. Pratt Ortho: Dr. Kendrick Discharge Summary PROCEDURES PERFORMED DURING STAY: Left hip effusion drainage, PICC line insertion. DISCHARGE DIAGNOSES: - Human Metapneumovirus - Community acquired pneumonia - Mucous plugging with progressive pulmonary fibrosis - Symptomatic anemia with iron deficiency and anemia of chronic disease - Escherichia coli UTI - Left hip effusion with CPPD and gram negative rods - Persistent leukocytosis with elevated CRP - possibly 2/2 infected left hip - Demand ischemia with elevated troponins and moderate ST depression - LANA on CKD3 - SPEP with M spike, elevated [place] & Lambda Grade 1 diastolic dysfunction Hypertension Dyslipidemia History of CVA Severe dementia Left cranial nerve III palsy 2/2 microvascular infarct History of C. difficile HISTORY OF PRESENT ILLNESS: This 89-year-old female with baseline dementia who lives at home and is cared by for her daughter and mostly bedbound for the past few years along with wheelchair usage. She was brought in due to shortness of breath and lethargy with subjective fevers, dry cough. The family who brought her and had no other concerns or complaints, and denied any chest pain pressure or tightness or any syncope in the patient. In the ER she was afebrile, with leukocytosis and lactic acidosis elevated CRP. Respiratory panel showed human Metapneumovirus. Chest CT revealed progressing pulmonary fibrosis compared to prior imaging. HOSPITAL COURSE: Patient was admitted and had elevated pro calcitonin. She was started on moxifloxacin and supportive care. 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 Orthopedic was consulted and family elected to forego any interventions. The joint effusion was aspirated and found to have calcium pyrophosphate cyrstals & gram-negative rods, but culture did not grow any specific bacteria. She was continued on antibiotics & started on colchicine. Also during her stay, she was noted to have rising troponins as high as 0.[address] depression, without any acute cardiac complaints. She was otherwise stable. She was continued on her aspirin, atenolol, pravastatin, and troponin improved as she clinically improved. Her LANA resolved with IV fluids and withholding nephrotoxins. She was also found to have a gradually decreasing hemoglobin with baseline 10-11, and required 2 units of PRBC. Iron panel revealed iron deficiency anemia and anemia of chronic disease. She was also found to have persistent leukocytosis and rising CRP and fevers despite antibiotics. Repeat imaging of the chest revealed new cavitary lesions, possible pulmonary abscess. She was switched over to IV Zosyn for broad coverage and infectious disease was consulted. Per their recommendations, Zosyn was continued until cultures resulted, which were negative. She was ultimately switched over to ceftriaxone with a PICC line inserted for long-term IV antibiotics due to concern of possible infected left hip. Due to her functional status and dementia, she required long-term placement, discharged to [facility]. Of note, during her stay, elevated IgM Mahtowa & Lambda Light Chains in Urine and Serum. Peripheral smear revealed "Chronic anemia , going back to many years, now normochromic normocytic, most likely a multifactorial anemia with a component of anemia of chronic disease. Leukocytosis with shift to left. Minimal poikilocytosis." This was discussed with family with emphasis on outpatient follow-up. DISCHARGE MEDICATIONS: Please see below. ALLERGIES: Please see below. PHYSICAL EXAMINATION ON DISCHARGE: VITAL SIGNS: Please see below. General: NAD, sitting comfortably, pleasantly confused with baseline dementia, not alert or oriented HEENT: NCAT, EOMI, anicteric sclera, MMM, neck supple without JVD CV: RRR, no murmurs or clicks or rub. No edema RESP: course bronchial sounds throughout, no w/r/r, equal chest rise bilaterally ABD: soft, NT, ND. Benign EXTREMITIES: 2+ radial pulses b/l, able to move all extremities, left hip without any oozing or swelling NEURO: no focal deficits or acute changes LABORATORY DATA: Please see below. IMAGING: * 08/29/[address]: 1. Air-fluid levels in both maxillary and sphenoid sinuses consistent with acute sinusitis. 2. There is a focus of macrocystic encephalomalacia in the left parietal lobe in the posterior left medial cerebral artery territory grossly stable in comparison to the prior study consistent with a chronic infarct. 3. No acute findings. Senescent changes consistent with patient age as described above. * 08/29/19 CXR:There are no acute cardiopulmonary findings. There are chronic fibrotic changes * 08/29/19 CTA Chest:1. No evidence of acute, central pulmonary embolus. Limited peripheral pulmonary arterial evaluation secondary to motion 2. Pulmonary fibrosis, progressive since the prior CT. No evidence of pneumonia or concerning lung mass. Probable linear scarring or atelectasis in the posterior right upper lobe * 09/01/19 CXR: New 17 m nodular density in the right mid lung as described. No other interval change. * 09/01/19 2D echo: 1. Study is of acceptable technical quality.. The patient is in sinus rhythm. 2. Normal LV size with normal LV systolic function and grade 1 diastolic dysfunction. 3. No significant valvular disease.4. Likely normal central venous pressure. 5. Unable to estimate pulmonary artery pressure.Left ventricle is normal size and has grossly normal systolic function, I estimate ejection fraction (EF) 50-55%. * 09/02/[address]: Advanced rapidly progressive erosive arthropathy involving the left hip with erosion of the bulk of the femoral head and significant erosion on the acetabular side of the joint. There is a large effusion containing mineralized fluid content. There is some periarticular extra- articular soft tissue swelling about the left hip as well. While arthropathy secondary AVN of the left hip is a possibility, the changes are unusually progressive and fairly rapid. Low grade septic arthropathy is also a possibility. * 09/04/19 ultrasound guided aspiration of left hip: Using ultrasound guidance, an 5-Kinyarwanda multi side-hole Skater catheter was inserted using trocar technique. Approximately 0.5 ml of red colored fluid was withdrawn and sent to the lab for further analysis. * 09/06/19 abdominal ultrasound: Grossly negative right upper quadrant ultrasound, status post cholecystectomy. * 09/06/19 CXR: No change since prior study, 09/01/2019. * 09/07/19 CT chest: 1. New and worsened multifocal bilateral pulmonary airspace opacities likely representing infectious or inflammatory pneumonia, given the interval change compared to 08/29/2019. There is a new cavitary lesion within the right upper lobe, possibly a developing small pulmonary abscess. Among other infectious etiologies, mycobacterial (for example tuberculosis) and fungal etiologies should be considered. Follow-up is needed to ensure resolution of the airspace opacities to exclude neoplasm. 2. 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 3. Nonspecific opacification of the left maxillary sinus is incompletely imaged. In this patient with given history of fever, clinical correlation for sinusitis is needed. 4. Mild cardiomegaly with left ventricular enlargement. * 09/09/19 PICC line placement: PROGNOSIS: fair ACTIVITY: As tolerated. DIET: 2g sodium DISPOSITION: Long-term care at [facility] DISCHARGE INSTRUCTIONS: 1. Follow-up with PCP within a week 2. Return to ER for emergency DISCHARGE CONDITION: Stable. TIME SPENT ON DISCHARGE: Greater than 35 minutes. Vital Signs/I&Os Vital Signs Date Time Temp Pulse Resp B/P (MAP) Pulse Ox O2 Delivery O2 Flow Rate FiO2 09/10/19 09:58 94 134/68 09/10/19 06:00 98.5 20 96 Room Air I&O- Last 24 Hours up to 6 AM 09/10/19 06:00 Intake Total 750 ml Output Total 400 ml Balance 350 ml Laboratory Data Labs 24H Laboratory Tests 2 09/10/19 06:33: Nucleated Red Blood Cells % (auto) 0.0, Anion Gap 7L, Glomerular Filtration Rate > 60.0, Calcium Level 7.5L, C-Reactive Protein, Quantitative 17.00H CBC/BMP Laboratory Tests 09/10/19 06:33 Microbiology Microbiology 09/06/19 Blood Culture - Preliminary, Resulted No Growth after 72 hours. All specime... 09/06/19 Blood Culture - Preliminary, Resulted No Growth after 72 hours. All specime... 09/04/19 Urine Culture - Final, Complete Escherichia Coli 09/04/19 Gram Stain - Final, Resulted 09/04/19 Body Fluid Culture - Preliminary, Resulted Discharge Medications Scheduled Acetaminophen (Pain Reliever) 650 Mg Tab, 650 MG PO BID, (Reported) Aspirin (Aspirin) 325 Mg Tablet, 325 MG PO DAILY, (Reported) Atenolol (Atenolol) 25 Mg Tablet, 12.5 MG PO BID Calcium Carbonate/Vitamin D3 (Calcium 600-Vit D3 200 Tablet) 1 Tab Tab, 1 TAB PO BID, (Reported) Ceftriaxone in Is-Osm Dextrose (Ceftriaxone 1 gm-D5w Bag) 1 Gm/50 Ml Piggyback, 1 INJ IV Q24H Colchicine (Colchicine) 0.6 Mg Tablet, 0.6 MG PO DAILY Cyanocobalamin (Cyanocobalamin Injection) 1,000 Mcg/1 Ml Inj, 1,000 MCG IM MTHLY, (Reported) Ergocalciferol (Vitamin D2) (Vitamin D2) 2,000 Unit Tablet, 1,000 UNIT PO DAILY, (Reported) Ferrous Sulfate (Ferrous Sulfate) 325 Mg Tab, 325 MG PO DAILY, (Reported) Ipratropium/Albuterol Sulfate (Iprat-Albut 0.5-3(2.5) mg/3 ml) 1 Francine Francine, 1 FRANCINE INH BID, (Reported) L.acidoph/L.bulg/B.bif/S.therm (Josselyn-Bid Caplet) 1 Each Tablet, 2 EA PO BID Leflunomide (Leflunomide) 20 Mg Tab, 20 MG PO DAILY, (Reported) Pravastatin Sodium (Pravastatin Sodium) 20 Mg Tab, 20 MG PO QHS, (Reported) Scheduled PRN Albuterol Sulfate (Ventolin Hfa) 18 Gm Hfa.aer.ad, 2 PUFF INH Q4-6HP PRN for wheezing, (Reported) Tramadol HCl (Tramadol HCl) 50 Mg Tablet, 25 MG PO QHS PRN for SLEEP, (Reported) Miscellaneous Medications [Patient Comments] , (Reported) PATIENT'S FAMILY WILL PROVIDED FURTHER MEDICATION INFORMATION LATER IN THE MORNING. Allergies Coded Allergies: No Known Allergies (Verified , 09/22/05) GME ATTESTATION GME ATTESTATION My faculty preceptor for this patient encounter was physically present during the encounter and was fully available. All aspects of the patient interview, examination, medical decision making process, and medical care plan development were reviewed and approved by the faculty preceptor. The faculty preceptor is aware and concurs with the plan as stated in the body of this note and will attest to such by his/her cosignature. MATT ESPINO DO Sep 10, 2019 18:03
== END 2019-09-10 14:01 | DRG 152 ==
LOC: M ED 19:43 → M ED INP 19:44 → ENRESERV 08-30 03:19 → M MSPAV 08-30 05:35 → OBSVTOIN 09-01 09:10
PROVIDERS: ADMIT General Practice; ATTEND Internal Medicine
PROC: 30233N1 Transfusion of Nonautologous Red Blood Cells into Peripheral Vein, Percutaneous Approach (ICD-10-PCS; 2019-09-01)
PROC: 0S9B3ZX Drainage of Left Hip Joint, Percutaneous Approach, Diagnostic (ICD-10-PCS; principal; 2019-09-04 09:31)
PROC: 02HV33Z Insertion of Infusion Device into Superior Vena Cava, Percutaneous Approach (ICD-10-PCS; 2019-09-09)
DX: J06.9 Acute upper respiratory infection, unspecified (principal); J18.9 Pneumonia, unspecified organism; N17.9 Acute kidney failure, unspecified; I24.8 Other forms of acute ischemic heart disease; M87.052 Idiopathic aseptic necrosis of left femur; N39.0 Urinary tract infection, site not specified; F03.90 Unspecified dementia, unspecified severity, without behavioral disturbance, psychotic disturbance, mood disturbance, and anxiety; E78.5 Hyperlipidemia, unspecified; I70.0 Atherosclerosis of aorta; Z66 Do not resuscitate; H49.02 Third [oculomotor] nerve palsy, left eye; D50.9 Iron deficiency anemia, unspecified; M25.452 Effusion, left hip; I27.20 Pulmonary hypertension, unspecified; J84.10 Pulmonary fibrosis, unspecified; I69.398 Other sequelae of cerebral infarction; N18.3 Chronic kidney disease, stage 3 (moderate); I12.9 Hypertensive chronic kidney disease with stage 1 through stage 4 chronic kidney disease, or unspecified chronic kidney disease; B97.81 Human metapneumovirus as the cause of diseases classified elsewhere; D63.8 Anemia in other chronic diseases classified elsewhere; B96.20 Unspecified Escherichia coli [E. coli] as the cause of diseases classified elsewhere; D72.829 Elevated white blood cell count, unspecified; Z90.49 Acquired absence of other specified parts of digestive tract; Z77.22 Contact with and (suspected) exposure to environmental tobacco smoke (acute) (chronic); Z87.891 Personal history of nicotine dependence; Z79.82 Long term (current) use of aspirin; Z79.891 Long term (current) use of opiate analgesic; Z79.899 Other long term (current) drug therapy

== ENCOUNTER → 2019-09-12 | Outpatient (REF) | payer MEDICARE, MEDICAID ==
[~2019-09-12] MED LIST changes: +ATEN25TA PO; +CEFT1INJ4 IV; +COLC1TAB13 PO; +PATIENT COMMENTS; +RISATAB3 PO; +TRAM50TA2 PO; +VENTAER INH; +VITA200028 PO
--- NOTE | 2019-09-12 18:03 | REPVR ---
PROCEDURE INFORMATION: Exam: US Duplex Right Upper Extremity Veins, Limited Exam date and time: 09/12/2019 5:24 PM Age: 89 years old Clinical indication: Pain; Arm, upper and arm, lower; Right; Additional info: R/O dvt right upper extremity TECHNIQUE: Imaging protocol: Real-time Duplex ultrasound of the Right Upper Extremity with 2-D stephenson scale, color Doppler flow and spectral waveform analysis with image documentation. Limited exam focused on the right upper extremity veins. COMPARISON: No relevant prior studies available. FINDINGS: Right deep veins: Unremarkable. Axillary and brachial veins are patent throughout without thrombus. Normal Doppler waveforms. Normal compressibility and/or augmentation response. Visualized internal jugular and subclavian veins are patent. Right superficial veins: PICC line demonstrated in the brachial vein. Distal cephalic and brachial veins not visualized due to overlying bandages. Soft tissues: Unremarkable. IMPRESSION: 1. No DVT. 2. PICC line demonstrated in the proximal brachial vein. Electronically signed by: Uriah Mora On 09/12/2019 18:03:30 PM
== END ==
LOC: SKLAB3 15:40
PROVIDERS: ATTEND Internal Medicine
DX: R22.31 Localized swelling, mass and lump, right upper limb (principal); R60.9 Edema, unspecified

== ENCOUNTER → 2019-09-17 | Outpatient (REF) ==
[2019-09-17 17:49] LABS: BLOOD UREA NITROGEN 15 MG/DL (7-18); CALCIUM LEVEL 8.1 MG/DL (8.8-10.2); CARBON DIOXIDE LEVEL 21 MEQ/L (21-32); CHLORIDE LEVEL 114 MEQ/L (98-107); GLOMERULAR FILTRATION RATE > 60.0 (>32); GLUCOSE, FASTING 101 MG/DL (70-100); POTASSIUM SERUM 3.7 MEQ/L (3.5-5.1); SODIUM LEVEL 142 MEQ/L (136-145)
[2019-09-17 17:57] LABS: HEMATOCRIT 22.4 % (36.0-47.0); MEAN CORPUSCULAR HEMOGLOBIN 28.9 pg (27.0-33.0); MEAN CORPUSCULAR HGB CONC 31.3 g/dl (32.0-36.5); MEAN CORPUSCULAR VOLUME 92.6 fl (80.0-96.0); PLATELET COUNT, AUTOMATED 285 10^3/uL (150-450); RED BLOOD COUNT 2.42 10^6/uL (4.00-5.40); WHITE BLOOD COUNT 10.6 10^3/uL (4.0-10.0)
[2019-09-17 19:46] LABS: ERYTHROCYTE SEDIMENTATION RATE 126 mm/hr (0-30)
== END ==
LOC: SKLAB3 14:33
PROVIDERS: ATTEND Internal Medicine
DX: D64.9 Anemia, unspecified (principal)

== ENCOUNTER → 2019-09-24 | Outpatient (REF) | payer MEDICAID, MEDICARE ==
[2019-09-24 09:09] LABS: HEMATOCRIT 24.8 % (36.0-47.0); HEMOGLOBIN 7.8 g/dl (12.0-15.5); MEAN CORPUSCULAR HEMOGLOBIN 29.4 pg (27.0-33.0); MEAN CORPUSCULAR HGB CONC 31.5 g/dl (32.0-36.5); MEAN CORPUSCULAR VOLUME 93.6 fl (80.0-96.0); PLATELET COUNT, AUTOMATED 242 10^3/uL (150-450); RED BLOOD COUNT 2.65 10^6/uL (4.00-5.40); WHITE BLOOD COUNT 10.8 10^3/uL (4.0-10.0)
[2019-09-24 09:14] LABS: BLOOD UREA NITROGEN 16 MG/DL (7-18); CALCIUM LEVEL 8.5 MG/DL (8.8-10.2); CARBON DIOXIDE LEVEL 20 MEQ/L (21-32); CHLORIDE LEVEL 114 MEQ/L (98-107); CREATININE FOR GFR 0.55 MG/DL (0.55-1.30); GLOMERULAR FILTRATION RATE > 60.0 (>32); GLUCOSE, FASTING 92 MG/DL (70-100); POTASSIUM SERUM 3.9 MEQ/L (3.5-5.1); SODIUM LEVEL 140 MEQ/L (136-145)
[2019-09-24 09:38] LABS: ERYTHROCYTE SEDIMENTATION RATE 128 mm/hr (0-30)
== END ==
LOC: SKLAB3 07:00
PROVIDERS: ATTEND Internal Medicine
DX: I42.9 Cardiomyopathy, unspecified (principal)